=== PATIENT | male | born 1960 | race Caucasian/White ===

== ENCOUNTER 2023-08-13 15:10 | Emergency (ER) | payer OTHER, SELFPAY ==
[2023-08-13 15:17] VITALS: BP 143/91; PULSE 92; RESP 18; TEMP 36.8; O2SAT 95; BMI 33.2
--- NOTE | 2023-08-13 15:33 | ED.GENADUL1 ---
HPI - General Adult General Chief complaint: Upper Respiratory Infection Stated complaint: COUGH Time Seen by Provider: 08/13/23 15:13 Source: patient Mode of arrival: walk-in History of Present Illness HPI narrative: patient chest congestion and cough for almost two weeks. He saw his PCP last week and has been taking cefdinir, cough syrup and albuterol prescribed by his second cook and baker. He denied any fever or chills. Back on he had an episode of coughing where I couldn't stop and I cough so hard that I passed out. No syncopal events since then. No chest pain or pressure. no vomiting or diarrhea. Related Data Home Medications Medication Instructions Recorded Confirmed albuterol sulfate 2.5 mg/3 mL 2.5 mg inhalation Q4H 08/13/23 08/13/23 (0.083 %) solution for nebulization albuterol sulfate 90 mcg/actuation 1 puff inhalation Q4H PRN 08/13/23 08/13/23 aerosol inhaler shortness of breath or wheezing amlodipine 5 mg tablet 5 mg PO DAILY 08/13/23 08/13/23 cefdinir 300 mg capsule 300 mg PO BID 08/13/23 08/13/23 codeine 10 mg-guaifenesin 100 mg/5 5 ml PO Q6H PRN cough 08/13/23 08/13/23 mL oral liquid glycopyrrolate 1 mg tablet 1 mg PO BID 08/13/23 08/13/23 montelukast 10 mg tablet 10 mg PO QPM 08/13/23 08/13/23 Previous Rx's Medication Instructions Recorded prednisone 20 mg tablet 20 mg PO DAILY #9 tabs 08/13/23 Allergies Allergy/AdvReac Type Severity Reaction Status Date / Time No Known Drug Allergies Allergy Verified 08/13/23 15:19 Exam Narrative Exam Narrative: Nurses notes and vital signs reviewed and patient is not hypoxic. afebrile General: Well-appearing and in no apparent distress. Skin: Warm, dry, no pallor noted. Head: Normocephalic, atraumatic. Neck: Supple, non-tender. cervical lymphadenopathy Eye: Pupils are equal, round and EOMI. No scleral icterus. Ears, Nose, Mouth, and Throat: no nasal mucosal hypertrophy. Oral mucosa is moist Cardiovascular: Regular Rate and Rhythm without murmur, gallop or rub. Respiratory: No accessory muscle use or respiratory distress. Lungs are clear to auscultation, no wheezing, rales or rhonchi Musculoskeletal: normal ROM, no calf or popliteal tenderness, no lower extremity edema/swelling Neurological: A&O x4. No cranial nerve dysfunction observed. No truncal ataxia. Moves all extremities. Sensation intact. Psychiatric: Cooperative and interactive. Normal mood and affect. Constitutional Vital Signs, click to edit/add: Last Vital Signs Temp 98.2 F 08/13/23 15:17 Pulse 92 H 08/13/23 15:17 Resp 18 08/13/23 15:17 BP 143/91 H 08/13/23 15:17 Pulse Ox 95 08/13/23 15:17 Course Vital Signs Vital signs: Vital Signs Temperature 98.2 F 08/13/23 15:17 Pulse Rate 92 H 08/13/23 15:17 Respiratory Rate 18 08/13/23 15:17 Blood Pressure 143/91 H 08/13/23 15:17 Pulse Oximetry 95 08/13/23 15:17 Temperature 98.2 F 08/13/23 15:17 Pulse Rate 92 H 08/13/23 15:17 Respiratory Rate 18 08/13/23 15:17 Blood Pressure 143/91 H 08/13/23 15:17 Pulse Oximetry 95 08/13/23 15:17 Medical Decision Making [facility] Narrative Medical decision making narrative: patient and I talked about his vital signs, exam findings and was started the the patient will be discharged home with a prescription for steroids. He'll continue take his other medication and finished the antibiotics as prescribed. He can follow-up with his primary care provider as needed or return to emergency Department if he worsens. Discharge Plan Discharge Chief Complaint: Upper Respiratory Infection Clinical Impression: Bronchitis Patient Disposition: Home, Self-Care Time of Disposition Decision: 15:32 Prescriptions / Home Meds: New prednisone 20 mg tablet 20 mg PO DAILY Qty: 9 0RF Rx Instructions: two tabs daily for 3 days then one tab daily for 3 days No Action albuterol sulfate 90 mcg/actuation HFA aerosol inhaler 1 puff INHALATION Q4H PRN (Reason: shortness of breath or wheezing) albuterol sulfate 2.5 mg /3 mL (0.083 %) solution for nebulization 2.5 mg inhalation Q4H amlodipine 5 mg tablet 5 mg PO DAILY codeine-guaifenesin 10-100 mg/5 mL liquid 5 ml PO Q6H PRN (Reason: cough) glycopyrrolate 1 mg tablet 1 mg PO BID montelukast 10 mg tablet 10 mg PO QPM cefdinir 300 mg capsule 300 mg PO BID Instructions: Acute Bronchitis (ED) Stand Alone Forms: Portal Instructions Referrals: DEBORA HEIN [Primary Care Provider] - 1 week
== END 2023-08-13 15:40 | disposition home or self-care (01) ==
PROVIDERS: Emergency Provider Emergency Medicine; PCP Internal Medicine
DX: J40 Bronchitis, not specified as acute or chronic (principal); Z79.899 Other long term (current) drug therapy
CPT/HCPCS: 99283

== ENCOUNTER 2024-05-08 11:49 | Outpatient (OUT) | payer MEDICARE, SELFPAY ==
--- NOTE | 2024-05-08 12:06 | XR_ITS ---
The [address] [address] Patient Name: [facility] MRN: [id number] date: 1960 Sex: M Assigned Patient Location: LAB Current Patient Location: LAB Accession/Order Number: [id number] Exam Date: 05/08/2024 12:00 Report Date: 05/08/2024 12:17 At the request of: LINDA JEONG Procedure: XR chest 2V EXAM: XR chest 2V HISTORY: Chronic Cough R05.3 COMPARISON: 06/18/2019 TECHNIQUE: Upright PA and lateral chest x-ray FINDINGS: The heart is not enlarged and the vasculature is not distended. No acute infiltrate, effusion or pneumothorax is identified. The osseous structures are grossly intact. XR/XR chest 2V IMPRESSION: No acute infiltrate or evidence of cardiac decompensation. The overall appearance of the chest is essentially unchanged Electronically authenticated by: OLE WAHL Date: 05/08/2024 12:17
== END 2024-05-08 11:50 | disposition home or self-care (01) ==
LOC: LAB 11:52 → RAD 12:46
PROVIDERS: PCP Internal Medicine; Visit Provider Physician Assistant
DX: R05.3 Chronic cough (principal)
CPT/HCPCS: 71046

== ENCOUNTER 2024-08-27 20:29 | Emergency (ER) | payer MEDICARE, SELFPAY ==
--- OUTSIDE RECORDS SUMMARY | 2024-08-27 20:35 | XMS_ITS | CCD ---
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 Name Role Phone Marquise Miller Unavailable Unavail able Angela, Marquise Lincoln Unavailable Unavail able NICK BESS Unavailable Unavailable David Quintana Unavailable Unavailable Marquise Johnston Unavailable Unavailable Angela, Marquise Lincoln Unavailable Unavail able Angela, Marquise Lincoln Unavailable Unavail able NICK BESS Unavailable Unavailable NICK BESS Unavailable Unavailable PHYSICIAN, DEFAULT Unavailable Unavailable PHYSICIAN, DEFAULT Unavailable Unavailable PHYSICIAN, DEFAULT Unavailable Unavailable PHYSICIAN, DEFAULT Unavailable Unavailable PHYSICIAN, DEFAULT Unavailable Unavailable PHYSICIAN, DEFAULT Unavailable Unavailable MELVINA, DR CAZARES Attending Unavailable MELVINA, DR CAZARES Consulting Unavailable MELVINA, DR CAZARES Primary Care Unavailable MELVINA, DR CAZARES Admitting Unavailable WEST, DR MARCUS Rausch Consulting Unavailable REQUEST, DR NOEL LISTED Attending Unavaila ble REQUEST, DR NOEL LISTED Consulting Unavaila ble REQUEST, DR NOEL LISTED Admitting Unavaila ble MELVINA, DR CAZARES Primary Care Unavailable REQUEST, DR NOEL LISTED Admitting Unavaila ble REQUEST, NONE LISTED Attending Unavaila ble REQUEST, DR NOEL LISTED Consulting Unavaila ble MELVINA, DR CAZARES Primary Care Unavailable MELVINA, DR CAZARES Attending Unavailable MELVINA, DR CAZARES Consulting Unavailable MELVINA, DR CAZARES Primary Care Unavailable MELVINA, DR CAZARES Admitting Unavailable ZIEBER, DR ELIAS Flor Consulting Unavailable Nory, Gayle Unavailable Nick Bess MD Unavailable Nick Bess MD Primary Care Provider POLY ROSENBERG Attending Unavailable MARINA JEONG Attending Unavailable POLY ROSENBERG Attending Unavailable MARINA JEONG Attending Unavailable MARINA JEONG Attending Unavailable POLY ROSENBERG Attending Unavailable NICK BESS Attending Unavailable MARINA JEONG Attending Unavailable POLY ROSENBERG Attending Unavailable HEMMER, MARINA M Attending Unavailable Nick Bess MD Unavailable Allergies Allergy Classification Reported Allergen(s) Allergy Type Date of Onset Reaction(s) Facility (5 sources) COVID-19 Ad26 Vaccine(Rkylin) Drug allergy rash [employer] Other Medications Current Medications Medication Drug Class(es) Dates Sig (Normalized) Sig (Original) 30 ACTUAT fluticasone furoate 0.2 MG/ACTUAT / umeclidinium 0.0625 MG/ACTUAT / vilanterol 0.025 MG/ACTUAT Dry Powder Inhaler [Trelegy] (5 sources) Start: 06-20-2021 take 1 puff(s) by inhalation once daily Trelegy Ellipta 200-62.5-25 MCG/ACT 1 puff Inhalation Once a day Jun, Active Start: 06-20-2021 take 1 puff(s) by in halation once daily Trelegy Ellipta 200-62.5-25 MCG/ACT 1 puff Inhalation Once a day for 30 days Jun, Active Start: 06-20-2021 take 1 puff(s) by in halation once daily Trelegy Ellipta 200-62.5-25 MCG/INH 1 puff Inhalation Once a day Jun, Active Start: 06-20-2021 take 1 puff(s) by in halation once daily Trelegy Ellipta 200-62.5-25 MCG/INH 1 puff Inhalation Once a day for 30 day(s) Jun, Active albuterol 0.83 mg/ml inhalation solution (11 sources) beta2-Adrenergic Agonist Start: 04-23-2024 albut abraham (2.5 MG/3ML) 0.083% nebulizer solution Take 2.5 mg by nebulization every 6 (six) hours if needed 04/23/2024 Active Start: 08-07-2023 albuterol (2.5 MG/3ML) 0.083% nebulizer solution Take 2.5 mg by nebulization every 6 (six) hours if needed for wheezing or shortness of breath 0 08/07/2023 Active Start: 03-14-2023 take 1 puff(s) by in halation every four hours as needed Albuterol Sulfate HFA 108 (90 Base) MCG/ACT 1 puff as needed Inhalation every 4 hrs 13 Mar, 2023 Active Albuterol Sulfat e (2.5 MG/3ML) 0.083% 1 unit dose Inhalation four times a day DX J44.9 COPD for 30 days Active amLODIPine 5 mg oral tablet (10 sources) Dihydropyridine Calcium Channel Maurilio Start: 04-09-2024 take 1 tablet by mouth once daily amLODIPine (Norvasc) 5 MG tablet Indications: Benign essential hypertension (CMS/HCC) TAKE 1 TABLET BY MOUTH ONCE A DAY 90 tablet 3 04/09/2024 Active Start: 04-01-2023 take 1 tablet by loyd th once daily amLODIPine (Norvasc) 5 MG tablet Indications: Benign essential hypertension (CMS/HCC) TAKE ONE TABLET BY MOUTH ONCE DAILY 100 tablet 3 04/01/2023 Active Aspir-81 81 MG (5 sources) take 1 tablet by mouth once daily Aspir-81 81 MG 1 tablet Orally Once a day Active atorvastatin 20 mg oral tablet (5 sources) HMG-CoA Reductase Inhibitor Start: take 1 tablet by mouth in the morning atorvastatin (Lipitor) 20 MG tablet Indications: Mixed hyperlipidemia (CMS/HCC) Take 1 tablet (20 mg) by mouth in the morning. 100 tablet 3 10/01/2023 Active azelastine hydrochloride 0.206 mg/actuat metered dose nasal spray (5 sources) Histamine-1 Receptor Antagonist take 2 spray(s) nasal route once daily Azelastine HCl 0.15 % 2 sprays in each nostril Nasally Once a day Active 120 actuat budesonide 0.16 mg/actuat / formoterol fumarate 0.0048 mg/actuat / glycopyrrolate 0.009 mg/actuat metered dose inhaler (5 sources) Corticosteroid, beta2-Adrenergic Agonist Start: take 2 puff(s) by inhalation at bedtime Hfxyglp-Pnohmcljfdi-Y ormoterol (Breztri Aerosphere) 160-9-4.8 MCG/ACT aerosol Indications: Moderate persistent asthma with exacerbation (CMS/HCC) INHALE 2 PUFFS IN THE MORNING AND BEFORE BEDTIME 4.8 g 2 03/02/2024 Active Start: 09-17-2023 take 2 puff(s) by inhalation in the morning Oaitdzy-Wnhtzumqblp-Ldbivhmjtw (Breztri Aerosphere) 160-9-4.8 MCG/ACT aerosol Indications: Moderate persistent asthma with exacerbation (CMS/HCC) Inhale 2 puffs in the morning and 2 puffs before bedtime. 0 09/17/2023 Active cetirizine hydrochloride 10 mg chewable tablet (4 sources) Histamine-1 Receptor Antagonist cetirizine (ZyrTEC) 10 MG chewable tablet Chew 10 mg Daily Active Equate - (5 sources) Equate - as dire cted Orally Active Equate - as dire cted Orally Not-Taking fluorouracil 50 mg/ml topical cream (3 sources) Nucleoside Metabolic Inhibitor Start: 03-23-2024 End: 05-08-2024 fluorouracil (Efudex) 5 % cream Indications: Actinic keratosis Apply to directed areas on the scalp twice a day x 14 days. Dispense 30 day supply but only use for 14 days. 40 g 03/23/2024 05/08/2024 Discontinued (Therapy completed) fluticasone propionate 0.05 mg/actuat metered dose nasal spray (10 sources) Corticosteroid Start: 10-09-2023 take 1-2 spray(s) nasal route once daily in the morning fluticasone (Flonase) 50 MCG/ACT nasal spray Indications: Allergic rhinitis due to pollen, unspecified seasonality USE 1 - 2 SPRAYS IN EACH NOSTRIL ONCE EVERY MORNING *SHAKE GENTLY BEFORE FIRST USE PRIME PUMP AFTER USE CLEAN TIP AND REPLACE CAP* 48 mL 3 10/09/2023 Active Start: 09-17-2023 take 1-2 spray(s) na anabella route in the morning fluticasone (Flonase) 50 MCG/ACT nasal spray Indications: Allergic rhinitis due to pollen, unspecified seasonality Administer 1-2 sprays into each nostril in the morning. Shake gently. Before first use, prime pump. After use, clean tip and replace cap.. 16 g 5 09/17/2023 Active take 1 spray(s) nasa l route once daily Fluticasone Propionate 50 MCG/ACT 1 spray in each nostril Nasally Once a day Active glycopyrrolate 1 mg oral tablet (6 sources) Start: 03-25-2023 take 1 tablet by mouth twice daily glycopyrrolate (Robinul) 1 MG tablet Indications: Gastroesophageal reflux disease without esophagitis TAKE ONE TABLET BY MOUTH TWICE A DAY 60 tablet 6 03/25/2023 Active levoFLOXacin 500 mg oral tablet (2 sources) Quinolone Antimicrobial take 1 tablet by mouth every twenty-four hours levoFLOXacin 500 MG 1 tablet Orally Once a day Active loratadine 10 mg oral tablet (6 sources) take 1 tablet by mouth in the morning loratadine (Claritin) 10 MG tablet Take 10 mg by mouth in the morning. 0 Active montelukast 10 mg oral tablet (10 sources) Leukotriene Receptor Antagonist Start: 12-16-2023 take 1 tablet by mouth in the evening montelukast (Singulair) 10 MG tablet Indications: Chronic rhinitis Take 1 tablet (10 mg) by mouth in the evening 100 tablet 2 12/16/2023 Active Start: 03-07-2023 take 1 tablet by loyd th once daily in the evening montelukast (Singulair) 10 MG tablet Indications: Chronic rhinitis TAKE ONE TABLET BY MOUTH DAILY IN THE EVENING 30 tablet 11 03/07/2023 Active omeprazole 20 mg delayed release oral capsule (10 sources) Proton Pump Inhibitor Start: 09-19-2023 take 1 capsule by mouth once daily omeprazole (PriLOSEC) [address] capsule Indications: Gastroesophageal reflux disease without esophagitis Take 1 capsule (20 mg) by mouth 1 (one) time each day at the same time 100 capsule 3 09/19/2023 Active Start: 10-13-2020 take 1 capsule by mo ut once daily Omeprazole 20 MG 1 capsule 30 minutes before morning meal Orally Once a day Oct, Active predniSONE 10 mg oral tablet (2 sources) Start: 06-20-2021 predniSONE 10 MG 4 tabs x 3 days, 2 tabs x 3 days, 1 tab x 3 days, then stop. Orally Once a day for 9 days Jun, Active Completed/Discontinued Medications Medication Drug Class(es) Dates Sig (Normalized) Sig (Original) guaiFENesin / Phenylephrine / Phenylpropanolamine (2 sources) alpha-1 Adrenergic Agonist Guaifenex LA Not-Taking 1 ml triamcinolone acetonide 40 mg/ml prefilled syringe (4 sources) Corticosteroid Start: 4 End: 4 triamcinolone acetonide (Kenalog-40) injection 40 mg Start: 05-08-2024 End: 05-08-2024 triamcinolone acetonide (Kenalog-40) injection 40 mg Start: 05-08-2024 End: 05-08-2024 inject 40 mg by intramuscular injection once 40 mg, Intramuscular, Once, On Sat05/08/24 at 1145, For 1 dose Start: 05-08-2024 End: 05-08-2024 inject 40 mg by intramuscular injection once 40 mg, Intramuscular, Once, On Sat05/08/24 at 1145, For 1 dose Problems Active Problems Problem Classification Problem Date Documented Date Episodic/Chronic Asthma (20 sources) Reactive airway disease; Translations: [Unspecified asthma, uncomplicated] Onset: 06-20-2021 Resolved: 10-08-2023 Chronic Conduction disorders (5 sources) Bifascicular block; Translations: [Bifascicular block] Onset: 04-01-2023 04-01-2023 Chronic Disorders of lipid metabolism (10 sources) Raised low density lipoprotein cholesterol; Translations: [Pure hypercholesterolemia, unspecified] Onset: 04-01-2023 Resolved: 10-08-2023 04-01-2023 Chronic Esophageal disorders (19 sources) Gastroesophageal reflux disease; Translations: [Gastro-esophageal reflux disease without esophagitis] Onset: 06-20-2021 Resolved: 03-19-2022 Chronic Essential hypertension (7 sources) Benign essential hypertension; Translations: [Essential (primary) hypertension] Onset: 04-01-2023 04-01-2023 Chronic Osteoarthritis (5 sources) Osteoarthritis of right knee joint; Translations: [Unilateral primary osteoarthritis, right knee] Onset: 04-01-2023 04-01-2023 Chronic Other liver diseases (5 sources) Steatosis of liver; Translations: [Fatty (change of) liver, not elsewhere classified] Onset: 04-01-2023 04-01-2023 Chronic Other upper respiratory disease (5 sources) Allergic rhinitis; Translations: [Allergic rhinitis, unspecified] Onset: 04-01-2023 04-01-2023 Chronic Other upper respiratory disease (5 sources) Chronic laryngitis; Translations: [Chronic laryngitis] Onset: 04-01-2023 04-01-2023 Chronic Other upper respiratory disease (5 sources) Chronic rhinitis; Translations: [Chronic rhinitis] Onset: 04-01-2023 04-01-2023 Chronic Other upper respiratory infections (10 sources) Chronic bilateral maxillary sinusitis; Translations: [Chronic maxillary sinusitis] Onset: 04-01-2023 Resolved: 09-17-2023 04-01-2023 Chronic Residual codes; unclassified (5 sources) Sleep apnea; Translations: [Sleep apnea, unspecified] Chronic Residual codes; unclassified (3 sources) Sleep apnea, unspecified; Translations: [Sleep apnea G47.30] Onset: 06-20-2021 Resolved: 03-19-2022 Chronic Residual codes; unclassified (7 sources) Obstructive sleep apnea syndrome; Translations: [Obstructive sleep apnea (adult) (pediatric)] Onset: 04-01-2023 04-01-2023 Chronic Unclassified (3 sources) ELEV LVLS LIVER TRANSAMINASE LVLS; Translations: [ELEV LVLS LIVER TRANSAMINASE LVLS] Onset: 08-12-2021 Past or Other Problems Problem Classification Problem Date Documented Da te Episodic/Chronic Anxiety disorders (5 sources) Anxiety state; Translations: [Generalized anxiety disorder] Onset: 04-01-2023 Resolved: 09-17-2023 09-17-2023 Chronic Diabetes mellitus without complication (5 sources) Disorder of glucose metabolism; Translations: [Other abnormal glucose] Onset: 04-01-2023 04-01-2023 Episodic Joint disorders and dislocations; trauma-related (5 sources) Derangement of right knee; Translations: [Unspecified internal derangement of right knee] Onset: 04-01-2023 Resolved: 09-17-2023 09-17-2023 Chronic Mood disorders (4 sources) Mood disorders Onset: 10-02-2023 10-08-2023 Other liver diseases (5 sources) Enzyme level - finding; Translations: [Elevated transaminase level] Onset: 04-01-2023 04-01-2023 Episodic Other lower respiratory disease (11 sources) Chronic cough; Translations: [Chronic cough] Onset: 07-28-2021 Resolved: 10-08-2023 Episodic Other non-epithelial cancer of skin (6 sources) Basal cell carcinoma of truncal skin; Translations: [Basal cell carcinoma of skin of other part of trunk] Onset: 04-01-2023 04-01-2023 Episodic Other skin disorders (5 sources) Lump on finger; Translations: [Localized swelling, mass and lump, unspecified upper limb] Onset: 04-01-2023 Resolved: 09-17-2023 09-17-2023 Episodic Unclassified (1 source) ELEV LVLS LIVER TRANSAMINASE LVLS; Translations: [ELEV LVLS LIVER TRANSAMINASE LVLS] Onset: 08-08-2021 Results Test Name Value Interpretation Reference Range Facility Destr of lesionon 04-22-2024 Complexity: simple Destruction method: electrodesiccation and curettage Informed consent: discussed and consent obtained Informed consent comment: The risks of the procedure were discussed, including, but not limited to risks of scarring, darker or army ranger pigmentary changes, recurrence, infection, and incomplete removal Timeout: patient name, date of , surgical site, and procedure verified Timeout comment: Patient and provider identified site. Site was marked. Photo was taken and shown to patient, patient verified this is the correct site. Procedure prep: Patient was prepped and draped in usual sterile fashion Prep type: Chlorhexidine Anesthesia: the lesion was anesthetized in a standard fashion Anesthetic: 1% lidocaine w/ epinephrine 1-100,000 buffered w/ 8.4% NaHCO3 Curettage performed in three different directions: Yes Electrodesiccation performed over the curetted area: Yes Curettage cycles: 3 Lesion length (cm): 1.1 Lesion width (cm): 0.5 Margin per side (cm): 0 Final wound size (cm): 1.1 Hemostasis achieved with: electrodesiccation Outcome: patient tolerated procedure well with no complications Post-procedure details: wound care instructions given Post-procedure details comment: Post-procedure instructions were given verbally and in writing. The office will be contacted if the lesion fails to resolve despite treatment, or if a side effect develops such as abnormal crusting, scabbing, reddness, discharge, or tenderness. Additional details: Amount of lidocaine used: 3.0 cc Previous accession number: [id number] [facility] Destr of lesionOrdered By: Uzma Murray on 04-22-2024 [facility] [employer] [employer] Work Phone: US SINGLE QUAD RT UPPERon US SINGLE QUAD RT UPPER EXAMINATION: US SINGLE QUAD RT UPPER HISTORY: Elevated liver enzymes level COMPARISON: No relevant comparison available. FINDINGS: The visualized pancreas is normal in appearance The liver is normal in size and contour. Diffuse increase in hepatic echotexture with an area of hypodensity at the gallbladder fossa measuring 1.5 x 1.3 x 1.8 cm possibly an area of focal fatty sparing. Normal hepatopedal flow in the main portal vein The gallbladder is normal in size. The gallbladder wall measures 1.7 mm, normal. No cholelithiasis or gallbladder sludge or pericholecystic fluid. The common bile duct measures 5.1 mm, normal. Negative sonographic Helton sign The right kidney is normal in size, contour and echotexture measuring 10.8 x 5.6 x 6.3 cm per the cortex measures 1.7 cm. IMPRESSION: Increased hepatic echotexture suggesting hepatic steatosis Electronically authenticated by: MARCUS FERMIN Date: 2021-08-08 09:23 Normal [facility] XR CHEST 2 Von 07-28-2021 XR CHEST 2 V EXAMINATION: XR CHES T 2 V HISTORY: Chronic cough COMPARISON: XR chest 05/19/2019 FINDINGS: LUNGS: No significant pulmonary parenchymal abnormalities. Stable small dense nodule within lateral left lung base. VASCULATURE: No increased pulmonary vasculature. PLEURA: No pneumothorax, effusion, or pleural thickening. CARDIAC: No cardiomegaly or cardiac silhouette abnormality. MEDIASTINUM: No visible mass or adenopathy. BONES: No fracture or visible bone lesion. OTHER: Negative. IMPRESSION: 1. No acute cardiopulmonary process or significant chronic interstitial changes. Electronically authenticated by: ELIAS PICKARD Date: 2021-07-28 10:35 Normal [facility] History and Physicalon 02-10 History and Physical [id number]#1.00OTGTIFF [facility] Provider Orderson 02-10-2018 Provider Orders [id number]#1.00OTGTIFF [facility] Intraoperative Noteon 2017 Intraoperative Note [id number]#1.00OTGTIFF [facility] Coding Queryon 01-02-2018 Coding Query Please review the PreOperative diagnosis -- there seems to be a dragon/dictating error. Please correct it on the Operative Note.Thanks.Felice[E lectronically Signed on: 01/02/2018 18:59 EDT] Marquise Miller DO[Verified on: 01/02/2018 18:59 EDT] Marquise Miller DO[Transcribed on: 01/02/2018 11:50 EDT][facility] Coding Summaryon 01-02-2018 Coding Summary CODING DATE: 018 [facility] STATUS: Home PAYOR: Commercial Insurance APC DESCRIPTION 5113 Level 3 Musculoskeletal Procedures ADMIT DX: REASON FOR VISIT DX: M23.91 Unspecified internal derangement of right knee FINAL DX: PRINCIPAL: S83.281A Other tear of lateral meniscus, current injury, right knee, initial encounter SECONDARY: S83.241A Other tear of medial meniscus, current injury, right knee, initial encounter PYMT PROC APC STAT DESCRIPTION DOCTOR NAME DATE 24258 5113 J1 Arthroscopy, knee, Angela Marquise And 12/30/2017 surgical; with meniscectomy (medial AND lateral, including any meniscal shaving) including debridement/shaving of articular cartilage (chondroplasty), same or separate compartment(s), when performed RT Right side (used to identify procedures performed on the right side of the body) NOTE: The code number assigned matches the documented diagnosis and / or procedure in the patient's chart. However, the narrative phrase printed from the coding software may appear abbreviated, or result in slightly different terminology. Coded By: Yisel Hong Date Saved: 01/02/2018 12:00 pm [facility] Coding Summary CODING DATE: 018 [facility] STATUS: Home PAYOR: Commercial Insurance ADMIT DX: REASON FOR VISIT DX: S83.241A Other tear of medial meniscus, current injury, right knee, initial encounter FINAL DX: PRINCIPAL: S83.241A Other tear of medial meniscus, current injury, right knee, initial encounter SECONDARY: PROCEDURES DOCTOR NAME DATE NOTE: The code number assigned matches the documented diagnosis and / or procedure in the patient's chart. However, the narrative phrase printed from the coding software may appear abbreviated, or result in slightly different terminology. Coded By: Fabi Francis Date Saved: 01/02/2018 07:59 am [facility] Consent Formson 12-31-2017 Consent Forms [id number]#[address] [place] [address] Discharge Instructionson Discharge Instructions [id number]#[address] Intraoperative Noteon 2017 Intraoperative Note [id number]#[address] [place] [address] Medication Managementon Medication Management [id number]#[address] [place] [address] Outside Recordson 12-31-2017 Outside Records [id number]#[address] [place] [address] Telemetry Stripson 8 Telemetry Strips [id number]#[address] [place] [address] Anesthesia Noteon 12-30-2017 Anesthesia Note Patient: BARTOLO HEART : 57 years Sex: MALE : 56Associated Diagnoses: NoneAuthor: David Quintana MDPostoperative InformationPost Operative Note: Operative Day.Anesthetic utilized: General.Health StatusAllergies:Allergic Reactions (All)No known allergiesProblem list (past medical history):All ProblemsAsthma / SNOMED CT 090410450 / ConfirmedArrhythmia / SNOMED CT 7986783665 / ConfirmedSinus disorder / SNOMED CT 5365205336 / ConfirmedAcid reflux / SNOMED CT 173370484 / ConfirmedHypertension / SNOMED CT 8232285216 / ConfirmedPhysical ExaminationVS/MeasurementsV ital Signs (last 24 hrs) Last ChartedHeart Rate Peripheral 85 bpm (DEC 30 11:00)Resp Rate 18 br/min (DEC 30 11:00)SBP 107 mmHg (DEC 30 12:34)DBP 71 mmHg (DEC 30 12:34)SpO2 87 % (DEC 30 12:35)Review / ManagementCondition: Stable.AssessmentAnesthetic outcomeNo anesthetic complications noted.PlanTransfer/ Discharge: Patient can be discharged from PACU when criteria met.Condition good.[Electronically Signed on: 12/30/2017 12:45 EDT] David Quintana MD[Verified on: 12/30/2017 12:45 EDT] David Quintana MD [facility] Anesthesia Note Patient: BARTOLO HEART : 57 years Sex: MALE : [birth year]Associated Diagnoses: NoneAuthor: David Quintana MDPreoperative InformationAnesthesia history: Patient history: No difficult intubation, No malignant hyperthermia. Family history: No malignant hyperthermia.Review of SystemsConstitutional: Negative.Respiratory: Negative, No shortness of breath.Cardiovascular: No chest pain.Neurologic: Alert and oriented X4.Health StatusAllergies:Allergic Reactions (All)No known allergiesCurrent medications:Home Medications (7) ActiveamLODIPine 5 mg oral tablet 5 mg = 1 tab(s), PO, Dailyaspirin 81 mg oral delayed release tablet 81 mg = 1 tab(s), PO, Dailyfamotidine 20 mg oral tablet one tab(s), PO, DailyhydrOXYzine hydrochloride 25 mg oral tablet 25 mg = 1 tab(s), PO, Dailyomeprazole 40 mg oral delayed release capsule 40 mg = 1 cap(s), PO, DailySingulair 10 mg oral tablet 10 mg = 1 tab(s), PO, HSSymbicort 160 mcg-4.5 mcg/inh 2 puff(s), INH, BIDProblem list (past medical history):All ProblemsAsthma / SNOMED CT 945724457 / ConfirmedArrhythmia / SNOMED CT 1429577977 / ConfirmedSinus disorder / SNOMED CT 6936060430 / ConfirmedAcid reflux / SNOMED CT 642108793 / ConfirmedHypertension / SNOMED CT 7062430135 / ConfirmedHistoriesFamily History:No family history items have been selected or recorded.Procedure history:Pilar cyst ([id number]) in 2014 at 55 Years.Comments:12/27/2017 12:08 - Zoe Ingram LMIDDLE FINGER OF LEFT HANDFESS (functional endoscopic sinus surgery) diagnostic antroscopy via inferior meatus ([id number]) in 1996 at 37 Years.Social History Alcohol Assessment Beer, 3-5 times per week, 4 drinks/episode average. Previous treatment: None. Tobacco Assessment Never (less than 100 in lifetime) Tobacco Use:. Substance Abuse Assessment Substance use: Never..Social & Psychosocial TugpoqJfzvftx25/27/2018 Type: Beer Frequency: 3-5 times per week Average drinks per episode in last year: 4 Previous treatment: NoneSubstance Abuse12/27/2017 Substance use: TpbcbGnkxqsg17/27/2018 Smoking tobacco use: Never (less than 100 in l.Physical ExaminationVS/MeasurementsV ital Signs (last 24 hrs) Last ChartedHeart Rate Peripheral 85 bpm (DEC 30 11:00)Resp Rate 18 br/min (DEC 30 11:)SBP 137 mmHg (DEC 30 11:00)DBP 90 mmHg (DEC 30:00)SpO2 97 % (DEC 30:)Airway: Mallampati classification: II (soft palate, fauces, uvula visible). Temporomandibular joint mobility: Good. Mouth: Adequate opening. Neck: Full range of motion.Respiratory: Lungs are clear to auscultation.Cardiovascular : Regular rhythm.Neurologic: Alert, Oriented.Review / ManagementLaboratory ResultsPlanAmerican Society of Anesthesiologists#(ASA) physical status classification: Class II.Anesthetic Preoperative PlanAnesthesia: General.. Anesthetic plan, risks, benefits, and alternatives discussed with the patient and/or family. Patient verbalized understanding.[Electronical ly Signed on: 12/30/2017 11:09 EDT] David Quintana MD[Verified on: 12/30/2017 11:09 EDT] David Quintana MD Normal [facility] Inpatient Clinical Summaryon 12-30-2017 Inpatient Clinical Summary [facility] SURGERYClinical Discharge SummaryPERSON INFORMATIONName EFRAIN HEART Age 57 Years 56Sex MALE Language Niuean PCP [place] BESS Status [facility] 15[facility] Acct# Arrival 12/30/17 10:26:36Visit Reason KNEE ARTHROSCOPY Acuity LOS 004 02:46Address:[address] [facility] [id number]:PROVIDER INFORMATIONVITALS INFORMATIONVital Sign Triage LatestTemp OralTemp TemporalTemp IntravascularTemp AxillaryTemp Suhpju13 Sat 97 % 94 %Respiratory Rate 18 br/min 18 br/minPeripheral Pulse Rate 85 bpm 85 bpmApical Heart RateBlood Pressure 137 mmHg / 90 mmHg 129 mmHg / 89 mmHgComment:MEDICAL INFORMATIONAllergy Info:No known allergiesPrescriptions Given:Home Meds DisplayamLODIPine (amLODIPine 5 mg oral tablet) 1 tab(s) ( 5 mg ), PO, Daily, 0 Refill(s)aspirin (aspirin 81 mg oral delayed release tablet) 1 tab(s) ( 81 mg ), PO, Daily, 0 Refill(s)budesonide-formote rol (Symbicort 160 mcg-4.5 mcg/inh) 2 puff(s), INH, BID, # 6 gm, 0 Refill(s)famotidine (famotidine 20 mg oral tablet) one tab(s), PO, Daily, 0 Refill(s)hydrOXYzine (hydrOXYzine hydrochloride 25 mg oral tablet) 1 tab(s) ( 25 mg ), PO, Daily, # 30 tab(s), 0 Refill(s)montelukast (Singulair 10 mg oral tablet) 1 tab(s) ( 10 mg ), PO, HS, # 30 tab(s), 0 Refill(s)omeprazole (omeprazole 40 mg oral delayed release capsule) 1 cap(s) ( 40 mg ), PO, Daily, # 30 cap(s), 0 Refill(s)Medication List:Continue These Medications:amLODIPine (amLODIPine 5 mg oral tablet) 5 mg Oral every dayaspirin (aspirin 81 mg oral delayed release tablet) 81 mg Oral every daybudesonide-formoterol (Symbicort 160 mcg-4.5 mcg/inh) 2 puff(s) Inhalation 2 times a dayfamotidine (famotidine 20 mg oral tablet) one tab(s) Oral every dayhydrOXYzine (hydrOXYzine hydrochloride 25 mg oral tablet) 25 mg Oral every daymontelukast (Singulair 10 mg oral tablet) 10 mg Oral At bedtimeomeprazole (omeprazole 40 mg oral delayed release capsule) 40 mg Oral every dayComment:Lab and Radiology ResultsLaboratory or Other Results This Visit (last charted value for your 12/30/2017 visit) No Laboratory or Other Results This VisitDIET & ACTIVITYPatient Activity Level:Patient Diet:RegularPatient Activity Restrictions:DISCHARGE INFORMATIONDischarge Disposition:Discharge Location:DEPART REASON INCOMPLETE INFORMATIONPATIENT EDUCATION INFORMATIONInstructions:Evita dowling- Post Op Knee Arthroscopy [facility]Follow up:With: Address: When:Marquise Miller [address] [place] [address], [address] [place], [place] [id number] Business (2) 01/07/2018 8:30 AMWith: Address: When:NICK BESS [facility], [address] [place] [address] [address] [place], [place] [phone] Business (1)DIAGNOSISTorn meniscusComment:PHYS DOC NOTES Normal [facility] Inpatient Patient Summaryon 12-30-2017 Inpatient Patient Summary [address] [id number] patient Discharge InstructionsName: EFRAIN HEART WDOB: [birth year] Address: [address] [place] [address] Care Provider:Name: NICK BESSPhone: After you are discharged if you find you have any questions, please, call [phone] ext [phone] to speak to a nurse.Discharge Diagnosis: Torn meniscusIf you received any narcotics, sedation, or any other medication that causes drowsiness for the next 24 hours, unless otherwise directed:? Do not drive a car.? Do not operate machinery such as power tools, lawn mowers, drills, sewing machines, or stoves? Avoid alcoholic beverages and drugs for allergies, nerves, or sleep? Do not make important personal or business decisions or sign any legal documentsAdena Health System would like to thank you for allowing us to assist you with your healthcare needs. The following includes patient education materials and information regarding your injury/illness.EFRAIN HEART has been given the following list of follow-up instructions, prescriptions, and patient education materials:Follow-up InstructionsWith: Address: When:Marquise Miller [address] [place] [address], [address] [place] [address] Business (2) 01/07/2018 8:30 AMWith: Address: When:NICK BESS [facility], [address] [facility] [address] [place], [place] [id number] Business (1)MedicationsDuring the course of your visit, your medication list was updated with the most current information. The details of those changes are reflected below:Medications to Continue That Have Not ChangedOther MedicationsamLODIPine (amLODIPine 5 mg oral tablet) 1 tab(s) Oral every day.aspirin (aspirin 81 mg oral delayed release tablet) 1 tab(s) Oral every day.budesonide-formoterol (Symbicort 160 mcg-4.5 mcg/inh) 2 puff(s) Inhalation 2 times a day.famotidine (famotidine 20 mg oral tablet) one tab(s) Oral every day.hydrOXYzine (hydrOXYzine hydrochloride 25 mg oral tablet) 1 tab(s) Oral every day.montelukast (Singulair 10 mg oral tablet) 1 tab(s) Oral At bedtime.omeprazole (omeprazole 40 mg oral delayed release capsule) 1 cap Oral every day.It is important to always keep an active list of medications available so that you can share with other providers and manage your medications appropriately. As an additional courtesy, we are also providing you with your final active medications list that you can keep with you.amLODIPine (amLODIPine 5 mg oral tablet) 1 tab(s) Oral every day.aspirin (aspirin 81 mg oral delayed release tablet) 1 tab(s) Oral every day.budesonide-formoterol (Symbicort 160 mcg-4.5 mcg/inh) 2 puff(s) Inhalation 2 times a day.famotidine (famotidine 20 mg oral tablet) one tab(s) Oral every day.hydrOXYzine (hydrOXYzine hydrochloride 25 mg oral tablet) 1 tab(s) Oral every day.montelukast (Singulair 10 mg oral tablet) 1 tab(s) Oral At bedtime.omeprazole (omeprazole 40 mg oral delayed release capsule) 1 cap Oral every day.Take only the medications listed above. Contact your doctor prior to taking any medications not on this list.Diet & ActivityPatient Activity Level:Patient Diet: RegularPatient Activity Restrictions:Comment:Phil bentley education materials, if any, will display belowDR. BARRERA POST OPERATIVE KNEE ARTHROSCOPY INSTRUCTIONSSURGEONS WRITTEN INSTRUTCTIONS:-If you have been given a cryo cuff after surgery you should use it about 20 min/hour for the first 24 hours. After that it is optional. TIP: Many patients prefer to use it a little longer because it helps to reduce the pain.-You should take it easy for the first 3 days following surgery. You should be a ?couch potato? and get up to eat and go to the bathroom. After the first 3 days, you may gradually increase your activities as tolerated.-Change your dressing in 1 day. If the wounds are clean and dry you can cover them with a band-aid.-You may shower in 1 day. DO NOT submerge the wound under water as in a bathtub, swimming pool, or hot tub.-You may bear weight as tolerated. Using crutches or assisted devices are not required.-You should elevate your extremity-If you have any questions or concerns, please call the office at [phone] or BacteriaWhat?s got you sick?Antibiotics only treat bacterial infections. Viral illnesses cannot be treated with antibiotics. When an antibiotic is not prescribed, ask your healthcare professional for tips on how to relieve symptoms and feel better. Usual CauseIllness Viruses Bacteria Antibiotic NeededCold/Runny Nose NOBronchitis/Chest Cold (in otherwise healthy children and adults) NOWhooping Cough YesFlu NOStrep Throat YesSore Throat (except strep) NOFluid in the middle ear (otitis media with effusion) NOUrinary Tract Infection YesAntibiotics Aren?t Always the Answerwww.cdc.gov/getsmart GETSMARTKnow When Antibiotics Melania.[place] Department of Health and Human ServicesWright-Patterson Medical Centerers for Disease Control and Prevention May 2014 [facility] MAGR Intraoperative Recordon 12-30-2017 MAGR Intraoperative Record MAGR Intra-Op Record Summary Primary Physician: Marquise Miller DO Finalized Date/Time: 12/30/17 16:14:46 Pt. Name: EFRAIN HEART Rin Win/Sex: 1960 MALE Med Rec #: [id number] Physician: Marquise Miller DO Financial #: [id number] Pt. Type: D Room/Bed: / Admit/Disch: 12/30/17 10:26:36 - 12/30/17 14:24:00 Institution: Case Times MAGR Entry 1 Patient In Room Time 12/30/17 11:25:00 Out Room Time 12/30/17 12:42:00 Anesthesia Start Time 12/30/17 11:25:00 Stop Time 12/30/17 12:42:00 Surgery Start Time 12/30/17 11:53:00 Stop Time 12/30/17 12:34:00 Last Modified By: Anna He RN 12/30/17 14:01:22 Case Attendance MAGR Entry 1 Entry 2 Entry 3 Case Attendee Marquise Miller Robert M MD Sauer, Stephanie RN Andrew DO Role Performed Surgeon - Primary Anesthesiologist of Wing Mailer Machine Operator Record Time In 12/30/17 11:25:00 12/30/17 11:25:00 12/30/17 11:25:00 Time Out 12/30/17 12:42:00 12/30/17 12:42:00 12/30/17 12:42:00 Procedure Arthroscopy Knee(Right, Arthroscopy Knee(Right, Arthroscopy Knee(Right, Knee) Knee) Knee) Last Modified By: Anna He RN, Stephanie RN Sauer, Stephanie RN 12/30/17 14:02:51 12/30/17 14:02:51 12/30/17 14:02:51 Entry 4 Entry 5 Case Attendee Rosa Crabtree Aimee Buckner CST Role Performed Chief Compressor Station Engineer Scrub Personnel Time In 12/30/17 11:25:00 12/30/17 11:25:00 Time Out 12/30/17 12:42:00 12/30/17 12:42:00 Procedure Arthroscopy Knee(Right, Arthroscopy Knee(Right, Knee) Knee) Last Modified By: Anna He RN, Stephanie RN 12/30/17 14:02:51 12/30/17 14:02:51 Surgical Procedures MAGR Pre-Care Text: A.20 Verifies operative procedure, surgical site, and laterality Im.150 Develops individualized plan of care Entry 1 Procedure Arthroscopy Knee Primary Procedure Yes Primary Surgeon Marquise Miller Modifiers Right, Knee Salazar DO Surgeon Comment RIGHT KNEE ARTHROSCOPY Start 12/30/17 11:53:00 Stop 12/30/17 12:34:00 Anesthesia Type General Surgical Service Orthopedics Wound Class Clean Last Modified By: Anna He RN 12/30/17 14:02:58 Post-Care Text: O.730 The patient's care is consistent with the individualized perioperative plan of care General Case Data MAGR Pre-Care Text: A.350.1 Classifies surgical wound Entry 1 Case Information OR MAGR OR 02 Case Level Level 4 Wound Class Clean Specialty Orthopedics ASA Class 2 Diagnosis Preop Diagnosis INTERNAL DERANGEMENT Postop Same As Preop Yes Postop Diagnosis INTERNAL DERANGEMENT Last Modified By: Anna He RN 12/30/17 12:16:32 Post-Care Text: O.760 Patient receives consistent and comparable care regardless of the setting Time Out MAGR Entry 1 Time out date/time 12/30/17 11:52:00 All team members Yes have introduced themselves by name and role Surgeon, Yes Surgeon reviews Yes anesthesia, nurse critical or confirm patient, unexpected steps, site, procedure operative duration, anticipated blood loss Anesthesia team Yes Nursing team Yes reviews any reviews sterility patient-specific (including concerns indicator results) and equipment issues/concerns Antibiotic Antibiotic Yes Administration Time 11:30 prophylaxis given within the last 60 minutes Is essential Yes imaging displayed? Last Modified By: Anna He RN 12/30/17 12:16:58 Skin Prep MAGR Pre-Care Text: A.30 Verifies allergies Im.270 Performs skin preparation Im.270.1 Implements protective measures to prevent skin and tissue injury due to chemical sources Entry 1 Skin Prep Syntegrity Prep Agents (Im.270) Chlorhexidine Gluconate Prep By Anna He RN and Alcohol Prep Area (Im.270) Leg lower, Foot, Leg Skin Prep Agent Dry Yes upper Without Pooling Hair Removal Syntegrity Hair Removal Methods No hair removal performed Outcome Met (O.100) Yes Last Modified By: Anna He RN 12/30/17 12:17:46 Post-Care Text: E.10 Evaluates for signs and symptoms of physical injury to skin and tissue O.100 Patient is free from signs and symptoms of chemical injury Counts Verification MAGR Pre-Care Text: A.20 Verifies operative procedure, surgical site, and laterality A.20.2 Assesses the risk for unintended retained foreign body Im.20 Performs required counts Entry 1 Procedure Arthroscopy Knee(Right, Knee) Counts Verification Initial Counts Items included in Sponges, Sharps Initial Counts Manual the Initial Count Method Initial Counts Anna He RN, Initial Count Time 12/30/17 10:00:00 Performed By Aimee Calderón Counts Verification Final Counts Items Included in Sponges, Sharps Final Count Method Manual Final Count Final Count Status Correct Final Counts Anna He RN, Performed By Aimee Calderón Final Count Time 12/30/17 12:25:00 Surgeon notified of Yes final counts status Outcome Met (O.20) Yes Last Modified By: Anna He RN 12/30/17 12:18:19 Post-Care Text: E.50 Evaluates results of the surgical count O.20 Patient is free from unintended retained foreign objects Patient Care Devices MAGR Pre-Care Text: A.200 Assesses risk for normothermia regulation A.40 Verifies presence of prosthetics or corrective devices Im.280 Implements thermoregulation measures Im.60 Uses supplies and equipment within safe parameters Entry 1 Equipment Type FORCED WARM AIR Serial ?# [id number] Equipment Setting 43 DEGREES Last Modified By: Anna He RN 12/30/17 14:06:44 Post-Care Text: E.10 Evaluates signs and symptoms of physical injury to skin and tissue O.700 Patient is free from signs and symptoms of injury caused by extraneous objects Medication Administration MAGR Pre-Care Text: A.210 Identifies physiological status Im.220 Administers prescribed medications Entry 1 Time Administered 12/30/17 11:53:00 Medication EPI 1:1,000 0.3ML TO 3,000 ML 0.9% NORMAL SALINE Route of Admin IRRIG By Marquise Miller DO Outcome Met (O.130) Yes Last Modified By: Anna He RN 12/30/17 12:18:51 Post-Care Text: E.20 Evaluates response to medications O.130 Patient receives appropriately administered medication(s) General Comments: 2 bags prepared Dressing/Packing MAGR Pre-Care Text: A.350 Assesses susceptibility for infection Im.290 Administer care to wound sites Entry 1 Skin Prep Agent Yes Site Knee Removed Prior to Dressing? Site Details Right Dressing Item Details Dressing Item ABD, 4x4's (Im.290) Outcome Met Yes Last Modified By: Anna He RN 12/30/17 12:19:24 Post-Care Text: E.200 Evaluates progress of wound healing O.200 Patient's wound perfusion is consistent with or improved from baseline levels Departure from OR MAGR Entry 1 Present on Depart Oxygen Via Stretcher Post-op Destination PACU Skin DFO Condition Dry Description Condition Warm Description Report Given To Jaqueline Nguyen RN Airway Maintenance Patient Status Stable Oxygen in Use? Yes Airway Device Simple mask Flow Rate 10 Last Modified By: Anna He RN 12/30/17 12:21:22 Case Comments Finalized By: Anna He RN Document Signatures Signed By: Anna He RN 12/30/17 14:06 Anna He RN 12/30/17 16:14 Unfinalized History Date/Time Username Reason for Unfinalizing Freetext Reason for Unfinalizing 12/30/17 16:13 [facility] Joyce Documentation [facility] Primary Physician: Marquise Miller DO Finalized Date/Time: 12/30/17 13:21:10 Pt. Name: ARSENIO HEARTANALI Fernandes/Sex: 1960 MALE Med Rec #: [id number] Physician: Marquise Miller DO Financial #: [id number] Pt. Type: D Room/Bed: / Admit/Disch: 12/30/17 10:26:36 - Institution: PACU Case Times MAGR Entry 1 In PACU I 12/30/17 12:41:00 Discharge from PACU 12/30/17 13:10:00 I Last Modified By: Jaqueline Nguyen RN 12/30/17 13:08:24 Finalized By: Jaqueline Nguyen RN Document Signatures Signed By: Jaqueline Nguyen RN 12/30/17 13[facility] 12-[facility]2017 MAGR Postoperative Record MAGR Phase II Record Summary Primary Physician: Marquise Miller DO Finalized Date/Time: 12/30/17 14:25:01 Pt. Name: ARSENIO HEARTANALI Fernandes/Sex: 1960 MALE Med Rec #: [id number] Physician: Marquise Miller DO Financial #: [id number] Pt. Type: D Room/Bed: / Admit/Disch: 12/30/17 10:26:36 - Institution: Phase II Case Times MAGR Pre-Care Text: Patient is free from s/s of injury. Patient remains free from compromised physical state related to surgery or anesthesia. Patient comfort maintained. Patient/family verbalize understanding of discharge instructions. Entry 1 In PACU II 12/30/17 13:15:00 Discharge from PACU 12/30/17 14:24:00 II Last Modified By: Viry Rehman RN 12/30/17 14:24:58 Post-Care Text: The patient remains free from s/s of injury. Patient's vital signs stable, circulation maintained, return to preop mental and physical status, opsite/dressing intact, minimal or absent nausea and vomiting, tolerates po intake. Patient verbalizes adequate pain control. Patient/family express understanding of discharge instructions. Finalized By: Viry Rehman RN Document Signatures Signed By: Viry Rehman RN 12/30/17 14:25 [facility] 0 12-30-2017 MAGR Preoperative Record MAGR Pre-Op Record Summary Primary Physician: Marquise Miller DO Finalized Date/Time: 12/30/17 13:31:52 Pt. Name: EFRAIN HEART /Sex: 1960 MALE Med Rec #: [id number] Physician: Marquise Miller DO Financial #: [id number] Pt. Type: D Room/Bed: / Admit/Disch: 12/30/17 10:26:36 - Institution: Pre-Op Case Times MAGR Pre-Care Text: Patient will be optimally prepared for surgery. Patient is free from s/s of injury. Provide information to patient/family related to plan of care. Verify patient allergies. Confirm identity and verify consent before the operative or invasive procedure. Entry 1 Patient Arrival Time 12/30/17 10:58:00 Preop Departure 12/30/17 11:20:00 Last Modified By: Ramsey Saleh RN 12/30/17 13:31:50 Post-Care Text: Patient is prepared mentally and physically and is ready for surgery. The patient remains free from s/s of injury. Patient/family express understanding of plan of care and participate in decisions affecting his or her perioperrative plan of care. Allergies documented appropriately. Patient identifiers and consent correct. General Comments: pt arrives to psw ambulatory. Pt denies any pain, cp, sob, cough or flu like symptoms. Pt denies pacemaker/defibillator or sleep apnea. Finalized By: Ramsey Saleh RN Document Signatures Signed By: Ramsey Saleh RN 12/30/17 13:31 [facility] Operative Report - Surgeon/P bhanu 12-30-2017 Operative Report - Surgeon/Physician Preoperative diagnosis: Internal duration right knee was suspected incarcerated meniscusPostoperative diagnosis: Tear medial meniscus, tear lateral meniscusProcedure: Arthroscopic partial medial lateral meniscectomiesSurgeon: Blue Miller D.O.Anesthesia: Gen.Indications for surgery: The patient had intractable knee pain and the knee was locked and range of motion was prohibitive he had sharp pain in his clinical findings were those of a acute incarcerated meniscusEstimated blood loss: ScantComplications: NoneFindings: Lateral meniscus was displaced within the joint and incarcerated. The medial meniscus had a tear of the posterior hornProcedure summary: Patient was brought to the opposite suite and was positioned leg fraire the knee was noted to have restricted range of motion there is no obvious laxity. Leg was sterilely prepped and draped in usual fashion and then a timeout was taken operating roomAn inferior lateral portal was established and under direct visualization an inferior medial portal established.The patellofemoral joint articular cartilage in the femoral trochlea was worn down to the bone was approximately 3 cm area of raw bone.The medial compartment medial meniscus was torn posteriorly. Portion of this was displaced. Particular surface however was intact.Utilizing a resector partial medial meniscectomy is performed.In the notch the ACL and PCL were intactThe lateral compartment was not able to visualize into the lateral compartment because the meniscus was displaced and incarcerated. Able I freed this up and inspected for possibility repair but was simply shredded. Thus a partial meniscectomy was performed removing a large percentage of the posterior horn and lateral rim of the lateral meniscusThere were articular erosions in the lateral compartment but it was not [id number].Each compartment was revisited the joint was then irrigated and evacuated the portals were closed with nylon sutures. Sterile dressings were applied.[Electronically Signed on: 12/30/2017 12:48 EDT] Marquise Miller DO[Verified on: 12/30/2017 12:48 EDT] Marquise Miller note this correctionPreoperative diagnosis should read Internal derangement right knee with suspected incarcerated meniscus.[Electronically Signed on: 01/02/2018 18:44 EDT] Marquise Miller DO Normal [facility] Standardon 12-27-2017 eGFR (non-black) mL/min/{1.73_m2} Invalid Interpretation Code [facility] Comment on above: Performed By: #### 1 [id number] ####[facility] (DEFAULT)[address] [place] [id number] Result Comment: Ground Transportation Operator arpita Kidney disease could be indicated at eGFRs of less than 60 ml/min/1.73m2. Kidney Failure is indicated at less than 15 ml/min/1.73m2 Anion gap 12.0 mmol/L Normal 5.0-19.0 [facility] Comment on above: Performed By: #### 1 [id number] ####[facility] (DEFAULT)[address] [place] [address]165 BUN/Creatinine Ratio 14.0 mg/mg Normal 4.6-16.2 [facility] Comment on above: Performed By: #### 1 [id number] ####[facility] (DEFAULT)[address] [place] [address] 99570 Calcium 8.7 mg/dL Low 8.9-10.3 [facility] Comment on above: Performed By: #### 1 [id number] ####[facility] (DEFAULT)[address] [place] [address] 32041 Chloride 103 mmol/L Normal 101-111 [facility] Comment on above: Performed By: #### 1 [id number] ####[facility] (DEFAULT)[address] [place] [address] 30567 CO2 26 mmol/L Normal 21-32 [facility] Comment on above: Performed By: #### 1 [id number] ####[facility] (DEFAULT)[address] [place] [address] 77064 Creatinine 1.00 mg/dL Normal 0.90-1.30 [facility] Comment on above: Performed By: #### 1 [id number] ####[facility] (DEFAULT)[address] [place] [address] 11087 Glucose mass conc 92.0 mg/dL Normal 74.0-118.0 [facility] Comment on above: Performed By: #### 1 [id number] ####[facility] (DEFAULT)[address] [place] [address] 76788 Osmolality 274 mOsm/L Invalid Interpretation Code [facility] Comment on above: Performed By: #### 1 [id number] ####[facility] (DEFAULT)[address] [place] [address] 29805 Potassium molar conc 3.6 mmol/L Normal 3.6-5.1 [facility] Comment on above: Performed By: #### 1 [id number] ####[facility] (DEFAULT)[address] [place] [address] 81502 Sodium 137.0 mmol/L Normal 136.0-144.0 [facility] Comment on above: Performed By: #### 1 [id number] ####[facility] (DEFAULT)[address] [place] [address] 61303 Urea nitrogen 14 mg/dL Normal 8- [facility] Comment on above: Performed By: #### 1 [id number] ####[facility] (DEFAULT)[address] [place] [address]3524 Vital Signs Date Time Vital Sign Value Performing Clinician Facility 05-08-2024 11: Body height 177.8 cm Marina GOMEZ Work Phone: [facility] 05-08-2024 11:[id number] Body mass index (BMI) [Ratio] 36.5 kg/m2 Marina Jeong PA Work Phone: [facility] 05-08-2024 11:[id number] Body temperature 98.8 [degF] Marina Jeong PA Work Phone: [facility] 05-08-2024 11:040 Body weight 115.39 kg Marina Jeong PA Work Phone: [facility] 05-08-2024 11:[id number] Diastolic blood pressure 92 mm[Hg] Marina Jeong PA Work Phone: [facility] 05-08-2024 11:19-0400 Heart rate 84 /min Marina Greenemer PA Work Phone: [facility] 05-08-2024 11:19-0400 Respiratory rate 16 /min Marina Hemmer PA Work Phone: [facility] 05-08-2024 11:19-0400 SaO2% (BldA) [Mass fraction] 94 % Marina Greenemer PA Work Phone: [facility] 05-08-2024 11:19-0400 Systolic blood pressure 148 mm[Hg] Marina Greenemer PA Work Phone: [facility] 03-14-2023 10:30-0400 Body height 175.26 cm Gayle Nory Other [employer] Other 03-14-2023 10:30-0400 Body mass index (BMI) [Ratio] 35.88 kg/m2 Gayle Nory Other [employer] [facility] Other 03-14-2023 10:30-0400 Body temperature 98.1 [degF] Gayle Nory Other [employer] [facility] Other 03-14-2023 10:30-0400 Body weight 110.22 kg Gayle Nory Other [employer] Other 03-14-2023 10:30-0400 Diastolic blood pressure 94 mm[Hg] Gayle Nory Other [employer] [facility] Other 03-14-2023 10:30-0400 Respiratory rate 20 /min Gayle Nory Other [employer] Other 03-14-2023 10:30-0400 SaO2% (BldA) [Mass fraction] Gayle Nory Other [employer] [facility] Other 07-13-2023 10:30-0400 Systolic blood pressure 150 mm[Hg] Gayle Nory Other [employer] Other 03-19-2022 11:30-0400 Body height 175.26 cm Gayle Nory Other [employer] Other 03-19-2022 11:30-0400 Body mass index (BMI) [Ratio] 34.55 kg/m2 Gayle Nory Other [employer] [facility] Other 03-19-2022 11:30-0400 Body temperature 97 [degF] Gayle Nroy Other [employer] [facility] Other 03-19-2022 11:30-0400 Body weight 106.14 kg Gayle Nory Other [employer] Other 03-19-2022 11:30-0400 Diastolic blood pressure 100 mm[Hg] Gayle Nory Other [employer] [facility] Other 03-19-2022 11:30-0400 Respiratory rate 20 /min Gayle Nory Other [employer] Other 03-19-2022 11:30-0400 SaO2% (BldA) [Mass fraction] 95 % Gayle Nory Other [facility] Other 03-19-2022 11:30-0400 Systolic blood pressure 152 mm[Hg] Gayle Nory Other [employer] Other 06-20-2021 09:30-0400 Body height 175.26 cm Gayle Nory Other [employer] [facility] Other 06-20-2021 09:30-0400 Body mass index (BMI) [Ratio] 34.4 kg/m2 Gayle Nory Other [employer] Other 06-20-2021 09:30-0400 Body temperature 97.3 [degF] Gayle Nory Other [employer] [facility] Other 06-20-2021 09:30-0400 Body weight 105.69 kg Gayle Nory Other [employer] Other 06-20-2021 09:30-0400 Diastolic blood pressure 92 mm[Hg] Gayle Nory Other [employer] Other 06-20-2021 09:30-0400 Respiratory rate 20 /min Gayle Nory Other [employer] Other 06-20-2021 09:30-0400 SaO2% (BldA) [Mass fraction] 94 % Gayle Nory Other [employer] [facility] Other 06-20-2021 09:30-0400 Systolic blood pressure 144 mm[Hg] Gayle Nory Other [employer] Other Encounters Encounter Date Encounter Type Care Provider Facility Start: 05-08-2024 End: 05-08-2024 [employer]ine [employer] GOMEZ Work Phone: [facility] Start: 05-08-2024 End: 05-08-2024 [employer] Marina GOMEZ Work Phone: [facility] Start: 05-08-2024 End: 05-08-2024 Office outpatient visit 25 minutes Marina GOMEZ Work Phone: [facility] Comment on above: Moderate persistent asthma without complication (CMS/HCC) (Primary Dx); Chronic cough; Benign essential hypertension (CMS/HCC); Obstructive sleep apnea syndrome Start: 05-08-2024 End: 05-08-2024 ambulatory MARINA Hinton HEMMER Not Available Start: 04-22-2024 End: 04-22-2024 Patient encounter procedure Poly Rosenberg MD Work Phone: [facility] Comment on above: Basal cell carcinoma (BCC) of skin of other part of torso (Primary Dx) Start: 04-22-2024 End: 04-22-2024 ambulatory POLY Kwok PETITTI Not Available Start: 04-07-2024 End: 04-07-2024 ambulatory MARINA Hinton HEMMER Not Available Start: 03-23-2024 End: 03-23-2024 ambulatory POLY Kwok PETITTI Not Available Start: 02-12-2024 End: 02-12-2024 ambulatory MARINA Hinton HEMMER Not Available Start: 10-08-2023 Bamboo flowsheet Marina Hinton Hemme r PA Work Phone: [facility] Start: 10-08-2023 Bamboo flowsheet Marina Hinton Hemme r PA Work Phone: [facility] Start: 10-08-2023 End: 10-08-2023 ambulatory MARINA Hinton HEMMER Not Available Start: 09-23-2023 End: 09-23-2023 ambulatory POLY Kwok PETITTI Not Available Start: 09-17-2023 End: 09-17-2023 ambulatory MARINA Hinton HEMMER Not Available Start: 09-11-2023 End: 09-11-2023 ambulatory POLY Kwok PETITTI Not Available Start: 08-08-2023 End: 08-08-2023 ambulatory NICK Gabriel MELVINA Not Available Start: 08-07-2023 End: 08-07-2023 ambulatory Gayle Nory Other [employer] [facility] Other Start: 08-07-2023 Telephone encounter Gayle Nory [facility] Start: 03-14-2023 End: 03-14-2023 ambulatory Gayle Nory Other [employer] Other Start: 03-14-2023 Office outpatient vi sit 25 minutes Gayle Nory [facility] Start: 03-19-2022 End: 03-19-2022 ambulatory Gayle Nory Other [employer] [facility] Other Start: 03-19-2022 Office outpatient vi sit 25 minutes Gayle Nory [facility] Start: 10-18-2021 End: 10-18-2021 ambulatory Gayle Nory Other [facility] Other Start: 10-18-2021 Telephone encounter Gayle Nory [facility] Start: 08-08-2021 End: 08-09-[address] NICK EBSS Facility: Start: 07-28-2021 End: 07-29-[address] NICK BESS Facility: Start: 06-20-2021 Office outpatient vi sit 25 minutes Gayle Nory [facility] Start: 11-07-2020 End: 11-08-2020 ambulatory NONE LISTED REQUEST Facility: Start: 10-31-2020 End: 11-01-[address] NONE LISTED REQUEST Facility: Start: 12-30-2017 End: 12-30-2017 Ambulatory [facility] Facility:[facility] Start: 12-28-2017 End: 12-28-2017 Ambulatory [facility] Facility:[facility] Start: 11-26-2017 End: 11-27-2017 Ambulatory DEFAULT PHYSICIAN Facility:[facility] Start: 10-08-2017 End: 10-09-2017 Ambulatory DEFAULT PHYSICIAN Facility:[facility] Start: 10-07-2017 End: 10-08-2017 Ambulatory DEFAULT PHYSICIAN Facility:[facility] Procedures Date Procedure Procedure Detail Performing Clinician Start: 04-22-2024 DESTRUCTION OF LESION Adilson Rosenberg MD Work Phone: Plan of Treatment Date Care Activity Detail Author Start: 04-07-2025 Screening for malign ant neoplasm of colon Colorectal Cancer Screening [facility] Comment on above: Postponed from 06/21 (Patient Refused) Start: 03-23-2025 End: 03-23-2025 Patient encounter procedure 03/23/2025 9:00 AM EDT Office Visit [facility] [address] [place] [id number] Poly Rosenberg MD [address] [place] [address] [facility] Start: 10-08-2024 Medicare Annual Wellness (AWV) Medicare Annual Wellness (AWV) [facility] Start: 05-08-2024 End: 05-08-2025 XR Chest 2 Views XR chest 2 views Imaging Routine Chronic cough Expected: 05/08/2024, Expires: 05/08/2025 [facility] Work Phone: Comment on above: Expected: 05/08/2024 , Expires: 05/08/2025 Start: 05-08-2024 End: 05-08-2024 Patient encounter procedure 05/08/2024 11:30 AM EDT Office Visit [facility] [address] [place] [address] Marina Jeong PA [address] [place] [address] Arrived [facility] Comment on above: Arrived Start: 05-03-2024 Influenza vaccination Influenza Vacc ine (#1) [facility] Start: 03-23-2024 End: 03-23-2024 Patient encounter procedure 03/23/2024 9:20 AM EDT Office Visit [facility] [address] [place] [phone] Poly Rosenberg MD [address] [place] [address] [facility] Start: 10-08-2023 End: 10-08-2023 Patient encounter procedure 10/08/2023 8:00 AM EST Office Visit [facility] [address] [place] [address] Marina Jeong PA [address] [place] [address] Arrived [facility] Comment on above: Arrived Start: 1960 Medicare Annual Wellness (AWV) Medicare Annual Wellness (AWV) [facility] Start: 1960 Screening for malign ant neoplasm of colon [facility] Pulmonary function report Pulmonary Function Test Imaging Routine Moderate persistent asthma without complication (CMS/HCC) Chronic cough Ordered: 05/08/2024 [facility] Comment on above: Ordered: 05/08/2024 Immunizations Immunization Date Immunization Notes Care Provider Fa nadeemty 07-22-2023 Pneumococcal Conjuga te PCV 20 Marina Hemmer PA Work Phone: [facility] 07-01-2023 Influenza, Seasonal, Quadrivalent, Adjuvanted Marina Hemmer PA Work Phone: [facility] 07-01-2023 influenza virus vaccine, unspecified formulation Poly Rosenberg MD Work Phone: [facility] 2022 influenza, injectabl e, quadrivalent, preservative free Marina Hemmer PA Work Phone: [facility] 08-21-2021 COVID-19 Vaccine Moderna - Documentation Purposes Only Gayle Nory Other [employer] Other 07-12-2021 influenza, injectabl e, quadrivalent, preservative free Marina Hemmer PA Work Phone: [facility] 11-07-2020 COVID-19 Vaccine Digna - Documentation Purposes Only Gayle Nory Other [employer] Other 07-07-2020 zoster vaccine recombinant Marina Hemmer PA Work Phone: [facility] 06-13-2020 influenza, injectabl e, quadrivalent, contains preservative Marina Hemmer PA Work Phone: [facility] 04-09-2020 zoster vaccine recombinant Marina Hemmer PA Work Phone: [facility] 06-17-2019 seasonal influenza, intradermal, preservative free Marina Hemmer PA Work Phone: [facility] 06-07-2018 influenza, injectabl e, quadrivalent, contains preservative Marina GOMEZ Work Phone: [facility] 06-25-2017 zoster vaccine, live Marina GOMEZ Work Phone: [facility] 05-28-2017 seasonal influenza, intradermal, preservative free Marina GOMEZ Work Phone: [facility] 06-18-2016 influenza, injectabl e, quadrivalent, preservative free Marina GOMEZ Work Phone: [facility] Payers Date Payer Category Payer Medicare A[employer]NA MEDICARE A DVANTAGE AETNA MEDICARE REPLACEMENT [id number] 2022-Present [address] [place] [address] [id number] 2022 Medicare [id number] 1959 Self-pay 1960 Unknown [id number] 1958 Unknown [id number] [id number] 1958 Unknown [id number] [id number] 1958 Unknown [id number] [id number] 1958 Unknown [id number] [id number] 1958 Unknown [id number] [id number] 1958 Unknown [id number] [id number] 1958 Unknown [id number] [id number] 1958 Unknown [id number] [id number] 1958 Unknown [id number] [id number] 1958 Unknown [id number] [id number] 1958 Unknown [id number] [id number] Unknown [id number] Unknown Unknown [id number] Unknown [id number] Social History Date Type Detail Facility Start: 08-08-2023 End: 10-02-2023 Sex Assigned At [facility] Start: 09-16-2023 Tobacco smoking stat [facility] Never smoked tobacco [facility] History of tobacco use Passive smoker [facility] Start: 09-16-2023 Tobacco use and exposure Smoke less tobacco non-user [facility] Start: 09-23-2023 End: 05-08-2024 Alcohol intake Current drinker of alcohol (finding) [facility] Start: 08-08-2023 End: 10-02-2023 [facility] Within the last year , have you been afraid of your partner or ex-partner? No [facility] Within the last year , have you been humiliated or emotionally abused in other ways by your partner or ex-partner? Patient refused [facility] Are you now , , , , never or living with a partner? [facility] How hard is it for y ou to pay for the very basics like food, housing, medical care, and heating Not very hard [facility] Do you feel stress - tense, restless, nervous, or anxious, or unable to sleep at night because your mind is troubled all the time - these days [OSQ] Only a little [facility] (I/We) worried wheth er (my/our) food would run out before (I/we) got money to buy more. Never true [facility] Start: 09-16-2023 Alcohol Comment Caffeine intak e : 1-2 cups per day [facility] Start: 1960 Sex Assigned At Not on file [facility] Start: 11-14-2022 Gender identity Identifies as male gender (finding) [facility] Clinical Notes 06-20-2021 to 05-08-2024 PATRICIA Gibbs - 05/08/2024 11:30 AM EDTEarun Rosenberg MD - 04/22/2024 8:50 AM EDT Note Date & Type Note Facility 05-08-2024 History of Presen t illness Narrative Subjective Patient ID: Efrain Heart is a 63 y.o. male who presents for cough. Efrain is present today for follow up cough. He was seen on 04/07/24 for a cough and was prescribed Prednisone taper and was referred to ENT for his chronic cough. He had an appt scheduled with Dr. Gordon on 04/15/24 but cancelled d/t he has seen him in the past and did not feel like he helped him. He does have a piano maker and stopped seeing them too d/t he felt they did not help either. Has been using the nebulizer, did it yesterday twice and once this morning, took Benadryl last night and that helped him be able to sleep. He states the prednisone helps but then as soon as he finishes it the cough is back, dry cough, SOB, eye itchy, off/on runny, feels like he can't exhale without having to cough. Pineapple juice helps him. Symptoms are worse when he lays down. Has been using his Breztri regularly. [facility] has been riding his bike. [facility] leaving for [place] next week. Hoping to stay a month. Current Outpatient Medications on File Prior to Visit Medication Sig Dispense Refill albuterol (2.5 MG/3ML) 0.083% nebulizer solution Take 2.5 mg by nebulization every 6 (six) hours if needed amLODIPine (Norvasc) 5 MG tablet TAKE 1 TABLET BY MOUTH ONCE A DAY 90 tablet 3 atorvastatin (Lipitor) 20 MG tablet Take 1 tablet (20 mg) by mouth in the morning. 100 tablet 3 Txoincc-Tjvwgrpkokb-Gtdcuidudk (Breztri Aerosphere) 160-9-4.8 MCG/ACT aerosol INHALE 2 PUFFS IN THE MORNING AND BEFORE BEDTIME 4.8 g 2 cetirizine (ZyrTEC) 10 MG chewable tablet Chew 10 mg Daily fluticasone (Flonase) 50 MCG/ACT nasal spray USE 1 - 2 SPRAYS IN EACH NOSTRIL ONCE EVERY MORNING *SHAKE GENTLY BEFORE FIRST USE PRIME PUMP AFTER USE CLEAN TIP AND REPLACE CAP* 48 mL 3 montelukast (Singulair) 10 MG tablet Take 1 tablet (10 mg) by mouth in the evening 100 tablet 2 omeprazole (PriLOSEC) [address] capsule Take 1 capsule (20 mg) by mouth 1 (one) time each day at the same time 100 capsule 3 [DISCONTINUED] fluorouracil (Efudex) 5 % cream Apply to directed areas on the scalp twice a day x 14 days. Dispense 30 day supply but only use for 14 days. 40 g 0 No current facility-administered medications on file prior to visit. I have reviewed and reconciled the history and medication list with the patient today. No Known Allergies Social History Tobacco Use Smoking status: Never Passive exposure: Yes Smokeless tobacco: Never Vaping Use Vaping status: Never Used Substance Use Topics Alcohol use: Yes Alcohol/week: 1.0 - 2.0 standard drink of alcohol Types: 1 - 2 Standard drinks or equivalent per week Comment: Caffeine intake : 1-2 cups per day Drug use: Never Family History Problem Relation Name Age of Onset Pancreatic cancer Mother Heart disease Father Cancer Sister Cynthia heart Diabetes Maternal Grandfather Melanoma Neg Hx Past Medical History: Diagnosis Date Actinic keratosis Asthma (CMS/HCC) Basal cell carcinoma Cataract Deviated septum GERD (gastroesophageal reflux disease) History of being hospitalized 05/19/2019 Passed out asthma had chest xray and cat scan History of stress test 10/18/2017 EF 65% Hypertension (CMS/HCC) Past Surgical History: Procedure Laterality Date KNEE SURGERY Right 12/30/2017 RT knee med/lat menisectomy DR Miller OTHER SURGICAL HISTORY 10/28/2014 E/O STM LMF/ SBS SINUS SURGERY 1998 Visit Vitals BP (!) 148/92 Pulse 84 Temp 98.8 F Resp 16 Ht 5' 10 Wt 254 lb 6.4 oz SpO2 94% BMI 36.50 kg/m Smoking Status Never BSA 2.38 m Review of Systems Constitutional: Negative for chills, fatigue and fever. HENT: Positive for voice change. Eyes: Positive for itching. Respiratory: Positive for cough. Negative for shortness of breath and wheezing. Cardiovascular: Negative for chest pain, palpitations and leg swelling. Gastrointestinal: Negative for abdominal pain, constipation, diarrhea, nausea and vomiting. Skin: Negative for rash. Objective Physical Exam Constitutional: General: He is not in acute distress. Appearance: He is obese. HENT: Head: Normocephalic and atraumatic. Mouth/Throat: Comments: Voice hoarse Eyes: General: No scleral icterus. Cardiovascular: Rate and Rhythm: Normal rate and regular rhythm. Heart sounds: No murmur heard. Pulmonary: Effort: Pulmonary effort is normal. No respiratory distress. Breath sounds: Normal breath sounds. Decreased air movement (Lower) present. No wheezing, rhonchi or rales. Comments: Occasional dry cough. Able to speak in complete sentences Musculoskeletal: General: No swelling. Skin: General: Skin is warm and dry. Neurological: General: No focal deficit present. Mental Status: He is alert and oriented to person, place, and time. Psychiatric: Mood and Affect: Mood normal. Behavior: Behavior normal. Assessment/Plan Diagnoses and all orders for this visit: Moderate persistent asthma without complication (CMS/HCC) - Pulmonary Function Test - triamcinolone acetonide (Kenalog-40) injection 40 mg Continue Breztri regularly. Encouraged pt to continue to use the nebulizer prn. Will obtain PFT for further evaluation at this time. Will notify pt of the results once received. He would like to have this done at [facility]. Can try Duoneb in the future if needed. Chronic cough - XR chest 2 views; Future - Pulmonary Function Test - triamcinolone acetonide (Kenalog-40) injection 40 mg Provided pt with Kenalog 40 mg IM today. He tolerated this well. Pt cancelled appt with ENT. States has seen ENT and Pulmonology in the past without benefit. Have treated pt's allergies, reflux, and asthma. Advised pt that depending on the results of updated testing, he may have to follow up with a specialist for further care. Benign essential hypertension (CMS/HCC) BP elevated today. Likely due to recent steroid use. Will recheck at next appt. May need to adjust medication. Obstructive sleep apnea syndrome Denies CPAP use, declines referral for updated sleep study to obtain one. Follow up if symptoms worsen or fail to improve. documented in this encounter [facility] 04-22-2024 History of Presen t illness Narrative Images from the original note were not included. Subjective Efrain Heart is a 63 y.o. male who presents for the following: Follow-up. Location: right lower leg Date of biopsy: 03/23/2024 Diagnosis: Superficial basal cell carcinoma Here today for ED&C. All pertinent medical history, medications, and allergies were reviewed. General Exam: alert , oriented to person, place, and time , normal affect, well appearing Unaccompanied A focused exam completed based on patient reported problems, see below: 1. Basal cell carcinoma (BCC) of skin of other part of torso Right Lower Back Clute macule at biopsy site Destr of lesion Complexity: simple Destruction method: electrodesiccation and curettage Informed consent: discussed and consent obtained Informed consent comment: The risks of the procedure were discussed, including, but not limited to risks of scarring, darker or army ranger pigmentary changes, recurrence, infection, and incomplete removal Timeout: patient name, date of , surgical site, and procedure verified Timeout comment: Patient and provider identified site. Site was marked. Photo was taken and shown to patient, patient verified this is the correct site. Procedure prep: Patient was prepped and draped in usual sterile fashion Prep type: Chlorhexidine Anesthesia: the lesion was anesthetized in a standard fashion Anesthetic: 1% lidocaine w/ epinephrine 1-100,000 buffered w/ 8.4% NaHCO3 Curettage performed in three different directions: Yes Electrodesiccation performed over the curetted area: Yes Curettage cycles: 3 Lesion length (cm): 1.1 Lesion width (cm): 0.5 Margin per side (cm): 0 Final wound size (cm): 1.1 Hemostasis achieved with: electrodesiccation Outcome: patient tolerated procedure well with no complications Post-procedure details: wound care instructions given Post-procedure details comment: Post-procedure instructions were given verbally and in writing. The office will be contacted if the lesion fails to resolve despite treatment, or if a side effect develops such as abnormal crusting, scabbing, reddness, discharge, or tenderness. Additional details: Amount of lidocaine used: 3.0 cc Previous accession number: [id number] Emphasized to return to clinic for any signs of recurrence prior to next visit. Next Visit: as scheduled documented in this encounter [facility] 08-07-2023 Evaluation note Encounter Date Diagnosis Assessment Notes Aug, Mild intermittent asthma, uncomplicated (ICD-10 - J45.20) [facility] Other 07-13-2023 Evaluation note* Encounter Date Diagnosis Assessment Notes Treatment Notes Treatment Clinical Notes Mar, Reactive airway disease (ICD-10 - J45.909) Mar, GERD (gastroesophageal reflux disease) (ICD-10 - K21.9) Mar, Sleep apnea (ICD-10 - G47.30) Mar, Cough variant asthma (ICD-10 - J45.991) Use nasal rinse as recommended per Dr. Mustafa Mar, Mild intermittent asthma, uncomplicated (ICD-10 - J45.20) [facility] Other 07-18-2022 Evaluation note* Encounter Date Diagnosis Assessment Notes Treatment Notes Treatment Clinical Notes Mar, Reactive airway disease (ICD-10 - J45.909) Mar, GERD (gastroesophageal reflux disease) (ICD-10 - K21.9) Mar, Sleep apnea (ICD-10 - G47.30) Mar, Cough variant asthma (ICD-10 - J45.991) Mar, Mild intermittent asthma, uncomplicated (ICD-10 - J45.20) [facility] Other 02-16-2022 Evaluation note* Encounter Date Diagnosis Assessment Notes Treatment Notes Treatment Clinical Notes Oct, GERD (gastroesophageal reflux disease) (ICD-10 - K21.9) [facility] Other 10-19-2021 Evaluation note* Encounter Date Diagnosis Assessment Notes Treatment Notes Treatment Clinical Notes Jun, Reactive airway disease (ICD-10 - J45.909) Jun, GERD (gastroesophageal reflux disease) (ICD-10 - K21.9) Jun, Sleep apnea (ICD-10 - G47.30) Jun, Cough variant asthma (ICD-10 - J45.991) Rinse mouth after each use of Trelegy to help prevent thrush. Jun, Mild intermittent asthma, uncomplicated (ICD-10 - J45.20) Begin trial of Trelegy 200/62.5 [facility] Other Evaluation note* Diagnosis Basal cell carcinoma (BCC) of skin of other part of torso- Primary documented in this encounter [facility]* Diagnosis Moderate persistent asthma without complication (CMS/HCC)- Primary Chronic cough Cough Benign essential hypertension (CMS/HCC) Essential hypertension, benign Obstructive sleep apnea syndrome Obstructive sleep apnea (adult) (pediatric) [facility] Healthcare[facility] general Narrative - Reported* Type Description Date Medical History asthma Medical History Hypertension Medical History Esophageal reflux Medical History sleep apnea Medical History reactive airway disease Surgical History nasal surgery 1997 [employer] Other History general Narrative - Reported* Type Description Date Medical History asthma Medical History Hypertension Medical History Esophageal reflux Medical History sleep apnea Medical History reactive airway disease Medical History umbilical hernia Surgical History nasal surgery 1997 [employer] Other Summary Purpose Family History No Family History Records FoundNo Family History Records FoundNo Family History Records FoundNo Family History Records Found Advance Directives No Advanced Directives Records FoundNo Advanced Directives Records FoundNo Advanced Directives Records FoundNo Advanced Directives Records Found Additional Source Comments (unrecognized sect ion and content) No Status Records FoundNo Status Records FoundNo Status Records FoundNo Status Records Found INFORMATION SOURCE (unrecogn ized section and content) DATE CREATED AUTHOR 02/18/2018 [facility] DATE CREATED AUTHOR AUTHOR'S ORGANIZ ATION 02/21/2018 [facility] DATE CREATED AUTHOR AUTHOR'S ORGANIZ ATION 08/13/2021 [facility] DATE CREATED AUTHOR AUTHOR'S ORGANIZ ATION 05/10/2024 [facility] EPIC REASON FOR VISIT (unrecogniz ed section and content) Reason Comments Follow-up Care Teams (unrecognized sec tion and content) 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 Start Date End Date Nick Bess MD [address] [place] [address] PCP - Medical [place] [employer] 01/31/23 Nick Bess MD [address] [place] [address] PCP - General Internal Medicine 01/08/23 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 Start Date End Date Nick Bess MD [address] [place] [address] PCP - General Internal Medicine 01/08/23 Nick Bess MD [address] [place] [address] PCP - [employer] 10/03/23 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 - [employer] 10/03/23 FOR RECORDS PERTAINING TO PATIENTS WHO ARE OR HAVE BEEN ENROLLED IN A CHEMICAL DEPENDENCY/SUBSTANCEABUSE PROGRAM, SOME INFORMATION MAY BE OMITTED. This clinical summary was aggregated from multiple sources. Caution should be exercised in using it in the provision of clinical care. This summary normalizes information from multiple sources, and as a consequence, information in this document may materially change the coding, format and clinical context of patient data. In addition, data may be omitted in some cases. CLINICAL DECISIONS SHOULD BE BASED ON THE PRIMARY CLINICAL RECORDS. [facility] [employer] [facility]. provides no warranty or guarantee of the accuracy or completeness of information in this document.
[2024-08-27 20:39] VITALS: BP 134/82; PULSE 87; TEMP 36.7; O2SAT 93; BMI 33.2
--- NOTE | 2024-08-27 21:20 | ECG_ITS ---
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
--- NOTE | 2024-08-27 21:25 | ED_ITS ---
Documented by User: PATRICIA Ruth 08/27/24 21:51 HPI - SOB/Dyspnea General Chief Complaint: Shortness of Breath/Dyspnea Stated Complaint: shortness of breath Time Seen by Provider: 08/27/24 21:19 Source: patient Mode of arrival: walk-in Limitations: no limitations History of Present Illness HPI Narrative: Patient is a 64-year-old male who has been previously diagnosed with asthma by his PCP, never formally diagnosed with COPD who presents to the emergency department for 3-day history of exertional dyspnea and coughing with white sputum. Patient denies fevers, chest pain, hemoptysis. He states he had similar symptoms this past summer, his PCP prescribed prednisone twice and he had improvement of his symptoms. He has not had any peripheral edema. No medications taken prior to arrival. He states his daughter is a nurse who wanted him to have an EKG, he has a known right bundle branch block. He denies tobacco abuse. Related Data Home Medications ?Medication ?Instructions ?Recorded ?Confirmed albuterol sulfate 2.5 mg/3 mL 2.5 mg inhalation Q4H 08/13/23 08/13/23 (0.083 %) solution for nebulization albuterol sulfate 90 mcg/actuation 1 puff inhalation Q4H PRN 08/13/23 08/13/23 aerosol inhaler shortness of breath or wheezing amlodipine 5 mg tablet 5 mg PO DAILY 08/13/23 08/13/23 cefdinir 300 mg capsule 300 mg PO BID 08/13/23 08/13/23 codeine 10 mg-guaifenesin 100 mg/5 5 ml PO Q6H PRN cough 08/13/23 08/13/23 mL oral liquid glycopyrrolate 1 mg tablet 1 mg PO BID 08/13/23 08/13/23 montelukast 10 mg tablet 10 mg PO QPM 08/13/23 08/13/23 Previous Rx's ?Medication ?Instructions ?Recorded prednisone 20 mg tablet 20 mg PO DAILY #9 tabs 08/13/23 fcymyhyllnpvzoc-aisjhhuscmtddxb-TF 10 ml PO Q6H PRN cold symptoms 08/27/24 2 mg-30 mg-10 mg/5 mL oral syrup #200 mL (Bromfed DM) ondansetron 4 mg disintegrating 4 mg PO Q4H PRN nausea and 08/27/24 tablet vomiting 3 days #6 tabs prednisone 50 mg tablet 50 mg PO DAILY 3 days #3 tabs 08/27/24 Allergies Allergy/AdvReac Type Severity Reaction Status Date / Time No Known Drug Allergies Allergy Verified 08/27/24 20:46 Review of Systems ROS Constitutional Denies: fever or chills Ears, nose, mouth, and throat Denies: throat pain Cardiovascular Denies: chest pain Respiratory Reports: shortness of breath and cough; Denies: coughing up blood Gastrointestinal Denies: abdominal pain, nausea or vomiting Musculoskeletal Denies: back pain Integumentary/Breast Denies: rash Neurological Denies: numbness in extremities or weakness in extremities Hematologic/Lymphatic Denies: easy bruising or easy bleeding PFSH PFSH Social History Little interest or pleasure in doing things: not at all Feeling down, depressed, or hopeless: not at all Exam Narrative Exam Narrative: Gen.: Awake, alert, in no distress Head: Normocephalic, atraumatic ENT: Moist mucous membranes Respiratory: No respiratory distress, lungs clear bilaterally, speaks in full sentences, no wheezing or respiratory distress noted. Cardio: Regular rate and rhythm Extremities: Moves extremities equally, no pedal edema Psych: Normal mood and affect Neuro: No focal neuro deficit Skin: Warm, dry, intact Constitutional Vital Signs, click to edit/add: Last Vital Signs Temp 98.0 F 08/27/24 20:39 Pulse 75 08/27/24 21:55 Resp 18 08/27/24 21:55 BP 134/82 08/27/24 20:39 Pulse Ox 92 L 08/27/24 21:55 O2 Del Method Room Air 08/27/24 21:55 Course Vital Signs Vital signs: Vital Signs Temperature 98.0 F 08/27/24 20:39 Pulse Rate 87 08/27/24 20:39 Respiratory Rate 18 08/27/24 20:39 Blood Pressure 134/82 08/27/24 20:39 Pulse Oximetry 93 L 08/27/24 20:39 Oxygen Delivery Method Room Air 08/27/24 20:39 Temperature 98.0 F 08/27/24 20:39 Pulse Rate 75 08/27/24 21:55 Respiratory Rate 18 08/27/24 21:55 Blood Pressure 134/82 08/27/24 20:39 Pulse Oximetry 92 L 08/27/24 21:55 Oxygen Delivery Method Room Air 08/27/24 21:55 MDM - SOB/Dyspnea MDM Narrative Medical decision making narrative: 2149: Patient was ordered to have IV Solu-Medrol and a breathing treatment. Labs, chest x-ray are pending as well as respiratory swabs. Patient is in no distress, breathing and speaking easily at this time. Case is turned over to attending physician for disposition. SHARED APC VISIT, PHYSICIAN ATTESTATION: [id number] I performed a substantive part of the MDM during the patient?s E/M visit. I personally evaluated and examined the patient. I personally made or approved the documented management plan and acknowledge its risk of complications. Medical Records Attestation: I reviewed the patient's medical records. Lab Data Attestation: I reviewed the patient's lab results. Labs: Lab Results 08/27/24 08/27/24 Range/Units 21:32 21:45 WBC 10.2 (4.0-11.0) 10^3/uL RBC 4.31 L (4.70-6.10) 10^6/uL Hgb 15.1 (14.0-18.0) g/dL Hct 43.3 (42.0-54.0) % MCV 100.5 H (80.0-94.0) fL MCH 35.0 H (25.9-34.0) pg MCHC 34.9 (29.9-35.2) g/dL RDW 11.9 (11.0-15.0) % Plt Count 239 (150-450) 10^3/uL MPV 10.2 (9.5-13.5) fL Neut % (Auto) 69.1 (43.0-75.0) % Lymph % (Auto) 19.4 L (20.5-60.0) % [place] % (Auto) 8.6 (1.7-12.0) % Eos % (Auto) 1.7 (0.9-7.0) % Baso % (Auto) 0.7 (0.2-2.0) % Neut # (Auto) 7.1 H (1.4-6.5) 10^3/uL Lymph # (Auto) 2.0 (1.2-3.8) 10^3/uL [place] # (Auto) 0.9 H (0.3-0.8) 10^3/uL Eos # (Auto) 0.2 (0.0-0.7) 10^3/uL Baso # (Auto) 0.1 (0.0-0.1) 10^3/uL Abs Immat Gran (auto) 0.05 H (0.00-0.03) 10^3/uL Imm/Tot Granulo (auto) 0.5 (0.0-0.5) % PT 10.4 (9.0-11.6) sec INR 0.98 APTT 24.1 (22.3-36.2) sec VBG pH 7.376 (7.330-7.430) VBG pCO2 49.1 (40.0-52.0) mmHg Sodium 142 (136-145) mmol/L Potassium 4.1 (3.5-5.1) mmol/L Chloride 106 (98-107) mmol/L Carbon Dioxide 28.7 (21.0-32.0) mmol/L Anion Gap 11.4 BUN 8.0 (7.0-18.0) mg/dL Creatinine 1.15 (0.70-1.30) mg/dL Est GFR ( Amer) >60 (>=60 mL/min/1.73m^2) Est GFR (Non-Af Amer) >60 (>=60 mL/min/1.73m^2) BUN/Creatinine Ratio 7.0 Glucose 118 H (74-106) mg/dL Calcium 8.7 (8.5-10.1) mg/dL Total Bilirubin 0.7 (0.2-1.0) mg/dL AST 73 H (15-37) U/L ALT 106 H (16-63) U/L Alkaline Phosphatase 89 (46-116) U/L Troponin I High Sens 8.7 (4.0-76.1) pg/mL NT-Pro-B Natriuret Pep 44.0 (<=900.0) pg/mL Total Protein 7.3 (6.4-8.2) g/dL Albumin 3.8 (3.4-5.0) g/dL Globulin 3.5 g/dL Albumin/Globulin Ratio 1.1 Influenza Type A Ag Negative Influenza Type B Ag Negative RSV Antigen Not detected (NOT DETECTE) SARS-CoV-2 Ag (CV2AG) Negative (NEGATIVE) Discharge Plan Discharge Chief Complaint: Shortness of Breath/Dyspnea Clinical Impression: Exertional dyspnea, Asthma with acute exacerbation Patient Disposition: Home, Self-Care Time of Disposition Decision: 22:39 Condition: Fair Prescriptions / Home Meds: New wtfvggjqrvdwicr-qeoccnmco-DZ [Bromfed DM] 2-30-10 mg/5 mL syrup 10 ml PO Q6H PRN (Reason: cold symptoms) Qty: 200 0RF prednisone 50 mg tablet 50 mg PO DAILY 3 Days Qty: 3 0RF ondansetron 4 mg tablet,disintegrating 4 mg PO Q4H PRN (Reason: nausea and vomiting) 3 Days Qty: 6 0RF No Action albuterol sulfate 90 mcg/actuation HFA aerosol inhaler 1 puff INHALATION Q4H PRN (Reason: shortness of breath or wheezing) albuterol sulfate 2.5 mg /3 mL (0.083 %) solution for nebulization 2.5 mg inhalation Q4H amlodipine 5 mg tablet 5 mg PO DAILY codeine-guaifenesin 10-100 mg/5 mL liquid 5 ml PO Q6H PRN (Reason: cough) glycopyrrolate 1 mg tablet 1 mg PO BID montelukast 10 mg tablet 10 mg PO QPM cefdinir 300 mg capsule 300 mg PO BID prednisone 20 mg tablet 20 mg PO DAILY Qty: 9 0RF Rx Instructions: two tabs daily for 3 days then one tab daily for 3 days Print Language: Nauruan Instructions: Asthma (ED), How to Use a Nebulizer (ED), Dyspnea (ED), Wheezing (ED) Additional Instructions: Use your breathing treatments at home every 4 hours while you are awake. Continue Benadryl at nighttime. Continue using Mucinex. Take your next dose of prednisone tomorrow. Dr. Baker has been given to you to follow-up for pulmonology, or follow-up with the card checker she saw years ago. Return back to the ER for any other acute concerns Referrals: DEBORA HEIN [Primary Care Provider] - 1 week Documented by User: Mark Hammonds MD 08/27/24 22:45 HPI - SOB/Dyspnea General Chief Complaint: Shortness of Breath/Dyspnea Stated Complaint: shortness of breath Time Seen by Provider: 08/27/24 21:19 Related Data Home Medications ?Medication ?Instructions ?Recorded ?Confirmed albuterol sulfate 2.5 mg/3 mL 2.5 mg inhalation Q4H 08/13/23 08/13/23 (0.083 %) solution for nebulization albuterol sulfate 90 mcg/actuation 1 puff inhalation Q4H PRN 08/13/23 08/13/23 aerosol inhaler shortness of breath or wheezing amlodipine 5 mg tablet 5 mg PO DAILY 08/13/23 08/13/23 cefdinir 300 mg capsule 300 mg PO BID 08/13/23 08/13/23 codeine 10 mg-guaifenesin 100 mg/5 5 ml PO Q6H PRN cough 08/13/23 08/13/23 mL oral liquid glycopyrrolate 1 mg tablet 1 mg PO BID 08/13/23 08/13/23 montelukast 10 mg tablet 10 mg PO QPM 08/13/23 08/13/23 Previous Rx's ?Medication ?Instructions ?Recorded prednisone 20 mg tablet 20 mg PO DAILY #9 tabs 08/13/23 hjkojegkxyfvsfx-oytcdpjzpydnqyz-HU 10 ml PO Q6H PRN cold symptoms 08/27/24 2 mg-30 mg-10 mg/5 mL oral syrup #200 mL (Bromfed DM) ondansetron 4 mg disintegrating 4 mg PO Q4H PRN nausea and 08/27/24 tablet vomiting 3 days #6 tabs prednisone 50 mg tablet 50 mg PO DAILY 3 days #3 tabs 08/27/24 Allergies Allergy/AdvReac Type Severity Reaction Status Date / Time No Known Drug Allergies Allergy Verified 08/27/24 20:46 PFSH PFSH Social History Little interest or pleasure in doing things: not at all Feeling down, depressed, or hopeless: not at all Exam Constitutional Vital Signs, click to edit/add: Last Vital Signs Temp 98.0 F 08/27/24 20:39 Pulse 75 08/27/24 21:55 Resp 18 08/27/24 21:55 BP 134/82 08/27/24 20:39 Pulse Ox 92 L 08/27/24 21:55 O2 Del Method Room Air 08/27/24 21:55 Course Vital Signs Vital signs: Vital Signs Temperature 98.0 F 08/27/24 20:39 Pulse Rate 87 08/27/24 20:39 Respiratory Rate 18 08/27/24 20:39 Blood Pressure 134/82 08/27/24 20:39 Pulse Oximetry 93 L 08/27/24 20:39 Oxygen Delivery Method Room Air 08/27/24 20:39 Temperature 98.0 F 08/27/24 20:39 Pulse Rate 75 08/27/24 21:55 Respiratory Rate 18 08/27/24 21:55 Blood Pressure 134/82 08/27/24 20:39 Pulse Oximetry 92 L 08/27/24 21:55 Oxygen Delivery Method Room Air 08/27/24 21:55 MDM - SOB/Dyspnea MDM Narrative Medical decision making narrative: 2149: Patient was ordered to have IV Solu-Medrol and a breathing treatment. Labs, chest x-ray are pending as well as respiratory swabs. Patient is in no distress, breathing and speaking easily at this time. Case is turned over to attending physician for disposition. SHARED APC VISIT, PHYSICIAN ATTESTATION: [id number] I performed a substantive part of the MDM during the patient?s E/M visit. I personally evaluated and examined the patient. I personally made or approved the documented management plan and acknowledge its risk of complications. Dr Hammonds note Patient chest x-ray shows no acute cardiopulmonary disease, no infiltrate, no effusion. Patient does have a nebulizer at home. Patient will be placed on 3 days of prednisone, next dose will be tomorrow. Patient has been taking Mucinex. Patient also is using Benadryl at nighttime, which helps him sleep and helps dry him up. Patient last seen his card checker over 2 years ago, patient was referred to Dr. Baker to call locally to follow-up with card checker if needed. Patient feels that he is much better, ready to go home and sleep, very thankful for the treatments and medication there which did help improve his symptoms Lab Data Labs: Lab Results 08/27/24 08/27/24 Range/Units 21:32 21:45 WBC 10.2 (4.0-11.0) 10^3/uL RBC 4.31 L (4.70-6.10) 10^6/uL Hgb 15.1 (14.0-18.0) g/dL Hct 43.3 (42.0-54.0) % MCV 100.5 H (80.0-94.0) fL MCH 35.0 H (25.9-34.0) pg MCHC 34.9 (29.9-35.2) g/dL RDW 11.9 (11.0-15.0) % Plt Count 239 (150-450) 10^3/uL MPV 10.2 (9.5-13.5) fL Neut % (Auto) 69.1 (43.0-75.0) % Lymph % (Auto) 19.4 L (20.5-60.0) % [place] % (Auto) 8.6 (1.7-12.0) % Eos % (Auto) 1.7 (0.9-7.0) % Baso % (Auto) 0.7 (0.2-2.0) % Neut # (Auto) 7.1 H (1.4-6.5) 10^3/uL Lymph # (Auto) 2.0 (1.2-3.8) 10^3/uL [place] # (Auto) 0.9 H (0.3-0.8) 10^3/uL Eos # (Auto) 0.2 (0.0-0.7) 10^3/uL Baso # (Auto) 0.1 (0.0-0.1) 10^3/uL Abs Immat Gran (auto) 0.05 H (0.00-0.03) 10^3/uL Imm/Tot Granulo (auto) 0.5 (0.0-0.5) % PT 10.4 (9.0-11.6) sec INR 0.98 APTT 24.1 (22.3-36.2) sec VBG pH 7.376 (7.330-7.430) VBG pCO2 49.1 (40.0-52.0) mmHg Sodium 142 (136-145) mmol/L Potassium 4.1 (3.5-5.1) mmol/L Chloride 106 (98-107) mmol/L Carbon Dioxide 28.7 (21.0-32.0) mmol/L Anion Gap 11.4 BUN 8.0 (7.0-18.0) mg/dL Creatinine 1.15 (0.70-1.30) mg/dL Est GFR ( Amer) >60 (>=60 mL/min/1.73m^2) Est GFR (Non-Af Amer) >60 (>=60 mL/min/1.73m^2) BUN/Creatinine Ratio 7.0 Glucose 118 H (74-106) mg/dL Calcium 8.7 (8.5-10.1) mg/dL Total Bilirubin 0.7 (0.2-1.0) mg/dL AST 73 H (15-37) U/L ALT 106 H (16-63) U/L Alkaline Phosphatase 89 (46-116) U/L Troponin I High Sens 8.7 (4.0-76.1) pg/mL NT-Pro-B Natriuret Pep 44.0 (<=900.0) pg/mL Total Protein 7.3 (6.4-8.2) g/dL Albumin 3.8 (3.4-5.0) g/dL Globulin 3.5 g/dL Albumin/Globulin Ratio 1.1 Influenza Type A Ag Negative Influenza Type B Ag Negative RSV Antigen Not detected (NOT DETECTE) SARS-CoV-2 Ag (CV2AG) Negative (NEGATIVE) Discharge Plan Discharge Chief Complaint: Shortness of Breath/Dyspnea Clinical Impression: Exertional dyspnea, Asthma with acute exacerbation Patient Disposition: Home, Self-Care Time of Disposition Decision: 22:39 Condition: Fair Prescriptions / Home Meds: New rxdjmydodfmvuxc-praxzdyeo-PY [Bromfed DM] 2-30-10 mg/5 mL syrup 10 ml PO Q6H PRN (Reason: cold symptoms) Qty: 200 0RF prednisone 50 mg tablet 50 mg PO DAILY 3 Days Qty: 3 0RF ondansetron 4 mg tablet,disintegrating 4 mg PO Q4H PRN (Reason: nausea and vomiting) 3 Days Qty: 6 0RF No Action albuterol sulfate 90 mcg/actuation HFA aerosol inhaler 1 puff INHALATION Q4H PRN (Reason: shortness of breath or wheezing) albuterol sulfate 2.5 mg /3 mL (0.083 %) solution for nebulization 2.5 mg inhalation Q4H amlodipine 5 mg tablet 5 mg PO DAILY codeine-guaifenesin 10-100 mg/5 mL liquid 5 ml PO Q6H PRN (Reason: cough) glycopyrrolate 1 mg tablet 1 mg PO BID montelukast 10 mg tablet 10 mg PO QPM cefdinir 300 mg capsule 300 mg PO BID prednisone 20 mg tablet 20 mg PO DAILY Qty: 9 0RF Rx Instructions: two tabs daily for 3 days then one tab daily for 3 days Print Language: Nauruan Instructions: Asthma (ED), How to Use a Nebulizer (ED), Dyspnea (ED), Wheezing (ED) Additional Instructions: Use your breathing treatments at home every 4 hours while you are awake. Continue Benadryl at nighttime. Continue using Mucinex. Take your next dose of prednisone tomorrow. Dr. Baker has been given to you to follow-up for pulmonology, or follow-up with the card checker she saw years ago. Return back to the ER for any other acute concerns Referrals: DEBORA HEIN [Primary Care Provider] - 1 week
--- NOTE | 2024-08-27 21:32 | XR_ITS ---
The [address] [address] Patient Name: VIOLET HEART MRN: [id number] date: 1960 Sex: M Assigned Patient Location: ER Current Patient Location: Accession/Order Number: [id number] Exam Date: 08/27/2024 22:01 Report Date: 08/27/2024 22:56 At the request of: MING PARKS Procedure: XR chest 1V SINGLE VIEW CHEST: 08/27/2024 10:01 PM EST CLINICAL HISTORY:Shortness of breath COMPARISONS: None. TECHNIQUE: Single frontal view of the chest, utilizing portable technique. Portable radiography should be considered a technically compromised study. Strongly consider dedicated PA and lateral chest radiographs, as clinically indicated. FINDINGS: LINES AND TUBES: Cardiac monitoring leads and wires overlie the patient. CARDIAC SILHOUETTE: Within normal limits. MEDIASTINAL AND HILAR CONTOUR: Within normal limits. PULMONARY PARENCHYMA AND PLEURA: No consolidation, edema, effusion, or pneumothorax. OSSEOUS STRUCTURES:Nothing significant. OTHER COMMENTS:None. XR/XR chest 1V IMPRESSION: No acute cardiopulmonary disease. This report was generated with voice recognition software. Effort has been made to ensure accuracy of this report, however, occasional wording errors may persist. Please contact our office with any questions. Electronically authenticated by: JUAN CANDELARIA Date: 08/27/2024 22:56
--- NOTE | 2024-08-27 21:53 | PC.NURSE ---
this patient complains of increased shortness of breath with increased weight and movement onset last month, this patient can speak full sentences and shows no visible or audible signs of distress. this patient voices no other complaints
[2024-08-27] MEDS: ALBUTEROL SULFATE 2.5 MG/3 ML VIAL NEB IH (21:54)
[2024-08-27 21:55] VITALS: PULSE 75; O2SAT 92
[2024-08-27 22:03] LABS: PCO2 VBG 49.1 mmHg (40.0-52.0); pH VBG 7.376 (7.330-7.430)
[2024-08-27 22:05] LABS: Basophils Absolute Auto 0.1 10^3/uL (0.0-0.1); Basophils Percent Auto 0.7 % (0.2-2.0); Eosinophils Absolute Auto 0.2 10^3/uL (0.0-0.7); Eosinophils Percent Auto 1.7 % (0.9-7.0); Hematocrit 43.3 % (42.0-54.0); Hemoglobin 15.1 g/dL (14.0-18.0); Immature Granulocytes Abs Auto 0.05 10^3/uL (0.00-0.03); Immature Granulocytes Pct Auto 0.5 % (0.0-0.5); Lymphocytes Percent Auto 19.4 % (20.5-60.0); Mean Corpuscular HGB Conc 34.9 g/dL (29.9-35.2); Mean Corpuscular Volume 100.5 fL (80.0-94.0); Mean Platelet Volume 10.2 fL (9.5-13.5); Monocytes Absolute Auto 0.9 10^3/uL (0.3-0.8); Monocytes Percent Auto 8.6 % (1.7-12.0); Neutrophils Absolute Auto 7.1 10^3/uL (1.4-6.5); Neutrophils Percent Auto 69.1 % (43.0-75.0); Platelet Count 239 10^3/uL (150-450); Red Blood Count 4.31 10^6/uL (4.70-6.10); Red Cell Distribution Width 11.9 % (11.0-15.0); White Blood Count 10.2 10^3/uL (4.0-11.0)
[2024-08-27] MEDS: METHYLPREDNISOLONE SOD SUCC PF 125 MG/2 ML VIAL IVP (22:08)
[2024-08-27 22:13] LABS: Influenza Virus A Antigen Negative; Influenza Virus B Antigen Negative; Internal Control Within Normal Limits; Respiratory Syncytial Virus Not Detected (NOT DETECTE); SARS-CoV-2 Ag NEGATIVE (NEGATIVE)
[2024-08-27 22:14] LABS: INR 0.98; Partial Thromboplastin Time 24.1 sec (22.3-36.2); Prothrombin Time 10.4 sec (9.0-11.6)
[2024-08-27 22:28] LABS: Alanine Aminotransferase 106 U/L (16-63); Albumin Globulin Ratio 1.1; Albumin Level 3.8 g/dL (3.4-5.0); Alkaline Phosphatase 89 U/L (46-116); Anion Gap 11.4; Aspartate Amino Transferase 73 U/L (15-37); Bilirubin Total 0.7 mg/dL (0.2-1.0); Calcium 8.7 mg/dL (8.5-10.1); Carbon Dioxide 28.7 mmol/L (21.0-32.0); Chloride 106 mmol/L (98-107); Estimated GFR (African America >60 (>=60 mL/min/1.73m^2); Estimated GFR (Non-African Ame >60 (>=60 mL/min/1.73m^2); Globulin 3.5 g/dL; Glucose 118 mg/dL (74-106); Potassium 4.1 mmol/L (3.5-5.1); Sodium 142 mmol/L (136-145); Total Protein 7.3 g/dL (6.4-8.2); Troponin I High Sensitivity 8.7 pg/mL (4.0-76.1)
--- NOTE | 2024-08-27 22:54 | PC.NURSE ---
i gave this patient verbal and paper discharge orders along with 3 e-scripts, this patient voices yes to understanding these. at time of discharge this patient voices no concerns and shows no signs of distress
== END 2024-08-27 22:55 | disposition home or self-care (01) ==
PROVIDERS: Physician Assistant; Emergency Provider Emergency Medicine; PCP Internal Medicine
DX: J45.901 Unspecified asthma with (acute) exacerbation (principal); R06.09 Other forms of dyspnea
CPT/HCPCS: 36415; 71045; 80053; 82800; 83880; 84484; 85025; 85610; 85730; 87420; 87804; 87811; 93005; 94640; 96374; 99285; J2919

== ENCOUNTER 2025-03-09 12:28 | Emergency (ER) | payer MEDICARE, SELFPAY ==
--- OUTSIDE RECORDS SUMMARY | 2024-12-08 07:46 | XMS_ITS ---
Author Name Auto Generated Organization OHIP Care Team Providers Care Heat And Vent Aircraft Mechanic Name Role Phone LINDA JEONG Attending Unavailable DAMIAN DÍAZ Attending Unavailable BENY ROSENBERG Attending Unavailable LINDA JEONG Attending Unavailable LINDA JEONG Attending Unavailable LINDA JEONG Attending Unavailable BENY ROSENBERG Attending Unavailable LINDA JEONG Attending Unavailable DEBORA HEIN Attending Unavailable PROBLEMS No Problem Records Found PROCEDURES No Procedure Records Found RESULTS No Result Records Found ALLERGIES No Allergies Records Found ENCOUNTERS ADMIT/DISCHARGE ACCOUNT NUMBER ADMITTING ENCOUNTER CLASS LOCATION SOURCE 12/08/2024/ 5 [id number] Ambulatory Building:[facility] 11/24/2024/ 5 [id number] Ambulatory Building:[facility] 10/29/2024/ 5 [id number] Ambulatory Building:[facility] 09/22/2024/ 5 [id number] Ambulatory Building:[facility] 09/03/2024/ 5 [id number] Ambulatory Building:[facility] 05/08/2024/ 4 [id number] [facility] 04/22/2024/ 4 [id number] Ambulatory Building:PEGGY Serrano [facility] 04/07/2024/ 4 [id number] [facility] 03/23/2024/ 4 [id number] Ambulatory Building:PEGGY Serrano [facility] PAYERS ENCOUNTER GUARANTOR PAYER SUBSCRIBER SOURCE 12/08/2024 VIOLET Gar ALLANDOB: [place] [address]Bbx: (HP) Primary Insurance:AET MEDICARE ADVANTAGEPolicy Number: [id number] Date:2022-09-02 VIOLET Gar ALLANDOB: [id number] [place] [address] [facility] 11/24/2024 VIOLET Gar ALLANDOB: [place] [address]Fnu: (HP) Primary Insurance:AETNA MEDICARE ADVANTAGEPolicy Number: [id number] Date:2022-09-02 VIOLET Gar ALLANDOB: [id number] [place] [address] [facility] 10/29/2024 VIOLET Gar ALLANDOB: [place] [address]Nyr: (HP) Primary Insurance:AETNA MEDICARE ADVANTAGEPolicy Number: [id number] Date:2022-09-02 VIOLET PICKARDANDOB: [id number] [place] [address] [facility] 09/22/2024 VIOLET Gar ALLANDOB: [place] [address]Smz: (HP) Primary Insurance:AETNA MEDICARE ADVANTAGEPolicy Number: [id number] Date:2022-09-02 VIOLET Gar ALLANDOB: [id number] [address] [place] [address] [facility] 09/03/2024 VIOLET Gar ALLANDOB: [place] [address]Dsa: (HP) Primary Insurance:AETNA MEDICARE ADVANTAGEPolicy Number: [id number] Date:2022-09-02 VIOLET Gar ALLANDOB: [id number] [place] [address] [facility] 05/08/2024 VIOLET Gar ALLANDOB: [facility] [place] [address]Aut: (HP) Primary Insurance:AETNA MEDICARE ADVANTAGEPolicy Number: [id number] Date:2022-09-02 VIOLET Gar ALLANDOB: [id number] [place] [address] [facility] 04/22/2024 VIOLET Gar ALLANDOB: [place] [address]Ini: (HP) Primary Insurance:AETNA MEDICARE ADVANTAGEPolicy Number: [id number] Date:2022-09-02 VIOLET Gar ALLANDOB: [id number] [place] [address] [facility] 04/07/2024 VIOLET Gar ALLANDOB: [place] [address]Ewx: (HP) Primary Insurance:AETNA MEDICARE ADVANTAGEPolicy Number: [id number] Date:2022-09-02 VIOLET Gar ALLANDOB: [id number] [place] [address] [facility] PSYCHIATRIC 03/23/2024 VIOLET RAHMANOB: [place] [address]Zxs: () Primary Insurance:AETNA MEDICARE ADVANTAGEPolicy Number: [id number] Date:2022-09-02 VIOLET RAHMANOB: [id number] [place] [address] [facility] Medical [facility]
[2025-03-09] VITALS (24 sets, daily range): BP systolic 119–151; BP diastolic 74–81; PULSE 78–87; TEMP 36.9; O2SAT 89–95; BMI 34.0
--- NOTE | 2025-03-09 12:50 | ECG_ITS ---
The [facility] Test Date: 2025-03-09 Pat Name: VIOLET HEART Department: Room: - Gender: Male Vp Integrity: : 1960 Requested By: DEBORA HEIN Order Number: [id number] Reading MD: KELLY LÓPEZ Measurements Intervals [place] Rate: 81 P: 33 NH: 142 QRS: -68 QRSD: 134 T: 45 QT: 408 QTc: 446 Interpretive Statements 1100 Sinus rhythm 2450 Right bundle branch block 2630 Left anterior fascicular block Bifascicular block 9150 abnormal ECG Compared to ECG 08/27/2024 21:26:38 No significant changes Electronically Signed On 03-11-2025 9:01:24 EDT by KELLY LÓPEZ
--- NOTE | 2025-03-09 12:53 | CT_ITS ---
The [address] [address] Patient Name: VIOLET HEART MRN: [id number] date: 1960 Sex: M Assigned Patient Location: ER Current Patient Location: ER Accession/Order Number: [id number] Exam Date: 03/09/2025 14:16 Report Date: 03/09/2025 14:21 At the request of: NALDO RAMIREZ MD Procedure: CT chest wo con CT chest wo con 03/09/2025 1:51 PM SIGN AND SYMPTOMS: Fall, pain along the right upper chest wall TECHNIQUE: Multidetector CT axial slices of the chest were obtained without IV contrast. Multiplanar reformats were performed and viewed on a separate workstation and reviewed to further define anatomy and possible pathology. CT was performed with one or more of the following dose reduction techniques: Automated exposure control, adjustment of the mA and/or kV according to patient size, or use of iterative reconstruction technique. COMPARISON: None.. FINDINGS: Lower neck: Thyroid gland within normal limits, no supraclavicle adenopathy. Vessels: Atherosclerotic changes are noted in the thoracic aorta and coronary arteries. Mediastinum and Luiza: Calcified right hilar lymph nodes are present. Heart: Normal size. No pericardial effusion. Airways: Within normal limits Lungs: There is scarring in the lung bases. There is scarring or atelectasis in the right middle lobe and lingula. Pleura: Within normal limits. Chest Wall: Within normal limits. Upper Abdomen: The liver is hypoattenuating suggesting hepatic steatosis. Bones: Minimally displaced fractures are noted in the anterior right third and fourth ribs. CT/CT chest wo con IMPRESSION: Minimally displaced fractures are noted in the anterior right third and fourth ribs. No acute traumatic injury is noted otherwise. Impression dictated by: Vel Hansen M.D. 03/09/2025 2:21 PM Dictation Location: [facility]ITAL[facility] Electronically authenticated by: [id number] Y Date: 03/09/2025 14:21
--- NOTE | 2025-03-09 12:53 | CT_ITS ---
The [address] [address] Patient Name: VIOLET HEART MRN: [id number] date: 1960 Sex: M Assigned Patient Location: ER Current Patient Location: ER Accession/Order Number: [id number] Exam Date: 03/09/2025 14:12 Report Date: 03/09/2025 14:16 At the request of: NALDO RAMIREZ MD Procedure: CT head/brain wo con CT head/brain wo con 03/09/2025 1:51 PM SIGNS AND SYMPTOMS: Fall, syncope TECHNIQUE:Multi-detector CT axial slices of the brain were obtained without IV contrast. CT was performed with one or more of the following dose reduction techniques: Automated exposure control, adjustment of the mA and/or kV according to patient size, or use of iterative reconstruction technique. COMPARISON: 05/19/2019 FINDINGS: There is no shift of the midline structures, acute intracranial bleeding, mass effects, or evidence of acute ischemia. Atherosclerotic changes are noted in the V4 segment of the right vertebral artery and intracranial segments of the internal carotid arteries. There is age-related cortical atrophy. The ventricular system is normal in size. The brainstem and the cerebellum are unremarkable. The visualized intraorbital contents, the visualized paranasal sinuses, and the infratemporal soft tissues show no acute abnormality. The osseous structures in the skull base and the calvarium show no abnormality. CT/CT head/brain wo con IMPRESSION: No acute intracranial pathology. Similar mild chronic age-related neurodegenerative changes are noted as above. Impression dictated by: Vel Hansen M.D. 03/09/2025 2:16 PM Dictation Location: [facility] Electronically authenticated by: [id number] Y Date: 03/09/2025 14:16
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
[2025-03-09 13:04] LABS: Hematocrit 43.7 % (42.0-54.0); Hemoglobin 15.5 g/dL (14.0-18.0); Immature Granulocytes Abs Auto 0.06 10^3/uL (0.00-0.03); Immature Granulocytes Pct Auto 0.5 % (0.0-0.5); Lymphocytes Absolute Auto 2.5 10^3/uL (1.2-3.8); Mean Corpuscular HGB Conc 35.5 g/dL (29.9-35.2); Mean Corpuscular Hemoglobin 34.6 pg (25.9-34.0); Mean Corpuscular Volume 97.5 fL (80.0-94.0); Platelet Count 297 10^3/uL (150-450); Red Blood Count 4.48 10^6/uL (4.70-6.10); White Blood Count 12.1 10^3/uL (4.0-11.0)
[2025-03-09] MEDS: KETOROLAC TROMETHAMINE 30 MG/ML VIAL IVP (13:04)
[2025-03-09 13:17] LABS: Alanine Aminotransferase 92 U/L (16-63); Albumin Globulin Ratio 1.0; Albumin Level 3.9 g/dL (3.4-5.0); Alkaline Phosphatase 93 U/L (46-116); Anion Gap 17.6; Aspartate Amino Transferase 66 U/L (15-37); Blood Urea Nitrogen 8.0 mg/dL (7.0-18.0); Calcium 9.0 mg/dL (8.5-10.1); Carbon Dioxide 24.0 mmol/L (21.0-32.0); Chloride 100 mmol/L (98-107); Estimated GFR (African America >60 (>=60 mL/min/1.73m^2); Estimated GFR (Non-African Ame >60 (>=60 mL/min/1.73m^2); Globulin 3.8 g/dL; Glucose 97 mg/dL (74-106); Potassium 3.6 mmol/L (3.5-5.1); Sodium 138 mmol/L (136-145); Total Protein 7.7 g/dL (6.4-8.2)
[2025-03-09 13:33] LABS: NT Pro B Type Natriuretic Pept 64.0 pg/mL (<=900.0)
[2025-03-09] MEDS: MORPHINE SULFATE 4 MG/ML VIAL IV (15:12)
== END 2025-03-09 15:25 | disposition home or self-care (01) ==
PROVIDERS: Emergency Provider Emergency Medicine; PCP Internal Medicine
DX: S22.41XA Multiple fractures of ribs, right side, initial encounter for closed fracture (principal); W18.39XA Other fall on same level, initial encounter; Y93.55 Activity, bike riding; R06.02 Shortness of breath; R05.3 Chronic cough; E66.01 Morbid (severe) obesity due to excess calories; Z68.34 Body mass index [BMI] 34.0-34.9, adult
CPT/HCPCS: 36415; 70450; 71250; 80053; 83880; 84484; 85025; 93005; 94667; 96374; 96375; 99285; J1885; J2270; Q9967

== ENCOUNTER 2025-05-07 13:35 | Emergency (ER) | payer MEDICARE, SELFPAY ==
--- OUTSIDE RECORDS SUMMARY | 2025-05-07 14:04 | XMS_ITS | CCD ---
Author Organization [facility] Care Team Providers Care Needle Grinder Name Role Phone Marquise Miller Unavailable Unavail [...] DEFAULT Unavailable Unavailable PHYSICIAN, DEFAULT Unavailable Unavailable SHAHRIAR, DR CZAARES Attending Unavailable BESS, DR CAZARES Consulting Unavailable BESS, DR CAZARES Primary Care Unavailable BESS, DR CAZARES Admitting Unavailable WEST, DR MARCUS Rausch Consulting Unavailable REQUEST, DR NOEL LISTED Attending Unavaila ble REQUEST, DR NOEL LISTED Consulting Unavaila ble REQUEST, DR NOEL LISTED Admitting Unavaila ble BESS, DR CAZARES Primary Care Unavailable REQUEST, DR NOEL LISTED Admitting Unavaila ble REQUEST, DR NOEL LISTED Attending Unavaila ble REQUEST, DR NOEL LISTED Consulting Unavaila ble SHAHRIAR, DR CAZARES Primary Care Unavailable SHAHRIAR, DR CAZARES Attending Unavailable BESS, DR CAZARES Consulting Unavailable BESS, DR CAZARES Primary Care Unavailable SHAHRIAR, DR CAZARES Admitting Unavailable ZIEBER, DR ELIAS Flor Consulting Unavailable Nory, Gayle Unavailable Nick Bess MD Unavailable Nick Bess MD Primary Care Provider Nick Bess MD Unavailable Nick Bess II Primary Care Provider Trice Pruitt APRN Attending Provider Shahriar KEANE MD, Daniel B Primary Care Provider MARINA JEONG Attending Unavailable DIANA DÍAZ Attending Unavailable HEMMARINA SCOTT Attending Unavailable MARINA JEONG Attending Unavailable MARINA JEONG Attending Unavailable BENY HOLBROOK Attending Unavailable NICK BESS Attending Unavailable RUBEN TAI Attending Unavailable NICK BESS Referring Unavailable BENY HOLBROOK Attending Unavailable MARINA JEONG Attending Unavailable NICK BESS Attending Unavailable SELF Referring Unavailable SHAHRIAR II, NICK B Primary Care Unavailable SELF Referring Unavailable BESS II, NICK B Primary Care Unavailable BESS II, NICK B Primary Care Unavailable IMAN OBRIEN Attending Unavailable SELF Referring Unavailable Allergies Allergy Classification Reported Allergen(s) Allergy Type Date of Onset Reaction(s) Facility (5 sources) COVID-19 Ad26 Vaccine([employer]) Drug allergy rash [employer] Other (3 sources) Amoxicillin; Translations: [AMOXICILLIN] Drug Allergy 05-04-2025 GI Upset [facility] Medications Current Medications Medication Drug Class(es) Dates [...] a day for 30 day(s) Jun, Active AIRSUPRA 90-80 mcg/actuation inhaler (2 sources) take 2 puff(s) by mouth every four hours as needed AIRSUPRA 90-80 mcg/actuation inhaler INHALE 2 PUFFS BY MOUTH EVERY 4 HOURS NEEDED FOR SHORTNESS OF BREATH OR WHEEZE Active albuterol 0.83 mg/ml inhalation solution (20 sources) beta2-Adrenergic Agonist Start: albuterol (2.5 MG/3ML) 0.083% nebulizer solution Take 2.5 mg by nebulization every 6 (six) hours if needed 04/23/2024 Active Start: 01-09-2024 Albuterol Sulf ate 90 mcg/actuation HFA aerosol inhaler Active 2 INH INHALATION Every 4 hours as needed January 09, 2024 10:08am Complies with drug therapy Start: 01-09-2024 take 2.5 mg by inhal ation four times daily Albuterol Sulfate 2.5 mg /3 mL (0.083 %) solution for nebulization Active 2.5 MG INHALATION Four times daily January 09, 2024 12:00am Complies with drug therapy Start: 01-09-2024 End: 01-09-2024 take 1 puff(s) by inhalation every four hours as needed Albuterol Sulfate 90 mcg/actuation HFA aerosol inhaler Discontinued 1 PUFF INHALATION Every 4 hours January 09, 2024 12:00am January 09, 2024 10:09am [employer] puff as needed Inhalation every 4 hrs; Note: Source Status: Continue; Provider: Nory Hinton Start: 08-07-2023 albuterol (2.5 MG/3ML) 0.083% nebulizer solution Take 2.5 mg by nebulization every 6 (six) hours if needed for wheezing or shortness of breath 0 08/07/2023 Active Start: 03-14-2023 take 1 puff(s) by in halation every four hours as needed Albuterol Sulfate HFA 108 (90 Base) MCG/ACT 1 puff as needed Inhalation every 4 hrs Mar, Active Start: 05-25-2004 End: 05-04-2025 take 2 puff(s) by inhalation every four to six hours as needed ALBUTEROL 90MCG INHALER 2 PUFFS Q 4-6 HRS PRN 3 month supply 3 05/25/2004 05/04/2025 Discontinued (Discontinued by Patient) Albuterol Sulfat e (2.5 MG/3ML) 0.083% 1 unit dose Inhalation four times a day DX J44.9 COPD for 30 days Active albuterol 0.833 mg/ml / ipratropium bromide 0.167 mg/ml inhalation solution (16 sources) Anticholinergic, beta2-Adrenergic Agonist Start: 11-24-2024 ipratropium-albuterol (Duo-Neb) 0.5-2.5 mg/3 mL nebulizer solution Indications: Moderate persistent asthma without complication (HCC) Take 3 mL by nebulization 4 (four) times a day as needed for wheezing or shortness of breath 150 mL 5 11/24/2024 Active Albuterol-Budes onide (Airsupra) 90-80 MCG/ACT aerosol (16 sources) Start: 11-24-2024 take 2 puff(s) by inhalation every four hours Albuterol-Budesonide (Airsupra) 90-80 MCG/ACT aerosol Indications: Moderate persistent asthma without complication (HCC) Inhale 2 puffs every 4 (four) hours if needed (SOB or Wheeze) 10.7 g 5 11/24/2024 Active Start: 11-24-2024 take 2 puff(s) by in halation every four hours Albuterol-Budesonide (Airsupra) 90-80 MCG/ACT aerosol Indications: Moderate persistent asthma without complication (CMS/HCC) Inhale 2 puffs every 4 (four) hours if needed (SOB or Wheeze) 10.7 g 5 11/24/2024 Active amLODIPine 5 mg oral tablet (20 sources) Dihydropyridine Calcium Channel Maurilio Start: 04-05-2025 take 1 tablet by mouth once daily amLODIPine (Norvasc) 5 MG tablet Indications: Benign essential hypertension TAKE 1 TABLET BY MOUTH EVERY DAY 90 tablet 3 04/05/2025 Active Start: 04-01-2023 take 1 tablet by loyd th once daily amLODIPine (Norvasc) 5 MG tablet Indications: Benign essential hypertension TAKE 1 TABLET BY MOUTH ONCE A DAY 90 tablet 3 04/09/2024 Active amoxicillin 875 mg / clavulanate 125 mg oral tablet (2 sources) Penicillin-class Antibacterial Start: 09-03-2024 End: 09-13-2024 take 1 tablet by mouth in the morning amoxicillin-clavulanate (Augmentin) 875-125 MG tablet Indications: Acute non-recurrent sinusitis, unspecified location Take 1 tablet (875 mg) by mouth in the morning and 1 tablet (875 mg) before bedtime. Do all this for 10 days. 20 tablet 09/03/2024 09/13/2024 Active Aspir-81 81 MG (5 sources) take 1 tablet by mouth once daily Aspir-81 81 MG 1 tablet Orally Once a day Active aspirin 81 mg delayed release oral tablet (1 source) Platelet Aggregation Inhibitor, Nonsteroidal Anti-inflammatory Drug Start: 01-09-2024 take 1 tablet by mouth once daily Aspirin 81 mg tablet,delayed release (DR/EC) Active 1 TAB PO Daily January 09, 2024 12:00am [employer] tablet Orally Once a day; Note: Source Status: Taking; Provider: Nory Araujo ( ) Complies with drug therapy atorvastatin 20 mg oral tablet (20 sources) HMG-CoA Reductase Inhibitor Start: 10-01-2023 take 1 tablet by mouth once daily in the morning atorvastatin (LIPITOR) 20 mg tablet Take 20 mg by mouth every morning. 09/14/2024 Active azelastine hydrochloride 0.206 mg/actuat metered dose nasal spray (6 sources) Histamine-1 Receptor Antagonist Start: 01-09-2024 take 2 spray(s) nasal route once daily Azelastine 205.5 mcg (0.15 %) spray,non-aerosol Active 2 SPRAY INTRANASAL Daily January 09, 2024 12:00am [employer] sprays in each nostril Nasally Once a day; Note: Source Status: Continue; Provider: Nory Araujo Complies with drug therapy take 2 spray(s) nasal route once daily Azelastine HCl 0.15 % 2 sprays in each nostril Nasally Once a day Active benzonatate 100 mg oral capsule (6 sources) Non-narcotic Antitussive Start: 11-18-2024 End: 12-18-2024 take 1 capsule by mouth three times daily as needed for cough benzonatate (Tessalon) 100 MG capsule Indications: Acute cough Take 1 capsule (100 mg) by mouth 3 (three) times a day as needed for cough Do not crush or chew. 42 capsule 11/18/2024 12/18/2024 Active Start: 10-27-2024 End: 11-03-2024 take 1 capsule by mouth three times daily as needed for cough benzonatate (Tessalon) 200 MG capsule Indications: Subacute cough Take 1 capsule (200 mg) by mouth 3 (three) times a day as needed for cough for up to 7 days Do not crush or chew. 21 capsule 10/27/2024 11/03/2024 Active 120 actuat budesonide 0.16 mg/actuat / formoterol fumarate 0.0048 mg/actuat / glycopyrrolate 0.009 mg/actuat metered dose inhaler (20 sources) Corticosteroid, beta2-Adrenergic Agonist Start: 09-22-2024 BREZTRI AEROSPH ERE 160-9-4.8 mcg/actuation HFA aerosol inhaler Inhale 2 puffs as instructed. 09/22/2024 Active Start: 06-26-2024 End: 09-22-2024 take 2 puff(s) by inhalation in the morning Cduzcsh-Rdskigjdooy-Keynsppziq (Breztri Aerosphere) 160-9-4.8 MCG/ACT aerosol Indications: Moderate persistent asthma with exacerbation (HCC) Inhale 2 puffs in the morning and 2 puffs before bedtime. 10.7 g 5 09/22/2024 Active Start: 03-02-2024 take 2 puff(s) by inhalation at bedtime Phyzphl-Qpezsgfpmbo-Friequiaix (Breztri Aerosphere) 160-9-4.8 MCG/ACT aerosol Indications: Moderate persistent asthma with exacerbation (CMS/HCC) INHALE 2 PUFFS IN THE MORNING AND BEFORE BEDTIME 4.8 g 2 03/02/2024 Active Start: 01-09-2024 Budesonide-Gly copyr-Formoterol (Breztri Aerosphere) 160-9-4.8 mcg/actuation HFA aerosol inhaler Active INHALATION January 09, 2024 12:00am Complies with drug therapy Start: 09-17-2023 take 2 puff(s) by inhalation in the morning Ewscbml-Lhdvnbsbzma-Mtyqcifynu (Breztri Aerosphere) 160-9-4.8 MCG/ACT aerosol Indications: Moderate persistent asthma with exacerbation (CMS/HCC) Inhale 2 puffs in the morning and 2 puffs before bedtime. 0 09/17/2023 Active cefdinir 300 mg oral capsule (2 sources) Cephalosporin Antibacterial Start: 10-29-2024 End: 11-08-2024 take 1 capsule by mouth in the morning cefdinir (Omnicef) 300 MG capsule Indications: Acute non-recurrent pansinusitis Take 1 capsule (300 mg) by mouth in the morning and 1 capsule (300 mg) before bedtime. Do all this for 10 days. 20 capsule 10/29/2024 11/08/2024 Active cetirizine hydrochloride 10 mg chewable tablet (20 sources) Histamine-1 Receptor Antagonist cetirizine (ZyrTEC) 10 MG chewable tablet Chew 10 mg Daily Active codeine phosphate 2 mg/ml / guaiFENesin 20 mg/ml oral solution (5 sources) Opioid Agonist Start: 10-29-2024 End: 11-03-2024 take 5 mL by mouth four times daily as needed for cough guaiFENesin-codein e (Robitussin-AC) 100-10 MG/5ML syrup Indications: Acute cough Take 5 mL by mouth 4 (four) times a day as needed for cough for up to 5 days 240 mL 10/29/2024 11/03/2024 Active Start: 09-22-2024 End: 09-29-2024 take 10 mL by mouth every six hours for cough guaiFENesin-codeine (Robitussin-AC) 100-10 MG/5ML syrup Indications: Moderate persistent asthma with exacerbation (CMS/HCC) Take 10 mL by mouth every 6 (six) hours if needed for cough for up to 7 days 280 mL 09/22/2024 09/29/2024 Active desloratadine 5 mg oral tablet (5 sources) Histamine-1 Receptor Antagonist Start: 01-01-2005 take 1 tablet by mouth once daily as needed CLARINEX 5 MG ORAL TAB ONE PO QD prn 0 3 01/01/2005 Active Equate - (5 sources) Equate - as directed Orally Active Equate - as dire cted Orally Not-Taking famotidine 20 mg oral tablet (12 sources) Histamine-2 Receptor Antagonist Start: 03-11-2025 take 1 tablet by mouth at bedtime famotidine (Pepcid) 20 MG tablet Indications: Gastroesophageal reflux disease without esophagitis Take 1 tablet (20 mg) by mouth at bedtime 30 tablet 5 03/11/2025 Active fluorouracil 50 mg/ml topical cream (11 sources) Nucleoside Metabolic Inhibitor Start: 03-23-2025 fluorouracil (Efudex) 5 % cream Indications: Actinic keratosis Apply to directed areas on the scalp, chest twice a day x 14 days. Dispense 30 day supply but only use for 14 days. 40 g 2 03/23/2025 Active Start: 03-23-2024 End: 05-08-2024 fluorouracil (Efudex) 5 % cr eam Indications: Actinic keratosis Apply to directed areas on the scalp twice a day x 14 days. Dispense 30 day supply but only use for 14 days. 40 g 03/23/2024 05/08/2024 Discontinued (Therapy completed) fluticasone propionate 0.05 mg/actuat metered dose nasal spray (20 sources) Corticosteroid Start: 12-17-2024 take 1-2 spray(s) nasal route once daily in the morning fluticasone (Flonase) 50 MCG/ACT nasal spray Indications: Allergic rhinitis due to pollen, unspecified seasonality USE 1 - 2 SPRAYS IN EACH NOSTRIL ONCE EVERY MORNING *SHAKE GENTLY BEFORE FIRST USE PRIME PUMP AFTER USE CLEAN TIP AND REPLACE CAP* 48 mL 3 12/17/2024 Active Start: 01-09-2024 Fluticasone Pr opionate 50 mcg/actuation spray,suspension Active 2 SPRAY INTRANASAL Daily January 09, 2024 12:00am Complies with drug therapy Start: 10-09-2023 take 1-2 spray(s) na anabella route once daily in the morning fluticasone [...] day Active glycopyrrolate 1 mg oral tablet (7 sources) Start: 01-09-2024 take 1 tablet by mouth twice daily Glycopyrrolate 1 mg tablet Active 1 TAB PO Twice daily January 09, 2024 12:00am [employer]Text[employer] tablet Orally Twice a day; Note: Source Status: Taking; Provider: Nory Araujo ( ) Complies with drug therapy Start: 03-25-2023 take 1 tablet by loyd th twice daily glycopyrrolate (Robinul) 1 MG tablet Indications: Gastroesophageal reflux disease without esophagitis TAKE ONE TABLET BY MOUTH TWICE A DAY 60 tablet 6 03/25/2023 Active hydrOXYzine hydrochloride 10 mg oral tablet (1 source) Antihistamine Start: 04-27-2025 End: 05-04-2025 take 1 tablet by mouth every eight hours hydrOXYzine HCl (Atarax) 10 MG tablet Indications: Bee sting, accidental or unintentional, initial encounter Take 1 tablet (10 mg) by mouth every 8 (eight) hours if needed for itching or allergies for up to 7 days 21 tablet 04/27/2025 05/04/2025 Active levoFLOXacin 500 mg oral tablet (2 sources) Quinolone Antimicrobial take 1 tablet by mouth every twenty-four hours levoFLOXacin 500 MG 1 tablet Orally Once a day Active loratadine 10 mg oral tablet (7 sources) Start: 01-09-2024 take 1 tablet by mouth once daily Loratadine 10 mg tablet Active 1 TAB PO Daily January 09, 2024 12:00am [employer] tablet Orally Once a day; Note: Source Status: Continue; Provider: Nory Araujo ( ) Complies with drug therapy take 1 tablet by mouth in the mo rning loratadine (Claritin) 10 MG tablet Take 10 mg by mouth in the morning. 0 Active methylPREDNISolone (2 sources) Corticosteroid Start: 09-03-2024 End: 09-10-2024 methylPREDNISolone (Medrol Dospak) 4 MG tablets Indications: Moderate persistent asthma with exacerbation (CMS/[facility]) Follow schedule on package instructions 21 tablet 09/03/2024 09/10/2024 Active mometasone furoate 0.05 mg/actuat metered dose nasal spray (5 sources) Corticosteroid Start: 01-01-2005 take 2 spray(s) nasal route once daily as needed NASONEX 50 MCG/ACTUATION NASL SPRY 2 sprays each nostril qd prn 0 3 01/01/2005 Active montelukast 10 mg oral tablet (20 sources) Leukotriene Receptor Antagonist Start: 01-01-2005 take 1 tablet by mouth once daily at bedtime as needed SINGULAIR 10 MG ORAL TAB ONE PO QHS prn 0 3 01/01/2005 Active omeprazole 20 mg delayed release oral capsule (20 sources) Proton Pump Inhibitor Start: 09-19-2023 take 1 capsule by mouth once daily omeprazole (PRILOSEC) 20 mg capsule TAKE 1 CAPSULE BY MOUTH EVERYDAY AT THE SAME TIME 03/20/2025 Active Start: 10-13-2020 take 1 capsule by mo [facility] once daily Omeprazole 20 MG 1 capsule 30 minutes before morning meal Orally Once a day Oct, Active predniSONE 10 mg oral tablet (17 sources) Start: 04-27-2025 End: 05-06-2025 take 1 tablet by mouth three times daily, then take 1 tablet by mouth twice daily, then take 1 tablet by mouth once daily predniSONE (DELTASONE) 10 mg tablet TAKE 1 TABLET BY MOUTH 3 TIMES A DAY X3 DAYS, 1 TABLET TWICE A DAY X3 DAYS THEN 1 DAILY X3 DAYS 04/27/2025 Active Start: 03-11-[facility] 20 mg tablet Active 20 MG PO Twice daily 06 06March 11, 2025 12:00am Complies with drug therapy Start: 01-04-2025 End: 03-11-2025 take 4 tablets by mouth once daily, then take 3 tablets by mouth once daily, then take 2 tablets by mouth once daily, then take 1 tablet by mouth once daily predniSONE (Deltasone) 10 MG tablet Indications: Acute non-recurrent pansinusitis TAKE 4 TABLETS BY MOUTH DAILY FOR 4 DAYS, THEN 3 TABSX4 DAYS, THEN 2 TABSX4 DAYS, THEN 1 TABX4 DAYS. 40 tablet 01/04/2025 03/11/2025 Discontinued (Therapy completed) Start: 10-29-2024 End: 11-14-2024 take 4 tablets by mouth once daily, then take 3 tablets by mouth once daily, then take 2 tablets by mouth once daily, then take 1 tablet by mouth once daily predniSONE (Deltasone) 10 MG tablet Indications: Acute non-recurrent pansinusitis Take 4 tablets (40 mg) by mouth Daily for 4 days, THEN 3 tablets (30 mg) Daily for 4 days, THEN 2 tablets (20 mg) Daily for 4 days, THEN 1 tablet (10 mg) Daily for 4 days. 40 tablet 10/29/2024 11/14/2024 Active Start: 09-22-2024 End: 10-03-2024 take 4 tablets by mouth once daily, then take 3 tablets by mouth once daily, then take 2 tablets by mouth once daily, then take 1 tablet by mouth once daily predniSONE (Deltasone) 10 MG tablet Indications: Moderate persistent asthma with exacerbation (CMS/HCC) Take 4 tablets (40 mg) by mouth Daily for 3 days, THEN 3 tablets (30 mg) Daily for 3 days, THEN 2 tablets (20 mg) Daily for 3 days, THEN 1 tablet (10 mg) Daily for 3 days. 30 tablet 09/22/2024 10/03/2024 Active Start: 06-20-2021 predniSONE 10 MG 4 tabs x 3 days, 2 tabs x 3 days, 1 tab x 3 days, then stop. Orally Once a day for 9 days Jun, Active Start: 01-01-2005 End: 05-04-2025 take 3 tablets by mouth once daily as needed PREDNISONE 20 MG ORAL TAB 3 tabs a day for 5 days as needed for asthma flares 0 1 01/01/2005 05/04/2025 Discontinued (Discontinued by Patient) 1 ml triamcinolone acetonide 40 mg/ml prefilled syringe (8 sources) Corticosteroid Start: 09-03-2024 End: 09-03-2024 triamcinolone acetonide (Kenalog-40) injection 40 mg Start: 09-03-2024 End: 09-03-2024 inject 40 mg by intramuscular injection once 40 mg, Intramuscular, Once, On [place] 09/03/24 at 1100, For 1 dose Start: 09-03-2024 End: 09-03-2024 triamcinolone acetonide (Kenalog-40) injection 40 mg Start: 09-03-2024 End: 09-03-2024 inject 40 mg by intramuscular injection once 40 mg, Intramuscular, Once, On [place] 09/03/24 at 1100, For 1 dose Start: 05-08-2024 End: 05-08-2024 triamcinolone acetonide (Kenalog-40) [...] On Sat05/08/24 at 1145, For 1 dose Completed/Discontinued Medications Medication Drug Class(es) Dates Sig (Normalized) Sig (Original) acetaminophen 325 mg / oxyCODONE hydrochloride 5 mg oral tablet (8 sources) Opioid Agonist Start: 03-09-2025 End: 03-24-2025 take 1 tablet by mouth every eight hours for pain oxyCODONE-acetam inophen (Percocet) 5-325 MG tablet Indications: Closed fracture of multiple ribs of right side with routine healing, subsequent encounter Take 1 tablet by mouth every 8 (eight) hours if needed for severe pain for up to 5 days 15 tablet 03/17/2025 03/24/2025 60 actuat fluticasone propionate 0.25 mg/actuat / salmeterol 0.05 mg/actuat dry powder inhaler (4 sources) Corticosteroid, beta2-Adrenergic Agonist Start: 05-25-2004 End: 05-04-2025 ADVAIR 250/50 DISKUS ONE INHALATION TWICE DAILY 3 month supply 3 05/25/2004 05/04/2025 Discontinued (Discontinued by Patient) gatifloxacin 400 mg oral tablet (4 sources) Quinolone Antimicrobial Start: 01-01-2005 End: 05-04-2025 take 1 tablet by mouth once daily as needed for congestion TEQUIN 400 MG ORAL TAB one po qd as needed for chest congestion 0 1 01/01/2005 05/04/2025 Discontinued (Discontinued by Patient) guaiFENesin / Phenylephrine / Phenylpropanolamine (2 sources) alpha-1 Adrenergic Agonist Guaifenex LA Not-Taking 12 hr guaiFENesin 600 mg / pseudoephedrine hydrochloride 120 mg extended release oral tablet (4 sources) alpha-Adrenergic Agonist Start: 01-01-2005 End: 05-04-2025 GUAIFENEX PSE 120 120 MG-600 MG ORAL TB12 one po bid prn for sinus congestion 0 12 01/01/2005 05/04/2025 Discontinued (Discontinued by Patient) Problems Active Problems Problem Classification Problem Date Documented Date Episodic/Chronic Administrative/socia l admission (4 sources) Patient encounter status; Translations: [Other specified counseling] 12-08-2024 Episodic Asthma (20 sources) Reactive airway disease; Translations: [Unspecified asthma, uncomplicated] Onset: 06-20-2021 Resolved: 10-08-2023 Chronic Cardiac dysrhythmias (13 sources) Palpitations; Translations: [Palpitations] Onset: 01-31-2025 03-11-2025 Episodic Conduction disorders (20 sources) Bifascicular block; Translations: [Bifascicular block] Onset: 04-01-2023 04-01-2023 Chronic Disorders of lipid metabolism (20 sources) Raised low density lipoprotein cholesterol; Translations: [Pure hypercholesterolemia, unspecified] Onset: 04-01-2023 Resolved: 10-08-2023 04-01-2023 Chronic Esophageal disorders (20 sources) Gastroesophageal reflux disease; Translations: [Gastro-esophageal reflux disease without esophagitis] Onset: 06-20-2021 Resolved: 03-19-2022 Chronic Essential hypertension (20 sources) Benign essential hypertension; Translations: [Essential (primary) hypertension] Onset: 04-01-2023 04-01-2023 Chronic Osteoarthritis (20 sources) Osteoarthritis of right knee joint; Translations: [Unilateral primary osteoarthritis, right knee] Onset: 04-01-2023 04-01-2023 Chronic Other aftercare (2 sources) 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; Translations: [intermediate designer (current) use of systemic steroids] 03-26-2025 Episodic Other fractures (3 sources) Closed fracture of multiple ribs; Translations: [Multiple fractures of ribs, right side, subsequent encounter for fracture with routine healing] 03-11-2025 Episodic Other fractures (2 sources) Closed fracture of multiple right ribs; Translations: [Multiple fractures of ribs, right side, initial encounter for closed fracture] 03-26-2025 Episodic Other liver diseases (20 sources) Steatosis of liver; Translations: [Fatty (change of) liver, not elsewhere classified] Onset: 04-01-2023 04-01-2023 Chronic Other lower respiratory disease (20 sources) Chronic cough; Translations: [Chronic cough] Onset: 07-28-2021 Resolved: 10-08-2023 Episodic Other lower respiratory disease (2 sources) Cough; Translations: [Acute cough] 10-29-2024 Episodic Other lower respiratory disease (8 sources) Persistent cough; Translations: [Persistent cough for 3 weeks or longer] 03-11-2025 Episodic Other lower respiratory disease (2 sources) Cough; Translations: [Cough, unspecified type] 05-04-2025 Episodic Other nutritional; endocrine; and metabolic disorders (20 sources) Severe obesity; Translations: [Class 2 severe obesity due to excess calories with serious comorbidity and body mass index (BMI) of 37.0 to 37.9 in adult] Onset: 11-24-2024 11-24-2024 Chronic Other skin disorders (2 sources) Inflamed seborrheic keratosis; Translations: [Inflamed seborrheic keratosis] 03-23-2025 Episodic Other skin disorders (2 sources) Lentiginosis; Translations: [Other melanin hyperpigmentation] 03-23-2025 Episodic Other skin disorders (2 sources) Seborrheic keratosis; Translations: [Other seborrheic keratosis] 03-23-2025 Episodic Other skin disorders (2 sources) Actinic keratosis; Translations: [Actinic keratosis] 03-23-2025 Episodic Other upper respiratory disease (20 sources) Allergic rhinitis; Translations: [Allergic rhinitis, unspecified] Onset: 04-01-2023 04-01-2023 Chronic Other upper respiratory disease (20 sources) Chronic laryngitis; Translations: [Chronic laryngitis] Onset: 04-01-2023 04-01-2023 Chronic Other upper respiratory disease (20 sources) Chronic rhinitis; Translations: [Chronic rhinitis] Onset: 04-01-2023 04-01-2023 Chronic Other upper respiratory disease (2 sources) Allergic rhinitis due to pollen; Translations: [Allergic rhinitis due to pollen] 12-08-2024 Chronic Other upper respiratory disease (1 source) Allergic rhinitis, unspecified; Translations: [Allergic rhinitis, unspecified seasonality, unspecified trigger] Onset: 05-04-2025 Chronic Other upper respiratory infections (20 sources) Chronic bilateral maxillary sinusitis; Translations: [Chronic maxillary sinusitis] Onset: 04-01-2023 Resolved: 09-17-2023 04-01-2023 Chronic Other upper respiratory infections (4 sources) Acute sinusitis; Translations: [Acute sinusitis, unspecified] 09-03-2024 Episodic Poisoning by nonmedicinal substances (1 source) Bee sting; Translations: [Toxic effect of venom of bees, accidental (unintentional), initial encounter] 04-27-2025 Episodic Residual codes; unclassified (5 sources) Sleep apnea; Translations: [Sleep apnea, unspecified] Chronic Residual codes; unclassified (3 sources) Sleep apnea, unspecified; Translations: [Sleep apnea G47.30] Onset: 06-20-2021 Resolved: 03-19-2022 Chronic Residual codes; unclassified (20 sources) Obstructive sleep apnea syndrome; Translations: [Obstructive sleep apnea (adult) (pediatric)] Onset: 04-01-2023 04-01-2023 Chronic Unclassified (3 sources) ELEV LVLS LIVER TRANSAMINASE LVLS; Translations: [ELEV LVLS LIVER TRANSAMINASE LVLS] Onset: 08-12-2021 Unclassified (1 source) Cough, unspecified type; Translations: [Cough, unspecified type] Onset: 05-04-2025 Past or Other Problems Problem Classification Problem Date Documented Da te Episodic/Chronic Anxiety disorders (20 sources) Anxiety state; Translations: [Generalized anxiety disorder] Onset: 04-01-2023 Resolved: 09-17-2023 09-17-2023 Chronic Diabetes mellitus without complication (20 sources) Disorder of glucose metabolism; Translations: [Other abnormal glucose] Onset: 04-01-2023 04-01-2023 Episodic Joint disorders and dislocations; trauma-related (20 sources) Derangement of right knee; Translations: [Unspecified internal derangement of right knee] Onset: 04-01-2023 Resolved: 09-17-2023 09-17-2023 Chronic Mood disorders (20 sources) Mood disorders Onset: 10-02-2023 Resolved: 12-08-2024 10-08-2023 Other liver diseases (20 sources) Enzyme level - finding; Translations: [Elevated transaminase level] Onset: 04-01-2023 04-01-2023 Episodic Other non-epithelial cancer of skin (20 sources) Basal cell carcinoma of truncal skin; Translations: [Basal cell carcinoma of skin of other part of trunk] Onset: 04-01-2023 04-01-2023 Episodic Other skin disorders (20 sources) Lump on finger; Translations: [Localized swelling, mass and lump, unspecified upper limb] Onset: 04-01-2023 Resolved: 09-17-2023 09-17-2023 Episodic Unclassified (1 source) ELEV LVLS LIVER TRANSAMINASE LVLS; Translations: [ELEV LVLS LIVER TRANSAMINASE LVLS] Onset: 08-08-2021 Results Test Name Value Interpretation Reference Range Facility [facility] VIOLET FERRARA ([id number]) 1960 M Date Time Provider Department 05[facility]05[facility] During your visit today, we recorded the following information about you: Marcus Engel LPN 05/05/2025 12:[address] chest results Received: Yesterday Iman Obrien MD P Avw Pulm Nurse This patient reports having a CT just this summer in [place] or [place]. It's not being collected by Care Everywhere. Can we obtain his CT chest images on a CD please? Thank you! Faxed Auth to Disclose info to [facility] for CT Chest imaging Allergies As of Date: 05/05/2025 Noted Allergy Reaction AMOXICILLIN 05/04/2025 8 - GI Upset Date Reviewed: 05/04/2025 Reviewed by: Iman Obrien MD - Fully Assessed Prescriptions as of 05/05/2025 - AIRSUPRA 90-80 mcg/actuation inhaler INHALE 2 PUFFS BY MOUTH EVERY 4 HOURS NEEDED FOR SHORTNESS OF BREATH OR WHEEZE - BREZTRI AEROSPHERE 160-9-4.8 mcg/actuation HFA aerosol inhaler Inhale 2 puffs as instructed. - amLODIPine (NORVASC) 5 mg tablet Take 5 mg by mouth once daily. - atorvastatin (LIPITOR) 20 mg tablet Take 20 mg by mouth every morning. - omeprazole (PRILOSEC) 20 mg capsule TAKE 1 CAPSULE BY MOUTH EVERYDAY AT THE SAME TIME - predniSONE (DELTASONE) 10 mg tablet TAKE 1 TABLET BY MOUTH 3 TIMES A DAY X3 DAYS, 1 TABLET TWICE A DAY X3 DAYS THEN 1 DAILY X3 DAYS - NASONEX 50 MCG/ACTUATION NASL SPRY 2 sprays each nostril qd prn - CLARINEX 5 MG ORAL TAB ONE PO QD prn - SINGULAIR 10 MG ORAL TAB ONE PO QHS prn Problem List As Of Date 05/05/2025 Noted Resolved BCC (basal cell carcinoma), trunk [C44.519] 04/01/2023 Benign essential hypertension [I10] 04/01/2023 Chronic cough [R05.3] 01/31/2025 Mixed hyperlipidemia [E78.2] 04/01/2023 LPRD (laryngopharyngeal reflux disease) [K21.9] 04/01/2023 Encounter Status:Closed by MARCUS ENGEL on 05/05/25 [facility] CNOVon 05-04-2025 CNOV Office Visit (DANNY ) VIOLET FERRARA ([id number]) 1960 M Date Time Provider Department 05/04/25 11:00 AM IMAN OBRIEN During your visit today, we recorded the following information about you: Temperature Pulse Respiration Blood pressure 97.6 degrees 86/minute 16/minute 146/92 Weight Height 115.8 kg 1.753 m Iman Obrien MD 05/04/2025 12:18 PM Signed NEW PATIENT OFFICE VISIT Violet Ferrara is a 64 year old male who presents for evaluation of chronic cough He reports a history of chronic cough for many years; it has progressively worsened over the years, leading to multiple episodes of syncope. The cough [...] significant episode occurred 6-7 years ago after mowing his yard, resulting in a fall and a scalp laceration. He has been to the emergency room three times since last Thanks for the cough, and he has had recurrent prednisone bursts to treat the cough. He is currently on prednisone although this time for multiple recent yellow jacket stings. He does report that the prednisone will relieve his cough, but he would like to try and stay off it. Violet has a long history of inhaler use, [...] allergic to dust mites. This was several years ago. He briefly underwent allergy shots but discontinued them after six weeks due to frequency of visits required. He denies seasonal allergies. Violet has a history of sinus infections and [...] damage, hot tubs. 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 He rarely smokes a cigar, this only occasionally when on vacation in the summer. No ongoing smoke exposure. No vaping/e-cigarette use, marijuana or other drug use. He has no significant family history of lung disease. PMH, FAMH, SOCIAL History AND Allergies were verified and updated, and medications [...] 4.7 oz (115.8kg) SpO2 92% BMI 37.68 kg/(m2). General appearance: well appearing, in no acute distress, alert Skin: skin color normal, (more content not included)... Normal [facility] NITRIC OXIDE, EXHALEDon Jessika Lunsford RRT 05/04 10:20 AM ALLERGY AND IMMUNOLOGY ORAL EXHALED [...] 32.0 NAME: Jessika Lunsford RRT PATIENT NAME: Violet Ferrara DATE: May 04, 2025 TIME: 10:[address] [facility] SPIROMETRY - BASELINE AND PO ST DILATORon 05-04-2025 SPIROMETRY - BASELINE AND POST DILATOR [address] [place] [address] Test Date: 2025-05-04 Pat Name: VIOLET FERRARA Department: Room: Gender: Male [employer] D[employer] Person: : 1960 Requested By: Order Number: [id number] Reading MD: Bernardo Buck MD Interpretive Statements [...] 11:33:34 EDT by Bernardo Buck MD ID: [id number] Name: VIOLET FERRARA Race: White Ht: 68.50 in Wt: 255.30 lbs Age: 64 Gender: Male : 1960 Dx: Cough, unspecified_ Smoking Hx: Non-smoker Doctor: IMAN OBRIEN Test Date: 05/04/2025 Site: [facility] Tech: Jessika Lunsford PRE-BRONCH POST-BRONCH Richard [...] 90-100 0.68 14 FIVC 3.51 3.37 -4 QBM40-85 2.38 1.14 2.51 4.42 94 -0.13 2.71 [...] = 94/min, HR post = 88/min. ///AP FVC_PRE (L) : 3.47 L FVC_POST (L) : 3.50 L FVC_PRED (L) : 3.91 L FVC_LLN (L) : 2.92 L FVC_ULN (L) : 4.91 L FEV1_PRE (L) : 2.70 L FEV1_POST (L) : 2.77 L FEV1_PRED (L) : 3.00 L FEV1_LLN (L) : 2.20 L FEV1_ULN (L) : 3.75 L FEV1/FVC_PRE (%) : 78 % FEV1/FVC_POST (%) : 79 % FEV1/FVC_PRED (%) : 77 % FEV1/FVC_LLN (%) : 65 % XJB70_FOD (L/S) : 7.22 L/S UGU04_THFG (L/S) : 7.56 L/S ARA29_FTW (L/S) : 0.71 L/S JKX29_FGCQ (L/S) : 0.87 L/S GKE84_RIYN (L/S) : 0.70 L/S JAK51_RPR (L/S) : 0.27 L/S NPA25_LJI (L/S) : 1.75 L/S ODG03-90%_PRE (L/S) : 2.38 L/S SPW19-42%_POST (L/S) : 2.71 L/S UFZ27-89%_PRED (L/S) : 2.51 L/S VUG28-33%_LLN (L/S) : 1.14 L/S PEF_PRE (L/S) : 8.61 L/S PEF_POST (L/S) : 8.88 L/S PEFMAX_LLN (L/S) : 6.10 L/S PEFMAX_ULN (L/S) : 10.54 L/S FET_PRE (S) : 8.68 S FET_POST (S) : 6.88 S Normal [facility] Zoila 03-29-2025 EDERN Telephone (PULMMN) VIOLET FERRARA ([id number]) 1960 M Date Time Provider Department 03/29/25 ELSA SERNA During your visit today, we recorded the following information about you: Duncan Alford RN 03/29/2025 2:40 PM Signed Received chronic cough referral, Called and spoke with patient, his cough has been going on since last , the last time he saw a major account representative was about 2 years ago Patient stated he prefers to be seen by someone at [place] Will send message to scheduling Allergies As of Date: 03/29/2025 (No Known Allergies) Date Reviewed: 01/01/2005 Reviewed by: Linda Florian Rn - Reviewed Prescriptions as of 03/29/2025 - PREDNISONE 20 MG ORAL TAB 3 tabs a day for 5 days as needed for asthma flares - TEQUIN 400 MG ORAL TAB one po qd as needed for chest congestion - NASONEX 50 MCG/ACTUATION NASL SPRY 2 sprays each nostril qd prn - CLARINEX 5 MG ORAL TAB ONE PO QD prn - SINGULAIR 10 MG ORAL TAB ONE PO QHS prn - GUAIFENEX PSE 120 120 MG-600 MG ORAL TB12 one po bid prn for sinus congestion - ALBUTEROL 90MCG INHALER 2 PUFFS Q 4-6 HRS PRN - ADVAIR 250/50 DISKUS ONE INHALATION TWICE DAILY Problem List As Of Date: 03/29/2025 (None) Encounter Status:Closed by DUNCAN ALFORD on 03/29/25 [facility] Information 03-23 [facility] 04-22-2024 Complexity: simple Destruction method: electrodesiccation and curettage Informed consent: discussed and consent obtained Informed consent comment: The risks of the procedure were discussed, including, but not limited to risks of scarring, darker or line manager pigmentary changes, recurrence, infection, and incomplete removal [...] lidocaine used: 3.0 cc Previous accession number: [id number] [facility] Destr of lesionOrdered By: Uzma Murray on 04-22-2024 [facility] Work Phone: US SINGLE QUAD RT UPPERon [...] by: MARCUS FERMIN Date: 2021-08-08 09:23 Normal [facility] XR CHEST 2 Von 07-28-2021 XR [...] by: ELIAS PICKARD Date: 2021-07-28 10:35 Normal [facility] History and Physicalon 02-10 History and Physical [id number]#1.00[facility] Orderson 02-10-2018 Provider Orders [id number]#1.00[facility] Intraoperative Noteon 2017 Intraoperative Note [id number]#1.00[facility] Coding Queryon 01-02-2018 Coding Query Please review the PreOperative diagnosis -- there seems to be a dragon/dictating error. Please correct it on the Operative Note.Thanks.Felice[E lectronically Signed on: 01/02/2018 18:59 EDT] Marquise Miller DO[Verified on: 01/02/2018 18:59 EDT] Marquise Miller DO[Transcribed on: 01/02/2018 11:50 EDT][facility] Coding Summaryon 01-02-2018 Coding Summary CODING DATE: 018 [facility] STATUS: Home PAYOR: Commercial Insurance APC DESCRIPTION 5113 Level 3 Musculoskeletal Procedures ADMIT DX: REASON FOR VISIT DX: M23.91 Unspecified internal derangement of right knee FINAL DX: PRINCIPAL: S83.281A Other tear of lateral meniscus, current injury, right knee, initial encounter SECONDARY: S83.241A Other tear of medial meniscus, current injury, right knee, initial encounter PYMT PROC APC STAT DESCRIPTION DOCTOR NAME DATE 71070 5113 J1 Arthroscopy, knee, Marquise Miller And 12/30/2017 surgical; with meniscectomy (medial AND [...] Yisel Hong Date Saved: 01/02/2018 12:00 pm [facility] Coding Summary CODING DATE: 018 [facility] STATUS: Home PAYOR: Commercial Insurance ADMIT DX: [...] Fabi Francis Date Saved: 01/02/2018 07:59 am [facility] Consent Formson 12-31-2017 Consent Forms [id number]#1.00[facility] Discharge Instructionson Discharge Instructions [id number]#1.00OTGTIFF [facility] Intraoperative Noteon 2017 Intraoperative Note [id number]#1.00OT[facility] Medication Managementon Medication Management [id number]#1.00OTGTIFF [facility] Outside Recordson 12-31-2017 Outside Records [id number]#1.00[facility] Telemetry Stripson 8 Telemetry Strips [id number]#1.00OT[facility] Anesthesia Noteon 12-30-2017 Anesthesia Note Patient: BARTOLO FERRARA : 57 years Sex: MALE : 56Associated Diagnoses: NoneAuthor: David Quintana MDPostoperative InformationPost Operative Note: Operative Day.Anesthetic utilized: General.Health StatusAllergies:Allergic Reactions (All)No known allergiesProblem list (past medical history):All ProblemsAsthma / SNOMED CT 057738820 / ConfirmedArrhythmia / SNOMED CT 9572969837 / ConfirmedSinus disorder / SNOMED CT 5266593198 / ConfirmedAcid reflux / SNOMED CT 504578592 / ConfirmedHypertension / SNOMED CT 5558913242 / ConfirmedPhysical ExaminationVS/MeasurementsV ital Signs (last 24 [...] on: 12/30/2017 12:45 EDT] David Quintana MD [facility] Anesthesia Note Patient: BARTOLO FERRARA : 57 years Sex: MALE : 56Associated [...] (past medical history):All ProblemsAsthma / SNOMED CT 995637794 / ConfirmedArrhythmia / SNOMED CT 3260682976 / ConfirmedSinus disorder / SNOMED CT 6721702223 / ConfirmedAcid reflux / SNOMED CT 285606171 / ConfirmedHypertension / SNOMED CT 6611730549 / ConfirmedHistoriesFamily History:No family history items have been selected or recorded.Procedure history:Pilar cyst ([id number]) in 2014 at 55 Years.Comments:12/27/2017 12:08 - Zoe Ingram LMIDDLE FINGER OF LEFT HANDFESS (functional endoscopic sinus surgery) diagnostic antroscopy via inferior meatus (9803832810) in 1996 at 37 Years.Social History Alcohol Assessment Beer, 3-5 times per week, 4 drinks/episode average. Previous treatment: None. Tobacco Assessment Never (less than 100 in lifetime) Tobacco Use:. Substance Abuse Assessment Substance use: Never..Social & Psychosocial VvorxaMgwkfsy44/27/2018 Type: Beer Frequency: 3-5 times per week Average drinks per episode in last year: 4 Previous treatment: NoneSubstance Abuse12/27/2017 Substance use: YdbruYdwcuqz50/27/2018 Smoking tobacco use: Never (less than 100 in l.Physical ExaminationVS/MeasurementsV ital Signs (last 24 hrs) Last ChartedHeart Rate Peripheral 85 bpm (DEC 30:)Resp Rate 18 br/min (DEC 30:)SBP 137 mmHg (DEC 30:)DBP 90 mmHg (DEC 30:)SpO2 97 % (DEC 30:)Airway: Mallampati classification: II [...] on: 12/30/2017 11:09 EDT] David Quintana MD [facility] Inpatient Clinical Summaryon 12-30-2017 Inpatient Clinical Summary [facility] SURGERYClinical Discharge SummaryPERSON INFORMATIONName VIOLET FERRARA Age 57 Years 56Sex MALE Language Barbadian PCP [place] BESS Status Med Service Ambulatory SurgeryN 15-11-29 Acct# Arrival 12/30/17 10:26:36Visit Reason KNEE ARTHROSCOPY Acuity LOS 004 02:46Address:[address] [place] [address]Qusxixo:PROVIDER INFORMATIONVITALS INFORMATIONVital Sign Triage LatestTemp OralTemp TemporalTemp IntravascularTemp AxillaryTemp Jfwico02 Sat 97 % 94 %Respiratory Rate 18 [...] EDUCATION INFORMATIONInstructions:Evita dowling- Post Op Knee Arthroscopy (MHAHUDCHARLEEN)Follow up:With: Address: When:Marquise Miller [address] [place] [address], [address] [place] [address] Business (2) 01/07/2018 8:30 AMWith: Address: When:NICK BESS [facility], [facility] SUR[employer], [address] [place], [place] [address] [place], [place] [id number] Business (1)DIAGNOSISTorn meniscusComment:PHYS DOC NOTES Normal [facility] Inpatient Patient Summaryon 12-30-2017 Inpatient Patient Summary [address] [address] patient Discharge InstructionsName: VIOLET FERRARA WDOB: [birth year] Address: [address] [place], [place] [address]Primary Care Provider:Name: NICK BESSPhone: After you are discharged if you find you have any questions, please, call [phone] ext [phone] to speak to a nurse.Discharge Diagnosis: Torn [...] or business decisions or sign any legal documentsMer[facility] Health [facility] would like to thank you for allowing us to assist you with your healthcare needs. The following includes patient education materials and information regarding your injury/illness.VIOLET FERRARA has been given the following list of follow-up instructions, prescriptions, and patient education materials:Follow-up InstructionsWith: Address: When:Marquise Miller [address] [place] [address], [address] [place] [address] Business (2) 01/07/2018 8:30 AMWith: Address: When:NICK BESS [facility], [facility] [employer], [address] [facility] [address] [place], [place] [phone] Business (1)MedicationsDuring the course of your visit, [...] or concerns, please call the office at [phone] or BacteriaWhat?s got you sick?Antibiotics only treat [...] Aren?t Always the Answerwww.cdc.gov/getsmart GETSMARTKnow When Antibiotics [place]. Department of Health and Human ServicesCenters for Disease Control and Prevention May 2014 [facility]2017 [facility] Intraoperative Record MAGR Intra-Op Record Summary Primary Physician: Marquise Miller DO Finalized Date/Time: 12/30/17 16:14:46 Pt. Name: VIOLET FERRARA /Sex: 1960 MALE Med Rec #: [id number] Physician: Marquise Miller DO Financial #: [id number] Pt. Type: D Room/Bed: / Admit/Disch: 12/30/17 [...] Role Performed Surgeon - Primary Anesthesiologist of Infection Prevention Practitioner Record Time In 12/30/17 11:25:00 12/30/17 11:25:00 12/30/17 11:25:00 Time Out 12/30/17 12:42:00 12/30/17 12:42:00 12/30/17 12:42:00 Procedure Arthroscopy Knee(Right, Arthroscopy Knee(Right, Arthroscopy Knee(Right, Knee) Knee) Knee) Last Modified By: Anna He RN, Stephanie RN Sauer, Stephanie RN 12/30/17 14:02:51 12/30/17 14:02:51 12/30/17 14:02:51 Entry 4 Entry 5 Case Attendee Rosa Crabtree CST, Liberty G Role Performed Claims Service Representative Scrub Personnel Time In 12/30/17 11:25:00 12/30/17 [...] Unfinalizing Freetext Reason for Unfinalizing 12/30/17 16:13 [facility] Documentation [facility] PACU Record MAGR PACU Record [facility] Primary Physician: Marquise Miller DO Finalized Date/Time: 12/30/17 13:21:10 Pt. Name: VIOLET FERRARA/Sex: 1960 MALE Med Rec #: [id number] Physician: Marquise Miller DO Financial #: [id number] Pt. Type: D Room/Bed: / Admit/Disch: 12/30/17 10:26:36 - Institution: PACU Case Times MAGR Entry 1 In PACU I 12/30/17 12:41:00 Discharge from PACU 12/30/17 13:10:00 I Last Modified By: Jaqueline Nguyen RN 12/30/17 13:08:24 Finalized By: Jaqueline Nguyen RN Document Signatures Signed By: Jaqueline Nguyen RN 12/30/17 13:21 [facility] MAGR Postoperative Recordon 12-30-2017 MAGR Postoperative Record MAGR Phase II Record Summary Primary Physician: Marquise Miller DO Finalized Date/Time: 12/30/17 14:25:01 Pt. Name: VIOLET FERRARA/Sex: 1960 MALE Med Rec #: [id number] Physician: Marquise Miller DO Financial #: [id number] Pt. Type: D Room/Bed: / Admit/Disch: 12/30/17 [...] Signed By: Viry Rehman RN 12/30/17 14:25 [facility] MAGR Preoperative Recordon 0 12-30-2017 [facility] Preoperative Record MAGR Pre-Op Record Summary Primary Physician: Marquise Miller DO Finalized Date/Time: 12/30/17 13:31:52 Pt. Name: VIOLET FERRARA/Sex: 1960 MALE Med Rec #: [id number] Physician: Marquise Miller DO Financial #: [id number] Pt. Type: D Room/Bed: / Admit/Disch: 12/30/17 10:26:36 - Institution: Pre-Op Case Times [facility] Pre-Care Text: Patient will be optimally prepared [...] consent correct. General Comments: pt arrives to [facility] ambulatory. Pt denies any pain, cp, sob, cough or flu like symptoms. Pt denies pacemaker/defibillator or sleep apnea. Finalized By: Ramsey Saleh RN Document Signatures Signed By: Ramsey Saleh RN 12/30/17 13:31 Normal [facility] Operative Report - Surgeon/P bhanu 12-30-2017 Operative Report - Surgeon/Physician Preoperative diagnosis: Internal duration right knee was suspected incarcerated meniscusPostoperative diagnosis: Tear medial meniscus, tear lateral meniscusProcedure: Arthroscopic partial medial lateral meniscectomiesSurgeon: Blue Miller D.OFamiliaAnesthesia: Gen.Indications for surgery: The patient had intractable [...] the lateral compartment but it was not phcg-tc-qipi.Each compartment was revisited the joint was then irrigated and evacuated the portals were closed with nylon sutures. Sterile dressings were applied.[Electronically Signed on: 12/30/2017 12:48 EDT] Marquise Miller DO[Verified on: 12/30/2017 12:48 EDT] Marquise Miller note this correctionPreoperative diagnosis should read Internal derangement right knee with suspected incarcerated meniscus.[Electronically Signed on: 01/02/2018 18:44 EDT] Marquise Miller DO Normal [facility] Standardon 12-27-2017 eGFR (non-black) mL/min/{1.73_m2} Invalid Interpretation Code [facility] Comment on above: Performed By: #### 1 [id number] ####[facility] (DEFAULT)[address] [place] [address] Result Comment: Strip Cutter arpita Kidney disease could be indicated at eGFRs of less than 60 ml/min/1.73m2. Kidney Failure is indicated at less than 15 ml/min/1.73m2 Anion gap 12.0 mmol/L Normal 5.0-19.0 [facility] Comment on above: Performed By: #### 1 [id number] ####[facility] (DEFAULT)[address] [place] [address] BUN/Creatinine Ratio 14.0 mg/mg Normal 4.6-16.2 [facility] Comment on above: Performed By: #### 1 [id number] ####[facility] (DEFAULT)[address] [place] [address] Calcium 8.7 mg/dL Low 8.9-10.3 [facility] Comment on above: Performed By: #### 1 [id number] ####[facility] (DEFAULT)[address] [place] [address] Chloride 103 mmol/L Normal 101-111 [facility] Comment on above: Performed By: #### 1 [id number] ####[facility] (DEFAULT)[address] [place] [address] CO2 26 mmol/L Normal 21-32 [facility] Comment on above: Performed By: #### 1 [id number] ####[facility] (DEFAULT)[address] [place] [address] Creatinine 1.00 mg/dL Normal 0.90-1.30 [facility] Comment on above: Performed By: #### 1 [id number] ####[facility] (DEFAULT)[address] [place] [address] Glucose mass conc 92.0 mg/dL Normal 74.0-118.0 [facility] Comment on above: Performed By: #### 1 [id number] ####[facility] (DEFAULT)[address] [place] [address] Osmolality 274 mOsm/L Invalid Interpretation Code [facility] Comment on above: Performed By: #### 1 [id number] ####[facility] (DEFAULT)[address] [place] [address] Potassium molar conc 3.6 mmol/L Normal 3.6-5.1 [facility] Comment on above: Performed By: #### 1 [id number] ####[facility] (DEFAULT)[address] [place] [address] Sodium 137.0 mmol/L Normal 136.0-144.0 [facility] Comment on above: Performed By: #### 1 [id number] ####[facility] (DEFAULT)[address] [place] [address] Urea nitrogen 14 mg/dL Normal 8-26 [facility] Comment on above: Performed By: #### 1 [id number] ####[facility] (DEFAULT)[address] [place] [address] Vital Signs Date Time Vital Sign Value Performing Clinician Facility 05-04-2025 10:55-0400 Body height 175.3 cm Iman Obrien MD Work Phone: [facility] 05-04-2025 10:55-0400 Body mass index (BMI) [Ratio] 37.68 kg/m2 Iman Obrien MD Work Phone: [facility] 05-04-2025 10:55-0400 Body temperature 97.59 [degF] Iman Obrien MD Work Phone: [facility] 05-04-2025 10:55-0400 Body weight 115.8 kg Iman Obrien MD Work Phone: [facility] 05-04-2025 10:55-0400 Diastolic blood pressure 92 mm[Hg] Iman Obrien MD Work Phone: [facility] 05-04-2025 10:55-0400 Heart rate 86 /min Iman Obrien MD Work Phone: [facility] 05-04-2025 10:55-0400 Respiratory rate 16 /min Iman Obrien MD Work Phone: [facility] 05-04-2025 10:55-0400 SaO2% (BldA) [Mass fraction] 92 % Iman Obrien MD Work Phone: [facility] 05-04-2025 10:55-0400 Systolic blood pressure 146 mm[Hg] Iman Obrien MD Work Phone: [facility] 04-20-2025 08:09-0400 Body height 177.8 cm Ruben Tai DO Work Phone: [facility] 04-20-2025 08:09-0400 Body mass index (BMI) [Ratio] 35.87 kg/m2 Ruben Tai DO Work Phone: [facility] 04-20-2025 08:09-0400 Body weight 113.4 kg Ruben Tai DO Work Phone: [facility] 03-24-2025 09:07-0400 Body height 177.8 cm Nick Bess MD Work Phone: [facility] 03-24-2025 09:07-0400 Body mass index (BMI) [Ratio] 36.45 kg/m2 Nick Bess MD Work Phone: [facility] 03-24-2025 09:07-0400 Body weight 115.21 kg Nick Bess MD Work Phone: [facility] 03-24-2025 09:07-0400 Diastolic blood pressure 100 mm[Hg] Nick Bess MD Work Phone: [facility] 03-24-2025 09:07-0400 Heart rate 87 /min Nick Bess MD Work Phone: [facility] 03-24-2025 09:07-0400 SaO2% (BldA) [Mass fraction] 94 % Nick Bess MD Work Phone: [facility] 03-24-2025 09:07-0400 Systolic blood pressure 148 mm[Hg] Nick Bess MD Work Phone: [facility] 03-11-2025 14:48-0400 Body height 175.26 cm Nick Bess II Work Phone: [facility] 03-11-2025 14:48-0400 Body mass index (BMI) [Ratio] 35.1 kg/m2 Nick Bess II Work Phone: [facility] 03-11-2025 14:48-0400 Body temperature 99.5 [degF] Nick Bess II Work Phone: [facility] 03-11-2025 14:48-0400 Body weight 107.95 kg Nick Bess II Work Phone: [facility] 03-11-2025 14:48-0400 Diastolic blood pressure 74 mm[Hg] Nick Bess II Work Phone: [facility] 03-11-2025 14:48-0400 Heart rate 81 /min Nick Bess II Work Phone: [facility] 03-11-2025 14:48-0400 Respiratory rate 18 /min Nick Bess II Work Phone: [facility] 03-11-2025 14:48-0400 SaO2% (BldA) [Mass fraction] 92 % Nick Bess II Work Phone: [facility] 03-11-2025 14:48-0400 Systolic blood pressure 113 mm[Hg] Nick Bess II Work Phone: [facility] 03-11-2025 08:52-0400 Body height 177.8 cm Marina Hemmer PA Work Phone: [facility] 03-11-2025 08:52-0400 Body mass index (BMI) [Ratio] 36.65 kg/m2 Marina Hemmer PA Work Phone: [facility] 03-11-2025 08:52-0400 Body weight 115.85 kg Marina Hemmer PA Work Phone: [facility] 03-11-2025 08:52-0400 Diastolic blood pressure 86 mm[Hg] Marina Hemmer PA Work Phone: [facility] 03-11-2025 08:52-0400 Heart rate 87 /min Marina Hemmer PA Work Phone: [facility] 03-11-2025 08:52-0400 Respiratory rate 18 /min Marina Hemmer PA Work Phone: [facility] 03-11-2025 08:52-0400 SaO2% (BldA) [Mass fraction] 95 % Marina Hemmer PA Work Phone: [facility] 03-11-2025 08:52-0400 Systolic blood pressure 152 mm[Hg] Marina Hemmer PA Work Phone: [facility] 12-08-2024 08:05-0400 Body height 177.8 cm Marina Hemmer PA Work Phone: [facility] 12-08-2024 08:05-0400 Body mass index (BMI) [Ratio] 37.19 kg/m2 Marina Hemmer PA Work Phone: [facility] 12-08-2024 08:05-0400 Body weight 117.57 kg Marina Hemmer PA Work Phone: [facility] 12-08-2024 08:05-0400 Diastolic blood pressure 86 mm[Hg] Marina Hemmer PA Work Phone: [facility] 12-08-2024 08:05-0400 Heart rate 93 /min Marina Hemmer PA Work Phone: [facility] 12-08-2024 08:05-0400 Respiratory rate 18 /min Marina Hemmer PA Work Phone: [facility] 12-08-2024 08:05-0400 SaO2% (BldA) [Mass fraction] 94 % Marina Hemmer PA Work Phone: [facility] 12-08-2024 08:05-0400 Systolic blood pressure 148 mm[Hg] Marina Hemmer PA Work Phone: [facility] 10-29-2024 15:18-0500 Body height 177.8 cm Diana Díaz PROJECT DEVELOPMENT COORDINATOR Work Phone: [facility] 10-29-2024 15:18-0500 Body mass index (BMI) [Ratio] 37.91 kg/m2 Diana Díaz PROJECT DEVELOPMENT COORDINATOR Work Phone: [facility] 10-29-2024 15:18-0500 Body weight 119.84 kg Diana Díaz PROJECT DEVELOPMENT COORDINATOR Work Phone: [facility] 10-29-2024 15:18-0500 Diastolic blood pressure 82 mm[Hg] Diana Díaz PROJECT DEVELOPMENT COORDINATOR Work Phone: [facility] 10-29-2024 15:18-0500 Heart rate 101 /min Diana Díaz PROJECT DEVELOPMENT COORDINATOR Work Phone: [facility] 10-29-2024 15:18-0500 Respiratory rate 18 /min Diana Díaz PROJECT DEVELOPMENT COORDINATOR Work Phone: [facility] 10-29-2024 15:18-0500 SaO2% (BldA) [Mass fraction] 95 % Diana Díaz PROJECT DEVELOPMENT COORDINATOR Work Phone: [facility] 10-29-2024 15:18-0500 Systolic blood pressure 136 mm[Hg] Diana Díaz PROJECT DEVELOPMENT COORDINATOR Work Phone: [facility] 09-22-2024 14:24-0500 Body height 177.8 cm Marina Hemmer PA Work Phone: [facility] 09-22-2024 14:24-0500 Body mass index (BMI) [Ratio] 36.99 kg/m2 Marina Hemmer PA Work Phone: [facility] 09-22-2024 14:24-0500 Body temperature 99.19 [degF] Marina Hemmer PA Work Phone: [facility] 09-22-2024 14:24-0500 Body weight 116.94 kg Marina Hemmer PA Work Phone: [facility] 09-22-2024 14:24-0500 Diastolic blood pressure 76 mm[Hg] Marina Hemmer PA Work Phone: [facility] 09-22-2024 14:24-0500 Heart rate 96 /min Marina Hemmer PA Work Phone: [facility] 09-22-2024 14:24-0500 Respiratory rate 16 /min Marina Hemmer PA Work Phone: [facility] 09-22-2024 14:24-0500 SaO2% (BldA) [Mass fraction] 94 % Marina Hemmer PA Work Phone: [facility] 09-22-2024 14:24-0500 Systolic blood pressure 148 mm[Hg] Marina Jeong PA Work Phone: [facility] 09-03-2024 09:31-0500 Body height 177.8 cm Nick Bess MD Work Phone: [facility] 09-03-2024 09:31-0500 Body mass index (BMI) [Ratio] 36.59 kg/m2 Nick Bess MD Work Phone: [facility] 09-03-2024 09:31-0500 Body temperature 96.91 [degF] Nick Bess MD Work Phone: [facility] 09-03-2024 09:31-0500 Body weight 115.67 kg Nick Bess MD Work Phone: [facility] 09-03-2024 09:31-0500 Diastolic blood pressure 76 mm[Hg] Nick Bess MD Work Phone: [facility] 09-03-2024 09:31-0500 Heart rate 83 /min Nick Bess MD Work Phone: [facility] 09-03-2024 09:31-0500 SaO2% (BldA) [Mass fraction] 95 % Nick Bess MD Work Phone: [facility] 09-03-2024 09:31-0500 Systolic blood pressure 126 mm[Hg] Nick Bess MD Work Phone: [facility] 05-08-2024 11:19-0400 Body height 177.8 cm Marina Jeong PA Work Phone: [facility] 05-08-2024 11:19-0400 Body mass index (BMI) [Ratio] 36.5 kg/m2 Marina Greenemer PA Work Phone: [facility] 05-08-2024 11:19-0400 Body temperature 98.8 [degF] Marina Greenemer PA Work Phone: [facility] 05-08-2024 11:19-0400 Body weight 115.39 kg Marina Hemmer PA Work Phone: [facility] 05-08-2024 11:19-0400 Diastolic blood pressure 92 mm[Hg] Marina Hemmer PA Work Phone: [facility] 05-08-2024 11:19-0400 Heart rate 84 /min Marina Hemmer PA Work Phone: [facility] 05-08-2024 11:19-0400 Respiratory rate 16 /min Marina Hemmer PA Work Phone: [facility] 05-08-2024 11:19-0400 SaO2% (BldA) [Mass fraction] 94 % Marina Hemmer PA Work Phone: [facility] 05-08-2024 11:19-0400 Systolic blood pressure 148 mm[Hg] Marina Hemmer PA Work Phone: [facility] 03-14-2023 10:30-0400 Body height 175.26 cm Gayle Nory Other [employer] Other 03-14-2023 10:30-0400 Body mass index (BMI) [Ratio] 35.88 kg/m2 Gayle Nory Other [employer] Other 03-14-2023 10:30-0400 Body temperature 98.1 [degF] Gayle Nory Other [employer] Other 03-14-2023 10:30-0400 Body weight 110.22 kg Gayle Nory Other [employer] Other 03-14-2023 10:30-0400 Diastolic blood pressure 94 mm[Hg] Gayle Nory Other [employer] Other 03-14-2023 10:30-0400 Respiratory rate 20 /min Gayle Nory Other [employer] Other 03-14-2023 10:30-0400 SaO2% (BldA) [Mass fraction] Gayle Nory Other [employer] Other 03-14-2023 10:30-0400 Systolic blood pressure 150 mm[Hg] Gayle Nory Other [employer] Other 03-19-2022 11:30-0400 Body height 175.26 cm Gayle Nory Other [employer] Other 03-19-2022 11:30-0400 Body mass index (BMI) [Ratio] 34.55 kg/m2 Gayle Nory Other [employer] Other 03-19-2022 11:30-0400 Body temperature 97 [degF] Gayle Nory Other [employer] Other 03-19-2022 11:30-0400 Body weight 106.14 kg Gayle Nory Other [employer] Other 03-19-2022 11:30-0400 Diastolic blood pressure 100 mm[Hg] Gayle Nory Other [employer] Other 03-19-2022 11:30-0400 Respiratory rate 20 /min Gayle Nory Other [employer] Other 03-19-2022 11:30-0400 SaO2% (BldA) [Mass fraction] 95 % Gayle Nory Other [employer] Other 03-19-2022 11:30-0400 Systolic blood pressure 152 mm[Hg] Gayle Nory Other [employer] Other 06-20-2021 09:30-0400 Body height 175.26 cm Gayle Nory Other [employer] Other 06-20-2021 09:30-0400 Body mass index (BMI) [Ratio] 34.4 kg/m2 Gayle Nory Other [employer] Other 06-20-2021 09:30-0400 Body temperature 97.3 [degF] Gayle Nory Other [employer] Other 06-20-2021 09:30-0400 Body weight 105.69 kg Gayle Nory Other [employer] Other 06-20-2021 09:30-0400 Diastolic blood pressure 92 mm[Hg] Gayle Nory Other [employer] Other 06-20-2021 09:30-0400 Respiratory rate 20 /min Gayle Nory Other [employer] Other 06-20-2021 09:30-0400 SaO2% (BldA) [Mass fraction] 94 % Gayle Nory Other [employer] Other 06-20-2021 09:30-0400 Systolic blood pressure 144 mm[Hg] Gayle Nory Other [employer] Other Encounters Encounter Date Encounter Type Care Provider Facility Start: 05-05-2025 End: 05-05-2025 Telephone encounter Iman Obrien MD Work Phone: Pulmonary Medicine Start: 05-04-2025 End: 05-04-2025 Patient encounter procedure Pulm Fct Donta Rich Work Phone: PULMONARY Comment on above: Chronic cough (Prima ry Dx); Allergic rhinitis, unspecified seasonality, unspecified trigger; Asthma, unspecified asthma severity, unspecified whether complicated, unspecified whether persistent (HCC) Start: 05-04-2025 End: 05-04-2025 ambulatory NICK BESS II PULMONARY Comment on above: Spirometry Start: 04-27-2025 End: 04-27-2025 Telephone encounter Marina GOMEZ Work Phone: [facility] Start: 04-20-2025 End: 04-20-2025 Bamboo flowsheet Ruben Tai DO Work Phone: [facility] Start: 04-20-2025 End: 04-20-2025 Bamboo flowsheet Ruben Tai DO Work Phone: [facility] Start: 04-20-2025 End: 04-20-2025 Office outpatient new 45 minutes Ruben Tai DO Work Phone: [facility] Comment on above: Chronic cough; Gastroesophageal reflux disease, unspecified whether esophagitis present Start: 04-20-2025 End: 04-20-2025 ambulatory RUBEN TAI Not Available Start: 03-29-2025 End: 03-29-2025 Telephone encounter Elsa Serna MD Work Phone: Pulmonary Medicine Start: 03-24-2025 End: 03-24-2025 Office outpatient visit 25 minutes Nick Bess MD Work Phone: [facility] Comment on above: Persistent cough for 3 weeks or longer (Primary Dx); Obstructive sleep apnea syndrome; Moderate persistent asthma without complication (HCC); Closed fracture of multiple ribs of right side, initial encounter; Current use of steroid medication Start: 03-24-2025 End: 03-24-2025 ambulatory NICK BESS Not Available Start: 03-23-2025 End: 03-23-2025 Bamboo flowsheet Beny Holbrook MD Work Phone: [facility] Start: 03-23-2025 End: 03-23-2025 Bamboo flowsheet Beny Holbrook MD Work Phone: [facility] Start: 03-23-2025 End: 03-23-2025 Office outpatient visit 15 minutes Beny Holbrook MD Work Phone: [facility] Comment on above: Seborrheic keratosis (Primary Dx); History of basal cell carcinoma; Seborrheic keratosis, inflamed; Lentigines; Actinic keratosis Start: 03-23-2025 End: 03-23-2025 ambulatory BENY HOLBROOK Not Available Start: 03-17-2025 End: 03-17-2025 Refill Marina GOMEZ Work Phone: [facility] Comment on above: Closed fracture of m ultiple ribs of right side with routine healing, subsequent encounter (Primary Dx) Start: 03-11-2025 End: 03-11-2025 ambulatory Nick Bess II Work Phone: [facility] Work Phone: Start: 03-11-2025 End: 03-11-2025 Patient encounter procedure Trice Pruitt [employer]UT[employer] ARCHITECT CONSULTANT [facility] Work Phone: Start: 03-11-2025 End: 03-11-2025 Bamboo flowsheet Marina GOMEZ Work Phone: [facility] Start: 03-11-2025 End: 03-11-2025 Bamboo flowsheet Marina GOMEZ Work Phone: [facility] Start: 03-11-2025 End: 03-11-2025 Office outpatient visit 25 minutes Marina GOMEZ Work Phone: [facility] Comment on above: Gastroesophageal ref lux disease without esophagitis (Primary Dx); Moderate persistent asthma without complication (HCC); Class 2 severe obesity due to excess calories with serious comorbidity and body mass index (BMI) of 36.0 to 36.9 in adult (CMS-HCC); Closed fracture of multiple ribs of right side with routine healing, subsequent encounter; Persistent cough for 3 weeks or longer Start: 03-11-2025 End: 03-11-2025 ambulatory MARINA M ADENIKE Not Available Start: 12-08-2024 End: 12-08-2024 Bamboo flowsheet Marina Jeong PA Work Phone: [facility] Start: 12-08-2024 End: 12-08-2024 Bamboo flowsheet Marina Jamaal Adenike PA Work Phone: [facility] Start: 12-08-2024 End: 12-08-2024 Patient encounter procedure Marina Jamaal Adenike GOMEZ Work Phone: [facility] Comment on above: Medicare annual well ness visit, subsequent (Primary Dx); ACP (advance care planning); Obstructive sleep apnea syndrome; Moderate persistent asthma without complication (CMS/HCC); Benign essential hypertension (CMS/HCC); Bifascicular block; Fatty liver; Gastroesophageal reflux disease without esophagitis; Primary osteoarthritis of right knee; Class 2 severe obesity due to excess calories with serious comorbidity and body mass index (BMI) of 37.0 to 37.9 in adult (CMS/HCC); Chronic laryngitis; Chronic rhinitis; Chronic sinusitis of both maxillary sinuses; Seasonal allergic rhinitis due to pollen; BCC (basal cell carcinoma), trunk; Elevated transaminase level; Impaired glucose metabolism; LPRD (laryngopharyngeal reflux disease); Mixed hyperlipidemia (CMS/HCC); Screening for malignant neoplasm of prostate Start: 12-08-2024 End: 12-08-2024 ambulatory MARINA Jamaal ADENIKE Not Available Start: 11-24-2024 End: 11-24-2024 ambulatory MARINA Jamaal ADENIKE Not Available Start: 10-29-2024 End: 10-29-2024 Office outpatient visit 25 minutes Diana Díaz PROJECT DEVELOPMENT COORDINATOR Work Phone: [facility] Comment on above: Acute non-recurrent pansinusitis (Primary Dx); Acute cough Start: 10-29-2024 End: 10-29-2024 ambulatory DIANA DÍAZ Not Available Start: 10-29-2024 End: 10-29-2024 Bamboo flowsheet Diana Díaz PROJECT DEVELOPMENT COORDINATOR Work Phone: [facility] Start: 10-29-2024 End: 10-29-2024 Bamboo flowsheet Diana Díaz PROJECT DEVELOPMENT COORDINATOR Work Phone: [facility] Start: 10-27-2024 End: 10-29-2024 Telephone encounter Rachel Kerns MD Work Phone: [facility] Start: 09-22-2024 End: 09-22-2024 Office outpatient visit 15 minutes Marina Jeong PA Work Phone: [facility] Comment on above: Moderate persistent asthma with exacerbation (CMS/HCC) Start: 09-22-2024 End: 09-22-2024 ambulatory MARINA JEONG Not Available Start: 09-22-2024 End: 09-22-2024 Bamboo flowsheet Marina Jeong PA Work Phone: [facility] Start: 09-22-2024 End: 09-22-2024 Bamboo flowsheet Marina Jeong PA Work Phone: [facility] Start: 09-22-2024 End: 09-22-2024 Telephone encounter Nick Bess MD Work Phone: [facility] Start: 09-03-2024 End: 09-03-2024 Bamboo flowsheet Nick Bess MD Work Phone: [facility] Start: 09-03-2024 End: 09-03-2024 Bamboo flowsheet Nick Bess MD Work Phone: [facility] Start: 09-03-2024 End: 09-03-2024 Office outpatient visit 25 minutes Nick Bess MD Work Phone: [facility] Comment on above: Moderate persistent asthma with exacerbation (CMS/HCC) (Primary Dx); Acute non-recurrent sinusitis, unspecified location Start: 09-03-2024 End: 09-03-2024 ambulatory NICK BESS Not Available Start: 05-08-2024 End: 05-08-2024 Bamboo flowsheet Marina Jeong PA Work Phone: [facility] Start: 05-08-2024 End: 05-08-2024 Bamboo flowsheet Marina Jeong PA Work Phone: [facility] Start: 05-08-2024 End: 05-08-2024 Office outpatient visit 25 minutes Marina Jeong PA Work Phone: [facility] Comment on above: Moderate persistent asthma without complication (CMS/HCC) (Primary Dx); Chronic cough; Benign essential hypertension (CMS/HCC); Obstructive sleep apnea syndrome Start: 05-08-2024 End: 05-08-2024 ambulatory MARINA JEONG Not Available Start: 04-22-2024 End: 04-22-2024 Patient encounter procedure Beny Holbrook MD Work Phone: [facility] Comment on above: Basal cell carcinoma (BCC) of skin of other part of torso (Primary Dx) Start: 04-22-2024 End: 04-22-2024 ambulatory BENY HOLBROOK Not Available Start: 10-08-2023 Bamboo flowsheet Marina Magaña r PA Work Phone: [facility] Start: 10-08-2023 Bamboo flowsheet Marina Magaña r PA Work Phone: [facility] Start: 08-07-2023 End: 08-07-2023 ambulatory Gayle Nory Other [employer] Other Start: 08-07-2023 Telephone encounter Gayle Nory [facility] Start: 03-14-2023 End: 03-14-2023 ambulatory Gayle Nory Other [employer] Other Start: 03-14-2023 Office outpatient vi sit 25 minutes Gayle Nory [facility] Start: 03-19-2022 End: 03-19-2022 ambulatory Gayle Nory Other [employer] Other Start: 03-19-2022 Office outpatient vi sit 25 minutes Gayle Nory [facility] Start: 10-18-2021 End: 10-18-2021 ambulatory Gayle Nory Other [employer] Other Start: 10-18-2021 Telephone encounter Gayle Cueto [facility] Start: 08-08-2021 End: 08-09-[address] NICK BESS Facility: Start: 07-28-2021 End: 07-29-[address] NICK BESS Facility: Start: 06-20-2021 Office outpatient vi sit 25 minutes Gayle Nory [facility] Start: 11-07-2020 End: 11-08-2020 ambulatory NONE LISTED REQUEST Facility:[facility] Start: 10-31-2020 End: 11-01-2020 ambulatory NONE LISTED REQUEST Facility: Start: 12-30-2017 End: 12-30-2017 Ambulatory [facility] Facility:[facility] Start: 12-28-2017 End: 12-28-2017 Ambulatory [facility] Facility:[facility] Start: 11-26-2017 End: 11-27-2017 Ambulatory DEFAULT PHYSICIAN Facility:[facility] Start: 10-08-2017 End: 10-09-2017 Ambulatory DEFAULT PHYSICIAN Facility:[facility] Start: 10-07-2017 End: 10-08-2017 Ambulatory DEFAULT PHYSICIAN Facility:[facility] Procedures Date Procedure Procedure Detail Performing Clinician Start: 05-04-2025 Nitric oxide gas determination Iman Obrien MD Work Phone: Start: 05-04-2025 Brncdilat rspse spmt ry pre&post-brncdilat admn Iman Obrien MD Work Phone: Start: 03-23-2025 CRYOTHERAPY SKIN LESION Beny Holbrook MD Work Phone: Start: 04-22-2024 DESTRUCTION OF LESION Adilson Holbrook MD Work Phone: Plan of Treatment Date Care Activity Detail Author Start: 2033 RSV Vaccine (1 - 1-dose 75+ series) RSV Vaccine (1 - 1-dose 75+ series) [facility] Start: 02-01-2028 Diabetes Screening Diabetes Screening [facility] Start: 12-08-2025 Medicare Annual Wellness (AWV) Medicare Annual Wellness (AWV) [facility] Start: 07-21-2025 End: 07-21-2025 [facility] Start: 06-22-2025 End: 06-22-2025 Patient encounter procedure 06/22/2025 10:00 AM EDT Office Visit PULMONARY [address] [place] [id number] [place] [id number] [place] [address] 7 week follow up PULMONARY Comment on above: 7 week follow up Start: 05-05-2025 End: 05-05-2025 Patient encounter procedure 05/05/2025 2:00 PM EDT Office Visit [facility] [address] [place] [id number] Ruben Tai, [address] [place] [address] [facility] Start: 05-04-2025 End: 08-03-2025 ALGN RESP DISEASE PROF REG 5 ALGN RESP DISEASE PROF REG 5 Lab Routine Allergic rhinitis, unspecified seasonality, unspecified trigger Chronic cough Asthma, unspecified asthma severity, unspecified whether complicated, unspecified whether persistent (HCC) Expected: 05/04/2025, Expires: 08/03/2025 [facility] Comment on above: Expected: 05/04/2025, Expires: Start: 05-04-2025 End: 08-03-2025 CBC W Auto Differential panel - Blood COMPLETE BLOOD COUNT AND DIFFERENTIAL Lab Routine Chronic cough Asthma, unspecified asthma severity, unspecified whether complicated, unspecified whether persistent (HCC) Expected: 05/04/2025, Expires: 08/03/2025 [facility] Comment on above: Expected: 05/04/2025, Expires: Start: 05-04-2025 End: 08-03-2025 IgE [Units/volume] in Serum or Plasma IMMUNOGLOBULIN E Lab Routine Allergic rhinitis, unspecified seasonality, unspecified trigger Chronic cough Asthma, unspecified asthma severity, unspecified whether complicated, unspecified whether persistent (HCC) Expected: 05/04/2025, Expires: 08/03/2025 [facility] Work Phone: Comment on above: Expected: 05/04/2025, Expires: Start: 05-04-2025 End: 05-04-2025 Patient encounter procedure 05/04/2025 8:45 AM EDT [facility] [address] [place] [id number] Ruben Tai, [address] [place] [address] [facility] Start: 05-03-2025 Influenza vaccination Influenza Vaccine (#1) [facility] Start: 04-20-2025 End: 04-20-2026 RF Pharynx and Cervical esophagus Views W barium contrast PO FL esophagus pharynx Imaging Routine Chronic cough Gastroesophageal reflux disease, unspecified whether esophagitis present Expected: 04/20/2025 (Approximate), Expires: 04/20/2026 [facility] Work Phone: Comment on above: Expected: 04/20/2025 (Approximate), Expi res: 04/20/2026 Start: 04-20-2025 End: 04-20-2025 Patient encounter procedure 04/20/2025 8:30 AM EDT [facility] [address] [place] [id number] Ruben Tai, [address] [place] [address] Arrived [facility] Comment on above: Arrived Start: 04-07-2025 Screening for malignant neoplasm of colon Colorectal Cancer Screening [facility] Comment on above: Postponed from 1960 (Patient Refus ed) Start: 03-26-2025 End: 03-26-2026 DXA Skeletal system Views for bone density DEXA bone density Imaging Routine Moderate persistent asthma without complication (HCC) Closed fracture of multiple ribs of right side, initial encounter Current use of steroid medication Expected: 03/26/2025, Expires: 03/26/2026 [facility] Work Phone: Comment on above: Expected: 03/26/2025, Expires: Start: 03-26-2025 End: 03-26-2026 Home sleep test Home sleep test Sleep Center Routine Obstructive sleep apnea syndrome Expected: 03/26/2025 (Approximate), Expires: 03/26/2026 [facility] Comment on above: Expected: 03/26/2025 (Approximate), Expi res: 03/26/2026 Start: 03-24-2025 End: 03-24-2025 Patient encounter procedure 03/24/2025 9:15 AM EDT Office Visit [facility] [address] [address] [place] [address] Nick Bess MD [address] [place] [address] [facility] Start: 03-23-2025 End: 03-23-2025 Patient encounter procedure [facility] Comment on above: Arrived Start: 03-11-2025 End: 03-11-2025 Patient encounter procedure 03/11/2025 9:00 AM EDT Office Visit [facility] [address] [place] [address] Marina Jeong PA [address] [place] [address] Arrived [facility] Comment on above: Arrived Start: 12-08-2024 End: 12-08-2024 Patient encounter procedure 12/08/2024 8:00 AM EDT Office Visit [facility] [address] [place] [address] Marina Jeong PA [address] [place] [address] Arrived [facility] Comment on above: Arrived Start: 10-29-2024 End: 10-29-2024 Patient encounter procedure [facility] Comment on above: Arrived Start: 10-08-2024 Medicare Annual Wellness (AWV) Medicare Annual Wellness (AWV) [facility] Start: 09-22-2024 End: 09-22-2024 Patient encounter procedure 09/22/2024 2:30 PM EST Office Visit [facility] [address] [place] [address] Marina Jeong PA [address] [place] [address] Arrived [facility] Comment on above: Arrived Start: 09-03-2024 End: 09-03-2024 Patient encounter procedure 09/03/2024 9:30 AM EST Office Visit [facility] [address] [place] [address] Nick Bess MD [address] [place] [address] Arrived [facility] Comment on above: Arrived Start: 09-02-2024 Advance Directive Discussion Advance Directive Discussion [facility] Start: 09-02-2024 Medicare Advantage Annual Wellness Visit Medicare Advantage Annual Wellness Visit [facility] Start: 05-08-2024 End: 05-08-2025 XR Chest 2 Views XR chest 2 views Imaging Routine Chronic cough Expected: 05/08/2024, Expires: 05/08/2025 [facility] Work Phone: Comment on above: Expected: 05/08/2024, Expires: Start: 05-08-2024 End: 05-08-2024 Patient encounter procedure 05/08/2024 11:30 AM EDT Office Visit [facility] [address] [place] [address] Marina Jeong PA [address] [place] [address] Arrived [facility] Comment on above: Arrived Start: 05-03-2024 Influenza vaccination Influenza Vaccine (#1) [facility] Start: 03-23-2024 End: 03-23-2024 Patient encounter procedure 03/23/2024 9:20 AM EDT Office Visit [facility] [address] [place] [address] Beny Holbrook MD [address] [place] [address] [facility] Start: 10-08-2023 End: 10-08-2023 Patient encounter procedure 10/08/2023 8:00 AM EST Office Visit [facility] [address] [place] [id number] Marina Jeong PA [address] [place] [address] Arrived [facility] Comment on above: Arrived Start: 2003 Diabetes Screening Diabetes Screening [facility] Start: 2003 Prostate specific antigen measurement Prostate Cancer Screening Discussion [facility] Start: 2003 Screening for malignant neoplasm of colon [facility] Start: 1993 Lipid panel Lipid Screening [facility] Start: 1977 Urine microalbumin profile DTaP,Tdap,Td Vaccine (1 - Tdap) [facility] Start: 1976 Annual PCP Team Chronic Disease Visit Annual PCP Team Chronic Disease Visit [facility] Start: 1976 Anxiety Screening Anxiety Screening [facility] Start: 1976 Depression Screening Depression Screening [facility] Start: 1976 Hepatitis C screening Hepatitis C Screening [facility] Start: 1958 Medicare Annual Wellness (AWV) Medicare Annual Wellness (AWV) [facility] Start: 1958 Screening for malignant neoplasm of colon [facility] CBC W Auto Differential panel - Blood CBC and differential Lab Routine Medicare annual wellness visit, subsequent Moderate persistent asthma without complication (CMS/HCC) Benign essential hypertension (CMS/HCC) Seasonal allergic rhinitis due to pollen Mixed hyperlipidemia (CMS/HCC) Ordered: 12/08/2024 [facility] Comment on above: Ordered: 12/08/2024 Comprehensive metabolic 2000 panel - Serum or Plasma Comprehensive metabolic panel Lab Routine Medicare annual wellness visit, subsequent Benign essential hypertension (CMS/HCC) Fatty liver Elevated transaminase level Impaired glucose metabolism Mixed hyperlipidemia (CMS/HCC) Ordered: 12/08/2024 [facility] Comment on above: Ordered: 12/08/2024 Hemoglobin A1c/Hemoglobin.total in Blood Hemoglobin A1c Lab Routine Medicare annual wellness visit, subsequent Impaired glucose metabolism Ordered: 12/08/2024 [facility] Comment on above: Ordered: 12/08/2024 Lipid 1996 panel - Serum or Plasma Lipid panel Lab Routine Medicare annual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 Neurological: General: No focal deficit present. Mental Status: He is alert and oriented to person, place, and time. Psychiatric: Mood and Affect: Mood normal. Behavior: Behavior normal. Thought Content: Thought content normal. Assessment/Plan Diagnoses and all orders for this visit: Acute non-recurrent pansinusitis - cefdinir (Omnicef) 300 MG capsule; Take 1 capsule (300 mg) by mouth in the morning and 1 capsule (300 mg) before bedtime. Do all this for 10 days. - predniSONE (Deltasone) 10 MG tablet; Take 4 tablets (40 mg) by mouth Daily for 4 days, THEN 3 tablets (30 mg) Daily for 4 days, THEN 2 tablets (20 mg) Daily for 4 days, THEN 1 tablet (10 mg) Daily for 4 days. Start the above as directed. Reviewed potential s/e with patient. Encouraged probiotic while on antibiotic. Increase water intake, get plenty of rest. Can take OTC allergy medication for symptomatic relief. Tylenol/Motrin prn. Follow up if no improvement in one week. Acute cough - guaiFENesin-codeine (Robitussin-AC) 100-10 MG/5ML syrup; Take 5 mL by mouth 4 (four) times a day as needed for cough for up to [address] when taking cough syrup. Drink plenty of fluids. You can also drink warm tea with honey. You also can use cough drops and lozenges. No follow-ups on file. documented in this encounter [facility] 10-29-2024 Telephone encounter Note Scheduled [facility] 10-29-2024 Miscellaneous Notes Scheduled Pt needs to make an appt for his coughing Pt states the cough meds prescribed aren't working and he'd like something else [facility], [facility] [address] . My coughing spasms are bad again. I need something called in or an appointment the last cough medicine that Marina got me. They do not have an in stock, so I do not know what to do by. Pt states last time the cough med had to be ordered so he was wanting to find out if anything else could be called in , he has tried otc meds Robitussin dm and this is not helping him documented in this encounter [facility] 10-29-2024 Telephone encounter Note Pt needs to make an appt for his coughing [facility] 10-29-2024 Telephone encounter Note Pt states the cough meds prescribed aren't working and he'd like something else [facility] 10-27-2024 Telephone encounter Note Violet Little, [address] . My coughing spasms are bad again. I need something called in or an appointment the last cough medicine that Marina got me. They do not have an in stock, so I do not know what to do by. Pt states last time the cough med had to be ordered so he was wanting to find out if anything else could be called in , he has tried otc meds Robitussin dm and this is not helping him [facility] 09-22-2024 Telephone encounter Note Patient was seen in the office today for an appt. [facility] 09-22-2024 Miscellaneous Notes Patient was seen in the office today for an appt. Patient called asking if he could have something for a cough that he has had for over a week, He has tried OTC Robitussin but that isn't helping. He is also cough up yellow phlegm. documented in this encounter [facility] 09-22-2024 Telephone encounter Note Patient called asking if he could have something for a cough that he has had for over a week, He has tried OTC Robitussin but that isn't helping. He is also cough up yellow phlegm. [facility] 09-22-2024 History of Present illness Narrative Images from the original note were not included. [facility] Med Refill Additional comments: Meron Last edited by Lamar Jimenez LPN on 09/22/2024 2:24 PM. Subjective Patient ID: Violet Ferrara is a 64 y.o. male who presents for cough. Violet is present today for evaluation of cough. Admits cough with white phlegm, SOB, wheezing, nose bleed, runny nose. This all started 08/27/24, went to [facility] ER and they rx'd prednisone for 3 days and he follow up with Dr. Bess and he rx'd Prednisone for a longer period of time, Augmentin, and given a Kenalog shot, and as soon as he was finished with Prednisone the cough came back again. Current Outpatient Medications on File Prior to Visit Medication Sig Dispense Refill albuterol (2.5 MG/3ML) 0.083% nebulizer solution Take 2.5 mg by nebulization every 6 (six) hours if needed amLODIPine (Norvasc) 5 MG tablet TAKE 1 TABLET BY MOUTH ONCE A DAY 90 tablet 3 atorvastatin (Lipitor) 20 MG tablet TAKE 1 TABLET BY MOUTH EVERY DAY IN THE MORNING 90 tablet 4 cetirizine (ZyrTEC) 10 MG chewable tablet Chew [...] 2 omeprazole (PriLOSEC) [address] capsule TAKE 1 CAPSULE BY MOUTH EVERYDAY AT THE SAME TIME 100 capsule 3 [DISCONTINUED] Mccmjow-Uepecctqbch-Lyqkhxozqp (Breztri Aerosphere) 160-9-4.8 MCG/ACT aerosol INHALE 2 PUFFS IN THE MORNING AND BEFORE BEDTIME 10.7 g 3 No current facility-administered medications on file prior [...] Mother Heart disease Father Cancer Sister Cynthia ferrara Diabetes Maternal Grandfather Melanoma Neg Hx Past [...] 10/28/2014 E/O STM LMF/ SBS SINUS SURGERY 1997 Visit Vitals BP 148/76 Pulse 96 Temp 99.2 F Resp 16 Ht 5' 10 Wt 257 lb 12.8 oz SpO2 94% BMI 36.99 kg/m Smoking Status Never BSA 2.4 m Review of Systems Constitutional: Negative for chills, fatigue and fever. HENT: Positive for nosebleeds and rhinorrhea. Respiratory: Positive for cough, shortness of breath and wheezing. Cardiovascular: Negative for chest pain, palpitations and leg swelling. Gastrointestinal: Negative for abdominal pain, constipation, diarrhea, nausea and vomiting. Skin: Negative for rash. Objective Physical Exam Constitutional: General: He is not in acute distress. Appearance: He is obese. HENT: Head: Normocephalic and atraumatic. Right Ear: Ear canal normal. Tympanic membrane is injected. Left Ear: Tympanic membrane and ear canal normal. Nose: Right Turbinates: Swollen. Left Turbinates: Swollen. Mouth/Throat: Mouth: Mucous membranes are dry. Pharynx: Posterior oropharyngeal erythema present. Eyes: General: No scleral icterus. Cardiovascular: Rate and Rhythm: Normal rate and regular rhythm. Heart sounds: No murmur heard. Pulmonary: Effort: Pulmonary effort is normal. No respiratory distress. Breath sounds: Decreased air movement present. No wheezing, rhonchi or rales. Comments: Tight sounding, dry cough intermittent. Patient is able to speak in complete sentences. Musculoskeletal: General: No swelling. Lymphadenopathy: Cervical: No cervical adenopathy. Skin: General: Skin is warm and dry. Neurological: General: No focal deficit present. Mental Status: He is alert and oriented to person, place, and time. Psychiatric: Mood and Affect: Mood normal. Behavior: Behavior normal. Assessment/Plan Diagnoses and all orders for this visit: Moderate persistent asthma with exacerbation ([facility]) - Jfgngax-Vbxckpnssvv-Hlbwomhwhi (Breztri Aerosphere) 160-9-4.8 MCG/ACT aerosol; Inhale 2 puffs in the morning and 2 puffs before bedtime. - predniSONE (Deltasone) 10 MG tablet; Take 4 tablets (40 mg) by mouth Daily for 3 days, THEN 3 tablets (30 mg) Daily for 3 days, THEN 2 tablets (20 mg) Daily for 3 days, THEN 1 tablet (10 mg) Daily for 3 days. - guaiFENesin-codeine (Robitussin-AC) 100-10 MG/5ML syrup; Take 10 mL by mouth every 6 (six) hours if needed for cough for up to 7 days Start the above medications as directed. Reminded pt of potential side effects of the steroid. Patient is to take the steroid with food. Can take Robitussin-AC prn for cough, cautioned may cause drowsiness. Increase water intake, get plenty of rest. Can take Tylenol prn for any discomfort or fever. No other anti-inflammatories while on steroid. Cough into elbow. Wash hands often. Advised patient that cough can linger. Contact office if no improvement over next few days with the above and an antibiotic can be added. Will hold off on another antibiotic at this time to decrease risk of adverse effects. Pt is in agreement. Follow up if symptoms worsen or fail to improve. documented in this encounter [facility] 09-03-2024 History of Present illness Narrative Images from the original note were not included. HPI Follow-up Additional comments: [facility] ER 08/27/24 dx: asthma with exacerbation,VYAS discharged home with rx for prednisone,bromfed DM and zofran Last edited by Patti Aguiar LPN on 09/03/2024 9:31 AM. Subjective Patient ID: Violet Ferrara is a 64 y.o. male who presents for Follow-up ([facility] ER 08/27/24 dx: asthma with exacerbation,VYAS discharged home with rx for prednisone,bromfed DM and zofran). Flowsheet Row Documentation from 08/28/2024 in [facility] with [place], [place] Hospital Information ED, Hospital or Residential Facility Discharge? ED Patient has been contacted within 1 week of being seen in the ED Yes Diagnosis shortness of breath Discharge Date 08/27/24 Discharged To: Home Setting Discharge Hospital [facility] Engagement Call Start Time 911 Admission Date 08/27/24 Medications Discharge medications reviewed and reconciled from hospital? Yes Is the patient having any side effects they believe may be caused by any medication additions or changes? No Does the patient have all medications ordered at discharge? Yes Appointments Does the patient have a primary care provider? Yes Self Management Patient Teaching Does the patient have access to their discharge instructions? Yes Wrap Up Wrap Up Additional Comments appt sched Call End Time 915 Pt finished prednisone Pt states he has congestion,fatigue,VYAS Pt states he was not using breztri for about 6 weeks prior to this exacerbation Current Outpatient Medications on File Prior to Visit Medication Sig Dispense Refill albuterol (2.5 MG/3ML) 0.083% nebulizer solution Take 2.5 mg by nebulization every 6 (six) hours if needed amLODIPine (Norvasc) 5 MG tablet TAKE 1 TABLET BY MOUTH ONCE A DAY 90 tablet 3 atorvastatin (Lipitor) 20 MG tablet Take 1 tablet (20 mg) by mouth in the morning. 100 tablet 3 Hxuwtsj-Fvsgkwaqhlp-Bdikmsoojc (Breztri Aerosphere) 160-9-4.8 MCG/ACT aerosol INHALE 2 PUFFS IN THE MORNING AND BEFORE BEDTIME 10.7 g 3 cetirizine (ZyrTEC) 10 MG chewable tablet Chew [...] at the same time 100 capsule 3 No current facility-administered medications on file prior [...] Mother Heart disease Father Cancer Sister Cynthia ferrara Diabetes Maternal Grandfather Melanoma Neg Hx Past Medical History: Diagnosis Date Actinic keratosis Asthma (CMS/HCC) Basal cell carcinoma Cataract Deviated septum GERD (gastroesophageal reflux disease) History of being hospitalized 05/19/2019 Passed out asthma had chest xray and cat scan History of stress test 10/18/2017 EF 65% Hypertension (CMS/HCC) Past Surgical History: Procedure Laterality Date KNEE SURGERY Right 12/30/2017 RT knee med/lat menisectomy DR Mliler OTHER SURGICAL HISTORY 10/28/2014 E/O STM LMF/ SBS SINUS SURGERY 1998 Visit Vitals BP 126/76 Pulse 83 Temp 96.9 F Ht 5' 10 Wt 255 lb SpO2 95% BMI 36.59 kg/m Smoking Status Never BSA 2.39 m Review of Systems Objective Physical Exam Constitutional: General: He is not in acute distress. Appearance: He is normal weight. He is not ill-appearing. HENT: Head: Normocephalic. Nose: Congestion present. Mouth/Throat: Pharynx: Oropharyngeal exudate and posterior oropharyngeal erythema present. Cardiovascular: Rate and Rhythm: Normal rate and regular rhythm. Heart sounds: Normal heart sounds. No murmur heard. Pulmonary: Effort: Pulmonary effort is normal. Breath sounds: Wheezing present. No rhonchi. Musculoskeletal: General: No swelling. Right lower leg: No edema. Left lower leg: No edema. Neurological: Mental Status: He is alert. Psychiatric: Mood and Affect: Mood normal. Thought Content: Thought content normal. Judgment: Judgment normal. Assessment/Plan Diagnoses and all orders for this visit: Moderate persistent asthma with exacerbation ([facility]) - methylPREDNISolone (Medrol Dospak) 4 MG tablets; Follow schedule on package instructions - Kenalog 40mg IM X 1 given Acute non-recurrent sinusitis, unspecified location - amoxicillin-clavulanate (Augmentin) 875-125 MG tablet; Take 1 tablet (875 mg) by mouth in the morning and 1 tablet (875 mg) before bedtime. Do all this for 10 days. Follow up in about 1 week (around 09/10/2024), or if symptoms worsen or fail to improve. documented in this encounter [facility] 05-08-2024 History of Present illness Narrative Subjective Patient ID: Violet Ferrara is a 63 y.o. male who presents for cough. Violet is present today for follow up cough. He was seen on 04/07/24 for a cough and was prescribed Prednisone taper and was referred to ENT for his chronic cough. He had an appt scheduled with Dr. Gordon on 04/15/24 but cancelled d/t he has seen him in the past and did not feel like he helped him. 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 Has been using his Breztri regularly. has been riding his bike. [facility] leaving for [place] next week. Hoping to stay a month. [...] mouth in the morning. 100 tablet 3 Zmgrtsr-Mcqjjgrwbuc-Mnjyfqurff (Breztri Aerosphere) 160-9-4.8 MCG/ACT aerosol INHALE 2 [...] Mother Heart disease Father Cancer Sister Cynthia ferrara Diabetes Maternal Grandfather Melanoma Neg Hx Past [...] would like to have this done at [facility]. Can try Duoneb in the future [...] fail to improve. documented in this encounter [facility] 04-22-2024 History of Present illness Narrative Images from the original note were not included. Subjective Violet Ferrara is a 63 y.o. male who presents [...] other part of torso Right Lower Back Espy macule at biopsy site Destr of lesion Complexity: simple Destruction method: electrodesiccation and curettage Informed consent: discussed and consent obtained Informed consent comment: The risks of the procedure were discussed, including, but not limited to risks of scarring, darker or line manager pigmentary changes, recurrence, infection, and incomplete removal [...] lidocaine used: 3.0 cc Previous accession number: [id number] Emphasized to return to clinic for any signs of recurrence prior to next visit. Next Visit: as scheduled documented in this encounter [facility] 08-07-2023 Evaluation note Encounter Date Diagnosis Assessment Notes Aug, Mild intermittent asthma, uncomplicated (ICD-10 - J45.20) [employer] Other 07-13-2023 Evaluation note* Encounter Date Diagnosis Assessment Notes Treatment Notes Treatment Clinical Notes Mar, Reactive airway disease (ICD-10 - J45.909) Mar, GERD (gastroesophageal reflux disease) (ICD-10 - K21.9) Mar, Sleep apnea (ICD-10 - G47.30) Mar, Cough variant asthma (ICD-10 - J45.991) Use nasal rinse as recommended per Dr. Mustafa Mar, Mild intermittent asthma, uncomplicated (ICD-10 - J45.20) [employer] Other 07-18-2022 Evaluation note* Encounter Date Diagnosis Assessment Notes Treatment Notes Treatment Clinical Notes Mar, Reactive airway disease (ICD-10 - J45.909) Mar, GERD (gastroesophageal reflux disease) (ICD-10 - K21.9) Mar, Sleep apnea (ICD-10 - G47.30) Mar, Cough variant asthma (ICD-10 - J45.991) Mar, Mild intermittent asthma, uncomplicated (ICD-10 - J45.20) [employer] Other 02-16-2022 Evaluation note* Encounter Date Diagnosis Assessment Notes Treatment Notes Treatment Clinical Notes Oct, GERD (gastroesophageal reflux disease) (ICD-10 - K21.9) [employer] Other 10-19-2021 Evaluation note* Encounter Date Diagnosis [...] (ICD-10 - J45.20) Begin trial of Trelegy 200/62.5/25 [employer] Other Evaluation note* Diagnosis Basal cell carcinoma (BCC) of skin of other part of torso- Primary [facility] Diagnosis Moderate persistent asthma without complication (CMS/HCC)- Primary Chronic cough Cough Benign essential hypertension (CMS/HCC) Essential hypertension, benign Obstructive sleep apnea syndrome Obstructive sleep apnea (adult) (pediatric) [facility] Diagnosis Moderate persistent asthma with exacerbation (CMS/[facility])- Primary Unspecified asthma, with exacerbation Acute non-recurrent sinusitis, unspecified location [facility] Diagnosis Moderate persistent asthma with exacerbation (CMS/HCC) Unspecified asthma, with exacerbation [facility] Diagnosis Acute non-recurrent pansinusitis- Primary Acute cough [facility] Diagnosis Medicare annual wellness visit, subsequent- Primary ACP (advance care planning) Other specified counseling Obstructive sleep apnea syndrome Obstructive sleep apnea (adult) (pediatric) Moderate persistent asthma without complication ([facility]/HCC) Benign essential hypertension ([facility]) Essential hypertension, benign Bifascicular block Other bilateral bundle branch block Fatty liver Other chronic nonalcoholic liver disease Gastroesophageal reflux disease without esophagitis Esophageal reflux Primary osteoarthritis of right knee Class 2 severe obesity due to excess calories with serious comorbidity and body mass index (BMI) of 37.0 to 37.9 in adult ([facility]) Chronic laryngitis Chronic rhinitis Chronic sinusitis of both maxillary sinuses Seasonal allergic rhinitis due to pollen BCC (basal cell carcinoma), trunk Other malignant neoplasm of skin of trunk, except scrotum Elevated transaminase level Impaired glucose metabolism LPRD (laryngopharyngeal reflux disease) Acute laryngitis, without mention of obstruction Mixed hyperlipidemia ([facility] [facility] Mixed hyperlipidemia Screening for malignant neoplasm of prostate [facility] Diagnosis Gastroesophageal reflux disease without esophagitis- Primary Esophageal reflux Moderate persistent asthma without complication (HCC) Class 2 severe obesity due to excess calories with serious comorbidity and body mass index (BMI) of 36.0 to 36.9 in adult ([facility]) Closed fracture of multiple ribs of right side with routine healing, subsequent encounter Persistent cough for 3 weeks or longer documented [facility] this encounter [facility] noteNo assessment information [facility]Tr[facility] Work Phone: Evaluation note* Diagnosis Closed fracture of multiple ribs of right side with routine healing, subsequent encounter- Primary documented [facility] encounter [facility]* Diagnosis Seborrheic keratosis- Primary History of basal cell carcinoma Personal history of other malignant neoplasm of skin Seborrheic keratosis, inflamed Lentigines Actinic keratosis documented [facility]* Diagnosis Persistent cough for 3 weeks or longer- Primary Obstructive sleep apnea syndrome Obstructive sleep apnea (adult) (pediatric) Moderate persistent asthma without complication (HCC) Closed fracture of multiple ribs of right side, initial encounter Current use of steroid medication documented [facility]* Diagnosis Chronic cough Cough Gastroesophageal reflux disease, unspecified whether esophagitis present documented [facility] encounter [facility]* Diagnosis Bee sting, accidental or unintentional, initial encounter- Primary documented [facility]* Diagnosis Cough, unspecified type [facility] Diagnosis Cough, unspecified type- Primary documented in this encounter [facility] note* Diagnosis Chronic cough- Primary Cough Allergic rhinitis, unspecified seasonality, unspecified trigger Asthma, unspecified asthma severity, unspecified whether complicated, unspecified whether persistent (HCC) documented in this encounter [facility] general Narrative - Reported* Type Description Date Medical History asthma Medical History Hypertension Medical History Esophageal reflux Medical History sleep apnea Medical History reactive airway disease Surgical History nasal surgery 1997 [employer] Other History general Narrative - Reported* Type Description Date Medical History asthma Medical History Hypertension Medical History Esophageal reflux Medical History sleep apnea Medical History reactive airway disease Medical History umbilical hernia Surgical History nasal surgery 1997 [employer] Other Reason for referral (narrative)No reason for referral information availableTrumbull [facility] Hospital Work Phone: Summary Purpose Family History No Family History Records Found Relationship Condition Age at Onset Recorded Date/T summer father Hypertension Unknown Heart disease Unknown mother Malignant neoplasm Unknown Advance Directives No Advanced Directives Records Found Advance Directive Response Recorded Date/ Time Advance Directives No March 11 2:39pm Chief Complaint and Reason for Visit Chief Complaint Admit Date Cough, broken ribs March 11, 2025 2:42 pm Additional Source Comments (unrecognized sect ion and content) No Status Records FoundNo Status Records FoundNo Status Records FoundNo Status Records FoundNo Status Records Found INFORMATION SOURCE (unrecogn ized section and content) DATE CREATED AUTHOR 02/18/2018 [facility] DATE CREATED AUTHOR AUTHOR'S ORGANIZ ATION 02/21/2018 [facility] DATE CREATED AUTHOR AUTHOR'S ORGANIZ ATION 08/13/[address] [facility] DATE CREATED AUTHOR AUTHOR'S ORGANIZ ATION 04/21/2025 [facility] DATE CREATED AUTHOR AUTHOR'S ORGANIZ ATION 05/07/2025 [facility] REASON FOR VISIT (unrecogniz ed section and content) Reason Comments Follow-up Reason Comments Follow-up [facility] ER 08/27/24 dx: asthma with exacerbation,VYAS discharged home with rx for prednisone,bromfed DM and zofran Reason Comments Med Refill Breztri Reason Comments Medicare Annual Wellness Visit Joaquin t Reason Onset Date Comments Med Refill 03/17/2025 Reason Comments Skin Check Reason Comments discuss referral Reason Comments Cough New Patient : cough Reason Comments Spirometry Specialty Diagnoses / Procedures Referred By Contac t Referred To Contact [facility] Diagnoses Cough, unspecified type Procedures NITRIC OXIDE, EXHALED NITRIC OXIDE [place] [address] [place] [address] Phone: tel: fax: Respiratory [address] [address] Referral ID Status Reason Start Date Expiration Date V isits Requested Visits Authorized [id number] Closed Auto-Generate d Referral 04/09/2025 05/09/2026 1 1 Specialty Diagnoses / Procedures Referred By Contac t Referred To Contact [facility] Diagnoses Cough, unspecified type Procedures SPIROMETRY - BASELINE AND POST DILATOR BRNCDILAT RSPSE SPMTRY PRE&[place] [address] [place] [address] Phone: tel: fax: [address] [address] Referral ID Status Reason Start Date Expiration Date V isits Requested Visits Authorized [id number] Closed Auto-Generate d Referral 04/09/2025 05/09/2026 1 1 Reason Comments Cough Specialty Diagnoses / Procedures Referred By Contac t Referred To Contact Pulmonary Disease / [facility] Diagnoses Persistent cough for 3 weeks or longer Moderate persistent asthma without complication (HCC) Procedures OFFICE/OUTPATIENT [facility] 60 MINUTES [id number] (SNOMED CT) - AMB REFERRAL TO PULMONOLOGY Nick Bess II, MD [address] [place] [address] Phone: tel: fax: Nick Zepeda DO [address] [place] [address] Phone: tel:[phone] fax:[phone] Referral ID Status Reason Start Date Expiration Date V isits Requested Visits Authorized [id number] Pending Review 03/26/2025 09/22/2025 1 1 Care Teams (unrecognized sec tion and content) Needle Grinder Relationship Specialty Start Date End Date Nick Bess MD [address] [place] [address] PCP - Medical [place] [employer] 01/31/23 Nick Bess MD [address] [place] [address] PCP - General Internal Medicine 01/08/23 Needle Grinder Relationship Specialty Start Date End Date Nick Bess MD [address] [place] [address] PCP - General Internal Medicine 01/08/23 Nick Bess MD [address] [place] [address] PCP - [employer] 10/03/23 Needle Grinder Relationship Specialty Start Date End Date Nick Bess MD [address] [place] [address] PCP - General Internal Medicine 01/08/23 Nick Bess MD [address] [place] [address] PCP - [employer] 10/03/23 Needle Grinder Relationship Specialty Start Date End Date Nick Bess MD [address] [place] [address] PCP - General Internal Medicine 01/08/23 Nick Bess MD [address] [place] [address] PCP - [employer] 10/03/23 Needle Grinder Relationship Specialty Start Date End Date Nick Bess MD [address] [place] [address] PCP - General Internal Medicine 01/08/23 Nick Bess MD [address] [place] [address] PCP - [employer] 10/03/23 Needle Grinder Relationship Specialty Start Date End Date Nick Bess MD [address] [place] [address] PCP - General Internal Medicine 01/08/23 Nick Bess MD [address] [place] [address] PCP - [employer] 10/03/23 Needle Grinder Relationship Specialty Start Date End Date Nick Bess MD [address] [place] [address] PCP - General Internal Medicine 01/08/23 Nick Bess MD [address] [place] [address] PCP - [employer] 10/03/23 Needle Grinder Relationship Specialty Start Date End Date Nick Bess MD [address] [place] [address] PCP - General Internal Medicine 01/08/23 Nick Bess MD [address] [place] [address] PCP - [employer] 10/03/23 Needle Grinder Relationship Specialty Start Date End Date Nick Bess MD [address] [place] [address] PCP - General Internal Medicine 01/08/23 Nick Bess MD [address] [place] [address] PCP - [employer] 10/03/23 Needle Grinder Relationship Specialty Start Date End Date Nick Bess MD [address] [place] [address] PCP - General Internal Medicine 01/08/23 Nick Bess MD [address] [place] [address] PCP - [employer] 10/03/23 Needle Grinder Relationship Specialty Start Date End Date Nick Bess MD [address] [place] [address] PCP - General Internal Medicine 01/08/23 Nick Bess MD [address] [place] [address] PCP - [employer] 10/03/23 Needle Grinder Relationship Specialty Start Date End Date Nick eBss MD [address] [place] [address] PCP - General Internal Medicine 01/08/23 Nick Bess MD [address] [place] [address] PCP - [employer] 10/03/23 Team Status: Active Member Role Status Dates Nick Bess II MD Primary Care Provider Active Team Status: Inactive Member Role Status Dates Nick Bess II MD Primary Care Provider Active Start: March 11, 2025 End: March 11, 2025 Trice Pruitt APRN Attending Provider Active Start: March 11, 2025 End: March 11, 2025 Needle Grinder Relationship Specialty Start Date End Date Nick Bess MD [address] [place] [address] PCP - General Internal Medicine 01/08/23 Nick Bess MD [address] [place] [address] PCP - [employer] 10/03/23 Needle Grinder Relationship Specialty Start Date End Date Nick Bess MD [address] [place] [address] PCP - General Internal Medicine 01/08/23 Nick Bess MD [address] [place] [address] PCP - [employer] 10/03/23 Needle Grinder Relationship Specialty Start Date End Date Nick Bess MD [address] [place] [address] PCP - General Internal Medicine 01/08/23 Nick Bess MD [address] [place] [address] PCP - [employer] 10/03/23 Needle Grinder Relationship Specialty Start Date End Date Nick Bess MD [address] [place] [address] PCP - General Internal Medicine 01/08/23 Nick Bess MD [address] [place] [address] PCP - [employer] 10/03/23 Needle Grinder Relationship Specialty Start Date End Date Nick Bess II, MD PCP - General Internal Medicine 11/22/14 Needle Grinder Relationship Specialty Start Date End Date Nick Bess MD [address] [place] [address] PCP - General Internal Medicine 01/08/23 Nick Bess MD [address] [place] [address] PCP - [employer] 10/03/23 Needle Grinder Relationship Specialty Start Date End Date Nick Bess II, MD PCP - General Internal Medicine 11/22/14 Needle Grinder Relationship Specialty Start Date End Date Nick Bess II, MD PCP - General Internal Medicine 11/22/14 Needle Grinder Relationship Specialty Start Date End Date Nick Bess II, MD PCP - General Internal Medicine 11/22/14 Needle Grinder Relationship Specialty Start Date End Date Nick Bess II, MD PCP - General Internal Medicine 11/22/14 Goals (unrecognized section and content) Goals may be documented in a n alternate section Source Comments (unrecognize d section and content) In the event this informatio n is protected by the Federal Confidentiality of Alcohol and Drug Abuse Patient Records regulations: The Federal rules restrict any use of the information to criminally investigate or prosecute any alcohol or drug abuse patient.[facility] the event this information is protected by the Federal Confidentiality of Alcohol and Drug Abuse Patient Records regulations: The Federal rules restrict any use of the information to criminally investigate or prosecute any alcohol or drug abuse patient.[facility] the event this information is protected by the Federal Confidentiality of Alcohol and Drug Abuse Patient Records regulations: The Federal rules restrict any use of the information to criminally investigate or prosecute any alcohol or drug abuse patient.[facility] Hospital[facility] the event this information is protected by the Federal Confidentiality of Alcohol and Drug Abuse Patient Records regulations: The Federal rules restrict any use of the information to criminally investigate or prosecute any alcohol or drug abuse patient.[facility] Hospital[facility] the event this information is protected by the Federal Confidentiality of Alcohol and Drug Abuse Patient Records regulations: The Federal rules restrict any use of the information to criminally investigate or prosecute any alcohol or drug abuse patient.[facility] FOR RECORDS PERTAINING TO PATIENTS WHO ARE [...] BE BASED ON THE PRIMARY CLINICAL RECORDS. [employer] [facility]. provides no warranty or guarantee of the accuracy or completeness of information in this document.
--- NOTE | 2025-05-07 14:11 | PC.NURSE ---
This nurse was called to ANALI treviño for a question. Clerk Cashier meets with this patient who is asking if he will be charged for an ER visit if he leaves. I asked if he had been seen by a nurse or doctor, he said no. I told him that there would be no charge then. Pt reports he had mowed the lawn and had a coughing fit. It had scared him and feels better now and is under the care of a pulmonolgist. He called his daughter who is a nurse and she said there would be not much they do for him here than what he's doing at home. I told him we would be happy to check him out and make sure there was nothing serious going on. Pt reports he was just going to leave. I assured the patient he could return at any time if he feels he needs to.
== END 2025-05-07 14:05 | disposition left against medical advice (07) ==
LOC: ER 13:46
PROVIDERS: Emergency Provider Student in an Organized Health Care Education/Training Program; PCP Internal Medicine
DX: Z53.21 Procedure and treatment not carried out due to patient leaving prior to being seen by health care provider (principal)

== ENCOUNTER 2025-05-11 07:54 | Outpatient (OUT) | payer MEDICARE, SELFPAY ==
--- OUTSIDE RECORDS SUMMARY | 2025-05-04 10:15 | XMS_ITS | Encounter Summary ---
Author Organization [facility] Address [address] [place] [address] Care Team Providers Care Supervisor Toy Assembly Name Role Phone Shahriar KEANE MD, Nick Gabriel Primary Care Provider [phone]- [phone] Source Comments In the event this information is protected by the Federal Confidentiality of Alcohol and Drug AbusePatient Records regulations: The Federal rules restrict any use of the information to criminally investigate or prosecute any alcohol or drug abuse patient.[facility] Reason for Visit * Reason Comments Spirometry * Outpatient Procedure (Routine) - Closed Specialty Diagnoses / Procedures Referred By Contac t Referred To Contact [facility] Diagnoses Cough, unspecified type Procedures SPIROMETRY - BASELINE AND POST DILATOR BRNCDILAT RSPSE SPMTRY PRE&[place] [address] [place] [address] Phone: tel: fax: [facility] [place] [address] [place] [address] Referral ID Status Reason Start Date Expiration Date V isits Requested Visits Authorized [id number] Closed Auto-Generate d Referral 04/09/2025 05/09/2026 1 1 Encounter Details Date Type Department Care Team (Late st Contact Info) Description 05/04/2025 10:15 AM EDT Procedure PULMONARY [address] [place] [address] Spirometry Social History Tobacco Use Types Packs/Day Years Used Date Smoking Tobacco: Never Smokeless Tobacco: Never Alcohol Use Standard Drinks/Week Comments Yes 5 (1 standard drink = 0.6 oz pur e alcohol) Area Deprivation Index Answer Date Dung rded National Score (1-100), lower number is lower ri sk 61 05/04/2025 State Score (1-10), lower number is lower risk 4 05/04/2025 Data from: https://www.neighborhoodatlas.medicine.[facility].edu/. Last address used for calculation [address] [facility] 05/04/2025 Sex and Gender Information Value Date Recorded Sex Assigned at Not on file Legal Sex Male 9:35 AM EST Gender Identity Not on file Sexual Orientation Not on file documented as of this encounter Plan of Treatment Upcoming Encounters Date Type Department Care Team (Late st Contact Info) Description 06/22/2025 10:00 AM EDT Office Visit PULMONARY [address] [place] [address] [place] [address] [place] [address] 7 week follow up documented [...] ULN (L/S) 1.75 L/S PULMONARY FUNCTION LAB TDQ32-93% PRE (L/S) 2.38 L/S PULMONARY FUNCTION LAB OOL01-75% POST (L/S) 2.71 L/S PULMONARY FUNCTION LAB QED43-37% PREDICTED (L/S) 2.51 L/S PULMONARY FUNCTION LAB GDC02-84% LLN (L/S) 1.14 L/S PULMONARY FUNCTION LAB [...] FUNCTION LAB - 05/06/2025 11:33 AM EDT [facility] [address] [place] [address] [place] [address] Test Date: 2025-05-04 Pat Name: [facility] Department: Room: Gender: Male Beam Builder: : 1960 Requested By: Order Number: [id number] Reading MD: Bernardo Buck MD Interpretive Statements [...] 11:33:34 EDT by Bernardo Buck MD ID: [id number] Name: [facility] Race: White Ht: 68.50 in Wt: 255.30 lbs Age: 64 Gender: Male : 1960 Dx: Cough, unspecified_ Smoking Hx: Non-smoker Doctor: HALLE OBRIEN Test Date: 05/04/2025 Site: [facility] Tech: Jessika Lunsford PRE-BRONCH POST-BRONCH Richard LLN [...] 90-100 0.68 14 FIVC 3.51 3.37 -4 PGR52-29 2.38 1.14 2.51 4.42 94 -0.13 2.71 [...] Final Resul t PULMONARY FUNCTION LAB [address] [facility] [place] [address] documented in this encounter Visit Diagnoses Diagnosis Cough, unspecified type- Primary documented in this encounter Care Teams Supervisor Toy Assembly Relationship Specialty Start Date End Date Nick Bess II, MD PCP - General Internal Medicine 11/22/14 documented as of this encounter
--- OUTSIDE RECORDS SUMMARY | 2025-05-04 10:45 | XMS_ITS | Encounter Summary ---
Author Organization [facility] Address [address] [place] [address] Care Team Providers Care Dermatology Sales Representative Name Role Phone Shahriar KEANE MD, Nick Gabriel Primary Care Provider [phone]- [phone] Source Comments In the event this information is protected by the Federal Confidentiality of Alcohol and Drug AbusePatient Records regulations: The Federal rules restrict any use of the information to criminally investigate or prosecute any alcohol or drug abuse patient.[facility] Reason for Visit * Reason Comments Spirometry * Outpatient Procedure (Routine) - Closed Specialty Diagnoses / Procedures Referred By Contac t Referred To Contact [facility] Diagnoses Cough, unspecified type Procedures NITRIC OXIDE, EXHALED NITRIC OXIDE [place] [address] [place] [address] Phone: tel: fax: [facility] [address] [place] [address] Referral ID Status Reason Start Date Expiration Date V isits Requested Visits Authorized [id number] Closed Auto-Generate d Referral 04/09/2025 05/09/2026 1 1 Encounter Details Date Type Department Care Team (Late st Contact Info) Description 05/04/2025 10:45 AM EDT Procedure PULMONARY [address] [place] [address] Spirometry Social History Tobacco Use Types Packs/Day Years Used Date Smoking Tobacco: Never Smokeless Tobacco: Never Alcohol Use Standard Drinks/Week Comments Yes 5 (1 standard drink = 0.6 oz pur e alcohol) Area Deprivation Index Answer Date Dung rded National Score (1-100), lower number is lower ri sk 61 05/04/2025 State Score (1-10), lower number is lower risk 4 05/04/2025 Data from: https://www.neighborhoodatlas.[facility]/. Last address used for calculation [address] [facility] 05/04/2025 Sex and Gender Information Value Date Recorded Sex Assigned at Not on file Legal Sex Male 9:35 AM EST Gender Identity Not on file Sexual Orientation Not on file documented as of this encounter Procedure Notes * Jessika Lunsford RRT - 05/04/2025 10:20 AM EDTAssociated Order(s): NITRIC OXIDE, EXHALED ALLERGY AND IMMUNOLOGY ORAL EXHALED NITRIC OXIDE SERVICE DATE: 05/04/2025 SERVICE TIME: 10:20 AM Oral Exhaled Nitric Oxide measurement: 32.0 (ppb) Normal: Adult <25 ppb, pediatric (<12 years) <20 ppb High Normal / Increased: Adult 25-50 ppb, pediatric (<12 years) 20-35 ppb Moderately raised exhaled Nitric Oxide may indicate underlying inflammation, but note that: Cold and influenza can raise exhaled Nitric Oxide and some patients have higher baseline exhaled Nitric Oxide levels than others. High: Adult >50 ppb, pediatric (<12 years) >35 ppb Indicative of ongoing eosinophilic inflammation. Symptomatic patient likely to respond to steroids. Possible causes (if already on steroids): Poor compliance, recent allergen exposure, steroid dose inadequate, and steroid resistance. Note that not all patients with high exhaled nitric oxide levels display symptoms. Oral Exhaled Nitric Oxide measurement (Previous Encounters) Test Date Oral Exhaled Nitric Oxide (ppb) 05/04/2025 32.0 NAME: Jessika Lunsford RRT PATIENT NAME: Efrain Ferrara DATE: May 04, 2025 TIME: 10:20 AM documented in this encounter Plan of Treatment Upcoming Encounters Date Type Department Care Team (Late st Contact Info) Description 06/22/2025 10:00 AM EDT Office Visit PULMONARY [address] [place] [address] [place] [address] [place] [address] 7 week follow up documented as of this encounter Procedures Procedure Name Priority Date/Time Associated Diagnosis Comments NITRIC OXIDE, EXHALED Routine 05/04/2025 10:20 AM EDT Cough, unspecified type documented in this encounter Results * NITRIC OXIDE, EXHALED (05/04/2025 10:20 AM EDT) 05/04/2025 10:2 0 AM EDT Narrative Jessika Lunsford RRT - 05/04/2025 10:20 AM EDT Jessika Lunsford RRT 05/04/2025 10:20 AM ALLERGY AND IMMUNOLOGY ORAL EXHALED NITRIC OXIDE SERVICE DATE: 05/04/2025 SERVICE TIME: 10:20 AM Oral Exhaled Nitric Oxide measurement: 32.0 (ppb) Normal: Adult <25 ppb, pediatric (<12 years) <20 ppb High Normal / Increased: Adult 25-50 ppb, pediatric (<12 years) 20-35 ppb Moderately raised exhaled Nitric Oxide may indicate underlying inflammation, but note that: Cold and influenza can raise exhaled Nitric Oxide and some patients have higher baseline exhaled Nitric Oxide levels than others. High: Adult >50 ppb, pediatric (<12 years) >35 ppb Indicative of ongoing eosinophilic inflammation. Symptomatic patient likely to respond to steroids. Possible causes (if already on steroids): Poor compliance, recent allergen exposure, steroid dose inadequate, and steroid resistance. Note that not all patients with high exhaled nitric oxide levels display symptoms. Oral Exhaled Nitric Oxide measurement (Previous Encounters) Test Date Oral Exhaled Nitric Oxide (ppb) 05/04/2025 32.0 NAME: Jessika Lunsford RRT PATIENT NAME: Efrain Ferrara DATE: May 04, 2025 TIME: 10:20 AM us Iman Franklin MD SCHEDULED PROCEDURES Final Resul t documented in this encounter Visit Diagnoses Diagnosis Cough, unspecified type documented in this encounter Care Teams Dermatology Sales Representative Relationship Specialty Start Date End Date Nick Bess II, MD PCP - General Internal Medicine 11/22/14 documented as of this encounter
--- OUTSIDE RECORDS SUMMARY | 2025-05-04 11:00 | XMS_ITS | Encounter Summary ---
Author Organization [facility] Address [address] [place] [address] Care Team Providers Care Parking Lot Attendant Name Role Phone Shahriar KEANE MD, Nick Gabriel Primary Care Provider [phone] Source Comments In the event this information is protected by the Federal Confidentiality of Alcohol and Drug AbusePatient Records regulations: The Federal rules restrict any use of the information to criminally investigate or prosecute any alcohol or drug abuse patient.[facility] Reason for Visit * Reason Comments Cough * (Routine) - Pending Review Specialty Diagnoses / Procedures Referred By Contac t Referred To Contact [facility] Diagnoses Persistent cough for 3 weeks or longer Moderate persistent asthma without complication (HCC) Procedures OFFICE/OUTPATIENT [facility] 60 MINUTES [id number] (SNOMED CT) - AMB REFERRAL TO PULMONOLOGY Nick Bess II, MD [address] [place] [address] [address] [place] [address] Phone: tel: fax: Nick Zepeda DO [address] [place] [address] Phone: tel:[phone] fax:[phone] Referral ID Status Reason Start Date Expiration Date V isits Requested Visits Authorized [id number] Pending Review 03/26/2025 09/22/2025 1 1 Encounter Details Date Type Department Care Team (Late st Contact Info) Description 05/04/2025 11:00 AM EDT Office Visit PULMONARY [address] [place] [address] [place] [address] [place] [address] Chronic cough (Primary Dx); Allergic [...] is lower risk 4 05/04/2025 Data from: https://www.neighborhoodatlas.medicine.[facility].edu/. Last address used for calculation [address] [facility] 05/04/2025 Sex and Gender Information Value [...] travels on your upcoming trip to the [facility]! documented in this encounter Progress Notes * [...] damage, hot tubs. 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 He rarely smokes [...] Franklin MD Pulmonary and Critical Care Medicine [facility] Respiratory [place] Recording using [employer] software for draft documentation of the visit was discussed with the patient/authorized patient financial representative; all questions welcomed and answered. Patient/authorized patient financial representative agreed to proceed documented in this encounter Plan of Treatment Upcoming Encounters Date Type Department Care Team (Late st Contact Info) Description 06/22/2025 10:00 AM EDT Office Visit PULMONARY [address] [place] [address] [place] [address] [place] [address] 7 week follow up Scheduled [...] (HCC) documented in this encounter Care Teams Parking Lot Attendant Relationship Specialty Start Date End Date Nick Bess II, MD PCP - General Internal Medicine 11/22/14 documented as of this encounter
--- OUTSIDE RECORDS SUMMARY | 2025-05-11 07:58 | XMS_ITS | Encounter Summary ---
Author Organization [facility] Address [address] [place] [address] Care Team Providers Care Batch Blender Name Role Phone Nick Bess MD Primary Care Provider [phone] Nick Bess MD Unavailable [phone] Encounter Details Date Type Department Care Team (Late st Contact Info) Description 03/10/2025 Abstract [facility] [place] [facility] [address] [facility] [address] [place] [id number] Nick Bess MD 112 [facility] [address] [place] [address] Social History Tobacco Use Types Packs/Day Years Used Date Smoking Tobacco: Never Passive Smoke Exposure: Yes Smokeless Tobacco: Never Alcohol Use Standard Drinks/Week Comments Yes 1 (1 standard drink = 0.6 oz pure alcohol) Caffeine intake : 1-2 cups per day B1300 Health Literacy Answer Date Recor ded How often do you need to hav e someone help you when you read instructions, pamphlets, or other written material from your doctor or pharmacy? Never 12/01/2024 Humiliation, Afraid, Rape, and Kick questionnair e Answer Date Recorded Within the last year, have y ou been afraid of your partner or ex-partner? No 08/08/2023 Within the last year, have y ou been humiliated or emotionally abused in other ways by your partner or ex-partner? Patient declined 08/08/2023 Within the last year, have y ou been kicked, hit, slapped, or otherwise physically hurt by your partner or ex-partner? Patient declined 08/08/2023 Within the last year, have y ou been raped or forced to have any kind of sexual activity by your partner or ex-partner? Patient declined 08/08/2023 Social Connection and Isolation Panel [NHANES] A nswer Date Recorded In a typical week, how many times do you talk on the phone with family, friends, or neighbors? Once a week 12/01/2024 How often do you get together with friends or re latives? Once a week 12/01/2024 How often do you attend anabaptism or mormonism serv ices? Never 12/01/2024 Do you belong to any clubs o r organizations such as anabaptism groups, unions, fraternal or athletic groups, or school groups? No 12/01/2024 How often do you attend meet ings of the clubs or organizations you belong to? Never 12/01/2024 Are you , , di vorced, , never , or living with a partner? 12/01/2024 AUDIT-C Answer Date Recorded Q1: How often do you have a drink containing alc ohol? Patient declined 12/01/2024 Q2: How many drinks containi ng alcohol do you have on a typical day when you are drinking? Patient declined 12/01/2024 Q3: How often do you have si x or more drinks on one occasion? Patient declined 12/01/2024 Overall Financial Resource Strain (CARDIA) Answe r Date Recorded How hard is it for you to pa y for the very basics like food, housing, medical care, and heating? Not very hard 12/01/2024 PHQ-2 Answer Date Recorded Patient Health Questionnaire-2 Score 0 03/11/2025 [facility] - Occupational Stress Questionnaire Answer Date Recorded Do you feel stress - tense, restless, nervous, or anxious, or unable to sleep at night because your mind is troubled all the time - these days? To some extent 12/01/2024 Exercise Vital Sign Answer Date Recorde d On average, how many days pe r week do you engage in moderate to strenuous exercise (like a brisk walk)? 2 days 12/01/2024 On average, how many minutes do you engage in exercise at this level? 10 min 12/01/2024 Hunger Vital Sign Answer Date Recorded Within the past 12 months, y ou worried that your food would run out before you got the money to buy more. Never true 12/02/19 25 Within the past 12 months, t he food you bought just didn't last and you didn't have money to get more. Never true 12/01/2024 PRAPARE - Transportation Answer Date Re corded In the past 12 months, has l ack of transportation kept you from medical appointments or from getting medications? No 09/2024 In the past 12 months, has l ack of transportation kept you from meetings, work, or from getting things needed for daily living? No 12/01/2024 Housing Stability Vital Sign Answer Dom e Recorded In the last 12 months, was t here a time when you were not able to pay the mortgage or rent on time? No 08/08/2023 In the last 12 months, how many places have you lived? 1 08/08/2023 In the last 12 months, was t here a time when you did not have a steady place to sleep or slept in a custodial (including now)? No 08/08/2023 Housing Stability Vital Sign Answer Dom e Recorded In the last 12 months, was t here a time when you were not able to pay the mortgage or rent on time? No 12/01/2024 Number of Times Moved in the Last Year Not on fi le 12/01/2024 At any time in the past 12 m [facility], were you homeless or living in a custodial (including now)? No 12/01/2024 Sex and Gender Information Value Date Recorded Sex Assigned at Not on file Legal Sex Male 7:21 PM EDT Gender Identity Male 11/14/2022 7:21 PM EDT Sexual Orientation Not on file documented as of this encounter Functional Status * Over the past 2 weeks, how often have you been bothered by any of the following problems? Question Answer Date of Assessment Author Little interest or pleasure in doing things Not at all 03/11/2025 8:46 AM EDT Lamar Jimenez LP N Feeling down, depressed, or hopeless Not at all 03/11/2025 8:46 AM EDT Lamar Jimenez LP N Patient Health Questionnaire -2 Score 0 03/11/2025 8:46 AM EDT Tony, Lamar, LP N documented as of this encounter Plan of Treatment Upcoming Encounters Date Type Department Care Team (Late st Contact Info) Description 07/07/2025 9:15 AM EST Office Visit [facility] [address] [place] [phone] Jose Juan Nunes DO [address] [place] [address] 07/21/2025 9:05 AM EST Office Visit [facility] [address] [place] [phone] Poly Holbrook MD [address] [place] [address] documented as of this encounter Visit Diagnoses Not on filedocumented in this encounter Additional Health Concerns Assessment Noted Time PHQ-9 Depression Total Score: 0 12/09/19 25 7:00 AM EDT documented as of this encounter Care Teams Batch Blender Relationship Specialty Start Date End Date Nick Bess MD [address] [facility] [address] [place] [address] PCP - General Internal Medicine 01/08/23 Ncik Bess MD [address] [facility] [address] [place] [address] PCP - [employer] 10/03/23 documented as of this encounter
--- OUTSIDE RECORDS SUMMARY | 2025-05-11 07:58 | XMS_ITS | Encounter Summary ---
Author Organization [facility] Address [address] [place] [address] Care Team Providers Care Sand Mixer Operator Name Role Phone Nick Bess MD Primary Care Provider [phone] Nick Bess MD Unavailable [phone] Encounter Details Date Type Department Care Team (Late st Contact Info) Description 03/12/2025 Abstract [facility] [place] [facility] [address] [facility] [address] [place] [phone] Nick Bess MD [address] [facility] [address] [place] [address] Social History Tobacco Use Types Packs/Day Years [...] week 12/01/2024 How often do you attend gnosticist or sikhism serv ices? Never 12/01/2024 Do you belong to any clubs o r organizations such as gnosticist groups, unions, fraternal or athletic groups, or [...] Recorded Patient Health Questionnaire-2 Score 0 03/11/2025 [facility] - Occupational Stress [...] place to sleep or slept in a senior living (including now)? No 08/08/2023 Housing Stability Vital Sign Answer Dom e Recorded In the last 12 months, was t here a time when you were not able to pay the mortgage or rent on time? No 12/01/2024 Number of Times Moved in the Last Year Not on fi le 12/01/2024 At any time in the past 12 m [facility], were you homeless or living in a senior living (including now)? No 12/01/2024 Sex and Gender Information Value Date Recorded Sex Assigned at Not on file Legal Sex Male 7:21 PM EDT Gender Identity Male 11/14/2022 7:21 PM EDT Sexual Orientation Not on file documented as of this encounter Plan of Treatment Upcoming Encounters Date Type Department Care Team (Late st Contact Info) Description 07/07/2025 9:15 AM EST Office Visit [facility] [address] [place] [address] Jose Juan Nunes DO [address] [place] [address] 07/21/2025 9:05 AM EST Office Visit [facility] [address] [place] [phone] Poly Holbrook MD [address] [place], [place] [id number] documented as of this encounter Visit Diagnoses Not on filedocumented in this encounter Additional Health Concerns Assessment Noted Time PHQ-9 Depression Total Score: 0 12/09/19 25 7:00 AM EDT documented as of this encounter Care Teams Sand Mixer Operator Relationship Specialty Start Date End Date Nick Bess MD [address] [facility] [address] [place] [address] PCP - General Internal Medicine 01/08/23 Nick Bess MD [address] [facility] [address] [place] [address] PCP - [employer] 10/03/23 documented as of this encounter
--- OUTSIDE RECORDS SUMMARY | 2025-05-11 07:58 | XMS_ITS | Encounter Summary ---
Author Organization [facility] Address [address] [place] [address] Care Team Providers Care Tester Rocket Engine Name Role Phone Rachel Kerns MD Primary Care Provider [phone] Pcp, No Primary Care Provider Marta Bess II, MD, Nick Gabriel Primary Care Provider [phone] Source Comments In the event this information is protected by the Federal Confidentiality of Alcohol and Drug AbusePatient Records regulations: The Federal rules restrict any use of the information to criminally investigate or prosecute any alcohol or drug abuse patient.[facility] Encounter Details Date Type Department Care Team (Latest Contact Info) Description 12/28/2004 Prob Sum Review Provider, [facility] Social History Tobacco Use Types Packs/Day Years Used Date Smoking Tobacco: Never Assessed Sex and Gender Information Value Date Recorded Sex Assigned at Not on file Legal Sex Male 9:35 AM EST Gender Identity Not on file Sexual Orientation Not on file documented as of this encounter Plan of Treatment Upcoming Encounters Date Type Department Care Team (Late st Contact Info) Description 06/22/2025 10:00 AM EDT Office Visit PULMONARY [address] [place] [address] [place] [address] [place] [address] 7 week follow up documented as of this encounter Visit Diagnoses Not on filedocumented in this encounter Care Teams Tester Rocket Engine Relationship Specialty Start Date End Date Rachel Kerns MD 112 [facility] 110 [place] [address] PCP - General 01/01/05 07/02/05 Pcp, No PCP - General 10/26/04 12/31/04 Nick Bess II, MD PCP - General Internal Medicine 11/22/14 documented as of this encounter
--- OUTSIDE RECORDS SUMMARY | 2025-05-11 07:58 | XMS_ITS | Encounter Summary ---
Author Organization [facility] Address [address] [place] [address] Care Team Providers Care Manufacturing Maintenance Technician Name Role Phone Nick Bess MD Primary Care Provider [phone] Nick Bess MD Unavailable [phone] Encounter Details Date Type Department Care Team (Late st Contact Info) Description 04/27/2025 Telephone [facility] [place] [facility] [address] [facility] 110 [place] [address] Marina Thompson PA [address] [facility] 110 [place] [address] Social History Tobacco Use Types Packs/Day Years [...] week 12/01/2024 How often do you attend buddhism or jainism serv ices? Never 12/01/2024 Do you belong to any clubs o r organizations such as buddhism groups, unions, fraternal or athletic groups, or [...] Recorded Patient Health Questionnaire-2 Score 0 03/11/2025 [facility] of Occupat ional Health - Occupational Stress [...] place to sleep or slept in a fdc (including now)? No 08/08/2023 Housing Stability Vital Sign Answer Dom e Recorded In the last 12 months, was t here a time when you were not able to pay the mortgage or rent on time? No 12/01/2024 Number of Times Moved in the Last Year Not on fi le 12/01/2024 At any time in the past 12 m [facility], were you homeless or living in a fdc (including now)? No 12/01/2024 Sex and Gender Information Value Date Recorded Sex Assigned at Not on file Legal Sex Male 7:21 PM EDT Gender Identity Male 11/14/2022 7:21 PM EDT Sexual Orientation Not on file documented as of this encounter Miscellaneous Notes * Telephone Encounter - PATRICIA Gibbs - 04/27/2025 5:08 PM EDT Called and informed pt that Prednisone and Hydroxyzine were sent in for him. He is to take the Prednisone with food. Pt voiced understanding. * Telephone Encounter - ANNE MARIE LABOY - 04/27/2025 4:37 PM EDT Patient called Asking for something for itching due to being stung several times yesterday on his legs. He has tried Benadryl cream and pills and they are not helping. Please Advise. documented in this encounter Plan of Treatment Upcoming Encounters Date Type Department Care Team (Late st Contact Info) Description 07/07/2025 9:15 AM EST Office Visit [facility] [address] [place] [address] Jose Juan Nunes DO [address] [place] [address] 07/21/2025 9:05 AM EST Office Visit [facility] [place] [facility] [address] [place] [phone] Poly Holbrook MD [address] [place] [address] documented as of this encounter Visit Diagnoses Diagnosis Bee sting, accidental or unintentional, initial encounter- Primary documented in this encounter Additional Health Concerns Assessment Noted Time PHQ-9 Depression Total Score: 0 12/09/19 25 7:00 AM EDT documented as of this encounter Care Teams Manufacturing Maintenance Technician Relationship Specialty Start Date End Date Nick Bess MD [address] [facility] 110 [place] [address] PCP - General Internal Medicine 01/08/23 Nick Bess MD [address] [facility] 110 [place] [address] PCP - [employer] 10/03/23 documented as of this encounter
--- OUTSIDE RECORDS SUMMARY | 2025-05-11 07:58 | XMS_ITS | Encounter Summary ---
Author Organization [facility] Address [address] [place] [address] Care Team Providers Care Customer Relations Consultant Name Role Phone Shahrira KEANE MD, Nick Gabriel Primary Care Provider [phone] Source Comments In the event this information is protected by the Federal Confidentiality of Alcohol and Drug AbusePatient Records regulations: The Federal rules restrict any use of the information to criminally investigate or prosecute any alcohol or drug abuse patient.[facility] Encounter Details Date Type Department Care Team (Latest Contact Info) Description 05/02/2025 Travel Social History Tobacco Use Types Packs/Day Years [...] AM EDT Office Visit PULMONARY [address] [place] [address] [place] [address] [place] [address] 7 week follow up documented as of this encounter Visit Diagnoses Not on filedocumented in this encounter Care Teams Customer Relations Consultant Relationship Specialty Start Date End Date Nick Bess II, MD PCP - General Internal Medicine 11/22/14 documented as of this encounter
--- OUTSIDE RECORDS SUMMARY | 2025-05-11 07:58 | XMS_ITS | Encounter Summary ---
Author Organization [facility] Address [address] [place] [address] Care Team Providers Care Machine Lead Burner Name Role Phone Nick Bess MD Primary Care Provider [phone] Nick Bess MD Unavailable [phone] Encounter Details Date Type Department Care Team (Late st Contact Info) Description 12/08/2024 Abstract [facility] [place] [facility] [address] [facility] 110 [place] [phone] Nick Bess MD 112 [facility] 110 [place] [address] Social History Tobacco Use Types Packs/Day Years [...] week 12/01/2024 How often do you attend catholic or sikh serv ices? Never 12/01/2024 Do you belong to any clubs o r organizations such as catholic groups, unions, fraternal or athletic groups, or [...] Date Recorded Patient Health Questionnaire-2 Score 0 12/08/2024 [facility] of Occupat ional Health - Occupational Stress [...] place to sleep or slept in a mcc (including now)? No 08/08/2023 Housing Stability Vital Sign Answer Dom e Recorded In the last 12 months, was t here a time when you were not able to pay the mortgage or rent on time? No 12/01/2024 Number of Times Moved in the Last Year Not on fi le 12/01/2024 At any time in the past 12 m [facility], were you homeless or living in a mcc (including now)? No 12/01/2024 Sex and Gender [...] pleasure in doing things Not at all 12/08/2024 7:00 AM WILLIAMST Lamar Jimenez LP N Feeling down, depressed, or hopeless Not at all 12/08/2024 7:00 AM EDT aLmar Jimenez LP N Patient Health Questionnaire -2 Score 0 12/08/2024 7:00 AM EDT Lamar Jimenez LP N * Question Answer Date of Assessment Author Trouble falling or staying asleep, or sleeping too much Not at all 12/08/2024 7:00 AM EDT Kavitha Jimenez LPN Feeling tired or having flaquita le energy Not at all 12/08/2024 7:00 AM EDT Lamar Jimenez LP N Poor appetite or overeating Not at all 12/08/2024 7: 00 AM EDT Lamar Jimenez LPN Feeling bad about yourself - or that you are a failure or have let yourself or your family down Not at all 12/08/2024 7:00 AM EDT Lamar Jimenez LPN Trouble concentrating on thi ngs, such as reading the newspaper or watching television Not at all 12/08/2024 7:00 AM EDT Lamar Jimenez LP N Moving or speaking so slowly that other people could have noticed? Or the opposite - being so fidgety or restless that you have been moving around a lot more than usual. Not at all 12/08/2024 7:00 AM EDT Lamar Jimenez LP N Thoughts that you would be better off or hurting yourself in some way Not at all 12/08/2024 7:00 AM Lamar Copeland L PN Patient Health Questionnaire -9 Score 0 12/08/2024 7:00 AM Lamar Copeland LP N documented as of this encounter Plan of Treatment Upcoming Encounters Date Type Department Care Team (Late st Contact Info) Description 07/07/2025 9:15 AM EST Office Visit [facility] [address] [place] [phone] Jose Juan Nunes, [address] [place] [address] 07/21/2025 9:05 AM EST Office Visit [facility] [address] [place] [address] Poly Holbrook MD [address] [place] [address] documented as of this encounter Visit Diagnoses Not on filedocumented in this encounter Additional Health Concerns Assessment Noted Time PHQ-9 Depression Total Score: 0 12/09/19 25 7:00 AM EDT documented as of this encounter Care Teams Machine Lead Burner Relationship Specialty Start Date End Date Nick Bess MD [address] [place] [address] PCP - General Internal Medicine 01/08/23 Nick Bess MD [address] [place] [address] PCP - [employer] 10/03/23 documented as of this encounter
--- OUTSIDE RECORDS SUMMARY | 2025-05-11 07:58 | XMS_ITS | Encounter Summary ---
Author Organization [facility] Address [address] [place] [address] Care Team Providers Care Senior Systems Programmer Name Role Phone Nick Bess MD Unavailable [phone] Nick Bess MD Primary Care Provider [phone] Nick Bess MD Unavailable [phone] Encounter Details Date Type Department Care Team (Late st Contact Info) Description 09/17/2023 [facility] [place] [facility] [address] [facility] [address] [place] [address] Poly Holbrook MD [address] [facility] [address] [place] [address] Social History Tobacco Use Types Packs/Day Years Used Date Smoking Tobacco: Never Passive Smoke Exposure: Yes Smokeless Tobacco: Never Alcohol Use Standard Drinks/Week Comments Yes 1 (1 standard drink = 0.6 oz pure alcohol) Caffeine intake : 1-2 cups per day Humiliation, Afraid, Rape, and Kick questionnair e [...] the phone with family, friends, or neighbors? Twice a week 08/08/2023 How often do you get togethe r with friends or relatives? Patient declined 08/08/2023 How often do you attend adventist or uatsdin serv ices? Never 08/08/2023 Do you belong to any clubs o r organizations such as adventist groups, unions, fraternal or athletic groups, or school groups? No 08/08/2023 How often do you attend meet ings of the clubs or organizations you belong to? Never 08/08/2023 Are you , , di vorced, , never , or living with a partner? 08/08/2023 AUDIT-C Answer Date Recorded Q1: How often do you have a drink containing alc ohol? Patient declined 08/08/2023 Q2: How many drinks containi ng alcohol do you have on a typical day when you are drinking? Patient declined 08/08/2023 Q3: How often do you have si x or more drinks on one occasion? Patient declined 08/08/2023 Overall Financial Resource Strain (CARDIA) Answe r Date Recorded How hard is it for you to pa y for the very basics like food, housing, medical care, and heating? Not very hard 08/08/2023 [facility] of Occupat ional Health - Occupational Stress Questionnaire Answer Date Recorded Do you feel stress - tense, restless, nervous, or anxious, or unable to sleep at night because your mind is troubled all the time - these days? Only a little 08/08/2023 Exercise Vital Sign Answer Date Recorde d On average, how many days pe r week do you engage in moderate to strenuous exercise (like a brisk walk)? 2 days 08/08/2023 On average, how many minutes do you engage in exercise at this level? 10 min 08/08/2023 Hunger Vital Sign Answer Date Recorded Within the past 12 months, y ou worried that your food would run out before you got the money to buy more. Never true 08/08/20 23 Within the past 12 months, t he food you bought just didn't last and you didn't have money to get more. Never true 08/08/2023 PRAPARE - Transportation Answer Date Re corded In the past 12 months, has l ack of transportation kept you from medical appointments or from getting medications? No 03/2023 In the past 12 months, has l ack of transportation kept you from meetings, work, or from getting things needed for daily living? No 08/08/2023 Housing Stability Vital Sign Answer [...] place to sleep or slept in a snf (including now)? No 08/08/2023 Sex and Gender Information Value Date Recorded Sex Assigned at Not on file Legal Sex Male 7:21 PM EDT Gender Identity Male 11/14/2022 7:21 PM EDT Sexual Orientation Not on file documented as of this encounter Plan of Treatment Upcoming Encounters Date Type Department Care Team (Late st Contact Info) Description 07/07/2025 9:15 AM EST Office Visit [facility] [address] [place] [phone] Jose Juan Nunes DO [address] [place] [address] 07/21/2025 9:05 AM EST Office Visit [facility] [address] [place] [address] Poly Holbrook MD [address] [place] [address] documented as of this encounter Visit Diagnoses Not on filedocumented in this encounter Care Teams Senior Systems Programmer Relationship Specialty Start Date End Date Nick Bess MD [address] [facility] 110 [place] [address] PCP - Medical [employer] [employer] 01/31/23 11/09/23 Nick Bess MD [address] [place] [address] [place] [address] PCP - General Internal Medicine 01/08/23 Nick Bess MD [address] [place] [address] PCP - [employer] 10/03/23 documented as of this encounter
--- OUTSIDE RECORDS SUMMARY | 2025-05-11 07:58 | XMS_ITS | Encounter Summary ---
Author Organization [facility] Address [address] [place] [address] Care Team Providers Care Crm System Administrator Name Role Phone Shahriar KEANE MD, Nick Gabriel Primary Care Provider [phone] Source Comments In the event this information is protected by the Federal Confidentiality of Alcohol and Drug AbusePatient Records regulations: The Federal rules restrict any use of the information to criminally investigate or prosecute any alcohol or drug abuse patient.[facility] Encounter Details Date Type Department Care Team (Late st Contact Info) Description 05/05/2025 Telephone Pulmonary Medicine [address] [place], [place] [id number] [place] [address] [place] [address] Social History Tobacco Use Types Packs/Day Years Used Date Smoking Tobacco: Never Smokeless Tobacco: Never Alcohol Use Standard Drinks/Week Comments Yes 5 (1 standard drink = 0.6 oz pur e alcohol) Area Deprivation Index Answer Date Dung rded National Score (1-100), lower number is lower ri sk 61 05/04/2025 State Score (1-10), lower number is lower risk 4 05/04/2025 Data from: https://www.neighborhoodatlas.medicine.[facility].edu/. Last address used for calculation Sharita Beckford 05/04/2025 Sex and Gender Information Value Date Recorded Sex Assigned at Not on file Legal Sex Male 9:35 AM EST Gender Identity Not on file Sexual Orientation Not on file documented as of this encounter Miscellaneous Notes * Telephone Encounter - Dany Aden LPN - 05/05/2025 12:27 PM EDT Images from the original note were not included. CT chest results Received: Yesterday Iman Franklin MD P Av[facility] Pulm Nurse This patient reports having a CT just this summer in [facility]. It's not being collectedby Care Everywhere. Can we obtain his CT chest images on a CD please? Thank you! Faxed Auth to Disclose info to [facility] for CT Chest imaging documented in this encounter Plan of Treatment Upcoming Encounters Date Type Department Care Team (Late st Contact Info) Description 06/22/2025 10:00 AM EDT Office Visit PULMONARY [address] [facility] [place] [address] [place] [address] [place], [place] [phone] 7 week follow up documented as of this encounter Visit Diagnoses Not on filedocumented in this encounter Care Teams Crm System Administrator Relationship Specialty Start Date End Date Nick Bess II, MD PCP - General Internal Medicine 11/22/14 documented as of this encounter
--- OUTSIDE RECORDS SUMMARY | 2025-05-11 07:58 | XMS_ITS | Clinical Summary ---
Author Organization [facility] Address [address] [place] [address] Care Team Providers Care Other Sports Official Name Role Phone Shahriar KEANE MD, Nick Gabriel Primary Care Provider [phone] Allergies Active Allergy Reactions Criticality Noted Date Comments Amoxicillin GI Upset 05/04/2025 Medications NASONEX 50 MCG/ACTUATION NASL SPRY 2 sprays each nostril qd prn 0 3 5 Active CLARINEX 5 MG ORAL TAB ONE PO QD prn 0 3 5 Active SINGULAIR 10 MG ORAL TAB ONE PO QHS prn 0 3 5 Active AIRSUPRA 90-80 mcg/actuation inhaler INHALE 2 PUFFS BY MOUTH EVERY 4 HOURS NEEDED FOR SHORTNESS OF BREATH OR WHEEZE Active BREZTRI AEROSPHERE 160-9-4.8 mcg/actuation HFA aerosol inhaler Inhale 2 puffs as instructed. 5 Active amLODIPine (NORVASC) 5 mg tablet Take 5 mg by mouth once daily. Active atorvastatin (LIPITOR) 20 mg tablet Take 20 mg by mouth every morning. 5 Active omeprazole (PRILOSEC) 20 mg capsule TAKE 1 CAPSULE BY MOUTH EVERYDAY AT THE SAME TIME 5 Active predniSONE (DELTASONE) 10 mg tablet TAKE 1 TABLET BY MOUTH 3 TIMES A DAY X3 DAYS, 1 TABLET TWICE A DAY X3 DAYS THEN 1 DAILY X3 DAYS 5 Active ALBUTEROL 90MCG INHALER 2 PUFFS Q 4-6 HRS PRN 3 month supply 3 4 05/04/20 25 Discontinu ed(Discont inued by Patient) ADVAIR 250/50 DISKUS ONE INHALATION TWICE DAILY 3 month supply 3 4 05/04/20 25 Discontinu ed(Discont inued by Patient) PREDNISONE 20 MG ORAL TAB 3 tabs a day for 5 days as needed for asthma flares 0 1 5 05/04/20 25 Discontinu ed(Discont inued by Patient) TEQUIN 400 MG ORAL TAB one po qd as needed for chest congestion 0 1 5 05/04/20 25 Discontinu ed(Discont inued by Patient) GUAIFENEX PSE 120 120 MG-600 MG ORAL TB12 one po bid prn for sinus congestion 0 12 5 05/04/20 25 Discontinu ed(Discont inued by Patient) Active Problems Problem Noted Date Diagnosed Date Chronic cough 01/31/2025 BCC (basal cell carcinoma), trunk 04/01/2023 Benign essential hypertension 04/01/2023 Mixed hyperlipidemia 04/01/2023 LPRD (laryngopharyngeal reflux disease) 04/01/20 Encounters Date Type Department Care Team Description 05/05/2025 Telephone Pulmonary Medicine [address] [facility] [place] [address] Iman Obrien MD 05/04/2025 11:00 AM EDT Office Visit PULMONARY [address] [place] [address] Iman Obrien MD Chronic cough (Primary Dx); Allergic rhinitis, unspecified seasonality, unspecified trigger; Asthma, unspecified asthma severity, unspecified whether complicated, unspecified whether persistent (HCC) 05/04/2025 10:45 AM EDT Procedure [facility]ULMONARY [address] [address] [place] [address] Spirometry 05/04/2025 10:15 AM EDT Procedure PULMONARY [address] [facility] [place] [address] Spirometry 05/04/2025 Travel 05/02/2025 Travel 04/09/2025 Orders Only Respiratory [place] [address] [place] [address] Iman Obrien MD Cough, unspecified type (Primary Dx) 03/29/2025 Telephone Pulmonary Medicine [address] [id number] Russell Serna MD from Last 3 Months Immunizations Immunization Administration Dates Next Due influenza (HD-IIV3) vaccine, age 65+ yr, high dose, trivalent, PF (FLUZONE HIGH-DOSE) 06/15/2024 influenza (IIV3) vaccine, tr ivalent, PF, intradermal (FLUZONE INTRADERMAL) 06/17/2019,05/28/2017 influenza (IIV4) vaccine, ag e 6 mo - 64 yr, quadrivalent, PF (AFLURIA, FLUARIX, FLULAVAL, FLUZONE) 2022,07/12/2021,06/18/2016 influenza (IIV4) vaccine, qu adrivalent (AFLURIA, FLULAVAL, FLUZONE) 06/13/2020,06/07/2018 influenza (aIIV4) vaccine, a ge 65+ yr, quadrivalent, PF (FLUAD QUAD) 07/01/2023 pneumococcal conjugate (PCV2 0) vaccine, 20 valent (PREVNAR 20) 07/22/2023 zoster (RZV) vaccine, recomb inant (SHINGRIX) 07/07/2020,04/09/2020 zoster (ZVL) vaccine, live (ZOSTAVAX) 06/25/2017 Family History Medical History Relation Comments Breast Cancer Sister Relation Status Comments Sister Social History Tobacco Use Types Packs/Day Years [...] is lower risk 4 05/04/2025 Data from: https://www.neighborhoodatlas.medicine.[facility].edu/. Last address used for calculation [address] [facility] 05/04/2025 Sex and Gender Information Value Date Recorded Sex Assigned at Not on file Legal Sex Male 9:35 AM EST Gender Identity Not on file Sexual Orientation Not on file Last Filed Vital Signs Vital Sign Reading [...] Mass Index 37.68 05/04/2025 10:55 AM EDT Plan of Treatment Upcoming Encounters Date Type Department Care Team (Late st Contact Info) Description 06/22/2025 10:00 AM EDT Office Visit PULMONARY [address] [facility] [place] [address] [place] [address] [place] [address] 7 week follow up Health Maintenance Due Date Last Done Comments Annual PCP Team Chronic Dise ase Visit 1976 Anxiety Screening 1976 Depression Screening 1976 Hepatitis C Screening 1976 DTaP,Tdap,Td Vaccine (1 - Tdap) [address] Colonography 2003 Cologuard (FIT-DNA) 2003 Colonoscopy 2003 Colorectal Cancer Screening 2003 Fecal Occult Blood 2003 Prostate Cancer Screening Discussion 2003 Sigmoidoscopy 2003 Advance Directive Discussion 09/02/2024 Medicare Advantage Annual Dangelo fregoso Visit 09/02/2024 Influenza Vaccine (#1) 2025 , 07/01/2023, 2022, Additional history exists Diabetes Screening 02/01/2028 01/31/2025 RSV Vaccine (1 - 1-dose 75+ series) 2033 Shingrix Vaccine Completed 07/07/2020, 04/2020, 06/25/2017 Pneumococcal Vaccine: 50+ Completed 07/22/2023 Procedures Procedure Name Priority Date/Time Associated Diagnosis Comments NITRIC OXIDE, EXHALED Routine 05/04/2025 10:20 AM EDT Cough, unspecified type SPIROMETRY - BASELINE AND POST DILATOR Routine 05/04/2025 10:14 AM EDT Cough, unspecified type from Last 3 Months Results * NITRIC OXIDE, EXHALED (05/04/2025 10:20 [...] NAME: Jessika Lunsford RRT PATIENT NAME: [facility] DATE: May 04, 2025 TIME: 10:20 AM Iman Obrien MD SCHEDULED PROCEDURES Final Resul t * SPIROMETRY - BASELINE AND POST DILATOR [...] ULN (L/S) 1.75 L/S PULMONARY FUNCTION LAB SFV23-13% PRE (L/S) 2.38 L/S PULMONARY FUNCTION LAB NUF99-53% POST (L/S) 2.71 L/S PULMONARY FUNCTION LAB FFQ77-89% PREDICTED (L/S) 2.51 L/S PULMONARY FUNCTION LAB WKY88-75% LLN (L/S) 1.14 L/S PULMONARY FUNCTION LAB [...] FUNCTION LAB - 05/06/2025 11:33 AM EDT [address] [place] [address] Test Date: 2025-05-04 Pat Name: [facility] Department: Room: Gender: Male Division Toll Wire Chief: : 1960 Requested By: Order Number: [id number] Reading MD: Bernardo Buck MD Interpretive Statements [...] 11:33:34 EDT by Bernardo Buck MD ID: [id number] Name: [facility] Race: White Ht: 68.50 in Wt: 255.30 lbs Age: 64 Gender: Male : 1960 Dx: Cough, unspecified_ Smoking Hx: Non-smoker Doctor: IMAN OBRIEN Test Date: 05/04/2025 Site: [facility] Tech: Jessika Lunsford PRE-BRONCH POST-BRONCH [...] 90-100 0.68 14 FIVC 3.51 3.37 -4 MVU47-99 2.38 1.14 2.51 4.42 94 -0.13 2.71 [...] 94/min, HR post = 88/min. ///AP us Iman Obrien MD SCHEDULED PROCEDURES Final Resul t PULMONARY FUNCTION LAB [address] [place] [address] from Last 3 Months Insurance [employer] MEDICARE Care Teams Other Sports Official Relationship Specialty Start Date End Date Nick Bess II, MD PCP - General Internal Medicine 11/22/14
--- OUTSIDE RECORDS SUMMARY | 2025-05-11 07:58 | XMS_ITS | Encounter Summary ---
Author Organization [facility] Address [address] [place] [address] Care Team Providers Care Solderer Assembler Name Role Phone Nick Bess MD Primary Care Provider [phone] Nick Bess MD Unavailable [phone] Encounter Details Date Type Department Care Team (Late st Contact Info) Description 03/10/2025 Abstract [facility] [address] [facility] 110 [place] [phone] Nick Bess MD 112 [facility] 110 [place] [address] Social History Tobacco Use Types Packs/Day Years [...] week 12/01/2024 How often do you attend buddhist or muslim serv ices? Never 12/01/2024 Do you belong to any clubs o r organizations such as buddhist groups, unions, fraternal or athletic groups, or [...] Recorded Patient Health Questionnaire-2 Score 0 03/11/2025 [facility] - Occupational [...] place to sleep or slept in a prison (including now)? No 08/08/2023 Housing Stability Vital Sign Answer Dom e Recorded In the last 12 months, was t here a time when you were not able to pay the mortgage or rent on time? No 12/01/2024 Number of Times Moved in the Last Year Not on fi le 12/01/2024 At any time in the past 12 m [facility], were you homeless or living in a prison (including now)? No 12/01/2024 Sex and Gender [...] [facility] [address] [place] [phone] Jose Juan Nunes DO [address] [place] [address] 07/21/2025 9:05 AM EST Office Visit [facility] [address] [place] [address] Poly Holbrook MD [address] [place] [address] documented as of this encounter Visit Diagnoses Not on filedocumented in this encounter Additional Health Concerns Assessment Noted Time PHQ-9 Depression Total Score: 0 12/09/19 25 7:00 AM EDT documented as of this encounter Care Teams Solderer Assembler Relationship Specialty Start Date End Date Nick Bess MD [address] [facility] 110 [place] [address] PCP - General Internal Medicine 01/08/23 Nick Bess MD [address] [facility] 110 [place] [address] PCP - [employer] 10/03/23 documented as of this encounter
--- OUTSIDE RECORDS SUMMARY | 2025-05-11 07:58 | XMS_ITS | Encounter Summary ---
Author Organization [facility] Address [address] [place] [address] Care Team Providers Care Rod Tape Operator Name Role Phone Nick Bess MD Unavailable [phone] Nick Bess MD Primary Care Provider [phone] Nick Bess MD Unavailable [phone] Encounter Details Date Type Department Care Team (Late st Contact Info) Description 03/18/2023 Abstract [facility] [address] [place] [address] Nick Bess MD [address] [place], [place] [phone] Social History Tobacco Use Types Packs/Day Years [...] 9:15 AM EST Office Visit [facility] [address] [place] [phone] Jose Juan Nunes DO [address] [place] [address] 07/21/2025 9:05 AM EST Office Visit [facility] [place] [facility] [address] [facility] [address] [place] [address] Poly Holbrook MD [address] [place] [address] documented as of this encounter Visit Diagnoses Not on filedocumented in this encounter Care Teams Rod Tape Operator Relationship Specialty Start Date End Date Nick Bess MD [address] [facility] 110 [place] [address] PCP - Medical [place] [employer] 01/31/23 11/09/23 Nick Bess MD [address] [facility] 110 [place] [address] PCP - General Internal Medicine 01/08/23 Nick Bess MD [address] [facility] 110 [place] [address] PCP - [employer] 10/03/23 documented as of this encounter
--- OUTSIDE RECORDS SUMMARY | 2025-05-11 07:58 | XMS_ITS | Encounter Summary ---
Author Organization [facility] Address [address] [place] [address] Care Team Providers Care Transmitter Chief Name Role Phone Nick Bess MD Primary Care Provider [phone] Nick Bess MD Unavailable [phone] Encounter Details Date Type Department Care Team (Late st Contact Info) Description 03/10/2025 Abstract [facility] [address] [facility] 110 [place] [address] Nick Bess MD [address] [facility] 110 [place] [address] Social History Tobacco Use Types Packs/Day Years [...] week 12/01/2024 How often do you attend adventist or anglican serv ices? Never 12/01/2024 Do you belong [...] Recorded Patient Health Questionnaire-2 Score 0 03/11/2025 [facility] - Occupational [...] place to sleep or slept in a care home (including now)? No 08/08/2023 Housing Stability Vital Sign Answer Dom e Recorded In the last 12 months, was t here a time when you were not able to pay the mortgage or rent on time? No 12/01/2024 Number of Times Moved in the Last Year Not on fi le 12/01/2024 At any time in the past 12 m [facility], were you homeless or living in a care home (including now)? No 12/01/2024 Sex and Gender [...] [facility] [address] [place] [address] Jose Juan Nunes DO [address] [place] [address] 07/21/2025 9:05 AM EST Office Visit [facility] [address] [place] [address] Poly Holbrook MD [address] [place] [address] documented as of this encounter Visit Diagnoses Not on filedocumented in this encounter Additional Health Concerns Assessment Noted Time PHQ-9 Depression Total Score: 0 12/09/19 25 7:00 AM EDT documented as of this encounter Care Teams Transmitter Chief Relationship Specialty Start Date End Date Nick Bess MD [address] [facility] 110 [place] [address] PCP - General Internal Medicine 01/08/23 Nick Bess MD [address] [facility] 110 [place] [address] PCP - [employer] 10/03/23 documented as of this encounter
--- OUTSIDE RECORDS SUMMARY | 2025-05-11 07:58 | XMS_ITS | Encounter Summary ---
Author Organization [facility] Address [address] [place] [address] Care Team Providers Care Gaming Investigator Name Role Phone Nick Bess MD Primary Care Provider [phone] Nick Bess MD Unavailable [phone] Encounter Details Date Type Department Care Team (Late st Contact Info) Description 03/10/2025 Abstract [facility] [address] [facility] 110 [place] [address] Nick Bess MD 112 [facility] 110 [place] [address] Social History Tobacco Use Types Packs/Day Years [...] week 12/01/2024 How often do you attend pentecostal or orthodox serv ices? Never 12/01/2024 Do you belong to any clubs o r organizations such as pentecostal groups, unions, fraternal or athletic groups, or [...] Recorded Patient Health Questionnaire-2 Score 0 03/11/2025 [facility] - Occupational [...] place to sleep or slept in a skilled nursing (including now)? No 08/08/2023 Housing Stability Vital Sign Answer Dom e Recorded In the last 12 months, was t here a time when you were not able to pay the mortgage or rent on time? No 12/01/2024 Number of Times Moved in the Last Year Not on fi le 12/01/2024 At any time in the past 12 m [facility], were you homeless or living in a skilled nursing (including now)? No 12/01/2024 Sex and Gender [...] [facility] [address] [place] [address] Jose Juan Nunes DO [address] [place] [address] 07/21/2025 9:05 AM EST Office Visit [facility] [address] [place] [address] Poly Holbrook MD [address] [place] [address] documented as of this encounter Visit Diagnoses Not on filedocumented in this encounter Additional Health Concerns Assessment Noted Time PHQ-9 Depression Total Score: 0 12/09/19 25 7:00 AM EDT documented as of this encounter Care Teams Gaming Investigator Relationship Specialty Start Date End Date Nick Bess MD [address] [facility] 110 [place] [address] PCP - General Internal Medicine 01/08/23 Nick Bess MD [address] [facility] 110 [place] [address] PCP - [employer] 10/03/23 documented as of this encounter
--- OUTSIDE RECORDS SUMMARY | 2025-05-11 07:58 | XMS_ITS | Encounter Summary ---
Author Organization [facility] Address [address] [place] [address] Care Team Providers Care Fermenter Name Role Phone Nick eBss MD Primary Care Provider [phone] Nick Bess MD Unavailable [phone] Encounter Details Date Type Department Care Team (Late st Contact Info) Description 03/11/2025 Abstract [facility] [address] [facility] 110 [place] [address] Nick Bess MD 112 [facility] 110 [place] [address] Social History Tobacco Use Types Packs/Day Years [...] week 12/01/2024 How often do you attend religious or catholic serv ices? Never 12/01/2024 Do you belong to any clubs o r organizations such as religious groups, unions, fraternal or athletic groups, or [...] Recorded Patient Health Questionnaire-2 Score 0 03/11/2025 [facility] - Occupational Stress [...] time in the past 12 m [facility], were you homeless or living in a [...] [facility] [address] [place] [address] Jose Juan Nunes DO [address] [place] [address] 07/21/2025 9:05 AM EST Office Visit [facility] [address] [place] [address] Poly Holbrook MD [address] [place] [address] documented as of this encounter Visit Diagnoses Not on filedocumented in this encounter Additional Health Concerns Assessment Noted Time PHQ-9 Depression Total Score: 0 12/09/19 25 7:00 AM EDT documented as of this encounter Care Teams Fermenter Relationship Specialty Start Date End Date Nick Bess MD [address] [facility] 110 [place] [address] PCP - General Internal Medicine 01/08/23 Nick Bess MD [address] [facility] 110 [place] [address] PCP - [employer] 10/03/23 documented as of this encounter
--- OUTSIDE RECORDS SUMMARY | 2025-05-11 07:58 | XMS_ITS | Encounter Summary ---
Author Organization [facility] Address [address] [place] [address] Care Team Providers Care Care Worker Name Role Phone Nick Bess MD Primary Care Provider [phone] Nick Bess MD Unavailable [phone] Encounter Details Date Type Department Care Team (Late st Contact Info) Description 05/10/[address] [facility] [address] [facility] 110 [place] [address] Marina Thompson PA [address] [facility] 110 [place] [address] Social History Tobacco Use Types Packs/Day Years [...] week 12/01/2024 How often do you attend yazidism or cheondoism serv ices? Never 12/01/2024 Do you belong to any clubs o r organizations such as yazidism groups, unions, fraternal or athletic groups, or [...] Recorded Patient Health Questionnaire-2 Score 0 03/11/2025 [facility] ional Health - Occupational [...] place to sleep or slept in a longterm (including now)? No 08/08/2023 Housing Stability Vital Sign Answer Dom e Recorded In the last 12 months, was t here a time when you were not able to pay the mortgage or rent on time? No 12/01/2024 Number of Times Moved in the Last Year Not on fi le 12/01/2024 At any time in the past 12 m [facility], were you homeless or living in a longterm (including now)? No 12/01/2024 Sex and Gender Information Value Date Recorded Sex Assigned at Not on file Legal Sex Male 7:21 PM EDT Gender Identity Male 11/14/2022 7:21 PM EDT Sexual Orientation Not on file documented as of this encounter Miscellaneous Notes * Telephone Encounter - Melly Brooks MA - 05/10/2025 4:34 PM EDT Pt notified * Telephone Encounter - PATRICIA Gibbs - 05/10/2025 4:29 PM EDT As he is seeing a Director [employer] now, Dr. Bess and I are deferring care for his cough to the Director [employer]. He needs to reach out to their office to get recommendations for treatment. * Telephone Encounter - NARDA ANNE MARIE - 05/10/2025 2:47 PM EDT Spoke with patient for a BISHNU from an ER visit on 05/07/25. He went to the ER, but was not seen. He left before being seen He is still having major issues with his cough, he even stated that he passed out at the table for a few minutes from coughing. He did have a pulmonary study done and it came back fine. He has an inhaler and breathing treatments plus has been on a steroid. He would like to try an antibiotic to see if that will help the cough,or some type of cough medication. documented in this encounter Plan of Treatment Upcoming Encounters Date Type Department Care Team (Late st Contact Info) Description 07/07/2025 9:15 AM EST Office Visit [facility] [address] [place] [phone] Jose Juan Nunes DO [address] [place] [address] 07/21/2025 9:05 AM EST Office Visit [facility] [address] [place] [address] Poly Holbrook MD [address] [place] [address] documented as of this encounter Visit Diagnoses Not on filedocumented in this encounter Additional Health Concerns Assessment Noted Time PHQ-9 Depression Total Score: 0 12/09/19 25 7:00 AM EDT documented as of this encounter Care Teams Care Worker Relationship Specialty Start Date End Date Nick Bess MD 112 [facility] 110 [place] [address] PCP - General Internal Medicine 01/08/23 Nick Bess MD [address] [address] PCP - [employer] 10/03/23 documented as of this encounter
--- OUTSIDE RECORDS SUMMARY | 2025-05-11 07:58 | XMS_ITS | Encounter Summary ---
Author Organization [facility] Address [address] [place] [address] Care Team Providers Care Rug Setter [place] Name Role Phone Shahriar KEANE MD, Nick Gabriel Primary Care Provider [phone] Source Comments In the event this information is protected by the Federal Confidentiality of Alcohol and Drug AbusePatient Records regulations: The Federal rules restrict any use of the information to criminally investigate or prosecute any alcohol or drug abuse patient.[facility] Encounter Details Date Type Department Care Team (Latest Contact Info) Description 05/04/2025 Travel Social History Tobacco Use Types Packs/Day Years Used Date Smoking Tobacco: Never Smokeless Tobacco: Never Alcohol Use Standard Drinks/Week Comments Yes 5 (1 standard drink = 0.6 oz pur e alcohol) Area Deprivation Index Answer Date Dung rded National Score (1-100), lower number is lower ri sk 61 05/04/2025 State Score (1-10), lower number is lower risk 4 05/04/2025 Data from: https://www.neighborhoodatlas.medicine.[facility].edu/. Last address used for calculation [address] [place] [address] 05/04/2025 Sex and Gender Information Value Date Recorded Sex Assigned at Not on file Legal Sex Male 9:35 AM EST Gender Identity Not on file Sexual Orientation Not on file documented as of this encounter Plan of Treatment Upcoming Encounters Date Type Department Care Team (Late st Contact Info) Description 06/22/2025 10:00 AM EDT Office Visit PULMONARY [address] [place] [address] [place] [address] [place] [address] 7 week follow up documented as of this encounter Visit Diagnoses Not on filedocumented in this encounter Care Teams Rug Setter [place]minster Relationship Specialty Start Date End Date Nick Bess II, MD PCP - General Internal Medicine 11/22/14 documented as of this encounter
--- OUTSIDE RECORDS SUMMARY | 2025-05-11 07:59 | XMS_ITS | Encounter Summary ---
Author Organization [facility] Address [address] [place] [address] Care Team Providers Care Director Multimedia Name Role Phone Nick Bess MD Primary Care Provider Nick Bess MD Unavailable [phone] Reason for Visit * Reason Comments Med Refill Encounter Details Date Type Department Care Team (Late st Contact Info) Description 05/03/2025 Refill [facility] [place] [facility] 112 [facility] 110 [place] [address] Marina Thompson PA 112 [facility] 110 [place] [address] Gastroesophageal reflux disease without esophagitis Social History Tobacco Use Types Packs/Day Years [...] week 12/01/2024 How often do you attend sikhism or episcopalian serv ices? Never 12/01/2024 Do you belong to any clubs o r organizations such as sikhism groups, unions, fraternal or athletic groups, or [...] Recorded Patient Health Questionnaire-2 Score 0 03/11/2025 [facility] of Occupat ional Health - Occupational [...] place to sleep or slept in a mcfp (including now)? No 08/08/2023 Housing Stability Vital Sign Answer Dom e Recorded In the last 12 months, was t here a time when you were not able to pay the mortgage or rent on time? No 12/01/2024 Number of Times Moved in the Last Year Not on fi le 12/01/2024 At any time in the past 12 m [facility], were you homeless or living in a mcfp (including now)? No 12/01/2024 Sex and Gender Information Value Date Recorded Sex Assigned at Not on file Legal Sex Male 7:21 PM EDT Gender Identity Male 11/14/2022 7:21 PM EDT Sexual Orientation Not on file documented as of this encounter Plan of Treatment Upcoming Encounters Date Type Department Care Team (Late st Contact Info) Description 07/07/2025 9:15 AM EST Office Visit [facility] [address] [place] [address] Jose Juan Nunes, DO [address] [place] [address] 07/21/2025 9:05 AM EST Office Visit [facility] [address] [place] [address] Poly Holbrook MD [address] [place] [address] documented as of this encounter Visit Diagnoses Diagnosis Gastroesophageal reflux disease without esophagitis Esophageal reflux documented in this encounter Additional Health Concerns Assessment Noted Time PHQ-9 Depression Total Score: 0 12/09/19 25 7:00 AM EDT documented as of this encounter Care Teams Director Multimedia Relationship Specialty Start Date End Date Nick Bess MD 112 [facility] 110 [place] [address] PCP - General Internal Medicine 01/08/23 Nick Bess MD 112 [facility] 110 [place] [address] PCP - [employer]et[employer] 10/03/23 documented as of this encounter
--- OUTSIDE RECORDS SUMMARY | 2025-05-11 07:59 | XMS_ITS | Encounter Summary ---
Author Organization [facility] Address [address] [place] [address] Care Team Providers Care Cemetery Warden Name Role Phone Nick Bess MD Primary Care Provider [phone] Nick Bess MD Unavailable [phone] Encounter Details Date Type Department Care Team (Late st Contact Info) Description 11/24/2024 Abstract [facility] [place] [facility] 112 [address] [facility] 110 [place] [address] Nick Bess MD 112 [facility] 110 [place] [address] Social History Tobacco Use Types Packs/Day Years [...] declined 08/08/2023 How often do you attend mandaen or congregation serv ices? Never 08/08/2023 Do you belong to any clubs o r organizations such as mandaen groups, unions, fraternal or athletic groups, or [...] care, and heating? Not very hard 08/08/2023 PHQ-2 Answer Date Recorded Patient Health Questionnaire-2 Score 0 11/24/2024 [facility] - Occupational Stress Questionnaire Answer Date Recorded [...] place to sleep or slept in a chcf (including now)? No 08/08/2023 Sex and Gender [...] pleasure in doing things Not at all 11/24/2024 8:58 AM EDT Lamar Jimenez LP N Feeling down, depressed, or hopeless Not at all 11/24/2024 8:58 AM EDT Lamar Jimenez LP N Patient Health Questionnaire -2 Score 0 11/24/2024 8:58 AM EDT Lamar Jimenez LP N documented as of this encounter Plan of Treatment Upcoming Encounters Date Type Department Care Team (Late st Contact Info) Description 07/07/2025 9:15 AM EST Office Visit [facility] [address] [place] [address] Jose Juan Nunes, DO [address] [place] [address] 07/21/2025 9:05 AM EST Office Visit [facility] [address] [place] [address] Poly Holbrook MD [address] [facility] 350 [place] [address] documented as of this encounter Visit Diagnoses Not on filedocumented in this encounter Additional Health Concerns Assessment Noted Time PHQ-9 Depression Total Score: 0 10/02/19 24 6:43 AM EST documented as of this encounter Care Teams Cemetery Warden Relationship Specialty Start Date End Date Nick Bess MD 112 [facility] 110 [place] [address] PCP - General Internal Medicine 01/08/23 Nick Bess MD 112 [facility] 110 [place] [address] PCP - [employer] 10/03/23 documented as of this encounter
--- OUTSIDE RECORDS SUMMARY | 2025-05-11 07:59 | XMS_ITS | Encounter Summary ---
Author Organization [facility] Address [address] [place] [address] Care Team Providers Care Chief Design Engineer Name Role Phone Debora Bess MD Primary Care Provider [phone] Debora Bess MD Unavailable [phone] Encounter Details Date Type Department Care Team (Late st Contact Info) Description 05/08/2024 Clinisync Result Encounter [facility] External Department Unsolicited Linda Thompson, PA 112 [facility] 110 [place] [address] Social History Tobacco Use Types Packs/Day Years [...] declined 08/08/2023 How often do you attend jew or shinto serv ices? Never 08/08/2023 Do you belong to any clubs o r organizations such as jew groups, unions, fraternal or athletic groups, or [...] care, and heating? Not very hard 08/08/2023 [facility] of Occupat ional Health - Occupational Stress [...] place to sleep or slept in a usp (including now)? No 08/08/2023 Sex and Gender Information Value Date Recorded Sex Assigned at Not on file Legal Sex Male 7:21 PM EDT Gender Identity Male 11/14/2022 7:21 PM EDT Sexual Orientation Not on file documented as of this encounter Plan of Treatment Upcoming Encounters Date Type Department Care Team (Late st Contact Info) Description 07/07/2025 9:15 AM EST Office Visit [facility] [address] [place] [address] Jose Juan Nunes DO [address] [place] [address] 07/21/2025 9:05 AM EST Office [facility] [address] [place] [address] Poly Holbrook MD [address] [place] [address] documented as of this encounter Procedures Procedure Name Priority Date/Time Associated Diagnosis Comments XR CHEST 2V 05/08/2024 12:17 PM EDT documented in this encounter Results * XR CHEST 2V (05/08/2024 12:17 PM EDT) Anatomical Region Laterality Modality Other 05/08/2024 12:1 7 PM EDT Narrative 05/08/2024 12:19 PM EDT The [place] [id number] XRay Report Signed Patient: VIOLET FERRARA MR#: [id number] : 1960 Acct:[id number] Age/Sex: 63 / M ADM Date: 05/08/24 Loc: LAB Attending Dr: LINDA THOMPSON Ordering Physician: LINDA THOMPSON Date of Service: 05/08/24 Procedure(s): XR chest 2V Accession Number(s): [id number] cc: DEBORA BESS ; LINDA THOMPSON [place] [id number] Patient Name: VIOLET FERRARA MRN: [id number] date: 1960 Sex: M Assigned Patient Location: LAB Current Patient Location: LAB Accession/Order Number: [id number] Exam Date: 05/08/2024 12:00 Report Date: 05/08/2024 12:17 At the request of: LINDA THOMPSON Procedure: XR chest 2V EXAM: XR chest 2V HISTORY: Chronic Cough R05.3 COMPARISON: 06/18/2019 TECHNIQUE: Upright PA and lateral chest x-ray FINDINGS: The heart is not enlarged and the vasculature is not distended. No acute infiltrate, effusion or pneumothorax is identified. The osseous structures are grossly intact. XR/XR chest 2V IMPRESSION: No acute infiltrate or evidence of cardiac decompensation. The overall appearance of the chest is essentially unchanged Electronically authenticated by: ANTONIO RENE Date: 05/08/2024 12:17 Dictated By: Antonio Rene M.D. Signed By: 05/08/24 1219 DD/ 1217 TD/TT: Bread Jockey: Procedure Note Radiology, Radiologist, - 05/08/[address] [address] XRay Report Signed Patient: VIOLET FERRARA WMR#: [id number] : 1960cct:[id number] Age/Sex: 63 / MADM Date: 05/08/24 Loc: LAB Attending Dr: LINDA THOMPSON Ordering Physician: LINDA THOMPSON Date of Service: 05/08/24 Procedure(s): XR chest 2V Accession Number(s): [id number] cc: DEBORA BESS ; LINDA THOMPSON [place] [id number] Patient Name: VIOLET FERRARA MRN: [facility]:[id number] date: 1960 Sex: M Assigned Patient Location: LAB Current Patient Location: LAB Accession/Order Number: [id number] Exam Date: 05/08/2024 12:00 Report Date: 05/08/2024 12:17 At the request of: LINDA THOMPSON Procedure: XR chest 2V EXAM: XR chest 2V HISTORY: Chronic Cough R05.3 COMPARISON: 06/18/2019 TECHNIQUE: Upright PA and lateral chest x-ray FINDINGS: The heart is not enlarged and the vasculature is not distended.No acute infiltrate, effusion or pneumothorax is identified. The osseous structures are grossly intact. XR/XR chest 2V IMPRESSION: No acute infiltrate or evidence of cardiac decompensation. The overall appearance of the chest is essentially unchanged Electronically authenticated by: ANTONIO RENE Date: 05/08/2024 12:17 Dictated By: Antonio Rene M.D. Signed By:05/08/24 1219 DD/ 1217 TD/TT: Bread Jockey: Linda Thompson PA [facility] Final Result documented in this encounter Visit Diagnoses Not on filedocumented in this encounter Additional Health Concerns Assessment Noted Time PHQ-9 Depression Total Score: 0 10/02/19 24 6:43 AM EST documented as of this encounter Care Teams Chief Design Engineer Relationship Specialty Start Date End Date Debora Bess MD 112 [facility] 110 [place] [address] PCP - General Internal Medicine 01/08/23 Debora Bess MD [address] [facility] 110 [place] [address] PCP - [employer] 10/03/23 documented as of this encounter
--- OUTSIDE RECORDS SUMMARY | 2025-05-11 07:59 | XMS_ITS | Encounter Summary ---
Author Organization [facility] Address [address] [place] [address] Care Team Providers Care Design Assistant Name Role Phone Nick Bess MD Unavailable [phone] Nick Bess MD Primary Care Provider [phone] Nick Bess MD Unavailable [phone] Encounter Details Date Type Department Care Team (Late st Contact Info) Description 08/14/2023 Abstract [facility] [place] [facility] 112 [facility] 110 [place] [address] Nick Bess MD 112 [facility] 110 [place] [address] Social History Tobacco Use Types Packs/Day Years Used Date Smoking Tobacco: Passive Smo ke Exposure - Never Smoker Smokeless Tobacco: Never Alcohol Use Standard Drinks/Week Comments Yes 0 (1 standard drink = 0.6 oz pur e alcohol) Humiliation, Afraid, Rape, and Kick questionnair e [...] declined 08/08/2023 How often do you attend hinduism or latter-day serv ices? Never 08/08/2023 Do you belong to any clubs o r organizations such as hinduism groups, unions, fraternal or athletic groups, or [...] care, and heating? Not very hard 08/08/2023 [facility] of Occupat ional Health - Occupational [...] place to sleep or slept in a jail (including now)? No 08/08/2023 Sex and Gender Information Value Date Recorded Sex Assigned at Not on file Legal Sex Male 7:21 PM EDT Gender Identity Male 11/14/2022 7:21 PM EDT Sexual Orientation Not on file COVID-19 Exposure Response Date Recorded In the last 10 days, have yo u been in contact with someone who was confirmed or suspected to have Coronavirus/COVID-19? No / Unsure 08/08/2023 8:48 AM EST documented as of this encounter Plan of Treatment Upcoming Encounters Date Type Department Care Team (Late st Contact Info) Description 07/07/2025 9:15 AM EST Office Visit [facility] [address] [place] [address] Jose Juan Nunes DO [address] [place] [address] 07/21/2025 9:05 AM EST Office Visit [facility] [address] [place] [address] Poly Holbrook MD [address] [place] [address] documented as of this encounter Visit Diagnoses Not on filedocumented in this encounter Care Teams Design Assistant Relationship Specialty Start Date End Date Nick Bess MD [address] [facility] 110 [place] [address] PCP - Medical [employer] 01/31/23 11/09/23 Nick Bess MD [address] [facility] 110 [place] [address] PCP - General Internal Medicine 01/08/23 Nick Bess MD [address] [facility] 110 [place] [address] PCP - [employer] 10/03/23 documented as of this encounter
--- OUTSIDE RECORDS SUMMARY | 2025-05-11 07:59 | XMS_ITS | Encounter Summary ---
Author Organization [facility] Address [address] [place] [address] Care Team Providers Care Electric Sign Assembler Name Role Phone Nick Bess MD Primary Care Provider [phone] Nick Bess MD Unavailable [phone] Reason for Visit * Reason Comments Med Refill Encounter Details Date Type Department Care Team (Late st Contact Info) Description 12/09/2023 Refill [facility] [address] [place] [address] Mayur Mustafa MD [address] [facility] [address] [place] [address] Gastroesophageal reflux disease without esophagitis Social History [...] declined 08/08/2023 How often do you attend cheondoism or christian serv ices? Never 08/08/2023 Do you belong to any clubs o r organizations such as cheondoism groups, unions, fraternal or athletic groups, or [...] care, and heating? Not very hard 08/08/2023 [facility] - Occupational Stress Questionnaire Answer [...] a skilled nursing (including now)? No 08/08/2023 Sex and Gender Information Value Date Recorded Sex Assigned at Not on file Legal Sex Male 7:21 PM EDT Gender Identity Male 11/14/2022 7:21 PM EDT Sexual Orientation Not on file documented as of this encounter Plan of Treatment Upcoming Encounters Date Type Department Care Team (Late st Contact Info) Description 07/07/2025 9:15 AM EST Office Visit [facility] [address] [place] [address] Jose Juan Nunes DO [address] [place] [address] [place] [address] 07/21/2025 9:05 AM EST Office Visit [facility] [address] [place] [address] Poly Holbrook MD [address] [place] [address] documented as of this encounter Visit Diagnoses Diagnosis Gastroesophageal reflux disease without esophagitis Esophageal reflux documented in this encounter Additional Health Concerns Assessment Noted Time PHQ-9 Depression Total Score: 0 10/02/19 24 6:43 AM EST documented as of this encounter Care Teams Electric Sign Assembler Relationship Specialty Start Date End Date Nick Bess MD [address] [facility] 110 [place] [address] PCP - General Internal Medicine 01/08/23 Nick Bess MD [address] [facility] 110 [place] [address] PCP - [employer] 10/03/23 documented as of this encounter
--- OUTSIDE RECORDS SUMMARY | 2025-05-11 07:59 | XMS_ITS | Encounter Summary ---
Author Organization [facility] Address [address] [place] [address] Care Team Providers Care Ferry Pilot Name Role Phone Nick Bess MD Primary Care Provider [phone] Nick Bess MD Unavailable [phone] Encounter Details Date Type Department Care Team (Late st Contact Info) Description 09/03/2024 Abstract [facility] [place] [facility] 112 [facility] 110 [place] [address] Nick Bess MD 112 [facility] 110 [place] [address] Social History Tobacco Use Types Packs/Day Years [...] declined 08/08/2023 How often do you attend hindu or lutheran serv ices? Never 08/08/2023 Do you belong to any clubs o r organizations such as hindu groups, unions, fraternal or athletic groups, or [...] care, and heating? Not very hard 08/08/2023 [facility] of Occupat ional Health - [...] place to sleep or slept in a fci (including now)? No 08/08/2023 Sex and Gender Information Value Date Recorded Sex Assigned at Not on file Legal Sex Male 7:21 PM EDT Gender Identity Male 11/14/2022 7:21 PM EDT Sexual Orientation Not on file documented as of this encounter Plan of Treatment Upcoming Encounters Date Type Department Care Team (Late st Contact Info) Description 07/07/2025 9:15 AM EST Office Visit [facility] [address] [place] [address] Jose Juan Nunes DO [address] [place] [address] 07/21/2025 9:05 AM EST Office Visit [facility] [address] [place] [address] Poly Holbrook MD [address] [place] [address] documented as of this encounter Visit Diagnoses Not on filedocumented in this encounter Additional Health Concerns Assessment Noted Time PHQ-9 Depression Total Score: 0 10/02/19 24 6:43 AM EST documented as of this encounter Care Teams Ferry Pilot Relationship Specialty Start Date End Date Nick Bess MD 112 [facility] 110 [place] [address] PCP - General Internal Medicine 01/08/23 Nick Bess MD [address] [address] PCP - [employer] 10/03/23 documented as of this encounter
--- OUTSIDE RECORDS SUMMARY | 2025-05-11 07:59 | XMS_ITS | Encounter Summary ---
Author Organization [facility] Address [address] [place] [address] Care Team Providers Care Route Rider Name Role Phone Nick Bess MD Primary Care Provider [phone] Nick Bess MD Unavailable [phone] Encounter Details Date Type Department Care Team (Late st Contact Info) Description 09/03/2024 Abstract [facility] [place] [facility] 112 [address] [facility] 110 [place] [address] Nick Bess MD 112 [facility] 110 [place] [address] Social History Tobacco Use Types Packs/Day Years [...] declined 08/08/2023 How often do you attend uatsdin or sikh serv ices? Never 08/08/2023 Do you belong to any clubs o r organizations such as uatsdin groups, unions, fraternal or athletic groups, or [...] care, and heating? Not very hard 08/08/2023 [facility] of Occupat ional Health - Occupational [...] a care home (including now)? No 08/08/2023 Sex and Gender Information Value Date Recorded Sex Assigned at Not on file Legal Sex Male 7:21 PM EDT Gender Identity Male 11/14/2022 7:21 PM EDT Sexual Orientation Not on file documented as of this encounter Plan of Treatment Upcoming Encounters Date Type Department Care Team (Late st Contact Info) Description 07/07/2025 9:15 AM EST Office Visit [facility] [address] [place] [phone] Jose Juan Nunes DO [address] [place] [address] 07/21/2025 9:05 AM EST Office Visit [facility] [address] [place] [address] Poly Holbrook MD [address] [place] [address] documented as of this encounter Visit Diagnoses Not on filedocumented in this encounter Additional Health Concerns Assessment Noted Time PHQ-9 Depression Total Score: 0 10/02/19 24 6:43 AM EST documented as of this encounter Care Teams Route Rider Relationship Specialty Start Date End Date Nick Bess MD 112 [facility] 110 [place] [address] PCP - General Internal Medicine 01/08/23 Nick Bess MD [address] [address] PCP - [employer] 10/03/23 documented as of this encounter
--- OUTSIDE RECORDS SUMMARY | 2025-05-11 07:59 | XMS_ITS | Encounter Summary ---
Author Organization [facility] Address [address] [place] [address] Care Team Providers Care Commercial Agent Name Role Phone Nick Bess MD Primary Care Provider [phone] Nick Bess MD Unavailable [phone] Encounter Details Date Type Department Care Team (Late st Contact Info) Description 08/28/2024 Orders Only [facility] [place] [facility] [address] [place] [address] Unallocated, Noms Provider, [address] [place] [address] Social History Tobacco Use Types Packs/Day Years [...] declined 08/08/2023 How often do you attend moravian or buddhist serv ices? Never 08/08/2023 Do you belong to any clubs o r organizations such as moravian groups, unions, fraternal or athletic groups, or [...] and heating? Not very hard 08/08/2023 [facility] of Occupat ional Health - Occupational [...] in a fdc (including now)? No 08/08/2023 Sex and Gender Information Value Date Recorded Sex Assigned at Not on file Legal Sex Male 7:21 PM EDT Gender Identity Male 11/14/2022 7:21 PM EDT Sexual Orientation Not on file documented as of this encounter Plan of Treatment Upcoming Encounters Date Type Department Care Team (Late st Contact Info) Description 07/07/2025 9:15 AM EST Office Visit [facility] [address] [place] [address] Jose Juan Nuens DO [address] [place] [address] 07/21/2025 9:05 AM EST Office Visit [facility] [address] [place] [address] Poly Holbrook MD [address] [place] [address] documented as of this encounter Procedures Procedure Name Priority Date/Time Associated Diagnosis Comments ELECTROCARDIOGRAM REPORT Routine 7:54 AM EST documented in this encounter Results * Electrocardiogram Report (08/28/2024 7:54 AM EST) us [facility] Provider Unallocated MD IN CLINIC/BEDSIDE O RDERABLES Final Result documented in this encounter Visit Diagnoses Not on filedocumented in this encounter Additional Health Concerns Assessment Noted Time PHQ-9 Depression Total Score: 0 10/02/19 24 6:43 AM EST documented as of this encounter Care Teams Commercial Agent Relationship Specialty Start Date End Date Nick Bess MD [address] [facility] 110 [place] [address] PCP - General Internal Medicine 01/08/23 Nick Bess MD [address] [facility] 110 [place] [address] PCP - Aetdaryl 10/03/23 documented as of this encounter
--- OUTSIDE RECORDS SUMMARY | 2025-05-11 07:59 | XMS_ITS | Encounter Summary ---
Author Organization [facility] Address [address] [place] [address] Care Team Providers Care Safety Companion Name Role Phone Nick Bess MD Primary Care Provider Nick Bess MD Unavailable Encounter Details Date Type Department Care Team (Late st Contact Info) Description 09/03/2024 Abstract [facility] [place] [facility] [address] [facility] 110 [place] [address] Nick Bess MD 112 [facility] 110 [place] [address] Social History Tobacco Use Types Packs/Day Years [...] declined 08/08/2023 How often do you attend faith or hindu serv ices? Never 08/08/2023 Do you belong to any clubs o r organizations such as faith groups, unions, fraternal or athletic groups, or [...] care, and heating? Not very hard 08/08/2023 [facility] of Occupat ional Health - Occupational Stress [...] place to sleep or slept in a retirement (including now)? No 08/08/2023 Sex and Gender Information Value Date Recorded Sex Assigned at Not on file Legal Sex Male 7:21 PM EDT Gender Identity Male 11/14/2022 7:21 PM EDT Sexual Orientation Not on file documented as of this encounter Plan of Treatment Upcoming Encounters Date Type Department Care Team (Late st Contact Info) Description 07/07/2025 9:15 AM EST Office Visit [facility] Eye [address] [place] [phone] Jose Juan Nunes DO [address] [place] [address] 07/21/2025 9:05 AM EST Office Visit [facility] [address] [place] [address] Poly Holbrook MD [address] [place] [address] documented as of this encounter Visit Diagnoses Not on filedocumented in this encounter Additional Health Concerns Assessment Noted Time PHQ-9 Depression Total Score: 0 10/02/19 24 6:43 AM EST documented as of this encounter Care Teams Safety Companion Relationship Specialty Start Date End Date Nick Bess MD 112 [facility] 110 [place] [address] PCP - General Internal Medicine 01/08/23 Nick Bess MD [address] [address] PCP - [employer] 10/03/23 documented as of this encounter
--- OUTSIDE RECORDS SUMMARY | 2025-05-11 07:59 | XMS_ITS | Encounter Summary ---
Author Organization [facility] Address [address] [place] [address] Care Team Providers Care Clinical Research Manager Name Role Phone Nick Bess MD Unavailable [phone] Nick Bess MD Primary Care Provider [phone] Nick Bess MD Unavailable [phone] Encounter Details Date Type Department Care Team (Late st Contact Info) Description 10/09/2023 [facility] [address] [place] [address] A, Unknown Practice [address] [phone] Social History Tobacco Use Types Packs/Day Years [...] declined 08/08/2023 How often do you attend muslim or mu-ism serv ices? Never 08/08/2023 Do you belong to any clubs o r organizations such as muslim groups, unions, fraternal or athletic groups, or [...] place to sleep or slept in a penitentiary (including now)? No 08/08/2023 Sex and Gender [...] Health Eye [address] [place] [phone] Jose Juan Nunes DO [address] [place] [address] 07/21/2025 9:05 AM EST Office Visit [facility] [address] [place] [address] Poly Holbrook MD [address] [place] [address] documented as of this encounter Procedures Procedure Name Priority Date/Time Associated Diagnosis Comments ELECTROCARDIOGRAM REPORT Routine 024 12:58 PM EST documented in this encounter Results * Electrocardiogram Report (10/08/2023 12:58 PM EST) us Unknown Practice A IN CLINIC/BEDSIDE ORDERABLES Final Result documented in this encounter Visit Diagnoses Not on filedocumented in this encounter Additional Health Concerns Assessment Noted Time PHQ-9 Depression Total Score: 0 10/02/19 6:43 AM EST documented as of this encounter Care Teams Clinical Research Manager Relationship Specialty Start Date End Date Nick Bess MD [address] [facility] 110 [place] [address] PCP - Medical [place] [employer] 01/31/23 11/09/23 Nick Bess MD [address] [facility] 110 [place] [address] PCP - General Internal Medicine 01/08/23 Nick Bess MD [address] [facility] 110 [place] [address] PCP - Aetdaryl 10/03/23 documented as of this encounter
--- OUTSIDE RECORDS SUMMARY | 2025-05-11 07:59 | XMS_ITS | Encounter Summary ---
Author Organization [facility] Address [address] [place] [address] Care Team Providers Care Computer Systems Security Analyst Name Role Phone Nick Bess MD Primary Care Provider [phone] Nick Bess MD Unavailable [phone] Encounter Details Date Type Department Care Team (Late st Contact Info) Description 09/03/2024 Abstract [facility] [place] [facility] [address] [facility] 110 [place] [phone] Nick Bess MD 112 [facility] 110 [place] [address] Social History Tobacco Use Types Packs/Day Years [...] declined 08/08/2023 How often do you attend spiritism or taoism serv ices? Never 08/08/2023 Do you belong to any clubs o r organizations such as spiritism groups, unions, fraternal or athletic groups, or [...] and heating? Not very hard 08/08/2023 [facility] of Occupat ional Health [...] 07/07/2025 9:15 AM EST Office Visit [facility] Eye [address] [place] [address] Jose Juan Nunes DO [address] [place] [address] 07/21/2025 9:05 AM EST Office Visit [facility] [address] [place] [address] Poly Holbrook MD [address] [place] [address] documented as of this encounter Visit Diagnoses Not on filedocumented in this encounter Additional Health Concerns Assessment Noted Time PHQ-9 Depression Total Score: 0 10/02/19 24 6:43 AM EST documented as of this encounter Care Teams Computer Systems Security Analyst Relationship Specialty Start Date End Date Nick Bess MD 112 [facility] 110 [place] [address] PCP - General Internal Medicine 01/08/23 Nick Bess MD [address] [address] PCP - [employer] 10/03/23 documented as of this encounter
--- OUTSIDE RECORDS SUMMARY | 2025-05-11 07:59 | XMS_ITS | Clinical Summary ---
Author Organization [facility] Address [address] [place] [address] Care Team Providers Care Insulation Manager Name Role Phone Nick Bess MD Primary Care Provider Nick Bess MD Unavailable [phone] Allergies No known active allergies Medications cetirizine (ZyrTEC) 10 MG chewable tablet Chew 10 mg Daily Active omeprazole (PriLOSEC) [address] capsuleIndication s:Gastroesophagea l reflux disease without esophagitis TAKE 1 CAPSULE BY MOUTH EVERYDAY AT THE SAME TIME 100 capsule 3 025 Active atorvastatin (Lipitor) 20 MG tabletIndications :Mixed hyperlipidemia TAKE 1 TABLET BY MOUTH EVERY DAY IN THE MORNING 90 tablet 4 025 Active Budeson-Glycopyrr ol-Formoterol (Breztri Aerosphere) 160-9-4.8 MCG/ACT aerosolIndication s:Moderate persistent asthma with exacerbation (HCC) Inhale 2 puffs in the morning and 2 puffs before bedtime. 10.7 g 5 025 Active montelukast (Singulair) 10 MG tabletIndications :Chronic rhinitis TAKE 1 TABLET (10 MG) BY MOUTH IN THE EVENING 100 tablet 3 025 Active Albuterol-Budeson benedicto (Airsupra) 90-80 MCG/ACT aerosolIndication s:Moderate persistent asthma without complication (HCC) Inhale 2 puffs every 4 (four) hours if needed (SOB or Wheeze) 10.7 g 5 025 Active ipratropium-albut abraham (Duo-Neb) 0.5-2.5 mg/3 mL nebulizer solutionIndicatio ns:Moderate persistent asthma without complication (HCC) Take 3 mL by nebulization 4 (four) times a day as needed for wheezing or shortness of breath 150 mL 5 025 Active fluticasone (Flonase) 50 MCG/ACT nasal sprayIndications: Allergic rhinitis due to pollen, unspecified seasonality USE 1 - 2 SPRAYS IN EACH NOSTRIL ONCE EVERY MORNING *SHAKE GENTLY BEFORE FIRST USE PRIME PUMP AFTER USE CLEAN TIP AND REPLACE CAP* 48 mL 3 025 Active fluorouracil (Efudex) 5 % creamIndications: Actinic keratosis Apply to directed areas on the scalp, chest twice a day x 14 days. Dispense 30 day supply but only use for 14 days. 40 g 2 025 Active amLODIPine (Norvasc) 5 MG tabletIndications :Benign essential hypertension TAKE 1 TABLET BY MOUTH EVERY DAY 90 tablet 3 025 Active hydrOXYzine HCl (Atarax) 10 MG tabletIndications :Bee sting, accidental or unintentional, initial encounter Take 1 tablet (10 mg) by mouth every 8 (eight) hours if needed for itching or allergies for up to 7 days 21 tablet 025 Active famotidine (Pepcid) 20 MG tabletIndications :Gastroesophageal reflux disease without esophagitis TAKE 1 TABLET BY MOUTH AT BEDTIME 90 tablet 1 025 Active famotidine (Pepcid) 20 MG tabletIndications :Gastroesophageal reflux disease without esophagitis Take 1 tablet (20 mg) by mouth at bedtime 30 tablet 5 025 2024 Discontinued predniSONE (Deltasone) 10 MG tabletIndications :Bee sting, accidental or unintentional, initial encounter Take 1 tablet (10 mg) by mouth 3 (three) times a day for 3 days, THEN 1 tablet (10 mg) 2 (two) times a day for 3 days, THEN 1 tablet (10 mg) Daily for 3 days. 18 tablet 025 2024 Active Problems Problem Noted Date Diagnosed Date Palpitations 01/31/2025 Class 2 severe obesity due t o excess calories with serious comorbidity and body mass index (BMI) of 36.0 to 36.9 in adult 11/24/2024 Moderate persistent asthma without complication 10/08/2023 BCC (basal cell carcinoma), trunk 04/01/2023 Benign essential hypertension 04/01/2023 Bifascicular block 04/01/2023 Allergic rhinitis 04/01/2023 Chronic laryngitis 04/01/2023 Chronic rhinitis 04/01/2023 Chronic sinusitis of both maxillary sinuses 03/04 Elevated transaminase level 04/01/2023 Fatty liver 04/01/2023 Gastroesophageal reflux disease without esophagi tis 04/01/2023 Impaired glucose metabolism 04/01/2023 LPRD (laryngopharyngeal reflux disease) 04/01/20 Mixed hyperlipidemia 04/01/2023 Obstructive sleep apnea syndrome 04/01/2023 Primary osteoarthritis of right knee 04/01/2023 Resolved Problems Problem Noted Date Diagnosed Date Resolved Date Anxiety state 04/01/2023 09/17/2023 Asthma 04/01/2023 10/08/2023 Chronic cough 04/01/2023 10/08/2023 Chronic sinusitis 04/01/2023 09/17/2023 Elevated LDL cholesterol level 04/01/2023 10/08/2023 Mass of finger 04/01/2023 09/17/2023 Moderate persistent asthma with exacerbation 10/08/2023 Internal derangement of right knee 04/01/2023 09/17/2023 Encounters Date Type Department Care Team Description 05/10/2025 Telephone [facility] [place] [facility] [address] [facility] 110 [place] [address] Marina Thompson PA 05/03/2025 Refill [facility] [place] [facility] [address] [facility] 110 [place] [phone] Marina Thompson PA Gastroesophageal reflux disease without esophagitis 04/27/2025 Telephone [facility] [place] [facility] [address] [facility] 110 [place] [address] Marina Thompson PA 04/20/2025 8:30 AM EDT Office Visit [facility] [address] [place] [address] Ruben Tai, DO Chronic cough; Gastroesophageal reflux disease, unspecified whether esophagitis present 04/20/2025 Bamboo flowsheet [facility] [address] [place] [address] Ruben Tai DO 04/20/2025 Travel 04/03/2025 [facility] [place] [facility] [address] [place] [address] Nick Bess MD Benign essential hypertension 03/24/2025 9:15 AM EDT Office Visit [facility] [place] [facility] [address] [place] [address] Nick Bess MD Persistent cough for 3 weeks or longer (Primary Dx); Obstructive sleep apnea syndrome; Moderate persistent asthma without complication (HCC); Closed fracture of multiple ribs of right side, initial encounter; Current use of steroid medication 03/24/2025 Travel 03/23/2025 9:00 AM EDT [facility] [address] [place] [address] Poly Holbrook MD Seborrheic keratosis (Primary Dx); History of basal cell carcinoma; Seborrheic keratosis, inflamed; Lentigines; Actinic keratosis 03/23/2025 Bamboo flowsheet [facility] [address] [place] [address] Poly Holbrook MD 03/23/2025 Travel 03/18/2025 Travel 03/17/2025 Refill [facility] [place] [facility] [address] [place] [address] Marina Thompson PA Closed fracture of multiple ribs of right side with routine healing, subsequent encounter (Primary Dx) 03/15/2025 Orders Only [facility] [place] [facility] [address] [place] [address] Marina Thompson PA Chronic sinusitis of both maxillary sinuses; Chronic rhinitis 03/12/2025 Abstract [facility] [place] [facility] 112 [facility] 110 [place] [address] Nick Bess MD 03/11/2025 9:00 AM EDT Office Visit [facility] [place] [facility] 112 [facility] 110 [place] [address] Marina Thompson, PA Gastroesophageal reflux disease without esophagitis (Primary Dx); Moderate persistent asthma without complication (HCC); Class 2 severe obesity due to excess calories with serious comorbidity and body mass index (BMI) of 36.0 to 36.9 in adult ([facility]); Closed fracture of multiple ribs of right side with routine healing, subsequent encounter; Persistent cough for 3 weeks or longer 03/11/2025 Abstract [facility] [place] [facility] 112 [facility] 110 [place] [address] Nick Bess MD 03/11/2025 Bamboo flowsheet [facility] [place] [facility] [address] [facility] 110 [place] [address] Marina Thompson PA 03/11/2025 Travel 03/10/2025 Abstract [facility] [place] [facility] 112 [facility] 110 [place] [address] Nick Bess MD 03/10/2025 Abstract [facility] [place] [facility] 110 [place] [address] Nick Bess MD 03/10/2025 Abstract [facility] [place] [facility] 112 [facility] 110 [place] [address] Nick Bess MD 03/10/2025 Abstract [facility] [place] [facility] 112 [facility] 110 [place] [address] Nick Bess MD 03/10/2025 Travel 02/24/2025 Refill [facility] [place] [facility] [address] [facility] 110 [place] [address] Diana Hess, GLOBAL PROCESS OWNER Acute non-recurrent pansinusitis from Last 3 Months Immunizations Immunization Administration Dates Next Due Influenza, High Dose Seasona l, Preservative Free 06/15/2024 Influenza, Seasonal, Quadriv alent, Adjuvanted 07/01/2023 Influenza, injectable, quadrivalent 06/13/2020,1 Influenza, injectable, quadr ivalent, preservative free 2022,07/12/2021,06/18/2016 Influenza, seasonal, intrade rmal, preservative free 06/17/2019,05/28/2017 Pneumococcal Conjugate PCV 20 07/22/2023 Zoster, Recombinant 07/07/2020,04/09/2020 Zoster, live 06/25/2017 Family History Medical History Relation Name Comments Heart disease Father Neto Ceballos Diabetes Maternal Grandfather Remy Ceballos Pancreatic cancer Mother Cancer Sister Cynthia ceballos Melanoma Neg Hx Relation Name Status Comments Father Neto Ceballos Maternal Grandfather Remy Ceballos Mother Sister Cynthia ceballos Social History Tobacco Use Types Packs/Day Years Used Date Smoking Tobacco: Never Passive Smoke Exposure: Yes Smokeless Tobacco: Never Tobacco Cessation:Counseling Given: Not Answered Alcohol Use Standard Drinks/Week Comments Yes 1 [...] week 12/01/2024 How often do you attend gnosticism or bahai serv ices? Never 12/01/2024 Do you belong to any clubs o r organizations such as gnosticism groups, unions, fraternal or athletic groups, or [...] Recorded Patient Health Questionnaire-2 Score 0 03/11/2025 [facility] of Occupat ional Health - [...] any time in the past 12 [address] [facility], were you homeless or living in a custodial (including now)? No 12/01/2024 Sex and Gender Information Value Date Recorded Sex Assigned at Not on file Legal Sex Male 7:21 PM EDT Gender Identity Male 11/14/2022 7:21 PM EDT Sexual Orientation Not on file Last Filed Vital Signs Vital Sign Reading Time Taken Comments Blood Pressure 148/100 03/24/2025 9:07 AM EDT Pulse 87 03/24/2025 9:07 AM EDT Temperature 37.1 C (98.8 F) 11/24/2024 9:06 AM EDT Respiratory Rate 18 03/11/2025 8:52 AM EDT Oxygen Saturation 94% 03/24/2025 9:07 AM EDT Inhaled Oxygen Concentration - - Weight 113 kg (250 lb) 04/20/2025 8:09 AM EDT Height 177.8 cm (5' 10 ) 04/20/2025 8:09 AM EDT Body Mass Index 35.87 04/20/2025 8:09 AM EDT Plan of Treatment Upcoming Encounters Date Type Department Care Team (Late st Contact Info) Description 07/07/2025 9:15 AM EST Office Visit [facility] Eye [address] [place] [address] Jose Juan Nunes DO [address] [place] [address] 07/21/2025 9:05 AM EST Office Visit [facility] [address] [place] [address] Poly Holbrook MD [address] [place] [address] Health Maintenance Due Date Last Done Comments CT Colonography 1958 Colonoscopy 1958 Colorectal Cancer Screening 1958 FIT-DNA 1958 FIT 1958 FOBT 1958 Sigmoidoscopy 1958 Influenza Vaccine (#1) 2025 , 07/01/2023, 2022, Additional history exists Medicare Annual Wellness (AWV) 12/08/2025 0 12/08/2024, 12/08/2024, 10/08/2023 Pneumococcal Vaccine: 65+ Years Completed 3 Procedures Procedure Name Priority Date/Time Associated Diagnosis Comments CRYOTHERAPY SKIN LESION Routine 03/23/20 8:57 AM EDT Seborrheic keratosis, inflamed from Last 3 Months Results * Cryotherapy, skin lesion (03/23/2025 8:57 AM EDT) us Poly Holbrook MD DERM PROCEDURE ORDERABLES Fin al Result from Last 3 Months Insurance [employer] MEDICARE ADVANTAGE Care Teams Insulation Manager Relationship Specialty Start Date End Date Nick Bess MD [address] [place] [address] PCP - General Internal Medicine 01/08/23 Nick Bess MD [address] [place], [place] [id number] PCP - [employer] 10/03/23
--- OUTSIDE RECORDS SUMMARY | 2025-05-11 07:59 | XMS_ITS | Encounter Summary ---
Author Organization [facility] Address [address] [place] [address] Care Team Providers Care Evaporator Repairer Name Role Phone Nick Bess MD Unavailable [phone] Nick Bess MD Primary Care Provider [phone] Nick Bess MD Unavailable [phone] Encounter Details Date Type Department Care Team (Late st Contact Info) Description 10/09/2023 Abstract [facility] [place] [facility] 112 [facility] 110 [place] [address] Nick Bess MD 112 [facility] 110 [place] [address] Social History Tobacco Use Types [...] declined 08/08/2023 How often do you attend synagogue or judaism serv ices? Never 08/08/2023 Do you belong to any clubs o r organizations such as synagogue groups, unions, fraternal or athletic groups, or [...] care, and heating? Not very hard 08/08/2023 [facility] of Occupat ional Health - Occupational [...] place to sleep or slept in a group home (including now)? No 08/08/2023 Sex and Gender Information Value Date Recorded Sex Assigned at Not on file Legal Sex Male 7:21 PM EDT Gender Identity Male 11/14/2022 7:21 PM EDT Sexual Orientation Not on file documented as of this encounter Plan of Treatment Upcoming Encounters Date Type Department Care Team (Late st Contact Info) Description 07/07/2025 9:15 AM EST Office Visit [facility] Eye [address] [place] [phone] Jose Juan Nunes DO [address] [place] [address] 07/21/2025 9:05 AM EST Office Visit [facility] [address] [place] [address] Poly Holbrook MD [address] [place] [address] documented as of this encounter Visit Diagnoses Not on filedocumented in this encounter Additional Health Concerns Assessment Noted Time PHQ-9 Depression Total Score: 0 10/02/19 24 6:43 AM EST documented as of this encounter Care Teams Evaporator Repairer Relationship Specialty Start Date End Date Nick Bess MD [address] [place] [address] PCP - Medical [place] [employer] 01/31/23 11/09/23 Nick Bess MD [address] [address] [place] [address] PCP - General Internal Medicine 01/08/23 Nick Bess MD [address] [place] [address] PCP - [employer] 10/03/23 documented as of this encounter
--- OUTSIDE RECORDS SUMMARY | 2025-05-11 07:59 | XMS_ITS | Encounter Summary ---
Author Organization [facility] Address [address] [place] [address] Care Team Providers Care Wireless Sales Manager Name Role Phone Nick Bess MD Primary Care Provider [phone] Nick Bess MD Unavailable [phone] Encounter Details Date Type Department Care Team (Late st Contact Info) Description 09/03/2024 Abstract [facility] [place] [facility] [address] [facility] 110 [place] [address] Nick Bess MD 112 [facility] 110 [place] [address] Social History Tobacco Use Types Packs/Day Years [...] declined 08/08/2023 How often do you attend caodaism or temple serv ices? Never 08/08/2023 Do you belong to any clubs o r organizations such as caodaism groups, unions, fraternal or athletic groups, or [...] care, and heating? Not very hard 08/08/2023 [facility] of Occupat ional Health - Occupational [...] place to sleep or slept in a alf (including now)? No 08/08/2023 Sex and Gender Information Value Date Recorded Sex Assigned at Not on file Legal Sex Male 7:21 PM EDT Gender Identity Male 11/14/2022 7:21 PM EDT Sexual Orientation Not on file documented as of this encounter Plan of Treatment Upcoming Encounters Date Type Department Care Team (Late st Contact Info) Description 07/07/2025 9:15 AM EST Office Visit [facility] [address] [place] [address] Jose Juan Nunes DO [address] [place] [address] 07/21/2025 9:05 AM EST Office Visit [facility] [address] [place] [address] Poly Holbrook MD [address] [place] [address] documented as of this encounter Visit Diagnoses Not on filedocumented in this encounter Additional Health Concerns Assessment Noted Time PHQ-9 Depression Total Score: 0 10/02/19 24 6:43 AM EST documented as of this encounter Care Teams Wireless Sales Manager Relationship Specialty Start Date End Date Nick Bess MD 112 [facility] 110 [place] [address] PCP - General Internal Medicine 01/08/23 Nick Bess MD [address] [address] PCP - [employer] 10/03/23 documented as of this encounter
--- OUTSIDE RECORDS SUMMARY | 2025-05-11 07:59 | XMS_ITS | Encounter Summary ---
Author Organization [facility] Address [address] [place] [address] Care Team Providers Care [employer] Professor Name Role Phone Nick Bess MD Unavailable [phone] Nick Bess MD Primary Care Provider [phone] Nick Bess MD Unavailable [phone] Encounter Details Date Type Department Care Team (Late Contact Info) Description 07/18/2023 Abstract [facility] [address] [facility] [address] [place] [id number] Nick Bess MD [address] [facility] [address] [place], [place] [id number] Social History Tobacco Use Types Packs/Day Years Used Date Smoking Tobacco: Never Smokeless Tobacco: Never Sex and Gender Information Value Date Recorded Sex Assigned at Not on file Legal Sex Male 7:21 PM EDT Gender Identity Male 11/14/2022 7:21 PM EDT Sexual Orientation Not on file COVID-19 Exposure Response Date Recorded In the last 10 days, have yo u been in contact with someone who was confirmed or suspected to have Coronavirus/COVID-19? No / Unsure 06/25/2023 8:57 AM EDT documented as of this encounter Plan of Treatment Upcoming Encounters Date Type Department Care Team (Late Contact Info) Description 07/07/2025 9:15 AM EST Office Visit [facility] [address] [place] [id number] Jose Juan Nunes, DO [address] [place] [address] 07/21/2025 9:05 AM EST Office Visit [facility] [address] [place] [phone] Poly Holbrook MD [address] [place] [address] documented as of this encounter Visit Diagnoses Not on filedocumented in this encounter Care Teams [employer] Professor Relationship Specialty Start Date End Date Nick Bess MD [address] [place], [place] [id number] PCP - Medical [employer] 01/31/23 11/09/23 Nick Bess MD [address] [place], [place] [id number] PCP - General Internal Medicine 01/08/23 Nick Bess MD [address] [place] [address] PCP - [employer] 10/03/23 documented as of this encounter
--- OUTSIDE RECORDS SUMMARY | 2025-05-11 08:00 | XMS_ITS | CCD ---
Author Organization [facility] Care Team Providers Care Rn Mobile Name Role Phone Marquise Miller Unavailable Unavail [...] Unavailable PHYSICIAN, DEFAULT Unavailable Unavailable SHAHRIAR, DR CAZARES Attending Unavailable BESS, [...] Nory, Gayle Unavailable Nick Bess MD Unavailable [phone] Nick Bess MD Primary Care Provider [phone] Nick Bess MD Unavailable Nick Bess II Primary Care Provider Trice Pruitt APRN Attending Provider Shahriar KEANE MD, Daniel B Primary Care Provider [phone] MARINA JEONG Attending Unavailable DIANA DÍAZ Attending [...] Onset Reaction(s) Facility (5 sources) COVID-19 Ad26 Vaccine([employer]) Drug allergy rash NUMBER26 Other (3 sources) Amoxicillin; Translations: [AMOXICILLIN] Drug Allergy 05-04-2025 GI Upset [facility] Medications Current Medications Medication Drug Class(es) [...] 2 puff(s) by inhalation in the morning Hlcjmxg-Jjotmlseyyc-Zempzhlyaf ([employer]) 160-9-4.8 MCG/ACT aerosol Indications: Moderate persistent asthma with exacerbation (HCC) Inhale 2 puffs in the morning and 2 puffs before bedtime. 10.7 g 5 09/22/2024 Active Start: 03-02-2024 take 2 puff(s) by inhalation at bedtime Hjadyjj-Fxbghgmpugl-Pnlmlfshyz (Breztri Aerosphere) 160-9-4.8 MCG/ACT aerosol Indications: Moderate persistent asthma with exacerbation (CMS/HCC) INHALE 2 PUFFS IN THE MORNING AND BEFORE BEDTIME 4.8 g 2 03/02/2024 Active Start: 01-09-2024 Budesonide-Gly copyr-Formoterol (Breztri [employer]) 160-9-4.8 mcg/actuation HFA aerosol inhaler Active INHALATION January 09, 2024 12:00am Complies with drug therapy Start: 09-17-2023 take 2 puff(s) by inhalation in the morning Wfdnoob-Wsyipzhamfs-Wbfdtlqqjw (Breztri Aerosphere) 160-9-4.8 MCG/ACT aerosol Indications: Moderate [...] Start: 10-13-2020 take 1 capsule by mo [facility] once daily Omeprazole 20 MG 1 capsule [...] Active Start: 03-11-2025 [facility] Prednisone 20 mg tablet Active [...] aftercare (2 sources) 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; Translations: [bed bug exterminator (current) use of systemic steroids] 03-26-2025 Episodic [...] Test Name Value Interpretation Reference Range [facility] VIOLET [facility] ([id number]) 1960 M Date Time Provider Department [facility] your visit today, we recorded the following information about you: Marcus Engel LPN 05/05/2025 12:[address] chest results Received: Yesterday Iman Obrien MD P Avw Pulm Nurse This patient reports having a CT just this summer in [place] or [place]. It's not being collected by Care Everywhere. Can we obtain his CT chest images on a CD please? Thank you! Faxed Auth to Disclose info to [facility] for CT Chest imaging Allergies As of [...] Encounter Status:Closed by MARCUS ENGEL on 05/05/25 [facility] CNOVon 05-04-2025 CNOV Office Visit (DANNY ) VIOLET FERRARA ([id number]) 1960 M Date Time Provider Department 05/04/25 [...] damage, hot tubs. 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 He rarely smokes [...] color normal, (more content not included)... Normal [facility] NITRIC OXIDE, EXHALEDon Jessika Lunsford RRT [...] DATE: May 04, 2025 TIME: 10:20 AM [facility] SPIROMETRY - BASELINE AND PO ST DILATORon 05-04-2025 SPIROMETRY - BASELINE AND POST DILATOR [address] [place] [address] Test Date: 2025-05-04 Pat Name: VIOLET FERRARA Department: Room: Gender: Male Developmental Specialist: : 1960 Requested By: Order Number: [id number] Reading MD: Bernardo Buck MD Interpretive Statements [...] 11:33:34 EDT by Bernardo Buck MD ID: [id number] Name: VIOLET FERRARA Race: White Ht: 68.50 in Wt: 255.30 lbs Age: 64 Gender: Male : 1960 Dx: Cough, unspecified_ Smoking Hx: Non-smoker Doctor: IMAN OBRIEN Test Date: 05/04/2025 Site: [facility] Tech: Jessika Lunsford PRE-BRONCH POST-BRONCH Richard LLN [...] 90-100 0.68 14 FIVC 3.51 3.37 -4 CYG14-83 2.38 1.14 2.51 4.42 94 -0.13 2.71 [...] 77 % FEV1/FVC_LLN (%) : 65 % URU71_ITD (L/S) : 7.22 L/S PUH63_UWQK (L/S) : 7.56 L/S ZGO53_BTY (L/S) : 0.71 L/S QTS21_FLVW (L/S) : 0.87 L/S JAA71_XRJE (L/S) : 0.70 L/S HUS69_VZV (L/S) : 0.27 L/S PDG69_FMR (L/S) : 1.75 L/S CMC81-13%_PRE (L/S) : 2.38 L/S BGO69-66%_POST (L/S) : 2.71 L/S BUX64-39%_PRED (L/S) : 2.51 L/S AMG06-78%_LLN (L/S) : 1.14 L/S PEF_PRE (L/S) : 8.61 L/S PEF_POST (L/S) : 8.88 L/S PEFMAX_LLN (L/S) : 6.10 L/S PEFMAX_ULN (L/S) : 10.54 L/S FET_PRE (S) : 8.68 S FET_POST (S) : 6.88 S Normal [facility] Zoila 03-29-2025 EDERN Telephone (PULMMN) VIOLET FERRARA ([id number]) 1960 M Date Time Provider Department 03/29/25 ELSA SERNA During your visit today, we recorded the following information about you: Duncan Alford RN 03/29/2025 2:40 PM Signed Received chronic cough referral, Called and spoke with patient, his cough has been going on since last , the last time he saw a studio grip was about 2 years ago Patient stated he prefers to be seen by someone at [place] Will send message to scheduling Allergies As [...] Encounter Status:Closed by DUNCAN ALFORD on 03/29/25 [facility] Information 03-23 [facility] 04-22-2024 Complexity: simple Destruction method: electrodesiccation and curettage Informed consent: discussed and consent obtained Informed consent comment: The risks of the procedure were discussed, including, but not limited to risks of scarring, darker or compliance auditor pigmentary changes, recurrence, infection, and incomplete removal [...] lidocaine used: 3.0 cc Previous accession number: [id number] [facility] [employer] Destr of lesionOrdered By: Uzma Murray on 04-22-2024 [facility] [employer] Work Phone: US SINGLE QUAD RT UPPERon [...] by: MARCUS FERMIN Date: 2021-08-08 09:23 Normal [facility] XR CHEST 2 Von 07-28-2021 XR [...] by: ELIAS PICKARD Date: 2021-07-28 10:35 Normal [facility] History and Physicalon 02-10 History and Physical [id number]#[facility] Orderson 02-10-2018 Provider Orders [id number]#1.00[facility] Intraoperative Noteon 2017 Intraoperative Note [id number]#1.00[facility] Coding Queryon 01-02-2018 Coding Query Please review the PreOperative diagnosis -- there seems to be a dragon/dictating error. Please correct it on the Operative Note.Thanks.Felice[E lectronically Signed on: 01/02/2018 18:59 EDT] Marquise Miller DO[Verified on: 01/02/2018 18:59 EDT] Marquise Miller DO[Transcribed on: 01/02/2018 11:50 EDT][facility] Coding Summaryon 01-02-2018 Coding Summary CODING DATE: 018 [facility] STATUS: Home PAYOR: Commercial Insurance APC DESCRIPTION 5113 Level 3 Musculoskeletal Procedures ADMIT DX: REASON FOR VISIT DX: M23.91 Unspecified internal derangement of right knee FINAL DX: PRINCIPAL: S83.281A Other tear of lateral meniscus, current injury, right knee, initial encounter SECONDARY: S83.241A Other tear of medial meniscus, current injury, right knee, initial encounter PYMT PROC APC STAT DESCRIPTION DOCTOR NAME DATE 75077 5113 J1 Arthroscopy, knee, Marquise Miller And [...] Yisel Hong Date Saved: 01/02/2018 12:00 pm [facility] Coding Summary CODING DATE: 018 [facility] STATUS: Home PAYOR: Commercial Insurance ADMIT [...] Fabi Francis Date Saved: 01/02/2018 07:59 am [facility] Consent Formson 12-31-2017 Consent Forms [id number]#1.00[facility] Discharge Instructionson Discharge Instructions [id number]#1.00OTGTIFF [facility] Intraoperative Noteon 2017 Intraoperative Note [id number]#1.[facility] Medication Managementon Medication Management [id number]#1.00OTGTIFF [facility] Outside Recordson 12-31-2017 Outside Records [id number]#1.00[facility] Telemetry Stripson 8 Telemetry Strips [id number]#1.00[facility] Anesthesia Noteon 12-30-2017 Anesthesia Note Patient: BARTOLO FERRARA : 57 years Sex: MALE : 56Associated Diagnoses: NoneAuthor: David Quintana MDPostoperative InformationPost Operative Note: Operative Day.Anesthetic utilized: General.Health StatusAllergies:Allergic Reactions (All)No known allergiesProblem list (past medical history):All ProblemsAsthma / SNOMED CT 799977560 / ConfirmedArrhythmia / SNOMED CT 8099374636 / ConfirmedSinus disorder / SNOMED CT 1249035053 / ConfirmedAcid reflux / SNOMED CT 577842045 / ConfirmedHypertension / SNOMED CT 0920425695 / ConfirmedPhysical ExaminationVS/MeasurementsV ital Signs (last 24 [...] on: 12/30/2017 12:45 EDT] David Quintana MD [facility] Anesthesia Note Patient: BARTOLO FERRARA : 57 [...] (past medical history):All ProblemsAsthma / SNOMED CT 264454392 / ConfirmedArrhythmia / SNOMED CT 1722347946 / ConfirmedSinus disorder / SNOMED CT 2372158040 / ConfirmedAcid reflux / SNOMED CT 241398555 / ConfirmedHypertension / SNOMED CT 1701416752 / ConfirmedHistoriesFamily History:No family history items have been selected or recorded.Procedure history:Pilar cyst ([id number]) in 2014 at 55 Years.Comments:12/27/2017 12:08 - Zoe Ingram LMIDDLE FINGER OF LEFT HANDFESS (functional endoscopic sinus surgery) diagnostic antroscopy via inferior meatus (2471785337) in 1996 at 37 Years.Social History Alcohol Assessment Beer, 3-5 times per week, 4 drinks/episode average. Previous treatment: None. Tobacco Assessment Never (less than 100 in lifetime) Tobacco Use:. Substance Abuse Assessment Substance use: Never..Social & Psychosocial WnlutiNrlmyur54/27/2018 Type: Beer Frequency: 3-5 times per week Average drinks per episode in last year: 4 Previous treatment: NoneSubstance Abuse12/27/2017 Substance use: DvadaToxykyf74/27/2018 Smoking tobacco use: Never (less than 100 [...] on: 12/30/2017 11:09 EDT] David Quintana MD [facility] Inpatient Clinical Summaryon 12-30-2017 Inpatient Clinical Summary [facility] SURGERYClinical Discharge SummaryPERSON INFORMATIONName VIOLET FERRARA Age 57 Years 56Sex MALE Language Kuwaiti PCP [place] BESS Status Med Service Ambulatory SurgeryN 15-11-29 Acct# Arrival 12/30/17 10:26:36Visit Reason KNEE ARTHROSCOPY Acuity LOS 004 02:46Address:[address] [place] [address]Isokhcw:PROVIDER INFORMATIONVITALS INFORMATIONVital Sign Triage LatestTemp OralTemp TemporalTemp IntravascularTemp AxillaryTemp Zrluhx17 Sat 97 % 94 %Respiratory Rate 18 [...] Knee Arthroscopy (MHAHUDCHARLEEN)Follow up:With: Address: When:Marquise Miller [address] [place] [address], [address] [place] [address] Business (2) 01/07/2018 8:30 AMWith: Address: When:NICK BESS [facility], [address] [place], [place] [address] [place], [place] [phone] Business (1)DIAGNOSISTorn meniscusComment:PHYS DOC NOTES Normal [facility] Inpatient Patient Summaryon 12-30-2017 Inpatient Patient Summary [address] [address] patient Discharge InstructionsName: VIOLET FERRARA WDOB: [birth year] Address: [address] [place], [place] [id number] Care Provider:Name: NICK BESSPhone: After you are discharged if you find you have any questions, please, call [phone] ext [phone] to speak to a nurse.Discharge Diagnosis: Torn [...] or business decisions or sign any legal documentsUc Medical Center would like to thank you for allowing us to assist you with your healthcare needs. The following includes patient education materials and information regarding your injury/illness.VIOLET FERRARA has been given the following list of follow-up instructions, prescriptions, and patient education materials:Follow-up InstructionsWith: Address: When:Marquise Miller [address] [place] [address], [address] [place] [address] Business (2) 01/07/2018 8:30 AMWith: Address: When:NICK BESS [facility], [address] [facility] [address] [place], [place] [id number] Business (1)MedicationsDuring the course of your visit, [...] or concerns, please call the office at [phone] or BacteriaWhat?s got you sick?Antibiotics only treat [...] for Disease Control and Prevention [facility]2017 [facility] Intraoperative Record MAGR Intra-Op Record Summary Primary Physician: Marquise Miller DO Finalized Date/Time: 12/30/17 16:14:46 Pt. Name: VIOLET FERRARA /Sex: 1960 MALE Med Rec #: [id number] Physician: Marquise Miller DO Financial #: [id number] Pt. Type: D Room/Bed: / Admit/Disch: 12/30/17 [...] Role Performed Surgeon - Primary Anesthesiologist of Occ Therapy Asst Record Time In 12/30/17 11:25:00 12/30/17 11:25:00 12/30/17 11:25:00 Time Out 12/30/17 12:42:00 12/30/17 12:42:00 12/30/17 12:42:00 Procedure Arthroscopy Knee(Right, Arthroscopy Knee(Right, Arthroscopy Knee(Right, Knee) Knee) Knee) Last Modified By: Anna He RN, Stephanie RN Sauer, Stephanie RN 12/30/17 14:02:51 12/30/17 14:02:51 12/30/17 14:02:51 Entry 4 Entry 5 Case Attendee Rosa Crabtree CST, Liberty G Role Performed Street [employer] Personnel Time In 12/30/17 11:25:00 12/30/17 [...] Unfinalizing Freetext Reason for Unfinalizing 12/30/17 16:13 [facility] PACU Record MAGR PACU Record [facility] Primary Physician: Marquise Miller DO Finalized Date/Time: 12/30/17 13:21:10 Pt. Name: VIOLET FERRARA/Sex: 1960 MALE Med Rec #: [id number] Physician: Marquise Miller DO Financial #: [id number] Pt. Type: D Room/Bed: / Admit/Disch: 12/30/17 10:26:36 - Institution: PACU Case Times MAGR Entry 1 In PACU I 12/30/17 12:41:00 Discharge from PACU 12/30/17 13:10:00 I Last Modified By: Jaqueline Nguyen RN 12/30/17 13:08:24 Finalized By: Jaqueline Nguyen RN Document Signatures Signed By: Jaqueline Nguyen RN 12/30/17 13:21 [facility] MAGR Postoperative Recordon 12-30-2017 [facility] Postoperative Record MAGR Phase II Record Summary Primary Physician: Marquise Miller DO Finalized Date/Time: 12/30/17 14:25:01 Pt. Name: VIOLET FERRARA/Sex: 1960 MALE Med Rec #: [id number] Physician: Marquise Miller DO Financial #: [id number] Pt. Type: D Room/Bed: / Admit/Disch: 12/30/17 [...] Signed By: Viry Rehman RN 12/30/17 14:25 [facility] MAGR Preoperative Recordon 0 12-30-2017 [facility] Preoperative Record [facility] Pre-Op Record Summary Primary Physician: Marquise Miller DO Finalized Date/Time: 12/30/17 13:31:52 Pt. Name: VIOLET FERRARA/Sex: 1960 MALE Med Rec #: [id number] Physician: Marquise Miller DO Financial #: [id number] Pt. Type: D Room/Bed: / Admit/Disch: 12/30/17 10:26:36 - Institution: Pre-Op [facility] Text: Patient will be optimally prepared [...] consent correct. General Comments: pt arrives to [facility] ambulatory. Pt denies any pain, cp, sob, cough or flu like symptoms. Pt denies pacemaker/defibillator or sleep apnea. Finalized By: Ramsey Saleh RN Document Signatures Signed By: Ramsey Saleh RN 12/30/17 13:31 Normal [facility] Operative Report - Surgeon/P bhanu 12-30-2017 Operative [...] the lateral compartment but it was not dxne-sk-lxui.Each compartment was revisited the joint was then irrigated and evacuated the portals were closed with nylon sutures. Sterile dressings were applied.[Electronically Signed on: 12/30/2017 12:48 EDT] Marquise Miller DO[Verified on: 12/30/2017 12:48 EDT] Marquise Miller note this correctionPreoperative diagnosis should read Internal derangement right knee with suspected incarcerated meniscus.[Electronically Signed on: 01/02/2018 18:44 EDT] Marquise Miller DO Normal [facility] Standardon 12-27-2017 eGFR (non-black) mL/min/{1.73_m2} Invalid Interpretation Code [facility] Comment on above: Performed By: #### 1 [id number] ####[facility] (DEFAULT)[address] [place] [address] Result Comment: Web Offset Press Feeder arpita Kidney disease could be indicated at eGFRs of less than 60 ml/min/1.73m2. Kidney Failure is indicated at less than 15 ml/min/1.73m2 Anion gap 12.0 mmol/L Normal 5.0-19.0 [facility] Comment on above: Performed By: #### 1 [id number] ####[facility] (DEFAULT)[address] [place] [address] BUN/Creatinine Ratio 14.0 mg/mg Normal 4.6-16.2 [facility] Comment on above: Performed By: #### 1 [id number] ####[facility] (DEFAULT)[address] [place] [address] Calcium 8.7 mg/dL Low 8.9-10.3 [facility] Comment on above: Performed By: #### 1 [id number] ####[facility] (DEFAULT)[address] [place] [address] 25850 Chloride 103 mmol/L Normal 101-111 [facility] Comment on above: Performed By: #### 1 [id number] ####[facility] (DEFAULT)[address] [place] [address] 87288 CO2 26 mmol/L Normal 21-32 [facility] Comment on above: Performed By: #### 1 [id number] ####[facility] (DEFAULT)[address] [place] [address] 46608 Creatinine 1.00 mg/dL Normal 0.90-1.30 [facility] Comment on above: Performed By: #### 1 [id number] ####[facility] (DEFAULT)[address] [place] [address] 11168 Glucose mass conc 92.0 mg/dL Normal 74.0-118.0 [facility] Comment on above: Performed By: #### 1 [id number] ####[facility] (DEFAULT)[address] [place] [address]253 Osmolality 274 mOsm/L Invalid Interpretation Code [facility] Comment on above: Performed By: #### 1 [id number] ####[facility] (DEFAULT)[address] [place] [address] 06268 Potassium molar conc 3.6 mmol/L Normal 3.6-5.1 [facility] Comment on above: Performed By: #### 1 [id number] ####[facility] (DEFAULT)[address] [place] [address] Sodium 137.0 mmol/L Normal 136.0-144.0 [facility] Comment on above: Performed By: #### 1 [id number] ####[facility] (DEFAULT)[address] [place] [address] Urea nitrogen 14 mg/dL Normal 8-26 [facility] Comment on above: Performed By: #### 1 [id number] ####[facility] (DEFAULT)[address] [place] [address] Vital Signs Date Time Vital Sign Value Performing Clinician Facility 05-04-2025 10:55-0400 Body height 175.3 cm Iman Obrien MD Work Phone: [facility] 05-04-2025 10:55-0400 Body mass index (BMI) [Ratio] 37.68 kg/m2 Iman Obrien MD Work Phone: [facility] 05-04-2025 10:55-0400 Body temperature 97.59 [degF] Iman Obrien MD Work Phone: [facility] 05-04-2025 10:55-0400 Body weight 115.8 kg Iman Obrien MD Work Phone: [facility] 05-04-2025 10:55-0400 Diastolic blood pressure 92 mm[Hg] Iman Obrien MD Work Phone: [facility] 05-04-2025 10:55-0400 Heart rate 86 /min Iman Obrien MD Work Phone: [facility] 05-04-2025 10:55-0400 Respiratory rate 16 /min Iman Obrien MD Work Phone: [facility] 05-04-2025 10:55-0400 SaO2% (BldA) [Mass fraction] 92 % Iman Obrien MD Work Phone: [facility] 05-04-2025 10:55-0400 Systolic blood pressure 146 mm[Hg] Iman Obrien MD Work Phone: [facility] 04-20-2025 08:09-0400 Body height 177.8 cm Ruben Tai DO Work Phone: [facility] 04-20-2025 08:09-0400 Body mass index (BMI) [Ratio] 35.87 kg/m2 Ruben Tai DO Work Phone: [facility] 04-20-2025 08:09-0400 Body weight 113.4 kg Ruben Tai DO Work Phone: [facility] 03-24-2025 09:07-0400 Body height 177.8 cm Nick Bess MD Work Phone: [facility] 03-24-2025 09:07-0400 Body mass index (BMI) [Ratio] 36.45 kg/m2 Nick Bess MD Work Phone: [facility] 03-24-2025 09:07-0400 Body weight 115.21 kg Nick Bess MD Work Phone: [facility] 03-24-2025 09:07-0400 Diastolic blood pressure 100 mm[Hg] Nick Bess MD Work Phone: [facility] 03-24-2025 09:07-0400 Heart rate 87 /min Nick Bess MD Work Phone: [facility] 03-24-2025 09:07-0400 SaO2% (BldA) [Mass fraction] 94 % Nick Bess MD Work Phone: [facility] 03-24-2025 09:07-0400 Systolic blood pressure 148 mm[Hg] Nick Bess MD Work Phone: [facility] 03-11-2025 14:48-0400 Body height 175.26 cm Nick Bess II Work Phone: [facility] 03-11-2025 14:48-0400 Body mass index (BMI) [Ratio] 35.1 kg/m2 Nick Bess II Work Phone: [facility] 03-11-2025 14:48-0400 Body temperature 99.5 [degF] Nick Bess II Work Phone: [facility] 03-11-2025 14:48-0400 Body weight 107.95 kg Nick Bess II Work Phone: [facility] 03-11-2025 14:48-0400 Diastolic blood pressure 74 mm[Hg] Nick Bess II Work Phone: [facility] 03-11-2025 14:48-0400 Heart rate 81 /min Nick Bess II Work Phone: [facility] 03-11-2025 14:48-0400 Respiratory rate 18 /min Nick Bess II Work Phone: [facility] 03-11-2025 14:48-0400 SaO2% (BldA) [Mass fraction] 92 % Nick Bess II Work Phone: [facility] 03-11-2025 14:48-0400 Systolic blood pressure 113 mm[Hg] Nick Bess II Work Phone: [facility] 03-11-2025 08:52-0400 Body height 177.8 cm Marina Hemmer PA Work Phone: [facility] 03-11-2025 08:52-0400 Body mass index (BMI) [Ratio] 36.65 kg/m2 Marina Hemmer PA Work Phone: [facility] 03-11-2025 08:52-0400 Body weight 115.85 kg Marina Hemmer PA Work Phone: [facility] 03-11-2025 08:52-0400 Diastolic blood pressure 86 mm[Hg] Marina Hemmer PA Work Phone: [facility] 03-11-2025 08:52-0400 Heart rate 87 /min Marina Hemmer PA Work Phone: [facility] 03-11-2025 08:52-0400 Respiratory rate 18 /min Marina Hemmer PA Work Phone: [facility] 03-11-2025 08:52-0400 SaO2% (BldA) [Mass fraction] 95 % Marina Hemmer PA Work Phone: [facility] 03-11-2025 08:52-0400 Systolic blood pressure 152 mm[Hg] Marina Hemmer PA Work Phone: [facility] 12-08-2024 08:05-0400 Body height 177.8 cm Marina Hemmer PA Work Phone: [facility] 12-08-2024 08:05-0400 Body mass index (BMI) [Ratio] 37.19 kg/m2 Marina Hemmer PA Work Phone: [facility] 12-08-2024 08:05-0400 Body weight 117.57 kg Marina Hemmer PA Work Phone: [facility] 12-08-2024 08:05-0400 Diastolic blood pressure 86 mm[Hg] Marina Hemmer PA Work Phone: [facility] 12-08-2024 08:05-0400 Heart rate 93 /min Marina Hemmer PA Work Phone: [facility] 12-08-2024 08:05-0400 Respiratory rate 18 /min Marina Hemmer PA Work Phone: [facility] 12-08-2024 08:05-0400 SaO2% (BldA) [Mass fraction] 94 % Marina Hemmer PA Work Phone: [facility] 12-08-2024 08:05-0400 Systolic blood pressure 148 mm[Hg] Marina Hemmer PA Work Phone: [facility] 10-29-2024 15:18-0500 Body height 177.8 cm Diana Díaz SENIOR ANALYTICAL CHEMIST Work Phone: [facility] 10-29-2024 15:18-0500 Body mass index (BMI) [Ratio] 37.91 kg/m2 Diana Díaz SENIOR ANALYTICAL CHEMIST Work Phone: [facility] 10-29-2024 15:18-0500 Body weight 119.84 kg Diana Díaz SENIOR ANALYTICAL CHEMIST Work Phone: [facility] 10-29-2024 15:18-0500 Diastolic blood pressure 82 mm[Hg] Diana Díaz SENIOR ANALYTICAL CHEMIST Work Phone: [facility] 10-29-2024 15:18-0500 Heart rate 101 /min Diana Díaz SENIOR ANALYTICAL CHEMIST Work Phone: [facility] 10-29-2024 15:18-0500 Respiratory rate 18 /min Diana Díaz SENIOR ANALYTICAL CHEMIST Work Phone: [facility] 10-29-2024 15:18-0500 SaO2% (BldA) [Mass fraction] 95 % Diana Díaz SENIOR ANALYTICAL CHEMIST Work Phone: [facility] 10-29-2024 15:18-0500 Systolic blood pressure 136 mm[Hg] Diana Díaz SENIOR ANALYTICAL CHEMIST Work Phone: [facility] 09-22-2024 14:24-0500 Body height 177.8 cm Marina Hemmer PA Work Phone: [facility] 09-22-2024 14:24-0500 Body mass index (BMI) [Ratio] 36.99 kg/m2 Marina Hemmer PA Work Phone: [facility] 09-22-2024 14:24-0500 Body temperature 99.19 [degF] Marina Hemmer PA Work Phone: [facility] 09-22-2024 14:24-0500 Body weight 116.94 kg Marina Hemmer PA Work Phone: [facility] 09-22-2024 14:24-0500 Diastolic blood pressure 76 mm[Hg] Marina Hemmer PA Work Phone: [facility] 09-22-2024 14:24-0500 Heart rate 96 /min Marina Hemmer PA Work Phone: [facility] 09-22-2024 14:24-0500 Respiratory rate 16 /min Marina Hemmer PA Work Phone: [facility] 09-22-2024 14:24-0500 SaO2% (BldA) [Mass fraction] 94 % Marina Hemmer PA Work Phone: [facility] 09-22-2024 14:24-0500 Systolic blood pressure 148 mm[Hg] Marina Jeong PA Work Phone: [facility] 09-03-2024 09:31-0500 Body height 177.8 cm Nick Bess MD Work Phone: [facility] 09-03-2024 09:31-0500 Body mass index (BMI) [Ratio] 36.59 kg/m2 Nick Bess MD Work Phone: [facility] 09-03-2024 09:31-0500 Body temperature 96.91 [degF] Nick Bess MD Work Phone: [facility] 09-03-2024 09:31-0500 Body weight 115.67 kg Nick Bess MD Work Phone: [facility] 09-03-2024 09:31-0500 Diastolic blood pressure 76 mm[Hg] Nick Bess MD Work Phone: [facility] 09-03-2024 09:31-0500 Heart rate 83 /min Nick Bess MD Work Phone: [facility] 09-03-2024 09:31-0500 SaO2% (BldA) [Mass fraction] 95 % Nick Bess MD Work Phone: [facility] 09-03-2024 09:31-0500 Systolic blood pressure 126 mm[Hg] Nick Bess MD Work Phone: [facility] 05-08-2024 11:19-0400 Body height 177.8 cm Marina Jeong PA Work Phone: [facility] 05-08-2024 11:19-0400 Body mass index (BMI) [Ratio] 36.5 kg/m2 Marina Greenemer PA Work Phone: [facility] 05-08-2024 11:19-0400 Body temperature 98.8 [degF] Marina Greenemer PA Work Phone: [facility] 05-08-2024 11:19-0400 Body weight 115.39 kg Marina Hemmer PA Work Phone: [facility] [employer] 05-08-2024 11:19-0400 Diastolic blood pressure 92 mm[Hg] Marina Hemmer PA Work Phone: [facility] [employer] 05-08-2024 11:19-0400 Heart rate 84 /min Marina Hemmer PA Work Phone: [facility] [employer] 05-08-2024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 encounter [facility] 10-29-2024 Telephone encounter Note Pt needs to make an appt for his coughing [facility] 10-29-2024 Telephone encounter Note Pt states the cough meds prescribed aren't working and he'd like something else [facility] 10-27-2024 Telephone encounter Note Violet Little, 1020 [...] dm and this is not helping him [facility] 09-22-2024 Telephone encounter Note Patient was seen in the office today for an appt. [facility] 09-22-2024 Miscellaneous Notes Patient was seen in the office today for an appt. Patient called asking if he could have something for a cough that he has had for over a week, He has tried OTC Robitussin but that isn't helping. He is also cough up yellow phlegm. documented in this encounter [facility] 09-22-2024 Telephone encounter Note Patient called asking if he could have something for a cough that he has had for over a week, He has tried OTC Robitussin but that isn't helping. He is also cough up yellow phlegm. [facility] 09-22-2024 History of Present illness Narrative Images from the original note were not included. [facility] Med Refill Additional comments: Meron Last edited by Lamar Jimenez LPN on 09/22/2024 2:24 PM. Subjective Patient ID: Violet Ferrara is a 64 y.o. male who presents for cough. Violet is present today for evaluation of cough. Admits cough with white phlegm, SOB, wheezing, nose bleed, runny nose. This all started 08/27/24, went to [facility] ER and they rx'd prednisone for 3 [...] THE SAME TIME 100 capsule 3 [DISCONTINUED] Adsduyf-Ycapzvbutpt-Ryrzrdnzsj (Breztri Aerosphere) 160-9-4.8 MCG/ACT aerosol INHALE 2 [...] this visit: Moderate persistent asthma with exacerbation ([facility]) - Pwnhsqh-Laerzoctajt-Goslxgvozk (Breztri Aerosphere) 160-9-4.8 MCG/ACT aerosol; Inhale 2 [...] fail to improve. documented in this encounter [facility] 09-03-2024 History of Present illness Narrative Images from the original note were not included. HPI Follow-up Additional comments: [facility] ER 08/27/24 dx: asthma with exacerbation,VYAS discharged home with rx for prednisone,bromfed DM and zofran Last edited by Patti Aguiar LPN on 09/03/2024 9:31 AM. Subjective Patient ID: Violet Ferrara is a 64 y.o. male who presents for Follow-up ([facility] ER 08/27/24 dx: asthma with exacerbation,VYAS discharged home with rx for prednisone,bromfed DM and zofran). Flowsheet Row Documentation from 08/28/[address] [facility] with [place], [place] Hospital Information ED, Hospital or Longterm Facility Discharge? ED Patient has been contacted within 1 week of being seen in the ED Yes Diagnosis shortness of breath Discharge Date 08/27/24 Discharged To: Home Setting Discharge Hospital [facility] Engagement Call Start Time 911 Admission [...] mouth in the morning. 100 tablet 3 Xrknuky-Wobaljicmuc-Mjsfhdazob (Breztri Aerosphere) 160-9-4.8 MCG/ACT aerosol INHALE 2 [...] this visit: Moderate persistent asthma with exacerbation ([facility]) - methylPREDNISolone (Medrol [...] fail to improve. documented in this encounter [facility] 05-08-2024 History of Present illness Narrative Subjective [...] he helped him. He does have a studio grip and stopped seeing them too d/t he [...] Breztri regularly. has been riding his bike. [facility] leaving for [place] next week. Hoping to stay a month. [...] mouth in the morning. 100 tablet 3 Nkrcmwm-Eyjmpnvmeqd-Mphrvixwtz (Breztri Aerosphere) 160-9-4.8 MCG/ACT aerosol INHALE 2 [...] would like to have this done at [facility]. Can try Duoneb in the future if [...] fail to improve. documented in this encounter [facility] 04-22-2024 History of Present illness Narrative Images [...] other part of torso Right Lower Back Parkman macule at biopsy site Destr of lesion Complexity: simple Destruction method: electrodesiccation and curettage Informed consent: discussed and consent obtained Informed consent comment: The risks of the procedure were discussed, including, but not limited to risks of scarring, darker or compliance auditor pigmentary changes, recurrence, infection, and incomplete removal [...] lidocaine used: 3.0 cc Previous accession number: [id number] Emphasized to return to clinic for any signs of recurrence prior to next visit. Next Visit: as scheduled documented in this encounter [facility] 08-07-2023 Evaluation note Encounter Date Diagnosis Assessment Notes Aug, Mild intermittent asthma, uncomplicated (ICD-10 - J45.20) [id number] Other 07-13-2023 Evaluation note* Encounter Date Diagnosis Assessment Notes Treatment Notes Treatment Clinical Notes Mar, Reactive airway disease (ICD-10 - J45.909) Mar, GERD (gastroesophageal reflux disease) (ICD-10 - K21.9) Mar, Sleep apnea (ICD-10 - G47.30) Mar, Cough variant asthma (ICD-10 - J45.991) Use nasal rinse as recommended per Dr. Mustafa Mar, Mild intermittent asthma, uncomplicated (ICD-10 - J45.20) [id number] Other 07-18-2022 Evaluation note* Encounter Date Diagnosis Assessment Notes Treatment Notes Treatment Clinical Notes Mar, Reactive airway disease (ICD-10 - J45.909) Mar, GERD (gastroesophageal reflux disease) (ICD-10 - K21.9) Mar, Sleep apnea (ICD-10 - G47.30) Mar, Cough variant asthma (ICD-10 - J45.991) Mar, Mild intermittent asthma, uncomplicated (ICD-10 - J45.20) [id number] Other 02-16-2022 Evaluation note* Encounter Date Diagnosis Assessment Notes Treatment Notes Treatment Clinical Notes Oct, GERD (gastroesophageal reflux disease) (ICD-10 - K21.9) [id number] Other 10-19-2021 Evaluation note* Encounter Date Diagnosis [...] - J45.20) Begin trial of Trelegy 200/62.5/25 [id number] Other Evaluation note* Diagnosis Basal cell carcinoma [...] (adult) (pediatric) Moderate persistent asthma without complication ([facility]) Benign essential hypertension ([facility]) Essential hypertension, benign Bifascicular block Other bilateral bundle branch block Fatty liver Other chronic nonalcoholic liver disease Gastroesophageal reflux disease without esophagitis Esophageal reflux Primary osteoarthritis of right knee Class 2 severe obesity due to excess calories with serious comorbidity and body mass index (BMI) of 37.0 to 37.9 in adult ([facility]) Chronic laryngitis Chronic rhinitis Chronic sinusitis of both maxillary sinuses Seasonal allergic rhinitis due to pollen BCC (basal cell carcinoma), trunk Other malignant neoplasm of skin of trunk, except scrotum Elevated transaminase level Impaired glucose metabolism LPRD (laryngopharyngeal reflux disease) Acute laryngitis, without mention of obstruction Mixed hyperlipidemia ([facility]) Mixed hyperlipidemia Screening for malignant neoplasm of prostate documented in this encounter [facility] HealthcareEvaluation note* Diagnosis Gastroesophageal reflux disease without esophagitis- Primary Esophageal reflux Moderate persistent asthma without complication (HCC) Class 2 severe obesity due to excess calories with serious comorbidity and body mass index (BMI) of 36.0 to 36.9 in adult ([facility]) Closed fracture of multiple ribs of right side with routine healing, subsequent encounter Persistent cough for 3 weeks or longer documented in this encounter [facility] HealthcareEvaluation noteNo assessment information availableSub[facility] Work Phone: Evaluation note* Diagnosis Closed fracture of multiple ribs of right side with routine healing, subsequent encounter- Primary documented in this encounter [facility] HealthcareEvaluation note* Diagnosis Seborrheic keratosis- Primary History of basal cell carcinoma Personal history of other malignant neoplasm of skin Seborrheic keratosis, inflamed Lentigines Actinic keratosis documented in this encounter [facility] HealthcareEvaluation note* Diagnosis Persistent cough for 3 weeks or longer- Primary Obstructive sleep apnea syndrome Obstructive sleep apnea (adult) (pediatric) Moderate persistent asthma without complication (HCC) Closed fracture of multiple ribs of right side, initial encounter Current use of steroid medication documented in this encounter [facility] HealthcareEvaluation note* Diagnosis Chronic cough Cough Gastroesophageal reflux disease, unspecified whether esophagitis present documented in this encounter [facility] HealthcareEvaluation note* Diagnosis Bee sting, accidental or unintentional, initial encounter- Primary documented in this encounter [facility] HealthcareEvaluation note* Diagnosis Cough, unspecified type [facility] Diagnosis Cough, unspecified type- Primary documented in this encounter [facility] note* Diagnosis Chronic cough- Primary Cough Allergic rhinitis, unspecified seasonality, unspecified trigger Asthma, unspecified asthma severity, unspecified whether complicated, unspecified whether persistent (HCC) documented in this encounter [facility] general Narrative - Reported* Type Description Date Medical History asthma Medical History Hypertension Medical History Esophageal reflux Medical History sleep apnea Medical History reactive airway disease Surgical History nasal surgery 1997 [id number] Other History general Narrative - Reported* Type Description Date Medical History asthma Medical History Hypertension Medical History Esophageal reflux Medical History sleep apnea Medical History reactive airway disease Medical History umbilical hernia Surgical History nasal surgery 1997 [id number] Other Reason for referral (narrative)No reason for referral information availableSub[facility] Work Phone: Summary Purpose Family History [...] section and content) DATE CREATED AUTHOR 02/18/2018 [facility] DATE CREATED AUTHOR AUTHOR'S ORGANIZ ATION 02/21/2018 [facility] DATE CREATED AUTHOR AUTHOR'S ORGANIZ ATION 08/13/2021 [facility] DATE CREATED AUTHOR AUTHOR'S ORGANIZ ATION 04/21/2025 [facility] DATE CREATED AUTHOR AUTHOR'S ORGANIZ ATION 05/07/2025 [facility] REASON FOR VISIT (unrecogniz ed section [...] NITRIC O[place]IDE [place] [address] [place] [address] Phone: tel: fax: Respiratory [address] [address] Referral ID Status Reason Start Date Expiration Date V isits Requested Visits Authorized [id number] Closed Auto-Generate d Referral 04/09/2025 05/09/2026 1 1 Specialty Diagnoses / Procedures Referred By Contac t Referred To Contact [facility] Diagnoses Cough, unspecified type Procedures SPIROMETRY - BASELINE AND POST DILATOR BRNCDILAT RSPSE SPMTRY PRE&[place] [address] [place] [address] Phone: tel: fax: [address] [address] Referral ID Status Reason Start Date Expiration Date V isits Requested Visits Authorized [id number] Closed Auto-Generate d Referral 04/09/2025 05/09/2026 1 1 Reason Comments Cough Specialty Diagnoses / Procedures Referred By Contac t Referred To Contact [facility]monary Disease / [facility] Diagnoses Persistent cough for 3 weeks or longer Moderate persistent asthma without complication (HCC) Procedures OFFICE/OUTPATIENT [facility] HIGH [facility] 60 MINUTES [id number] (SNOMED CT) - AMB REFERRAL TO PULMONOLOGY Nick Bess II, MD [address] [facility] [address] [place] [address] Phone: tel: fax: Nick Zepeda DO [address] [place] [address] Phone: tel:[phone] fax:[phone] Referral ID Status Reason Start Date Expiration Date V isits Requested Visits Authorized [id number] Pending Review 03/26/2025 09/22/2025 1 1 Care Teams (unrecognized sec tion and content) Rn Mobile Relationship Specialty Start Date End Date Nick Bess MD [address] [place] [address] [place] [address] PCP - Medical [place] [employer] 01/31/23 Nick Bess MD [address] [place] [address] [place] [address] PCP - General Internal Medicine 01/08/23 Rn Mobile Relationship Specialty Start Date End Date Nick Bess MD [address] [place] [address] [place] [address] PCP - General Internal Medicine 01/08/23 Nick Bess MD [address] [place] [address] [place] [address] PCP - [employer] 10/03/23 Rn Mobile Relationship Specialty Start Date End Date Nick Bess MD [address] [place] [address] [place] [address] PCP - General Internal Medicine 01/08/23 Nick Bess MD [address] [place] [address] [place] [address] PCP - [employer] 10/03/23 Rn Mobile Relationship Specialty Start Date End Date Nick Bess MD [address] [place] [address] [place] [address] PCP - General Internal Medicine 01/08/23 Nick Bess MD [address] [place] [address] [place] [address] PCP - [employer] 10/03/23 Rn Mobile Relationship Specialty Start Date End Date Nick Bess MD [address] [place] [address] [place] [address] PCP - General Internal Medicine 01/08/23 Nick Bess MD [address] [place] [address] [place] [address] PCP - [employer] 10/03/23 Rn Mobile Relationship Specialty Start Date End Date Nick Bess MD [address] [place] [address] [place] [address] PCP - General Internal Medicine 01/08/23 Nick Bess MD [address] [place] [address] [place] [address] PCP - [employer] 10/03/23 Rn Mobile Relationship Specialty Start Date End Date Nick Bess MD [address] [place] [address] [place] [address] PCP - General Internal Medicine 01/08/23 Nick Bess MD [address] [place] [address] [place] [address] PCP - [employer] 10/03/23 Rn Mobile Relationship Specialty Start Date End Date Nick Bess MD [address] [place] [address] [place] [address] PCP - General Internal Medicine 01/08/23 Nick Bess MD [address] [place] [address] [place] [address] PCP - [employer] 10/03/23 Rn Mobile Relationship Specialty Start Date End Date Nick Bess MD [address] [place] [address] [place] [address] PCP - General Internal Medicine 01/08/23 Nick Bess MD [address] [place] [address] [place] [address] PCP - [employer] 10/03/23 Rn Mobile Relationship Specialty Start Date End Date Nick Bess MD [address] [place] [address] [place] [address] PCP - General Internal Medicine 01/08/23 Nick Bess MD [address] [place] [address] [place] [address] PCP - [employer] 10/03/23 Rn Mobile Relationship Specialty Start Date End Date Nick Bess MD [address] [place] [address] [place] [address] PCP - General Internal Medicine 01/08/23 Nick Bess MD [address] [place] [address] [place] [address] PCP - [employer] 10/03/23 Rn Mobile Relationship Specialty Start Date End Date Nick Bess MD [address] [place] [address] [place] [address] PCP - General Internal Medicine 01/08/23 Nick Bess MD [address] [place] [address] [place] [address] PCP - [employer] 10/03/23 Team Status: Active Member Role Status Dates Nick Bess II MD Primary Care Provider Active Team Status: Inactive Member Role Status Dates Nick Bess II MD Primary Care Provider Active Start: March 11, 2025 End: March 11, 2025 Trice Pruitt APRN Attending Provider Active Start: March 11, 2025 End: March 11, 2025 Rn Mobile Relationship Specialty Start Date End Date Nick Bess MD [address] [place] [address] [place] [address] PCP - General Internal Medicine 01/08/23 Nick Bess MD [address] [place] [address] [place] [address] PCP - [employer] 10/03/23 Rn Mobile Relationship Specialty Start Date End Date Nick Bess MD [address] [place] [address] [place] [address] PCP - General Internal Medicine 01/08/23 Nick Bess MD [address] [place] [address] [place] [address] PCP - [employer] 10/03/23 Rn Mobile Relationship Specialty Start Date End Date Nick Bess MD [address] [place] [address] [place] [address] PCP - General Internal Medicine 01/08/23 Nick Bess MD [address] [place] [address] [place] [address] PCP - [employer] 10/03/23 Rn Mobile Relationship Specialty Start Date End Date Nick Bess MD [address] [place] [address] [place] [address] PCP - General Internal Medicine 01/08/23 Nick Bess MD [address] [place] [address] [place] [address] PCP - [employer] 10/03/23 Rn Mobile Relationship Specialty Start Date End Date Nick Bess II, MD PCP - General Internal Medicine 11/22/14 Rn Mobile Relationship Specialty Start Date End Date Nick Bess MD [address] [place] [address] [place] [address] PCP - General Internal Medicine 01/08/23 Nick Bess MD [address] [place] [address] [place] [address] PCP - [employer] 10/03/23 Rn Mobile Relationship Specialty Start Date End Date Nick Bess II, MD PCP - General Internal Medicine 11/22/14 Rn Mobile Relationship Specialty Start Date End Date Nick Bess II, MD PCP - General Internal Medicine 11/22/14 Rn Mobile Relationship Specialty Start Date End Date Nick Bess II, MD PCP - General Internal Medicine 11/22/14 Rn Mobile Relationship Specialty Start Date End Date Nick [...] or prosecute any alcohol or drug abuse patient.[facility] the event this information is protected by the Federal Confidentiality of Alcohol and Drug Abuse Patient Records regulations: The Federal rules restrict any use of the information to criminally investigate or prosecute any alcohol or drug abuse patient.[facility] HospitalIn the event this information is protected by the Federal Confidentiality of Alcohol and Drug Abuse Patient Records regulations: The Federal rules restrict any use of the information to criminally investigate or prosecute any alcohol or drug abuse patient.[facility]In the event this information is protected by the Federal Confidentiality of Alcohol and Drug Abuse Patient Records regulations: The Federal rules restrict any use of the information to criminally investigate or prosecute any alcohol or drug abuse patient.[facility] HospitalIn the event this information is protected by the Federal Confidentiality of Alcohol and Drug Abuse Patient Records regulations: The Federal rules restrict any use of the information to criminally investigate or prosecute any alcohol or drug abuse patient.[facility] FOR RECORDS PERTAINING TO PATIENTS WHO [...] BE BASED ON THE PRIMARY CLINICAL RECORDS. [facility] [employer] [facility]. provides no warranty or guarantee of the accuracy or completeness of information in this document.
[2025-05-11 08:24] LABS: Hematocrit 42.8 % (42.0-54.0); Hemoglobin 14.6 g/dL (14.0-18.0); Immature Granulocytes Abs Auto 0.06 10^3/uL (0.00-0.03); Immature Granulocytes Pct Auto 0.5 % (0.0-0.5); Lymphocytes Absolute Auto 2.0 10^3/uL (1.2-3.8); Mean Corpuscular HGB Conc 34.1 g/dL (29.9-35.2); Mean Corpuscular Hemoglobin 34.0 pg (25.9-34.0); Mean Corpuscular Volume 99.8 fL (80.0-94.0); Platelet Count 286 10^3/uL (150-450); Red Blood Count 4.29 10^6/uL (4.70-6.10); White Blood Count 11.1 10^3/uL (4.0-11.0)
== END 2025-05-11 07:55 | disposition home or self-care (01) ==
PROVIDERS: PCP Internal Medicine
DX: R05.3 Chronic cough (principal); J45.909 Unspecified asthma, uncomplicated
CPT/HCPCS: 36415; 82785; 85025; 86003

== ENCOUNTER 2025-05-11 14:04 | Emergency (ER) | payer MEDICARE, SELFPAY ==
--- OUTSIDE RECORDS SUMMARY | 2025-05-04 10:15 | XMS_ITS | Encounter Summary ---
Author Organization [facility] Address [address] [place] [address] Care Team Providers Care Manager Express Name Role Phone Shahriar KEANE MD, Nick Gabriel Primary Care Provider [phone] Source Comments In the event this information is protected by the Federal Confidentiality of Alcohol and Drug AbusePatient Records regulations: The Federal rules restrict any use of the information to criminally investigate or prosecute any alcohol or drug abuse patient.[facility] Reason for Visit * Reason Comments Spirometry * Outpatient Procedure (Routine) - Closed Specialty Diagnoses / Procedures Referred By Contac t Referred To Contact [facility] Diagnoses Cough, unspecified type Procedures SPIROMETRY - BASELINE AND POST DILATOR BRNCDILAT RSPSE SPMTRY PRE&[place] [address] [place] [address] Phone: tel: fax: [facility] [address] [place] [address] Referral ID Status Reason Start Date Expiration Date V isits Requested Visits Authorized [id number] Closed Auto-Generate d Referral 04/09/2025 05/09/2026 1 1 Encounter Details Date Type Department Care Team (Late st Contact Info) Description 05/04/2025 10:15 AM EDT Procedure PULMONARY [address] [place] [address] Spirometry Social History Tobacco Use Types Packs/Day Years Used Date Smoking Tobacco: Never Smokeless Tobacco: Never Alcohol Use Standard Drinks/Week Comments Yes 5 (1 standard drink = 0.6 oz pur e alcohol) Area Deprivation Index Answer Date Dung rded National Score (1-100), lower number is lower ri sk 61 05/04/2025 State Score (1-10), lower number is lower risk 4 05/04/2025 Data from: https://www.neighborhoodatlas.medicine.[facility].edu/. Last address used for calculation [address] 05/04/2025 Sex and Gender Information Value Date Recorded Sex Assigned at Not on file Legal Sex Male 9:35 AM EST Gender Identity Not on file Sexual Orientation Not on file documented as of this encounter Plan of Treatment Upcoming Encounters Date Type Department Care Team (Late st Contact Info) Description 06/22/2025 10:00 AM EDT Office Visit PULMONARY [address] [place] [address] [place] [address] [place] [address] 7 week follow up documented as of this encounter Procedures Procedure Name Priority Date/Time Associated Diagnosis Comments SPIROMETRY - BASELINE AND POST DILATOR Routine 05/04/2025 10:14 AM EDT Cough, unspecified type documented in this encounter Results * SPIROMETRY - BASELINE AND POST DILATOR (05/04/2025 10:14 AM EDT) FVC PRE (L) 3.47 L PULMONAR Y FUNCTION LAB FVC POST (L) 3.50 L PULMONA RY FUNCTION LAB FVC PREDICTED (L) 3.91 L PULMONARY FUNCTION LAB FVC LLN (L) 2.92 L PULMONAR Y FUNCTION LAB FVC ULN (L) 4.91 L PULMONAR Y FUNCTION LAB FEV1 PRE (L) 2.70 L PULMONA RY FUNCTION LAB FEV1_POST (L) 2.77 L PULMON CASSANDRA FUNCTION LAB FEV1 PREDICTED (L) 3.00 L PULMONARY FUNCTION LAB FEV1 LLN (L) 2.20 L PULMONA RY FUNCTION LAB FEV1 ULN (L) 3.75 L PULMONA RY FUNCTION LAB FEV1/FVC PRE (%) 78 % PULMONARY FUNCTION LAB FEV1/FVC POST (%) 79 % PULMONARY FUNCTION LAB FEV1/FVC PREDICTED (%) 77 % PULMONARY FUNCTION LAB FEV1/FVC LLN (%) 65 % PULMONARY FUNCTION LAB FEF25% PRE (L/S) 7.22 L/S PULMONARY FUNCTION LAB FEF25% POST (L/S) 7.56 L/S PULMONARY FUNCTION LAB FEF75% PRE (L/S0 0.71 L/S PULMONARY FUNCTION LAB FEF75% POST (L/S) 0.87 L/S PULMONARY FUNCTION LAB FEF75% PREDICTED (L/S) 0.70 L/S PULMONARY FUNCTION LAB FEF75% LLN (L/S) 0.27 L/S PULMONARY FUNCTION LAB FEF75% ULN (L/S) 1.75 L/S PULMONARY FUNCTION LAB ZYW64-66% PRE (L/S) 2.38 L/S PULMONARY FUNCTION LAB MFC57-63% POST (L/S) 2.71 L/S PULMONARY FUNCTION LAB YAH56-67% PREDICTED (L/S) 2.51 L/S PULMONARY FUNCTION LAB BAJ89-20% LLN (L/S) 1.14 L/S PULMONARY FUNCTION LAB PEF PRE (L/S) 8.61 L/S PULMON CASSANDRA FUNCTION LAB PEF POST (L/S) 8.88 L/S PULMO NARY FUNCTION LAB PEF LLN (L/S) 6.10 L/S PULMON CASSANDRA FUNCTION LAB PEF ULN (L/S) 10.54 L/S PULMON CASSANDRA FUNCTION LAB FET PRE (S) 8.68 S PULMONAR Y FUNCTION LAB FET POST (S) 6.88 S PULMONA RY FUNCTION LAB 05/04/2025 10:1 4 AM EDT Narrative PULMONARY FUNCTION LAB - 05/06/2025 11:33 AM EDT [facility] [address] [place] [address] [place] [address] Test Date: 2025-05-04 Pat Name: VIOLET HEART Department: Room: Gender: Male [place] Re[place]: : 1960 Requested By: Order Number: [id number] Reading MD: Bernardo Buck MD Interpretive Statements Pre and post BD: Current ATS/ERS acceptability and repeatability standards for spirometry met. Start of test and EOFE criteria met. Medications and Allergies were reviewed for possible drug interactions per policy. No contraindications or sensitivities were noted. Meds taken: Airsupra and Breztri/4 hours before testing. 2 puffs Albuterol (180 mcg) delivered by MDI via holding chamber. HR pre = 94/min, HR post = 88/min. ///AP IMPRESSION: Spirometry is normal. Negative bronchodilator response. Electronically Signed On 05-06-2025 11:33:34 EDT by Bernardo Buck MD ID: [id number] Name: VIOLET HEART Race: White Ht: 68.50 in Wt: 255.30 lbs Age: 64 Gender: Male : 1960 Dx: Cough, unspecified_ Smoking Hx: Non-smoker Doctor: HALLE OBRIEN Test Date: 05/04/2025 Site: [facility] Tech: Jessika Lunsford PRE-BRONCH POST-BRONCH Richard LLN Pred ULN %Pred ZScore Richard %Pred %Chg ZScore SPIROMETRY FVC 3.47 2.92 3.91 4.91 88 -0.73 3.50 89 0 -0.68 FEV1 2.70 2.20 3.00 3.75 90 -0.63 2.77 92 2 -0.48 FEV1/FVC 0.78 0.65 0.77 0.88 100 0.07 0.79 102 1 0.27 FEFMax 8.61 6.10 8.32 10.54 103 0.21 8.88 106 3 0.42 FEF50 2.99 1.79 3.91 6.04 76 -0.71 3.52 89 17 -0.31 FIF50 5.03 5.17 2 FEF50/FIF50 0.60 90-100 0.68 14 FIVC 3.51 3.37 -4 FRB86-18 2.38 1.14 2.51 4.42 94 -0.13 2.71 108 14 0.20 ExpiredTime 8.68 6.88 -20 TimeToFEFMax 0.07 0.08 19 HENRY 0.12 0.19 59 VolExtrap% 3 5 58 Comments: Pre and post BD: Current ATS/ERS acceptability and repeatability standards for spirometry met. Start of test and EOFE criteria met. Medications and Allergies were reviewed for possible drug interactions per policy. No contraindications or sensitivities were noted. Meds taken: Airsupra and Breztri/4 hours before testing. 2 puffs Albuterol (180 mcg) delivered by MDI via holding chamber. HR pre = 94/min, HR post = 88/min. ///AP us Halle Obrien MD SCHEDULED PROCEDURES Final Resul t PULMONARY FUNCTION LAB [address] [place] [address] documented in this encounter Visit Diagnoses Diagnosis Cough, unspecified type- Primary documented in this encounter Care Teams Manager Express Relationship Specialty Start Date End Date Nick Bess II, MD PCP - General Internal Medicine 11/22/14 documented as of this encounter
--- OUTSIDE RECORDS SUMMARY | 2025-05-04 10:45 | XMS_ITS | Encounter Summary ---
Author Organization [facility] Address [address] [place] [address] Care Team Providers Care Top Cutter Name Role Phone Shahriar KEANE MD, Nick Gabriel Primary Care Provider [phone]- [phone] Source Comments In the event this information is protected by the Federal Confidentiality of Alcohol and Drug AbusePatient Records regulations: The Federal rules restrict any use of the information to criminally investigate or prosecute any alcohol or drug abuse patient.[facility] Reason for Visit * Reason Comments Spirometry * Outpatient Procedure (Routine) - Closed Specialty Diagnoses / Procedures Referred By Contac t Referred To Contact [facility] Diagnoses Cough, unspecified type Procedures NITRIC OXIDE, EXHALED NITRIC OXIDE [place] [address] [place] [address] Phone: tel: fax: [facility] [place] [address] [place] [phone] Referral ID Status Reason Start Date Expiration Date V isits Requested Visits Authorized [id number] Closed Auto-Generate d Referral 04/09/2025 05/09/2026 1 1 Encounter Details Date Type Department Care Team (Late st Contact Info) Description 05/04/2025 10:45 AM EDT Procedure PULMONARY [address] [facility] [place] [address] Spirometry Social History Tobacco Use Types Packs/Day Years Used Date Smoking Tobacco: Never Smokeless Tobacco: Never Alcohol Use Standard Drinks/Week Comments Yes 5 (1 standard drink = 0.6 oz pur e alcohol) Area Deprivation Index Answer Date Dung rded National Score (1-100), lower number is lower ri sk 61 05/04/2025 State Score (1-10), lower number is lower risk 4 05/04/2025 Data from: https://www.neighborhoodatlas.[facility]/. Last address used for calculation [address] [facility] 05/04/2025 Sex and Gender Information Value [...] Visit PULMONARY [address] [place] [address] [place] [address] [place] [address] 7 week follow up documented [...] type documented in this encounter Care Teams Top Cutter Relationship Specialty Start Date End Date Nick Bess II, MD PCP - General Internal Medicine 11/22/14 documented as of this encounter
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
[2025-05-11] VITALS (10 sets, daily range): BP systolic 122; BP diastolic 84; PULSE 81–93; TEMP 36.4; O2SAT 91–96; BMI 34.0
--- OUTSIDE RECORDS SUMMARY | 2025-05-11 14:10 | XMS_ITS | Encounter Summary ---
Author Organization [facility] Address [address] [place] [address] Care Team Providers Care Slide Maker Name Role Phone Shahriar KEANE MD, Nick Gabriel Primary Care Provider [phone] Source Comments In the event this information is protected by the Federal Confidentiality of Alcohol and Drug AbusePatient Records regulations: The Federal rules restrict any use of the information to criminally investigate or prosecute any alcohol or drug abuse patient.[facility] Encounter Details Date Type Department Care Team [...] AM EDT Office Visit PULMONARY [address] [place] [address] [place] [address] [place] [address] 7 week follow up documented as of this encounter Visit Diagnoses Not on filedocumented in this encounter Care Teams Slide Maker Relationship Specialty Start Date End Date Nick Bess II, MD PCP - General Internal Medicine 11/22/14 documented as of this encounter
--- OUTSIDE RECORDS SUMMARY | 2025-05-11 14:10 | XMS_ITS | Encounter Summary ---
Author Organization [facility] Address [address] [place] [address] Care Team Providers Care Laundry Or Dry Cleaners Counter Clerk Name Role Phone Nick Bess MD Primary Care Provider [phone] Nick Bess MD Unavailable [phone] Encounter Details Date Type Department Care Team (Late st Contact Info) Description 03/10/2025 Abstract [facility] [address] [facility] 110 [place] [phone] Nick Bess MD 112 [facility] 110 [place] [address] Social History Tobacco Use Types Packs/Day Years [...] week 12/01/2024 How often do you attend taoism or zoroastrian serv ices? Never 12/01/2024 Do you belong to any clubs o r organizations such as taoism groups, unions, fraternal or athletic groups, or [...] Recorded Patient Health Questionnaire-2 Score 0 03/11/2025 [facility] - Occupational [...] place to sleep or slept in a assisted (including now)? No 08/08/2023 Housing Stability Vital Sign Answer Dom e Recorded In the last 12 months, was t here a time when you were not able to pay the mortgage or rent on time? No 12/01/2024 Number of Times Moved in the Last Year Not on fi le 12/01/2024 At any time in the past 12 m [facility], were you homeless or living in a assisted (including now)? No 12/01/2024 Sex and Gender [...] [facility] [address] [place] [address] Jose Juan Nunes DO [address] [place] [address] 07/21/2025 9:05 AM EST Office Visit [facility] [address] [place] [address] Poly Holbrook MD [address] [place] [address] documented as of this encounter Visit Diagnoses Not on filedocumented in this encounter Additional Health Concerns Assessment Noted Time PHQ-9 Depression Total Score: 0 12/09/19 25 7:00 AM EDT documented as of this encounter Care Teams Laundry Or Dry Cleaners Counter Clerk Relationship Specialty Start Date End Date Nick Bess MD [address] [facility] 110 [place] [address] PCP - General Internal Medicine 01/08/23 Nick Bess MD [address] [facility] 110 [place] [address] PCP - [employer] 10/03/23 documented as of this encounter
--- OUTSIDE RECORDS SUMMARY | 2025-05-11 14:10 | XMS_ITS | Encounter Summary ---
Author Organization [facility] Address [address] [place] [address] [place] [address] Care Team Providers Care Warehouse Worker 2Nd Shift Name Role Phone Nick Bess MD Unavailable [phone] Nick Bess MD Primary Care Provider [phone] Nick Bess MD Unavailable [phone] Encounter Details Date Type Department Care Team (Late st Contact Info) Description 09/17/2023 [facility] [address] [place] [address] Poly Holbrook MD [address] [place] [address] Social History Tobacco Use Types Packs/Day Years [...] How often do you attend faith or sabianist serv ices? Never 08/08/2023 Do you belong [...] care, and heating? Not very hard 08/08/2023 [facility] - [...] place to sleep or slept in a fpc (including now)? No 08/08/2023 Sex and Gender Information Value Date Recorded Sex Assigned at Not on file Legal Sex Male 7:21 PM EDT Gender Identity Male 11/14/2022 7:21 PM EDT Sexual Orientation Not on file documented as of this encounter Plan of Treatment Upcoming Encounters Date Type Department Care Team (Late st Contact Info) Description 07/07/2025 9:15 AM EST Office Visit [facility] [address] [place] [address] Jose Juan Nunes DO [address] [place] [address] 07/21/2025 9:05 AM EST Office Visit [facility] [address] [place] [address] Poly Holbrook MD [address] [place] [address] documented as of this encounter Visit Diagnoses Not on filedocumented in this encounter Care Teams Warehouse Worker 2Nd Shift Relationship Specialty Start Date End Date Nick Bess MD [address] [facility] 110 [place] [address] PCP - Medical [place] [employer] 01/31/23 11/09/23 Nick Bess MD [address] [place] [address] [place] [address] PCP - General Internal Medicine 01/08/23 Nick Bess MD [address] [place] [address] [place] [address] PCP - [employer] 10/03/23 documented as of this encounter
--- OUTSIDE RECORDS SUMMARY | 2025-05-11 14:10 | XMS_ITS | Encounter Summary ---
Author Organization [facility] Address [address] [place] [address] Care Team Providers Care Clinical Systems Analyst Name Role Phone Rachel Kerns MD Primary Care Provider [phone] Pcp, No Primary Care Provider Marta Bess II, MD, Nick Gabriel Primary Care Provider [phone] Source Comments In the event this information is protected by the Federal Confidentiality of Alcohol and Drug AbusePatient Records regulations: The Federal rules restrict any use of the information to criminally investigate or prosecute any alcohol or drug abuse patient.[facility] Encounter Details Date Type Department Care Team [...] Visit PULMONARY [address] [place] [address] [place] [address] [place] [address] 7 week follow up documented as of this encounter Visit Diagnoses Not on filedocumented in this encounter Care Teams Clinical Systems Analyst Relationship Specialty Start Date End Date Rachel Kerns MD 112 [facility] 110 [place] [address] PCP - General 01/01/05 07/02/05 Pcp, No PCP - General 10/26/04 12/31/04 Nick Bess II, MD PCP - General Internal Medicine 11/22/14 documented as of this encounter
--- OUTSIDE RECORDS SUMMARY | 2025-05-11 14:10 | XMS_ITS | Encounter Summary ---
Author Organization [facility] Address [address] [place] [address] Care Team Providers Care Assistant Education Director Name Role Phone Shahriar KEANE MD, Nick Gabriel Primary Care Provider [phone] Source Comments In the event this information is protected by the Federal Confidentiality of Alcohol and Drug AbusePatient Records regulations: The Federal rules restrict any use of the information to criminally investigate or prosecute any alcohol or drug abuse patient.[facility] Encounter Details Date Type Department Care Team (Late st Contact Info) Description 05/05/2025 Telephone Pulmonary Medicine [address] [place], [place] [phone] [place] [address] [place] [address] Social History Tobacco Use Types Packs/Day Years Used Date Smoking Tobacco: Never Smokeless Tobacco: Never Alcohol Use Standard Drinks/Week Comments Yes 5 (1 standard drink = 0.6 oz pur e alcohol) Area Deprivation Index Answer Date Dung rded National Score (1-100), lower number is lower ri sk 61 05/04/2025 State Score (1-10), lower number is lower risk 4 05/04/2025 Data from: https://www.neighborhoodatlas.medicine.[facility].edu/. Last address used for calculation [address] [...] having a CT just this summer in [facility]. It's not being collectedby Care Everywhere. Can we obtain his CT chest images on a CD please? Thank you! Faxed Auth to Disclose info to [facility] for CT Chest imaging documented in this encounter Plan of Treatment Upcoming Encounters Date Type Department Care Team (Late st Contact Info) Description 06/22/2025 10:00 AM EDT Office Visit PULMONARY [address] [facility] [place] [address] [place] [address] [place], [place] [phone] 7 week follow up documented as of this encounter Visit Diagnoses Not on filedocumented in this encounter Care Teams Assistant Education Director Relationship Specialty Start Date End Date Nick Bess II, MD PCP - General Internal Medicine 11/22/14 documented as of this encounter
--- OUTSIDE RECORDS SUMMARY | 2025-05-11 14:10 | XMS_ITS | Encounter Summary ---
Author Organization [facility] Address [address] [place] [address] Care Team Providers Care Chrome Tanning Drum Operator Name Role Phone Shahriar KEANE MD, Nick Gabriel Primary Care Provider [phone] Source Comments In the event this information is protected by the Federal Confidentiality of Alcohol and Drug AbusePatient Records regulations: The Federal rules restrict any use of the information to criminally investigate or prosecute any alcohol or drug abuse patient.[facility] Encounter Details Date Type Department Care [...] [email or web address] Last address used for calculation [address] [place] [address] 05/04/2025 Sex and Gender Information Value Date [...] [place] [address] [place] [address] [place] [address] 7 week follow up documented as of this encounter Visit Diagnoses Not on filedocumented in this encounter Care Teams Chrome Tanning Drum Operator Relationship Specialty Start Date End Date Nick Bess II, MD PCP - General Internal Medicine 11/22/14 documented as of this encounter
--- OUTSIDE RECORDS SUMMARY | 2025-05-11 14:11 | XMS_ITS | Encounter Summary ---
Author Organization [facility] Address [address] [place] [address] Care Team Providers Care Gas Turbine Powerplant Mechanic Name Role Phone Nick Bess MD Primary Care Provider [phone] Nick Bess MD Unavailable [phone] Encounter Details Date Type Department Care Team (Late st Contact Info) Description 09/03/2024 Abstract [facility] [address] [facility] 110 [place] [address] Nick Bess MD 112 [facility] 110 [place] [address] Social History Tobacco Use Types Packs/Day Years [...] declined 08/08/2023 How often do you attend christian or taoist serv ices? Never 08/08/2023 Do you belong to any clubs o r organizations such as christian groups, unions, fraternal or athletic groups, or [...] care, and heating? Not very hard 08/08/2023 [facility] Occupat ional Health - [...] 07/07/2025 9:15 AM EST Office Visit [facility] [address] [place] [address] Jose Juan Nunes DO [address] [place] [address] 07/21/2025 9:05 AM EST Office Visit [facility] [address] [place] [address] Poly Holbrook MD [address] [place] [address] documented as of this encounter Visit Diagnoses Not on filedocumented in this encounter Additional Health Concerns Assessment Noted Time PHQ-9 Depression Total Score: 0 10/02/19 24 6:43 AM EST documented as of this encounter Care Teams Gas Turbine Powerplant Mechanic Relationship Specialty Start Date End Date Nick Bess MD 112 [facility] 110 [place] [address] PCP - General Internal Medicine 01/08/23 Nick Bess MD [address] [address] PCP - [employer] 10/03/23 documented as of this encounter
--- OUTSIDE RECORDS SUMMARY | 2025-05-11 14:11 | XMS_ITS | Encounter Summary ---
Author Organization [facility] Address [address] [place] [address] Care Team Providers Care Hotel Service Supervisor Name Role Phone Nick Bess MD Primary Care Provider [phone] Nick Bess MD Unavailable [phone] Encounter Details Date Type Department Care Team (Late st Contact Info) Description 05/10/2025 [facility] 112 [facility] 110 [place] [address] Marina Thompson PA [address] [facility] 110 [place] [address] Social History Tobacco Use Types Packs/Day Years [...] week 12/01/2024 How often do you attend mu-ism or advent serv ices? Never 12/01/2024 Do you belong to any clubs o r organizations such as mu-ism groups, unions, fraternal or athletic groups, or [...] Recorded Patient Health Questionnaire-2 Score 0 03/11/2025 [facility] of Occupat ional Health - Occupational Stress [...] place to sleep or slept in a detention (including now)? No 08/08/2023 Housing Stability Vital Sign Answer Dom e Recorded In the last 12 months, was t here a time when you were not able to pay the mortgage or rent on time? No 12/01/2024 Number of Times Moved in the Last Year Not on fi le 12/01/2024 At any time in the past 12 m [facility], were you homeless or living in a detention (including now)? No 12/01/2024 Sex and Gender [...] PM EDT As he is seeing a [facility] now, Dr. Bess and I are deferring care for his cough to the [facility]. He needs to reach out to their [...] 07/07/2025 9:15 AM EST Office Visit [facility] [address] [place] [address] Jose Juan Nunes DO [address] [place] [address] 07/21/2025 9:05 AM EST Office Visit [facility] [address] [place] [address] Poly Holbrook MD [address] [place] [address] documented as of this encounter Visit Diagnoses Not on filedocumented in this encounter Additional Health Concerns Assessment Noted Time PHQ-9 Depression Total Score: 0 12/09/19 25 7:00 AM EDT documented as of this encounter Care Teams Hotel Service Supervisor Relationship Specialty Start Date End Date Nick Bess MD 112 [facility] 110 [place] [address] PCP - General Internal Medicine 01/08/23 Nick Bess MD [address] [address] PCP - [employer]et[employer] 10/03/23 documented as of this encounter
--- OUTSIDE RECORDS SUMMARY | 2025-05-11 14:11 | XMS_ITS | Encounter Summary ---
Author Organization [facility] Address [address] [place] [address] Care Team Providers Care Motor Home Electrical Foreman Name Role Phone Nick Bess MD Primary Care Provider [phone] Nick Bess MD Unavailable [phone] Encounter Details Date Type Department Care Team (Late st Contact Info) Description 09/03/2024 Abstract [facility] [address] [facility] 110 [place] [address] Nick Bess MD 112 [facility] 110 [place] [address] Social History Tobacco Use Types Packs/Day Years [...] declined 08/08/2023 How often do you attend nondenominational or restorationism serv ices? Never 08/08/2023 Do you belong to any clubs o r organizations such as nondenominational groups, unions, fraternal or athletic groups, or [...] care, and heating? Not very hard 08/08/2023 [facility] Occupat ional Health - [...] place to sleep or slept in a [place] health care facility (including now)? No 08/08/2023 Sex and Gender Information Value Date Recorded Sex Assigned at Not on file Legal Sex Male 7:21 PM EDT Gender Identity Male 11/14/2022 7:21 PM EDT Sexual Orientation Not on file documented as of this encounter Plan of Treatment Upcoming Encounters Date Type Department Care Team (Late st Contact Info) Description 07/07/2025 9:15 AM EST Office Visit [facility] [address] [place] [address] Jose Juan Nunes DO [address] [place] [address] 07/21/2025 9:05 AM EST Office Visit [facility] [address] [place] [address] Poly Holbrook MD [address] [place] [address] documented as of this encounter Visit Diagnoses Not on filedocumented in this encounter Additional Health Concerns Assessment Noted Time PHQ-9 Depression Total Score: 0 10/02/19 24 6:43 AM EST documented as of this encounter Care Teams Motor Home Electrical Foreman Relationship Specialty Start Date End Date Nick Bess MD 112 [facility] 110 [place] [address] PCP - General Internal Medicine 01/08/23 Nick Bess MD [address] [address] PCP - [employer]et[employer] 10/03/23 documented as of this encounter
--- OUTSIDE RECORDS SUMMARY | 2025-05-11 14:11 | XMS_ITS | Encounter Summary ---
Author Organization [facility] Address [address] [place] [address] Care Team Providers Care Shaft Mechanic Name Role Phone Nick Bess MD Unavailable [phone] Nick Bess MD Primary Care Provider [phone] Nick Bess MD Unavailable [phone] Encounter Details Date Type Department Care Team (Late Contact Info) Description 07/18/2023 Abstract [facility] [address] [facility] 110 [place] [address] Nick Bess MD 112 [facility] 110 [place], [place] [address] Social History Tobacco Use Types Packs/Day Years [...] 07/07/2025 9:15 AM EST Office Visit [facility] [address] [place] [address] Jose Juan Nunes, DO [address] [place] [address] 07/21/2025 9:05 AM EST Office Visit [facility] [place] [facility] [address] [place] [address] Poly Holbrook MD [address] [place] [address] documented as of this encounter Visit Diagnoses Not on filedocumented in this encounter Care Teams Shaft Mechanic Relationship Specialty Start Date End Date Nick Bess MD [address] [place], [place] [address] PCP - Medical [place] [employer] 01/31/23 11/09/23 Nick Bess MD [address] [place], [place] [address] PCP - General Internal Medicine 01/08/23 Nick Bess MD [address] [place] [address] PCP - [employer] 10/03/23 documented as of this encounter"
--- OUTSIDE RECORDS SUMMARY | 2025-05-11 14:11 | XMS_ITS | Encounter Summary ---
Author Organization [facility] Address [address] [place] [address] Care Team Providers Care Supervising Architect Name Role Phone Nick Bess MD Unavailable [phone] Nick Bess MD Primary Care Provider [phone] Nick Bess MD Unavailable [phone] Encounter Details Date Type Department Care Team (Late st Contact Info) Description 03/18/2023 Abstract [facility] [address] [place] [address] Nick Bess MD [address] [place], [place] [address] Social History Tobacco Use Types Packs/Day Years [...] 9:15 AM EST Office Visit [facility] [address] [place] [address] Jose Juan Nunes DO [address] [place] [address] 07/21/2025 9:05 AM EST Office Visit [facility] [place] [facility] [address] [address] [place] [address] Poly Holbrook MD [address] [place] [address] documented as of this encounter Visit Diagnoses Not on filedocumented in this encounter Care Teams Supervising Architect Relationship Specialty Start Date End Date Nick Bess MD [address] [facility] 110 [place] [address] PCP - Medical [place] [employer] 01/31/23 11/09/23 Nick Bess MD [address] [facility] 110 [place] [address] PCP - General Internal Medicine 01/08/23 Nick Bess MD [address] [facility] 110 [place] [address] PCP - [employer] 10/03/23 documented as of this encounter
--- OUTSIDE RECORDS SUMMARY | 2025-05-11 14:11 | XMS_ITS | Clinical Summary ---
Author Organization [facility] Address [address] [place] [address] Care Team Providers Care Military Equipment Specialist Name Role Phone Shahriar KEANE MD, Nick Gabriel Primary Care Provider [phone] Allergies Active Allergy Reactions Criticality Noted Date [...] Care Team Description 05/05/2025 Telephone Pulmonary Medicine [address] [facility] [place] [address] Iman Obrien MD 05/04/2025 11:00 AM EDT Office Visit PULMONARY [address] [place] [address] mIan Obrien MD Chronic cough (Primary Dx); Allergic rhinitis, unspecified seasonality, unspecified trigger; Asthma, unspecified asthma severity, unspecified whether complicated, unspecified whether persistent (HCC) 05/04/2025 10:45 AM EDT Procedure [facility]ULMON[facility] [address] [facility] [place] [address] Spirometry 05/04/2025 10:15 AM EDT Procedure PULMONARY [address] [facility] [place] [address] Spirometry 05/04/2025 Travel 05/02/2025 Travel 04/09/2025 Orders Only Respiratory [place] [address] [facility] [address] Iman Obrien MD Cough, unspecified type (Primary Dx) 03/29/2025 Telephone Pulmonary Medicine [address] [id number] Russell Serna MD from Last 3 Months [...] is lower risk 4 05/04/2025 Data from: https://www.neighborhoodatlas.medicine.[facility].edu/. Last address used for calculation [address] [facility] 05/04/2025 Sex and Gender Information Value Date [...] 10:00 AM EDT Office Visit [facility]ULMONARY [address] [facility] [place] [address] [place] [address] [place] [address] 7 week follow up Health [...] Procedure Name Priority Date/Time Associated Diagnosis Comments EXTERNAL LAB 05/11/2025 12:37 PM EDT NITRIC OXIDE, EXHALED Routine 05/04/2025 10:20 AM EDT Cough, unspecified type SPIROMETRY - BASELINE AND POST DILATOR Routine 05/04/2025 10:14 AM EDT Cough, unspecified type from Last 3 Months Results * EXTERNAL LAB (05/11/2025 12:37 PM EDT) External Provider [facility] Final Res ult * NITRIC OXIDE, EXHALED (05/04/2025 10:20 AM [...] 04, 2025 TIME: 10:20 AM us Iman Obrien MD SCHEDULED PROCEDURES Final [...] ULN (L/S) 1.75 L/S PULMONARY FUNCTION LAB VWW29-92% PRE (L/S) 2.38 L/S PULMONARY FUNCTION LAB IFX42-92% POST (L/S) 2.71 L/S PULMONARY FUNCTION LAB HUJ08-34% PREDICTED (L/S) 2.51 L/S PULMONARY FUNCTION LAB PWW57-71% LLN (L/S) 1.14 L/S PULMONARY FUNCTION LAB [...] FUNCTION LAB - 05/06/2025 11:33 AM EDT [address] [place] [address] Test Date: 2025-05-04 Pat Name: EFRA[facility] HEART Department: Room: Gender: Male Bookkeeper Receptionist: : 1960 Requested By: Order Number: [id number] Reading MD: Bernardo Buck MD Interpretive Statements [...] 11:33:34 EDT by Bernardo Buck MD ID: [id number] Name: EFRAIN HEART Race: White Ht: 68.50 in Wt: 255.30 lbs Age: 64 Gender: Male : 1960 Dx: Cough, unspecified_ Smoking Hx: Non-smoker Doctor: IMAN OBRIEN Test Date: 05/04/2025 Site: [place] Tech: Jessika Lunsford PRE-BRONCH POST-BRONCH Richard LLN [...] 90-100 0.68 14 FIVC 3.51 3.37 -4 YKJ00-94 2.38 1.14 2.51 4.42 94 -0.13 2.71 [...] = 94/min, HR post = 88/min. ///AP Iman Obrien MD SCHEDULED PROCEDURES Final Resul t PULMONARY FUNCTION LAB [address] [place] [address] from Last 3 Months Insurance [employer] MEDICARE Care Teams Military Equipment Specialist Relationship Specialty Start Date End Date Nick Bess II, MD PCP - General Internal Medicine 11/22/14
--- OUTSIDE RECORDS SUMMARY | 2025-05-11 14:11 | XMS_ITS | Encounter Summary ---
Author Organization [facility] Address [address] [place] [address] Care Team Providers Care Automatic Shirring Machine Operator Name Role Phone Nick Bess MD Primary Care Provider [phone] Nick Bess MD Unavailable [phone] Reason for Visit * Reason Comments Med Refill Encounter Details Date Type Department Care Team (Late st Contact Info) Description 05/03/2025 Refill [facility] 112 [facility] 110 [place] [address] Marina Thompson PA 112 [facility] 110 [place] [address] Gastroesophageal reflux disease without esophagitis Social History [...] How often do you attend yazidism or yarsanism serv ices? Never 12/01/2024 Do you belong [...] Recorded Patient Health Questionnaire-2 Score 0 03/11/2025 [facility] of Occupat ional Health - [...] place to sleep or slept in a residential (including now)? No 08/08/2023 Housing Stability Vital [...] were you homeless or living in a residential (including now)? No 12/01/2024 Sex and Gender Information Value Date Recorded Sex Assigned at Not on file Legal Sex Male 7:21 PM EDT Gender Identity Male 11/14/2022 7:21 PM EDT Sexual Orientation Not on file documented as of this encounter Plan of Treatment Upcoming Encounters Date Type Department Care Team (Late st Contact Info) Description 07/07/2025 9:15 AM EST Office Visit [facility] [address] [place] [address] Jose Juan Nunes, DO [address] [place] [address] 07/21/2025 9:05 AM EST Office Visit [facility] [address] [place] [address] Poly Holbrook MD [address] [place] [address] documented as of this encounter Visit Diagnoses Diagnosis Gastroesophageal reflux disease without esophagitis Esophageal reflux documented in this encounter Additional Health Concerns Assessment Noted Time PHQ-9 Depression Total Score: 0 12/09/19 25 7:00 AM EDT documented as of this encounter Care Teams Automatic Shirring Machine Operator Relationship Specialty Start Date End Date Nick Bess MD 112 [facility] 110 [place] [address] PCP - General Internal Medicine 01/08/23 Nick Bess MD 112 [facility] 110 [place] [address] PCP - [employer] 10/03/23 documented as of this encounter
--- OUTSIDE RECORDS SUMMARY | 2025-05-11 14:11 | XMS_ITS | Encounter Summary ---
Author Organization [facility] Address [address] [place] [address] Care Team Providers Care Digital Marketing Intern Name Role Phone Nick Bess MD Unavailable [phone] Nick Bess MD Primary Care Provider [phone] Nick Bess MD Unavailable [phone] Encounter Details Date Type Department Care Team (Late st Contact Info) Description 10/09/2023 Abstract [facility] [address] [facility] 110 [place] [address] Nick Bess MD 112 [facility] 110 [place] [address] Social History Tobacco Use Types [...] declined 08/08/2023 How often do you attend confucianism or synagogue serv ices? Never 08/08/2023 Do you belong to any clubs o r organizations such as confucianism groups, unions, fraternal or athletic groups, or [...] care, and heating? Not very hard 08/08/2023 [facility] of Occupat ional Health - Occupational [...] place to sleep or slept in a halfway (including now)? No 08/08/2023 Sex and Gender Information Value Date Recorded Sex Assigned at Not on file Legal Sex Male 7:21 PM EDT Gender Identity Male 11/14/2022 7:21 PM EDT Sexual Orientation Not on file documented as of this encounter Plan of Treatment Upcoming Encounters Date Type Department Care Team (Late st Contact Info) Description 07/07/2025 9:15 AM EST Office Visit [facility] [address] [place] [address] Jose Juan Nunes DO [address] [place] [address] 07/21/2025 9:05 AM EST Office Visit [facility] [address] [place] [address] Poly Holbrook MD [address] [place] [address] documented as of this encounter Visit Diagnoses Not on filedocumented in this encounter Additional Health Concerns Assessment Noted Time PHQ-9 Depression Total Score: 0 10/02/19 24 6:43 AM EST documented as of this encounter Care Teams Digital Marketing Intern Relationship Specialty Start Date End Date Nick Bess MD [address] [place] [address] PCP - Medical [employer] 01/31/23 11/09/23 Nick Bess MD [address] [place] [address] [place] [address] PCP - General Internal Medicine 01/08/23 Nick Bess MD [address] [place] [address] PCP - [employer] 10/03/23 documented as of this encounter
--- OUTSIDE RECORDS SUMMARY | 2025-05-11 14:11 | XMS_ITS | Encounter Summary ---
Author Organization [facility] Address [address] [place] [address] Care Team Providers Care Financial Compliance Manager Name Role Phone Nick Bess MD Primary Care Provider [phone] Nick Bess MD Unavailable [phone] Encounter Details Date Type Department Care Team (Late st Contact Info) Description 11/24/2024 Abstract [facility] [address] [facility] [facility] 110 [place] [address] Nick Bess MD 112 [facility] 110 [place] [address] Social History Tobacco Use Types Packs/Day Years [...] declined 08/08/2023 How often do you attend hoahaoism or catholic serv ices? Never 08/08/2023 Do you belong to any clubs o r organizations such as hoahaoism groups, unions, fraternal or athletic groups, or [...] Recorded Patient Health Questionnaire-2 Score 0 11/24/2024 [facility] - Occupational Stress Questionnaire Answer Date Recorded [...] to sleep or slept in a senior care (including now)? No 08/08/2023 Sex and Gender [...] 07/07/2025 9:15 AM EST Office Visit [facility] [address] [place] [address] Jose Juan Nunes, DO [address] [place] [address] 07/21/2025 9:05 AM EST Office Visit [facility] [address] [place] [address] Poly Holbrook MD [address] [facility] 350 [place] [address] documented as of this encounter Visit Diagnoses Not on filedocumented in this encounter Additional Health Concerns Assessment Noted Time PHQ-9 Depression Total Score: 0 10/02/19 24 6:43 AM EST documented as of this encounter Care Teams Financial Compliance Manager Relationship Specialty Start Date End Date Nick Bess MD [address] [facility] 110 [place] [address] PCP - General Internal Medicine 01/08/23 Nick Bess MD [address] [facility] 110 [place] [address] PCP - [employer] 10/03/23 documented as of this encounter
--- OUTSIDE RECORDS SUMMARY | 2025-05-11 14:11 | XMS_ITS | Encounter Summary ---
Author Organization [facility] Address [address] [place] [address] Care Team Providers Care Monkey Breeder Name Role Phone Nick Bess MD Primary Care Provider [phone] Nick Bess MD Unavailable [phone] Encounter Details Date Type Department Care Team (Late st Contact Info) Description 03/11/2025 Abstract [facility] [address] [facility] [facility] 110 [place] [address] Nick Bess MD 112 [facility] 110 [place] [address] Social History Tobacco Use Types Packs/Day Years [...] week 12/01/2024 How often do you attend pentecostalism or christian serv ices? Never 12/01/2024 Do you belong to any clubs o r organizations such as pentecostalism groups, unions, fraternal or athletic groups, or [...] Health Questionnaire-2 Score 0 03/11/2025 [facility] of Occupat ional Health [...] time in the past 12 m [facility], were you homeless or living in a [...] [facility] [address] [place] [address] Jose Juan Nunes DO [address] [place] [address] 07/21/2025 9:05 AM EST Office Visit [facility] [place] [facility] [address] [place] [address] Poly Holbrook MD [address] [place] [address] documented as of this encounter Visit Diagnoses Not on filedocumented in this encounter Additional Health Concerns Assessment Noted Time PHQ-9 Depression Total Score: 0 12/09/19 25 7:00 AM EDT documented as of this encounter Care Teams Monkey Breeder Relationship Specialty Start Date End Date Nick Bess MD [address] [facility] 110 [place] [address] PCP - General Internal Medicine 01/08/23 Nick Bess MD [address] [facility] 110 [place] [address] PCP - [employer] 10/03/23 documented as of this encounter
--- OUTSIDE RECORDS SUMMARY | 2025-05-11 14:11 | XMS_ITS | Clinical Summary ---
Author Organization [facility] Address [address] [place] [address] Care Team Providers Care Vegetable Farmer Name Role Phone Nick Bess MD Primary Care Provider [phone] Nick Bess MD Unavailable [phone] Allergies No known active allergies Medications [...] Encounters Date Type Department Care Team Description 05/11/2025 Clinisync Result Encounter NOMS External Department Unsolicited Provider, Generic External Data 05/10/2025 Telephone [facility] [place] [facility] 112 [facility] 110 [place] [address] Marina Thompson PA 05/03/2025 Refill [facility] [place] [facility] 112 [facility] 110 [place] [address] Marina Thompson PA Gastroesophageal reflux disease without esophagitis 04/27/2025 Telephone [facility] [place] [facility] 112 [facility] 110 [place] [address] Marina Thompson PA 04/20/2025 8:30 AM EDT Office Visit [facility] [address] [place] [address] Ruben Tai, DO Chronic cough; Gastroesophageal reflux disease, unspecified whether esophagitis present 04/20/2025 Bamboo flowsheet [facility] [address] [place] [address] Ruben Tai, 04/20/2025 Travel 04/03/2025 Refill [facility] [place] [facility] [address] [facility] 110 [place] [address] Nick Bess MD Benign essential hypertension 03/24/2025 9:15 AM EDT Office Visit [facility] [address] [facility] 110 [place] [address] Nick Bess MD Persistent cough for 3 weeks or longer (Primary Dx); Obstructive sleep apnea syndrome; Moderate persistent asthma without complication (HCC); Closed fracture of multiple ribs of right side, initial encounter; Current use of steroid medication 03/24/2025 Travel 03/23/2025 9:00 AM EDT Office Visit [facility] [address] [facility] 350 [place] [address] Poly Holbrook MD Seborrheic keratosis (Primary Dx); History of basal cell carcinoma; Seborrheic keratosis, inflamed; Lentigines; Actinic keratosis 03/23/2025 Bamboo flowsheet [facility] [address] [facility] [address] [place] [address] Poly Holbrook MD 03/23/2025 Travel 03/18/2025 Travel 03/17/2025 Refill [facility] [place] [facility] [address] [facility] 110 [place] [address] Marina Thompson PA Closed fracture of multiple ribs of right side with routine healing, subsequent encounter (Primary Dx) 03/15/2025 Orders Only [facility] [place] [facility] [address] [facility] 110 [place] [address] Hemmer, Marina M, PA Chronic sinusitis of both maxillary sinuses; Chronic rhinitis 03/12/2025 Abstract [facility] [address] [facility] 110 [place] [address] Nick Bess MD 03/11/2025 9:00 AM EDT Office [facility] [address] [facility] 110 [place] [address] Marina Thompson PA Gastroesophageal reflux disease without esophagitis (Primary Dx); Moderate persistent asthma without complication (HCC); Class 2 severe obesity due to excess calories with serious comorbidity and body mass index (BMI) of 36.0 to 36.9 in adult ([facility]-H[facility]); Closed fracture of multiple ribs of right side with routine healing, subsequent encounter; Persistent cough for 3 weeks or longer 03/11/2025 Abstract [facility] [address] [facility] 110 [place] [address] Nick Bess MD 03/11/2025 Bamboo flowsheet [facility] [place] [facility] [address] [facility] 110 [place] [address] Marina Thompson PA 03/11/2025 Travel 03/10/2025 Abstract [facility] [place] [facility] [address] [facility] 110 [place] [address] Nick Bess MD 03/10/2025 Abstract [facility] [place] [facility] [address] [facility] 110 [place] [address] Nick Bess MD 03/10/2025 Abstract [facility] [place] [facility] [address] [facility] 110 [place] [address] Nick Bess MD 03/10/2025 Abstract [facility] [place] [facility] [address] [facility] 110 [place] [address] Nick Bess MD 03/10/2025 Travel 02/24/2025 Refill [facility] [place] [facility] [address] [facility] 110 [place] [address] Diana Hess, ENGINEER ASSISTANT Acute non-recurrent pansinusitis from Last 3 Months [...] Ceballos Pancreatic cancer Mother Cancer Sister Cynthia cebalols Melanoma Neg Hx Relation Name Status Comments [...] week 12/01/2024 How often do you attend cheondoism or advent serv ices? Never 12/01/2024 Do [...] Health Questionnaire-2 Score 0 03/11/2025 [facility] of Occupat ional Health - [...] place to sleep or slept in a nursing home (including now)? No 08/08/2023 Housing Stability Vital Sign Answer Dom e Recorded In the last 12 months, was t here a time when you were not able to pay the mortgage or rent on time? No 12/01/2024 Number of Times Moved in the Last Year Not on fi le 12/01/2024 At any time in the past 12 m [facility], were you homeless or living in a nursing home (including now)? No 12/01/2024 Sex and [...] [facility] [address] [place] [address] Jose Juan Nunes DO [address] [place] [address] 07/21/2025 9:05 AM EST Office Visit [facility] [address] [place] [address] Poly Holbrook MD [address] [place] [address] Health Maintenance Due Date Last Done Comments CT Colonography 1960 Colonoscopy 1960 Colorectal Cancer Screening 1960 FIT-DNA 1960 FIT 1960 FOBT 1960 Sigmoidoscopy 1960 Influenza Vaccine (#1) 2025 , 07/01/2023, 2022, Additional history exists Medicare Annual Wellness (AWV) 12/08/2025 0 12/08/2024, 12/08/2024, 10/08/2023 Pneumococcal Vaccine: 65+ Years Completed 3 Procedures Procedure Name Priority Date/Time Associated Diagnosis Comments ALL CBC WITH AUTO DIFF Routine 05/11/2025 8:08 AM EDT CRYOTHERAPY SKIN LESION Routine 03/23/2025 8:57 AM EDT Seborrheic keratosis, inflamed from Last 3 Months Results * (ABNORMAL) ALL CBC WITH AUTO DIFF (05/11/2025 8:08 AM EDT) TBH WBC 11.1(H) 4.0 - 11.0 10 3/uL TBH TBH RBC 4.29(L) 4.70 - 6.10 10 6/uL TBH TBH HGB 14.6 14.0 - 18.0 g/dL TBH TBH HCT 42.8 42.0 - 54.0 % TBH TBH MCV 99.8(H) 80.0 - 94.0 fL TBH TBH MCH 34.0 25.9 - 34.0 pg TBH TBH MCHC 34.1 29.9 - 35.2 g/dL TBH TBH RDW 12.2 11.0 - 15.0 % TBH TBH PLT 286 150 - 450 10 3/uL TBH TBH MPV 9.3(L) 9.5 - 13.5 fL TBH NEUTROPHILS PERCENT AUTO 72.6 43.0 - 75.0 % TBH LYMPHOCYTES PERCENT AUTO 18.0(L) 20.5 - 60.0 % TBH MONOCYTES PERCENT AUTO 8.0 1.7 - 12.0 % TBH TBH EO % 0.5(L) 0.9 - 7.0 % TBH BASOPHILS PERCENT AUTO 0.4 0.2 - 2.0 % TBH IMMATURE GRANULOCYTES PCT AUTO 0.5 0.0 - 0.5 % TBH NEUTROPHILS ABSOLUTE AUTO 8.1(H) 1.4 - 6.5 10 3/uL TBH LYMPHOCYTES ABSOLUTE AUTO 2.0 1.2 - 3.8 10 3/uL TBH MONOCYTES ABSOLUTE AUTO 0.9(H) 0.3 - 0.8 10 3/uL TBH TBH EO # 0.1 0.0 - 0.7 10 3/uL TBH BASOPHILS ABSOLUTE AUTO 0.0 0.0 - 0.1 10 3/uL TBH IMMATURE GRANULOCYTES ABS AUTO 0.06(H) 0.00 - 0.03 10 3/uL TBH 05/11/2025 8:08 AM EDT 05/11/2025 8:09 AM EDT Narrative CLINISY[facility] - 05/11/2025 8:24 AM EDT us Generic External Data Provider DEVEN mirza Result [facility] * Cryotherapy, skin lesion (03/23/2025 8:57 AM EDT) us Poly Holbrook MD DERM PROCEDURE ORDERABLES Fin al Result from Last 3 Months Insurance [employer] MEDICARE ADVANTAGE Care Teams Vegetable Farmer Relationship Specialty Start Date End Date Nick Bess MD 112 [facility] 110 [place] [address] PCP - General Internal Medicine 01/08/23 Nick Bess MD [address] [facility] 110 [place] [address] PCP - [employer] 10/03/23
--- OUTSIDE RECORDS SUMMARY | 2025-05-11 14:11 | XMS_ITS | Encounter Summary ---
Author Organization [facility] Address [address] [place] [address] Care Team Providers Care Incinerator Plant Laborer Name Role Phone Nick Bess MD Primary Care Provider [phone] Nick Bess MD Unavailable [phone] Encounter Details Date Type Department Care Team (Late st Contact Info) Description 09/03/2024 Abstract [facility] [address] [facility] 110 [place] [address] Nick Bess MD 112 [facility] 110 [place] [address] Social History Tobacco Use Types Packs/Day Years [...] declined 08/08/2023 How often do you attend religion or adventist serv ices? Never 08/08/2023 Do you belong to any clubs o r organizations such as religion groups, unions, fraternal or athletic groups, or [...] care, and heating? Not very hard 08/08/2023 [facility] of Occupat ional Health - Occupational Stress [...] in a custodial (including now)? No 08/08/2023 Sex and Gender [...] [address] [place] [address] Jose Juan Nunes DO [address] [place] [address] 07/21/2025 9:05 AM EST Office Visit [facility] [address] [place] [address] Poly Holbrook MD [address] [place] [address] documented as of this encounter Visit Diagnoses Not on filedocumented in this encounter Additional Health Concerns Assessment Noted Time PHQ-9 Depression Total Score: 0 10/02/19 24 6:43 AM EST documented as of this encounter Care Teams Incinerator Plant Laborer Relationship Specialty Start Date End Date Nick Bess MD 112 [facility] 110 [place] [address] PCP - General Internal Medicine 01/08/23 Nick Bess MD [address] [address] PCP - [employer] 10/03/23 documented as of this encounter
--- OUTSIDE RECORDS SUMMARY | 2025-05-11 14:11 | XMS_ITS | Encounter Summary ---
Author Organization [facility] Address [address] [place] [address] Care Team Providers Care Gas Generator Operator Name Role Phone Nick Bess MD Primary Care Provider [phone] Nick Bess MD Unavailable [phone] Encounter Details Date Type Department Care Team (Late st Contact Info) Description 09/03/2024 Abstract [facility] 112 [facility] 110 [place] [address] Nick Bess MD 112 [facility] 110 [place] [address] Social History Tobacco Use Types Packs/Day Years [...] declined 08/08/2023 How often do you attend mu-ism or shinto serv ices? Never 08/08/2023 Do [...] care, and heating? Not very hard 08/08/2023 [facility]at ional [...] in a residential (including now)? No 08/08/2023 Sex and Gender Information Value Date Recorded Sex Assigned at Not on file Legal Sex Male 7:21 PM EDT Gender Identity Male 11/14/2022 7:21 PM EDT Sexual Orientation Not on file documented as of this encounter Plan of Treatment Upcoming Encounters Date Type Department Care Team (Late st Contact Info) Description 07/07/2025 9:15 AM EST Office Visit [facility] [address] [place] [address] Jose Juan Nunes DO [address] [place] [address] 07/21/2025 9:05 AM EST Office Visit [facility] [address] [place] [address] Poly Holbrook MD [address] [place] [address] documented as of this encounter Visit Diagnoses Not on filedocumented in this encounter Additional Health Concerns Assessment Noted Time PHQ-9 Depression Total Score: 0 10/02/19 24 6:43 AM EST documented as of this encounter Care Teams Gas Generator Operator Relationship Specialty Start Date End Date Nick Bess MD 112 [facility] 110 [place] [address] PCP - General Internal Medicine 01/08/23 Nick Bess MD [address] [address] PCP - [employer]et[employer] 10/03/23 documented as of this encounter
--- OUTSIDE RECORDS SUMMARY | 2025-05-11 14:11 | XMS_ITS | Encounter Summary ---
Author Organization [facility] Address [address] [place] [address] Care Team Providers Care Hair And Makeup Designer Name Role Phone Nick Bess MD Primary Care Provider [phone] Nick Bess MD Unavailable Encounter Details Date Type Department Care Team (Late st Contact Info) Description 03/10/2025 Abstract [facility] [place] [facility] 112 [facility] 110 [place] [address] Nick Bess MD 112 [facility] 110 [place] [address] Social History Tobacco Use Types Packs/Day Years [...] week 12/01/2024 How often do you attend voodoo or sikh serv ices? Never 12/01/2024 Do you belong to any clubs o r organizations such as voodoo groups, unions, fraternal or athletic groups, or [...] Recorded Patient Health Questionnaire-2 Score 0 03/11/2025 [facility] Occupat ional [facility] - Occupational [...] place to sleep or slept in a intermediate (including now)? No 08/08/2023 Housing Stability Vital Sign Answer Dom e Recorded In the last 12 months, was t here a time when you were not able to pay the mortgage or rent on time? No 12/01/2024 Number of Times Moved in the Last Year Not on fi le 12/01/2024 At any time in the past 12 m [facility], were you homeless or living in a intermediate (including now)? No 12/01/2024 Sex and Gender [...] [facility] [address] [place] [address] Jose Juan Nunes DO [address] [place] [address] 07/21/2025 9:05 AM EST Office Visit [facility] [address] [place] [address] Poly Holbrook MD [address] [place] [address] documented as of this encounter Visit Diagnoses Not on filedocumented in this encounter Additional Health Concerns Assessment Noted Time PHQ-9 Depression Total Score: 0 12/09/19 25 7:00 AM EDT documented as of this encounter Care Teams Hair And Makeup Designer Relationship Specialty Start Date End Date Nick Bess MD [address] [facility] 110 [place] [address] PCP - General Internal Medicine 01/08/23 Nick Bess MD [address] [facility] 110 [place] [address] PCP - [employer] 10/03/23 documented as of this encounter
--- OUTSIDE RECORDS SUMMARY | 2025-05-11 14:11 | XMS_ITS | Encounter Summary ---
Author Organization [facility] Address [address] [place] [address] Care Team Providers Care Life Management Teacher Name Role Phone Nick Bess MD Primary Care Provider [phone] Nick Bess MD Unavailable [phone] Encounter Details Date Type Department Care Team (Late st Contact Info) Description 03/12/2025 Abstract [facility] [place] [facility] 112 [facility] 110 [place] [address] Nick Bess MD 112 [facility] 110 [place] [address] Social History Tobacco Use Types Packs/Day Years [...] week 12/01/2024 How often do you attend lutheran or buddhist serv ices? Never 12/01/2024 Do you belong to any clubs o r organizations such as lutheran groups, unions, fraternal or athletic groups, or [...] Patient Health Questionnaire-2 Score 0 03/11/2025 [facility] Occupat ional Health - Occupational [...] in a snf (including now)? No 08/08/2023 Housing Stability Vital Sign Answer Dom e Recorded In the last 12 months, was t here a time when you were not able to pay the mortgage or rent on time? No 12/01/2024 Number of Times Moved in the Last Year Not on fi le 12/01/2024 At any time in the [facility] m [facility], were you homeless or living in a snf (including now)? No 12/01/2024 Sex and Gender Information Value Date Recorded Sex Assigned at Not on file Legal Sex Male 7:21 PM EDT Gender Identity Male 11/14/2022 7:21 PM EDT Sexual Orientation Not on file documented as of this encounter Plan of Treatment Upcoming Encounters Date Type Department Care Team (Late st Contact Info) Description 07/07/2025 9:15 AM EST Office Visit [facility] [address] [place] [address] Jose Juan Nunes DO [address] [place] [address] 07/21/2025 9:05 AM EST Office Visit [facility] [address] [place] [address] Poly Holbrook MD [address] [place], [place] [address] documented as of this encounter Visit Diagnoses Not on filedocumented in this encounter Additional Health Concerns Assessment Noted Time PHQ-9 Depression Total Score: 0 12/09/19 25 7:00 AM EDT documented as of this encounter Care Teams Life Management Teacher Relationship Specialty Start Date End Date Nick Bess MD [address] [facility] 110 [place] [address] PCP - General Internal Medicine 01/08/23 Nick Bess MD [address] [facility] 110 [place] [address] PCP - [employer] 10/03/23 documented as of this encounter
--- OUTSIDE RECORDS SUMMARY | 2025-05-11 14:11 | XMS_ITS | Encounter Summary ---
Author Organization [facility] Address [address] [place] [address] Care Team Providers Care Support Technician Name Role Phone Nick Bess MD Primary Care Provider [phone] Nick Bess MD Unavailable [phone] Encounter Details Date Type Department Care Team (Late st Contact Info) Description 04/27/2025 Telephone [facility] [place] [facility] [address] [facility] 110 [place] [address] Marina Thompson PA 112 [facility] 110 [place] [address] Social History Tobacco Use Types Packs/Day Years [...] How often do you attend anabaptism or restorationism serv ices? Never 12/01/2024 Do you belong [...] Recorded Patient Health Questionnaire-2 Score 0 03/11/2025 [facility] Occupat ional Health - Occupational Stress [...] any time in the past 12 m [facility], were you homeless or living in [...] 07/07/2025 9:15 AM EST Office Visit [facility] [address] [place] [address] Jose Juan Nunes DO [address] [place] [address] 07/21/2025 9:05 AM EST Office Visit [facility] [address] [place] [address] Poly Holbrook MD [address] [place] [address] documented as of this encounter Visit Diagnoses Diagnosis Bee sting, accidental or unintentional, initial encounter- Primary documented in this encounter Additional Health Concerns Assessment Noted Time PHQ-9 Depression Total Score: 0 12/09/19 25 7:00 AM EDT documented as of this encounter Care Teams Support Technician Relationship Specialty Start Date End Date Nick Bess MD [address] [facility] 110 [place] [address] PCP - General Internal Medicine 01/08/23 Nick Bess MD [address] [facility] 110 [place] [address] PCP - [employer] 10/03/23 documented as of this encounter
--- OUTSIDE RECORDS SUMMARY | 2025-05-11 14:11 | XMS_ITS | Encounter Summary ---
Author Organization [facility] Address [address] [place] [address] Care Team Providers Care Acute Care Assistant Name Role Phone Nick Bess MD Primary Care Provider [phone] Nick Bess MD Unavailable [phone] Encounter Details Date Type Department Care Team (Late st Contact Info) Description 09/03/2024 Abstract [facility] [place] [facility] 112 [facility] 110 [place] [address] Nick Bess MD 112 [facility] 110 [place] [address] Social History Tobacco Use Types Packs/Day Years [...] declined 08/08/2023 How often do you attend jain or gnosticist serv ices? Never 08/08/2023 Do you belong to any clubs o r organizations such as jain groups, unions, fraternal or athletic groups, or [...] care, and heating? Not very hard 08/08/2023 [facility] of Occupat ional Health [...] 07/07/2025 9:15 AM EST Office Visit [facility] [address] [place] [address] Jose Juan Nunes DO [address] [place] [address] 07/21/2025 9:05 AM EST Office Visit [facility] [address] [place] [address] Poly Holbrook MD [address] [place] [address] documented as of this encounter Visit Diagnoses Not on filedocumented in this encounter Additional Health Concerns Assessment Noted Time PHQ-9 Depression Total Score: 0 10/02/19 24 6:43 AM EST documented as of this encounter Care Teams Acute Care Assistant Relationship Specialty Start Date End Date Nick Bess MD 112 [facility] 110 [place] [address] PCP - General Internal Medicine 01/08/23 Nick Bess MD [address] [address] PCP - [employer] 10/03/23 documented as of this encounter
--- OUTSIDE RECORDS SUMMARY | 2025-05-11 14:11 | XMS_ITS | Encounter Summary ---
Author Organization [facility] Address [address] [place] [address] Care Team Providers Care Waiter/Waitress Club Name Role Phone Nick Bess MD Unavailable [phone] Nick Bess MD Primary Care Provider [phone] Nick Bess MD Unavailable [phone] Encounter Details Date Type Department Care Team (Late st Contact Info) Description 10/09/2023 [facility] [address] [place] [address] A, Unknown Practice [address] [phone] Social History Tobacco Use Types Packs/Day Years [...] declined 08/08/2023 How often do you attend baptist or alevism serv ices? Never 08/08/2023 Do you belong to any clubs o r organizations such as baptist groups, unions, fraternal or athletic groups, or [...] 07/07/2025 9:15 AM EST Office Visit [facility] [address] [place] [address] Jose Juan Nunes DO [address] [place] [address] 07/21/2025 9:05 AM EST Office [facility] [address] [place] [address] Poly Holbrook MD [address] [place] [address] documented as of this encounter [...] documented as of this encounter Care Teams Waiter/Waitress Club Relationship Specialty Start Date End Date Nick Bess MD [address] [facility] 110 [place] [address] PCP - Medical [place] [employer] 01/31/23 11/09/23 Nick Bess MD [address] [facility] 110 [place] [address] PCP - General Internal Medicine 01/08/23 Nick Bess MD [address] [facility] 110 [place] [address] PCP - Aetdaryl 10/03/23 documented as of this encounter
--- OUTSIDE RECORDS SUMMARY | 2025-05-11 14:11 | XMS_ITS | Encounter Summary ---
Author Organization [facility] Address [address] [place] [address] Care Team Providers Care Continuous Miner Name Role Phone Nick Bess MD Unavailable [phone] Nick Bess MD Primary Care Provider [phone] Nick Bess MD Unavailable [phone] Encounter Details Date Type Department Care Team (Late st Contact Info) Description 08/14/2023 Abstract [facility] [place] [facility] [place] 112 [facility] 110 [place] [address] Nick Bess MD 112 [facility] 110 [place] [address] Social History Tobacco Use Types [...] declined 08/08/2023 How often do you attend confucianist or gnosticist serv ices? Never 08/08/2023 Do you belong to any clubs o r organizations such as confucianist groups, unions, fraternal or athletic groups, or [...] and heating? Not very hard 08/08/2023 [facility] Occupat ional Health - Occupational [...] in a prison (including now)? No 08/08/2023 Sex and Gender [...] 07/07/2025 9:15 AM EST Office Visit [facility] [address] [place] [address] Jose Juan Nunes DO [address] [place] [address] 07/21/2025 9:05 AM EST Office Visit [facility] [address] [place] [address] Poly Holbrook MD [address] [place] [address] documented as of this encounter Visit Diagnoses Not on filedocumented in this encounter Care Teams Continuous Miner Relationship Specialty Start Date End Date Nick Bess MD [address] [facility] 110 [place] [address] PCP - Medical [place] [employer] 01/31/23 11/09/23 Nick Bess MD [address] [facility] 110 [place] [address] PCP - General Internal Medicine 01/08/23 Nick Bess MD [address] [facility] 110 [place] [address] PCP - [employer]et[employer] 10/03/23 documented as of this encounter
--- OUTSIDE RECORDS SUMMARY | 2025-05-11 14:11 | XMS_ITS | Encounter Summary ---
Author Organization [facility] Address [address] [place] [address] Care Team Providers Care Ironer Machine Name Role Phone Nick Bess MD Primary Care Provider [phone] Nick Bess MD Unavailable [phone] Encounter Details Date Type Department Care Team (Late st Contact Info) Description 05/11/2025 Clinisync Result Encounter [facility] External Department Unsolicited Provider, Generic External Data Social History Tobacco Use Types Packs/Day Years [...] week 12/01/2024 How often do you attend presybeterian or episcopalian serv ices? Never 12/01/2024 Do you belong to any clubs o r organizations such as presybeterian groups, unions, fraternal or athletic groups, or [...] Score 0 03/11/2025 [facility] - Occupational Stress Questionnaire Answer Date [...] time in the past 12 m [facility], were you homeless or living in a [...] [facility] [address] [place] [address] Jose Juan Nunes, [address] [place] [address] 07/21/2025 9:05 AM EST Office Visit [facility] [address] [place] [address] Poly Holbrook MD [address] [place] [address] documented as of this encounter Procedures Procedure Name Priority Date/Time Associated Diagnosis Comments ALL CBC WITH AUTO DIFF Routine 05/11/2025 8:08 AM EDT documented in this encounter Results * (ABNORMAL) ALL CBC WITH AUTO [...] AM EDT us Generic External Data Provider [facility] documented in this encounter Visit Diagnoses Not on filedocumented in this encounter Additional Health Concerns Assessment Noted Time PHQ-9 Depression Total Score: 0 12/09/19 25 7:00 AM EDT documented as of this encounter Care Teams Ironer Machine Relationship Specialty Start Date End Date Nick Bess MD 112 [facility] 110 [place] [address] PCP - General Internal Medicine 01/08/23 Nick Bess MD [address] [place] [facility] 110 [place] [address] PCP - Aet[employer] 10/03/23 documented as of this encounter
--- OUTSIDE RECORDS SUMMARY | 2025-05-11 14:11 | XMS_ITS | Encounter Summary ---
Author Organization [facility] Address [address] [place] [address] Care Team Providers Care Tooling Engineer Name Role Phone Nick Bess MD Primary Care Provider [phone] Nick Bess MD Unavailable [phone] Reason for Visit * Reason Comments Med Refill Encounter Details Date Type Department Care Team (Late st Contact Info) Description 12/09/2023 Refill [facility] [address] [place] [address] Mayur Mustafa MD [address] [facility] [address] [place] [address] Gastroesophageal reflux disease without esophagitis Social History [...] How often do you attend confucianist or pentecostalism serv ices? Never 08/08/2023 Do you belong [...] care, and heating? Not very hard 08/08/2023 [facility] - Occupational Stress Questionnaire Answer [...] 07/07/2025 9:15 AM EST Office Visit [facility] [address] [place] [address] Jose Juan Nunes DO [address] [place] [address] 07/21/2025 9:05 AM EST Office Visit [facility] [address] [place] [address] Poly Holbrook MD [address] [place] [address] documented as of this encounter Visit Diagnoses Diagnosis Gastroesophageal reflux disease without esophagitis Esophageal reflux documented in this encounter Additional Health Concerns Assessment Noted Time PHQ-9 Depression Total Score: 0 10/02/19 24 6:43 AM EST documented as of this encounter Care Teams Tooling Engineer Relationship Specialty Start Date End Date Nick Bess MD [address] [facility] 110 [place] [address] PCP - General Internal Medicine 01/08/23 Nick Bess MD [address] [facility] 110 [place] [address] PCP - Aet[employer] 10/03/23 documented as of this encounter
--- OUTSIDE RECORDS SUMMARY | 2025-05-11 14:11 | XMS_ITS | Encounter Summary ---
Author Organization [facility] Address [address] [place] [address] Care Team Providers Care Sanitor Name Role Phone Nick Bess MD Primary Care Provider [phone] Nick Bess MD Unavailable Encounter Details Date Type Department Care Team (Late st Contact Info) Description 03/10/2025 Abstract [facility] [place] [facility] [address] [facility] 110 [place] [address] Nick Bess MD 112 [facility] 110 [place] [address] Social History Tobacco Use Types Packs/Day Years [...] week 12/01/2024 How often do you attend yazidi or gnosticist serv ices? Never 12/01/2024 Do you belong to any clubs o r organizations such as yazidi groups, unions, fraternal or athletic groups, or [...] Recorded Patient Health Questionnaire-2 Score 0 03/11/2025 [facility] of Occupat ional Health - Occupational Stress [...] in the past 12 m [facility], were you homeless or living [...] [facility] [address] [place] [address] Jose Juan Nunes DO [address] [place] [address] 07/21/2025 9:05 AM EST Office Visit [facility] [address] [place] [address] Poly Holbrook MD [address] [place] [address] documented as of this encounter Visit Diagnoses Not on filedocumented in this encounter Additional Health Concerns Assessment Noted Time PHQ-9 Depression Total Score: 0 12/09/19 25 7:00 AM EDT documented as of this encounter Care Teams Sanitor Relationship Specialty Start Date End Date Nick Bess MD [address] [facility] 110 [place] [address] PCP - General Internal Medicine 01/08/23 Nick Bess MD [address] [facility] 110 [place] [address] PCP - Aet[employer] 10/03/23 documented as of this encounter
--- OUTSIDE RECORDS SUMMARY | 2025-05-11 14:11 | XMS_ITS | Encounter Summary ---
Author Organization [facility] Address [address] [place] [address] Care Team Providers Care Eye Surgeon Name Role Phone Nick Bess MD Primary Care Provider [phone] Nick Bess MD Unavailable [phone] Encounter Details Date Type Department Care Team (Late st Contact Info) Description 03/10/2025 Abstract [facility] [place] [facility] [address] [facility] 110 [place] [address] Nick Bess MD 112 [facility] 110 [place] [address] Social History Tobacco Use Types Packs/Day Years [...] week 12/01/2024 How often do you attend caodaism or episcopalian serv ices? Never 12/01/2024 Do [...] any time in the past 12 m [facility], were you homeless or [...] [facility] [address] [place] [address] Jose Juan Nunes DO [address] [place] [address] 07/21/2025 9:05 AM EST Office Visit [facility] [address] [place] [address] Poly Holbrook MD [address] [place] [address] documented as of this encounter Visit Diagnoses Not on filedocumented in this encounter Additional Health Concerns Assessment Noted Time PHQ-9 Depression Total Score: 0 12/09/19 25 7:00 AM EDT documented as of this encounter Care Teams Eye Surgeon Relationship Specialty Start Date End Date Nick Bess MD [address] [facility] 110 [place] [address] PCP - General Internal Medicine 01/08/23 Nick Bess MD [address] [facility] 110 [place] [address] PCP - [employer]et[employer] 10/03/23 documented as of this encounter
--- OUTSIDE RECORDS SUMMARY | 2025-05-11 14:11 | XMS_ITS | Encounter Summary ---
Author Organization [facility] Address [address] [place] [address] Care Team Providers Care Pretzel Twisting Machine Operator Name Role Phone Nick Bess MD Primary Care Provider [phone] Nick Bess MD Unavailable [phone] Encounter Details Date Type Department Care Team (Late st Contact Info) Description 12/08/2024 Abstract [facility] [address] [facility] [address] [place] [phone] Nick Bess MD [address] [facility] 110 [place] [address] Social History Tobacco Use Types Packs/Day Years [...] week 12/01/2024 How often do you attend baptist or christianity serv ices? Never 12/01/2024 Do you belong [...] Recorded Patient Health Questionnaire-2 Score 0 12/08/2024 [facility] [...] any time in the past 12 m [place], were you homeless or living in a [...] 7:00 AM EDT Lamar Jimenez LP N Patient [...] all 12/08/2024 7: 00 AM EDT Lamar Jimenze LPN Feeling bad about yourself - or [...] 07/07/2025 9:15 AM EST Office Visit [facility] [address] [place] [phone] Jose Juan Nunes, [address] [place] [address] 07/21/2025 9:05 AM EST Office Visit [facility] [address] [place] [address] Poly Holbrook MD [address] [place] [address] documented as of this encounter Visit Diagnoses Not on filedocumented in this encounter Additional Health Concerns Assessment Noted Time PHQ-9 Depression Total Score: 0 12/09/19 25 7:00 AM EDT documented as of this encounter Care Teams Pretzel Twisting Machine Operator Relationship Specialty Start Date End Date Nick Bess MD [address] [place] [address] PCP - General Internal Medicine 01/08/23 Nick Bess MD [address] [place] [address] PCP - [employer] 10/03/23 documented as of this encounter
--- OUTSIDE RECORDS SUMMARY | 2025-05-11 14:11 | XMS_ITS | Encounter Summary ---
Author Organization [facility] Address [address] [place] [address] Care Team Providers Care Commissioning Engineer Name Role Phone Debora Bess MD Primary Care Provider [phone] Debora Bess MD Unavailable [phone] Encounter Details Date Type Department Care Team (Late st Contact Info) Description 05/08/2024 Clinisync Result Encounter [facility] External Department Unsolicited Linda Thompson, PA 112 [facility] 110 [place] [address] Social History Tobacco Use Types Packs/Day Years [...] How often do you attend christian or cheondoism serv ices? Never 08/08/2023 Do you belong [...] care, and heating? Not very hard 08/08/2023 [facility] - Occupational Stress [...] 07/07/2025 9:15 AM EST Office Visit [facility] [address] [place] [address] Jose Juan Nunes DO [address] [place] [address] 07/21/2025 9:05 AM EST Office [facility] [address] [place] [phone] Poly Holbrook MD [address] [place] [address] documented as of this encounter Procedures Procedure Name Priority Date/Time Associated Diagnosis Comments XR CHEST 2V 05/08/2024 12:17 PM EDT documented in this encounter Results * XR CHEST 2V (05/08/2024 12:17 PM EDT) Anatomical Region Laterality Modality Other 05/08/2024 12:1 7 PM EDT Narrative 05/08/2024 12:19 PM EDT The [place] [id number] XRay Report Signed Patient: VIOLET FERRARA MR#: [id number] : 1960 Acct:[id number] Age/Sex: 63 / M ADM Date: 05/08/24 Loc: LAB Attending Dr: LINDA THOMPSON Ordering Physician: LINDA THOMPSON Date of Service: 05/08/24 Procedure(s): XR chest 2V Accession Number(s): [id number] cc: DEBORA BESS ; LINDA THOMPSON [place] [id number] Patient Name: VIOLET FERRARA MRN: [id number] date: 1960 Sex: M Assigned Patient Location: LAB Current Patient Location: LAB Accession/Order Number: [id number] Exam Date: 05/08/2024 12:00 Report Date: 05/08/2024 [...] Signed By: 05/08/24 1219 DD/ 1217 TD/TT: Referral Nurse: Procedure Note Radiology, Radiologist, - 05/08/[address] [address] XRay Report Signed Patient: VIOLET FERRARA WMR#: [id number] : 1960cct:[id number] Age/Sex: 63 / MADM Date: 05/08/24 Loc: LAB Attending Dr: LINDA THOMPSON Ordering Physician: LINDA THOMPSON Date of Service: 05/08/24 Procedure(s): XR chest 2V Accession Number(s): [id number] cc: DEBORA BESS ; LINDA THOMPSON [place] [id number] Patient Name: VIOLET FERRARA MRN: [facility]:[id number] date: 1960 Sex: M Assigned Patient Location: LAB Current Patient Location: LAB Accession/Order Number: [id number] Exam Date: 05/08/2024 12:00 Report Date: 05/08/2024 [...] M.D. Signed By:05/08/24 1219 DD/ 1217 TD/TT: Referral Nurse: Linda Thompson PA [facility] Final Result documented in this encounter Visit Diagnoses Not on filedocumented in this encounter Additional Health Concerns Assessment Noted Time PHQ-9 Depression Total Score: 0 10/02/19 24 6:43 AM EST documented as of this encounter Care Teams Commissioning Engineer Relationship Specialty Start Date End Date Debora Bess MD 112 [facility] 110 [place] [address] PCP - General Internal Medicine 01/08/23 Debora Bess MD [address] [facility] 110 [place] [address] PCP - [employer] 10/03/23 documented as of this encounter
--- OUTSIDE RECORDS SUMMARY | 2025-05-11 14:11 | XMS_ITS | Encounter Summary ---
Author Organization [facility] Address [address] [place] [address] Care Team Providers Care Educational Paraprofessional Name Role Phone Nick Bess MD Primary Care Provider [phone] Nick Bess MD Unavailable [phone] Encounter Details Date Type Department Care Team (Late st Contact Info) Description 08/28/2024 Orders Only [facility] [address] [place] [address] Unallocated, [facility] Provider, [address] [place] [address] Social History Tobacco Use Types Packs/Day Years [...] How often do you attend synagogue or congregation serv ices? Never 08/08/2023 Do [...] care, and heating? Not very hard 08/08/2023 [facility] - Occupational [...] 07/07/2025 9:15 AM EST Office Visit [facility] [address] [place] [address] Jose Juan Nunes DO [address] [place] [address] 07/21/2025 9:05 AM EST Office Visit [facility] [address] [place] [address] Poly Holbrook MD [address] [place] [address] documented as of this encounter [...] documented as of this encounter Care Teams Educational Paraprofessional Relationship Specialty Start Date End Date Nick Bess MD [address] [facility] 110 [place] [address] PCP - General Internal Medicine 01/08/23 Nick Bess MD [address] [facility] 110 [place] [address] PCP - [employer]et[employer] 10/03/23 documented as of this encounter
--- NOTE | 2025-05-11 14:29 | XR_ITS ---
The [address] [address] Patient Name: VIOLET HEART MRN: [id number] date: 1960 Sex: M Assigned Patient Location: ER Current Patient Location: ER Accession/Order Number: [id number] Exam Date: 05/11/2025 14:40 Report Date: 05/11/2025 15:00 At the request of: GINA GOMEZ Procedure: XR chest 1V Single view chest: CLINICAL HISTORY: SOB COMPARISON: None FINDINGS: The heart is normal in size. The lungs are clear. The pulmonary vasculature is normal. Mediastinum and hilar regions are unremarkable. No pleural effusions are seen. Visualized bones are intact. XR/XR chest 1V IMPRESSION: NO ACUTE PROCESS. Impression dictated by: Quirino Morales Jr.OFamilia 05/11/2025 3:00 PM Dictation Location: [place] [address] Electronically authenticated by: [id number] Y Date: 05/11/2025 15:00
[2025-05-11 14:40] LABS: Hematocrit 41.5 % (42.0-54.0); Hemoglobin 14.4 g/dL (14.0-18.0); Immature Granulocytes Abs Auto 0.07 10^3/uL (0.00-0.03); Immature Granulocytes Pct Auto 0.6 % (0.0-0.5); Lymphocytes Absolute Auto 2.0 10^3/uL (1.2-3.8); Mean Corpuscular HGB Conc 34.7 g/dL (29.9-35.2); Mean Corpuscular Hemoglobin 34.4 pg (25.9-34.0); Mean Corpuscular Volume 99.3 fL (80.0-94.0); Platelet Count 273 10^3/uL (150-450); Red Blood Count 4.18 10^6/uL (4.70-6.10); White Blood Count 11.2 10^3/uL (4.0-11.0)
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
[2025-05-11 15:03] LABS: Anion Gap 15.6; Blood Urea Nitrogen 7.0 mg/dL (7.0-18.0); Calcium 8.5 mg/dL (8.5-10.1); Carbon Dioxide 25.0 mmol/L (21.0-32.0); Chloride 105 mmol/L (98-107); Estimated GFR (African America >60 (>=60 mL/min/1.73m^2); Estimated GFR (Non-African Ame >60 (>=60 mL/min/1.73m^2); Glucose 111 mg/dL (74-106); NT Pro B Type Natriuretic Pept 110.0 pg/mL (<=900.0); Potassium 3.6 mmol/L (3.5-5.1); Sodium 142 mmol/L (136-145)
--- NOTE | 2025-05-11 15:26 | PC.NURSE ---
This nurse and PATRICIA Craft spent an extensive amount of time speaking with patient Pt states he is scared because he lives at home alone and has a fear of coughing until he passes out and hitting his head and noone finding him for several days since he lives alone pt has in the past passed out twice from coughing - once resulting in broken ribs and once with emery in his head this nurse supported the patients fear and explained this is normal, and tried to assist in making him a plan to provide him with some comfort Pt states he is frustrated because all of his testing always comes back normal and noone can figure out what is wrong This nurse and Luana explained that this is a normal cycle with anxiety and shortness of breath Pt encouraged to continue following up with his custom applicator
== END 2025-05-11 15:27 | disposition home or self-care (01) ==
PROVIDERS: Physician Assistant; Emergency Provider Emergency Medicine; PCP Internal Medicine
DX: R06.09 Other forms of dyspnea (principal); R05.3 Chronic cough; J45.909 Unspecified asthma, uncomplicated
CPT/HCPCS: 36415; 71045; 80048; 82785; 83880; 84484; 85025; 85378; 86003; 93005; 99285

== ENCOUNTER 2025-07-29 10:04 | Emergency (ER) | payer MEDICARE, SELFPAY ==
[2025-07-29 10:09] VITALS: BP 122/85; PULSE 93; TEMP 36.7; O2SAT 96; BMI 35.4
[2025-07-29 10:30] VITALS: PULSE 93; O2SAT 96
--- OUTSIDE RECORDS SUMMARY | 2025-07-29 10:46 | XMS_ITS | Clinical Summary ---
Author Organization [facility] Address [address] [place] [address] Care Team Providers Care Gis Coordinator Name Role Phone Shahriar KEANE MD, Nick Gabriel Primary Care Provider [phone] Allergies Active AllergyReactionsCriticalityNoted DateCommentsAmoxicillinGI Upset 05/04/2025 Medications MedicationSigDispense QuantityRefillsLast FilledStart DateEnd DateStatus NASONEX 50 MCG/ACTUATION NASL SPRY 2 sprays each nostril qd prn 0 Active CLARINEX 5 MG ORAL TAB ONE PO QD prn 0 Active SINGULAIR 10 MG ORAL TAB ONE PO QHS prn 0 Active BREZTRI AEROSPHERE 160-9-4.8 mcg/actuation HFA aerosol inhaler Inhale 2 puffs as instructed.5Active amLODIPine (NORVASC) 5 mg tablet Take 5 mg by mouth once daily.Active atorvastatin (LIPITOR) 20 mg tablet Take 20 mg by mouth every morning.5Active omeprazole (PRILOSEC) 20 mg capsule TAKE 1 CAPSULE BY MOUTH EVERYDAY AT THE SAME TIME5Active predniSONE (DELTASONE) 10 mg tablet TAKE 1 TABLET BY MOUTH 3 TIMES A DAY X3 DAYS, 1 TABLET TWICE A DAY X3 DAYS THEN 1 DAILY X3 DAYS5Active VOQUEZNA 10 mg tablet Take 10 mg by mouth once daily.6Active guaifenesin/dextromethorphan (MUCINEX COUGH ORAL) Take by mouth.Active AIRSUPRA 90-80 mcg/actuation inhaler Inhale 2 puffs as instructed every 6 hours as needed for wheezing/shortness of breath. Do not take more than 12 inhalations in a 24 hour period. 1 each 5Active dupilumab (DUPIXENT PEN) 200 mg/1.14 mL pen injection Indications:Asthma, unspecified asthma severity, unspecified whether complicated, unspecified whether persistent (HCC)Inject 1.14 mL subcutaneously every other week. Patient should start on July 06, 2025. 1.14 mL 5Active dupilumab (DUPIXENT PEN) 200 mg/1.14 mL pen injection Indications:Asthma, unspecified asthma severity, unspecified whether complicated, unspecified whether persistent (HCC)Inject 2.28 mL subcutaneously one time only for 1 dose. 2.28 mL 07/02/2025 9:09 AM EDT1Expired dupilumab (DUPIXENT PEN) 200 mg/1.14 mL pen injection Indications:Asthma, unspecified asthma severity, unspecified whether complicated, unspecified whether persistent (HCC)Inject 1.14 mL subcutaneously every other week. Patient should start on July 06, 2025. 1.14 mL Discontinued Active Problems ProblemNoted DateDiagnosed DateChronic cough5BCC (basal cell carcinoma), trunk04/01/2023enign essential ogimkeipojmv83/31/2023Mixed nquuvvvlvjcxla05/31/2023LPRD (laryngopharyngeal reflux disease)04/01/2023 Encounters DateTypeDepartmentCare LjfiBwtbmrubock04/31/2025 9:00 AM [facility] Hematology/Oncology [address] [place] [address] [place] [address] Eczema, unspecified type (Primary Dx)07/02/2025Refill [facility] [address] [place] [address] Iman Obrien MD Refill Yfwqlha0206/24/2025 Patient Msg PULMONARY [address] [facility] [facility] [place] [address] owpxwqp4806/23/2025Telephone Cancer Appts [address] [place] [address] Iman Obrien MD Orders (Schedule CT chest)06/23/2025Telephone PULMONARY [address] [place] [address] [place] [address] Iman Obrien MD PA request Newjafrz72/21/2025 10:00 AM EDTOffice Visit PULMONARY [address] [place] [address] [place] [address] Iman Obrien MD Interstitial pulmonary disease (HCC) (Primary Dx); Asthma, unspecified asthma severity, unspecified whether complicated, unspecified whether persistent (HCC); Chronic cough06/22/2025Telephone [facility] [address] [place] [address] Sandra Huang [facility] Medication Authorization (Dupixent)06/22/20257448Ogxbiy22/15/3880Wbitum42/03/2025 Telephone Pulmonary Medicine [address] [place] [address] Iman Obrien MD 05/04/2025 11:00 AM EDTOffice Visit PULMONARY [address] [place] [address] [place] [address] Iman Obrien MD Chronic cough (Primary Dx); Allergic rhinitis, unspecified seasonality, unspecified trigger; Asthma, unspecified asthma severity, unspecified whether complicated, unspecified whether persistent (HCC)05/04/2025 10:45 AM EDTProcedure PULMONARY [address] [place] [address] [place] [address] Aigzsykvqp92/02/2025 10:15 AM EDTProcedure PULMONARY [address] [place] [address] [place] [address] Wvawytqnfz39/02/6319Jqvwgv00/31/2025Travelfrom Last 3 Months Immunizations ImmunizationAdministration DatesNext Dueinfluenza (HD-IIV3) vaccine, age 65+ yr, high dose, trivalent, PF (FLUZONE HIGH-DOSE)06/14/2025,06/15/2024influenza (IIV3) vaccine, trivalent, PF, intradermal (FLUZONE INTRADERMAL)06/17/2019, 05/28/2017influenza (IIV4) vaccine, age 6 mo - 64 yr, quadrivalent, PF (AFLURIA, FLUARIX, FLULAVAL, FLUZONE)2022,07/12/2021,06/18/2016influenza (IIV4) vaccine, quadrivalent (AFLURIA, FLULAVAL, FLUZONE)06/13/2020,06/07/2018influenza (aIIV4) vaccine, age 65+ yr, quadrivalent, PF (FLUAD QUAD)07/01/2023neumococcal conjugate (PCV20) vaccine, 20 valent (PREVNAR 20)07/22/2023zoster (RZV) vaccine, recombinant (SHINGRIX)07/07/2020,04/09/2020zoster (ZVL) vaccine, live (ZOSTAVAX) 06/25/2017 Family History Medical HistoryRelationCommentsBreast CancerSisterRelationStatusCommentsSister Social History Tobacco UseTypesPacks/DayYears UsedDateSmoking Tobacco: NeverSmokeless Tobacco: Never Tobacco Cessation:Counseling Given: Not Answered Alcohol UseStandard Drinks/WeekCommentsYes5 (1 standard drink = 0.6 oz pure alcohol)Area Deprivation IndexAnswerDate RecordedNational Score (1-100), lower number is lower zsxc129505/04/2025State Score (1-10), lower number is lower risk4 05/04/2025Data from: https://www.neighborhoodatlas.medicine.[facility].edu/. Last address used for yxdftycznth[address]05/04/2025Sex and Gender InformationValueDate RecordedSex Assigned at BirthNot on fileLegal SexMale 08/03/2012 9:35 AM ESTGender IdentityNot on fileSexual OrientationNot on file Last Filed Vital Signs Vital SignReadingTime TakenCommentsBlood Dvgrpusk017/8210 9:29 AM EDT Ydley100706/22/2025 9:29 AM QPXWbmcttsllga99.5 ??C (97.7 ??F)06/22/2025 9:29 AM EDTRespiratory Bcka0386 9:29 AM EDTOxygen Conhaioqbt83%06/22/2025 9:29 AM EDTInhaled Oxygen Concentration--Xbtrxz501.5 kg (250 lb 3.6 oz)06/22/2025 9:29 AM HVLGurdke090.3 cm (5' 9.02 )05/04/2025 10:55 AM EDTBody Mass Index36.93 05/04/2025 10:55 AM EDT Plan of Treatment DateTypeDepartmentCare Team (Latest Contact Info)Cklnyghughz96/19/2025 10:00 AM ESTOffice Visit PULMONARY [address] [place] [address] [place] [address] [place] [address] 8 week follow upHealth MaintenanceDue DateLast DoneCommentsAnnual PCP Team Chronic Disease Visit1976Anxiety Ibfwjbfdp02/20/1976Depression Screening 1976Hepatitis C Ogjeaqmfj02/20/1976DTaP,Tdap,Td Vaccine (1 - Tdap) 1977Lipid Kyphioovx23/20/1993CT Rxbqacywpwtu29/20/2003Cologuard (FIT-DNA) 06/21/20032195Arbqkrxsblj36/20/2003Colorectal Cancer Pivnkvyve86/20/2003Fecal Occult Blood2003Prostate Cancer Screening Kfsoadkdxy40/20/2003Sigmoidoscopy 2003RSV Vaccine (1 - Risk 60-74 years 1-dose series)2018Advance Directive Qehyvoeiaa11/01/2025Medicare Advantage Annual Wellness Visit09/02/2024 Covid-19 Vaccine ( season)5110/22/2020, 1Diabetes Xyeoxssxj89/01/50309401/31/2025Shingrix VznhhcgEtrsphvxj49/05/2020, 04/09/2020, 06/25/2017Pneumococcal Vaccine: 50+Tiiitrjxd17/20/2023Influenza VaccineCompleted 06/14/2025, 06/15/2024, 07/01/2023, Additional history exists Procedures Procedure NamePriorityDate/TimeAssociated DiagnosisCommentsEXTERNAL IMAGING 06/25/2025 9:21 AM EDT EXTERNAL LAB05/24/2025 8:33 AM EDT EXTERNAL LAB05/11/2025 12:37 PM EDT NITRIC OXIDE, VENGWWHNlfpbhl07/02/2025 10:20 AM EDT Cough, unspecified type SPIROMETRY - BASELINE AND POST TPSVPHMOixtwcm43/02/2025 10:14 AM EDT Cough, unspecified type from Last 3 Months Results * EXTERNAL IMAGING (06/25/2025 9:21 AM EDT)Anatomical RegionLateralityModality Other Narrative Authorizing ProviderResult TypeResult StatusExternal Provider PA-CRADIOLOGYFinal Result * EXTERNAL LAB (05/24/2025 8:33 AM EDT) Only the most recent of2 resultswithin the time period is included. Narrative Authorizing ProviderResult TypeResult StatusExternal Provider PA-CLABORATORY Final Result * NITRIC OXIDE, EXHALED (05/04/2025 10:20 AM EDT)Specimen (Source)Anatomical Location / LateralityCollection Method / VolumeCollection TimeReceived Time 05/04/2025 10:20 AM EDT Narrative Jessika Lunsford RRT - 05/04/2025 10:20 AM EDT Jessika Lunsford RRT 05/04/2025 10:20 AM ALLERGY AND IMMUNOLOGY ORAL EXHALED NITRIC OXIDE SERVICE DATE: 05/04/2025 SERVICE TIME: ??10:20 AM Oral Exhaled Nitric Oxide measurement: 32.0 [...] Oral Exhaled Nitric Oxide measurement (Previous Encounters) ?? Test Date Oral Exhaled Nitric Oxide (ppb) 05/04/2025 32.0 NAME: Jessika Lunsford, ORTHOTIST OR PROSTHETIST PATIENT NAME: Efrain [facility] DATE: May 04, 2025 TIME: 10:20 AM ?? Authorizing ProviderResult TypeResult StatusRenecinthia Obrien MDSCHEDULED PROCEDURES Final Result * SPIROMETRY - BASELINE AND POST DILATOR (05/04/2025 10:14 AM EDT)ComponentValue Ref RangeTest MethodAnalysis TimePerformed AtPathologist SignatureFVC PRE (L) 3.47LPULMONARY FUNCTION LABFVC POST (L)3.50LPULMONARY FUNCTION LABFVC PREDICTED (L)3.91LPULMONARY FUNCTION LABFVC LLN (L)2.92LPULMONARY FUNCTION LAB FVC ULN (L)4.91LPULMONARY FUNCTION LABFEV1 PRE (L)2.70LPULMONARY FUNCTION LAB FEV1_POST (L)2.77LPULMONARY FUNCTION LABFEV1 PREDICTED (L)3.00LPULMONARY FUNCTION LABFEV1 LLN (L)2.20LPULMONARY FUNCTION LABFEV1 ULN (L)3.75LPULMONARY FUNCTION LABFEV1/FVC PRE (%)78%PULMONARY FUNCTION LABFEV1/FVC POST (%)79% PULMONARY FUNCTION LABFEV1/FVC PREDICTED (%)77%PULMONARY FUNCTION LABFEV1/FVC LLN (%)65%PULMONARY FUNCTION WRHHZP56% PRE (L/S)7.22L/SPULMONARY FUNCTION LAB FEF25% POST (L/S)7.56L/SPULMONARY FUNCTION KEPXOF37% PRE (L/S00.71L/SPULMONARY FUNCTION WBGKAJ78% POST (L/S)0.87L/SPULMONARY FUNCTION WHYCMS18% PREDICTED (L/S)0.70L/SPULMONARY FUNCTION ZXBATR24% LLN (L/S)0.27L/SPULMONARY FUNCTION JDWJJL68% ULN (L/S)1.75L/SPULMONARY FUNCTION XKOTCM41-48% PRE (L/S)2.38L/S PULMONARY FUNCTION RXWQQW72-87% POST (L/S)2.71L/SPULMONARY FUNCTION EMLQEL90- 75% PREDICTED (L/S)2.51L/SPULMONARY FUNCTION APPPRA42-88% LLN (L/S)1.14L/S PULMONARY FUNCTION LABPEF PRE (L/S)8.61L/SPULMONARY FUNCTION LABPEF POST (L/S) 8.88L/SPULMONARY FUNCTION LABPEF LLN (L/S)6.10L/SPULMONARY FUNCTION LABPEF ULN (L/S)10.54L/SPULMONARY FUNCTION LABFET PRE (S)8.68SPULMONARY FUNCTION LABFET POST (S)6.88SPULMONARY FUNCTION LABSpecimen (Source)Anatomical Location / LateralityCollection Method / VolumeCollection TimeReceived Time05/04/2025 10:14 AM EDT Narrative PULMONARY FUNCTION LAB - 05/06/2025 11:33 AM EDT [facility] ? [address] [place] [address] [place] [address] ? Test Date: ? 2025-05-04 Pat Name: ?[facility] ? Department: ?Room: ? 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 : ? 1960 ?Requested By: ?? Order Number: ??[id number] ? Reading : ?Bernardo ??MD Heber ? Interpretive Statements Pre and post BD: Current [...] pre = 94/min, HR post = 88/min. ?? ///AP IMPRESSION: Spirometry is normal. Negative bronchodilator response. Electronically Signed On 05-06-2025 11:33:34 EDT by Bernardo ??MD Heber ID: [id number] ?Name: EFRAIN HE[facility] ?Race: White Ht: 68.50 in ?Wt: 255.30 lbs ?Age: 64 Gender: Male ?: 1960 ?Dx: Cough, unspecified_ Smoking Hx: Non-smoker ?Doctor: IMAN OBRIEN Test Date: 05/04/2025 ?Site: [facility] ?Tech: Jessika Lunsford ?PRE-BRONCH ? POST-BRONCH ?Richard ?LLN ?? Pred ?ULN %Pred ZScore ?? Richard %Pred ??%Chg ZScore SPIROMETRY FVC ? 3.47 ?? 2.92 ?? 3.91 ?? 4.91 ?88 ??-0.73 ?? 3.50 ?89 ? 0 ??-0.68 FEV1 ?2.70 ?? 2.20 ?? 3.00 ?? 3.75 ?90 ??-0.63 ?? 2.77 ?92 ? 2 ??-0.48 FEV1/FVC ?0.78 ?? 0.65 ?? 0.77 ?? 0.88 ?? 100 ?? 0.07 ?? 0.79 ?? 102 ? 1 ?? 0.27 FEFMax ?8.61 ?? 6.10 ?? 8.32 ??10.54 ?? 103 ?? 0.21 ?? 8.88 ?? 106 ? 3 ?? 0.42 FEF50 ? 2.99 ?? 1.79 ?? 3.91 ?? 6.04 ?76 ??-0.71 ?? 3.52 ?89 ?17 ??-0.31 FIF50 ? 5.03 ? 5.17 ?2 ? FEF50/FIF50 ? 0.60 ?90-100 ? 0.68 ?14 ? FIVC ?3.51 ? 3.37 ?-4 ? KRO40-94 ?2.38 ?? 1.14 ?? 2.51 ?? 4.42 ?94 ??-0.13 ?? 2.71 ?? 108 ?14 ?? 0.20 ExpiredTime ? 8.68 ? 6.88 ? -20 ? TimeToFEFMax ?0.07 ? 0.08 ?19 ? HENRY ? 0.12 ? 0.19 ?59 ? VolExtrap% ? 3 ?5 ?58 ? Comments: Pre and post BD: Current ATS/ERS [...] pre = 94/min, HR post = 88/min. ?? ///AP Authorizing ProviderResult TypeResult StatusRenee Rigoberto MDSCHEDULED PROCEDURES Final ResultPerforming OrganizationAddressCity/State/ZIP CodePhone Number PULMONARY FUNCTION LAB [address] [place] [address] from Last 3 [place] [address] Care Teams Team MemberRelationshipSpecialtyStart DateEnd Nick Bess II, MD PCP - GeneralInternal Medicine11/22/14
--- OUTSIDE RECORDS SUMMARY | 2025-07-29 10:46 | XMS_ITS | Clinical Summary ---
Author Organization [facility] Address [address] [place] [address] Care Team Providers Care Pigs Feet Cleaner Name Role Phone Nick Bess MD Primary Care Provider [phone] Nick Bess MD Unavailable [phone] Allergies Active AllergyReactionsCriticalityNoted MlszQrjqmdnvWcjkrmljfvk57/02/2025 Other Reaction(s): GI Upset Medications MedicationSigDispense QuantityRefillsLast FilledStart DateEnd DateStatus cetirizine (ZyrTEC) 10 MG chewable tablet Chew 10 mg DailyActive omeprazole (PriLOSEC) [address] capsule Indications:Gastroesophageal reflux disease without esophagitisTAKE 1 CAPSULE BY MOUTH EVERYDAY AT THE SAME TIME 100 capsule 5Active atorvastatin (Lipitor) 20 MG tablet Indications:Mixed hyperlipidemiaTAKE 1 TABLET BY MOUTH EVERY DAY IN THE MORNING 90 tablet 5Active Nuhkrhe-Ffulgjngcur-Yuahoscdeb (Breztri Aerosphere) 160-9-4.8 MCG/ACT aerosol Indications:Moderate persistent asthma with exacerbation (HCC)Inhale 2 puffs in the morning and 2 puffs before bedtime. 10.7 g 5Active montelukast (Singulair) 10 MG tablet Indications:Chronic rhinitisTAKE 1 TABLET (10 MG) BY MOUTH IN THE EVENING 100 tablet 5Active Albuterol-Budesonide (Airsupra) 90-80 MCG/ACT aerosol Indications:Moderate persistent asthma without complication (HCC)Inhale 2 puffs every 4 (four) hours if needed (SOB or Wheeze) 10.7 g 5Active ipratropium-albuterol (Duo-Neb) 0.5-2.5 mg/3 mL nebulizer solution Indications:Moderate persistent asthma without complication (HCC)Take 3 mL by nebulization 4 (four) times a day as needed for wheezing or shortness of breath 150 mL 5Active fluticasone (Flonase) 50 MCG/ACT nasal spray Indications:Allergic rhinitis due to pollen, unspecified seasonalityUSE 1 - 2 SPRAYS IN EACH NOSTRIL ONCE EVERY MORNING *SHAKE GENTLY BEFORE FIRST USE PRIME PUMP AFTERUSE CLEAN TIP AND REPLACE CAP* 48 mL 5Active amLODIPine (Norvasc) 5 MG tablet Indications:Benign essential hypertensionTAKE 1 TABLET BY MOUTH EVERY DAY 90 tablet 5Active Additional Information Patient taking differently:5 mg Oral Daily,(No times of day reported), Reported on 06/22/2025 hydrOXYzine HCl (Atarax) 10 MG tablet Indications:Bee sting, accidental or unintentional, initial encounterTake 1 tablet (10 mg) by mouth every 8 (eight) hours if needed for itching or allergies for up to 7days 21 tablet 5Active famotidine (Pepcid) 20 MG tablet Indications:Gastroesophageal reflux disease without esophagitisTAKE 1 TABLET BY MOUTH AT BEDTIME 90 tablet 5Active Vonoprazan Fumarate (Voquezna) 10 MG tablet Indications:Laryngopharyngeal reflux (LPR)Take 1 tablet by mouth Daily 90 tablet 501/6Active Adunepygnef-Lrzaacqz-Qilbickxv 1-0.5-0.075 % solution Indications:Age-related nuclear cataract of both eyesAdminister 1 drop into affected eye(s) in the morning and 1 drop at noon and 1 drop in the evening and 1 drop before bedtime. 10 mL 5Active triamcinolone (Kenalog) 0.025 % cream Indications:Actinic keratosisApply to affected areas on chest, up to twice a day when flared, 30 day supply 80 g 5Active fluorouracil (Efudex) 5 % cream Indications:Actinic keratosisApply to directed areas on the scalp, chest twice a day x 14 days. Dispense 30 day supply but only use for 14 days. 40 g 511/11/2025Discontinued(Therapy completed) Active Problems ProblemNoted DateDiagnosed DateAge-related nuclear cataract of both eyes 07/07/20252986Kyylueharoch95/01/2025lass 2 severe obesity due to excess calories with serious comorbidity and body mass index (BMI) of36.0 to 36.9 in adult 11/24/2024Moderate persistent asthma without cqqwlbmexlzq08/06/2024CC (basal cell carcinoma), trunk04/01/2023enign essential brxcyfopzefd06/31/2023 Bifascicular block04/01/2023llergic xpocuqmb43/31/2023hronic laryngitis 04/01/2023hronic ijqelmde99/31/2023hronic sinusitis of both maxillary sinuses 04/01/2023Elevated transaminase level04/01/2023Fatty liver04/01/2023 Gastroesophageal reflux disease without cieawrgbfmy40/31/2023Impaired glucose zkjriwrbzd45/31/2023LPRD (laryngopharyngeal reflux disease)04/01/2023Mixed ysdmwuifedovug69/31/2023Obstructive sleep apnea ephlnqcu77/31/2023rimary osteoarthritis of right knee04/01/2023 Resolved Problems ProblemNoted DateDiagnosed DateResolved DateAnxiety state/ Dywkpc45/4Chronic cough/hronic sinusitis /Elevated LDL cholesterol level/02/2024Mass of mmiiqk41/Moderate persistent asthma with yuluqsjlailq87/31/2023 10/08/2023Internal derangement of right knee/ Encounters DateTypeDepartmentCare VebdLyzasteyfwq53/11/2025 8:55 AM ESTOffice Visit [facility] [address] [place] [address] Poly Holbrook MD Actinic keratosis (Primary Dx)07/13/2025amboo flowsheet [facility] [address] [place] [address] Poly Holbrook MD 07/13/20253589Erqeqy42/05/2025 9:15 AM ESTOffice Visit [facility] [address] [place] [address] Jose Juan Nunse, DO Age-related nuclear cataract of both eyes (Primary Dx)07/07/2025Orders Only [facility] [address] [place] [address] Jose Juan Nunes, DO Age-related nuclear cataract of both eyes07/07/2025amboo flowsheet [facility] [address] [place] [address] Jose Juan Nunes, DO 07/07/20254657Lgadgc35/02/6572Pabfrc29/21/2025 8:00 AM EDTOffice Visit [facility] [address] [place] [address] Ruben Tai, DO Chronic cough (Primary Dx); Laryngopharyngeal reflux (LPR)06/22/2025amboo flowsheet [facility] [address] [place] [address] Ruben Tai, 06/22/20250309Fcufqs05/16/2025 9:45 AM EDTOffice Visit [facility] [address] [place] [address] Ruben Tai, Gastroesophageal reflux disease, unspecified whether esophagitis present; Chronic cough05/18/2025amboo flowsheet [facility] [address] [place] [address] Ruben Tai, 05/18/20256546Ljlqeq59/09/2025linisync Result Encounter [facility] External Department Unsolicited Provider, Generic External Data 05/10/2025Telephone [facility] [address] [facility] [address] [place] [address] Marina Thompson PA 05/03/2025Refill [facility] [address] [facility] [address] [place] [address] Marina Thompson PA Gastroesophageal reflux disease without esophagitisfrom Last 3 Months Immunizations ImmunizationAdministration DatesNext DueInfluenza, High Dose Seasonal, Preservative Free06/15/2024Influenza, Seasonal, Quadrivalent, Adjuvanted 07/01/2023Influenza, injectable, hytopvszysfy77/12/2020,06/07/2018Influenza, injectable, quadrivalent, preservative free2022,07/12/2021,06/18/2016 Influenza, seasonal, intradermal, preservative free06/17/2019,05/28/2017 Pneumococcal Conjugate PCV Zoster, Lxflfizkzym92/05/2020,04/09/2020 Zoster, live06/25/2017 Family History Medical HistoryRelationNameCommentsHeart diseaseFatherCharles AllanHeart failure FatherCharles AllanDiabetesMaternal GrandfatherWilliam AllanPancreatic cancer MotherCancerSisterCarol allanCataractsSisterCarol allanMelanomaNeg HxRelation NameStatusCommentsFatherCharles AllanDeceasedMaternal GrandfatherWilliam Tucker MotherDeceasedSisterCarol tucker Social History Tobacco UseTypesPacks/DayYears UsedDateSmoking Tobacco: NeverPassive Smoke Exposure: YesSmokeless Tobacco: Never Tobacco Cessation:Counseling Given: Not Answered Alcohol UseStandard Drinks/WeekCommentsYes7 (1 standard drink = 0.6 oz pure alcohol)Caffeine intake : 1-2 cups per snnJ8733 Health LiteracyAnswerDate RecordedHow often do you need to have someone help you when you read instructions, pamphlets, or other written material from your doctor or pharmacy? Never12/01/2024Humiliation, Afraid, Rape, and Kick questionnaireAnswerDate RecordedWithin the last year, have you been afraid of your partner or ex-partner?No08/08/2023Within the last year, have you been humiliated or emotionally abused in other ways by your partner or ex-partner?Patient declined 08/08/2023Within the last year, have you been kicked, hit, slapped, or otherwise physically hurt by your partner or ex-partner?Patient /07/2023Within the last year, have you been raped or forced to have any kind of sexual activity by your partner or ex-partner?Patient ucenitud22/07/2023Social Connection and Isolation PanelAnswerDate RecordedIn a typical week, how many times do you talk on the phone with family, friends, or neighbors?Once a week12/01/2024How often do you get together with friends or relatives?Once a week12/01/2024How often do you attend spiritism or uatsdin services?Never12/01/2024Do you belong to any clubs or organizations such as spiritism groups, unions, fraSnakk Media or athletic siva ups, or school groups?No12/01/2024How often do you attend meetings of the clubs or organizations you belong to?Never12/01/2024re you , , , , never , or living with a partner?Ezftphtd62/01/2025 AUDIT-CAnswerDate RecordedQ1: How often do you have a drink containing alcohol? Patient uypjmlxh17/01/2025Q2: How many drinks containing alcohol do you have on a typical day when you are drinking?Patient zslsdveb77/01/2025Q3: How often do you have six or more drinks on one occasion?Patient hjhomsoh20/01/2025Overall Financial Resource Strain (CARDIA)AnswerDate RecordedHow hard is it for you to pay for the very basics like food, housing, medical care, and heating?Not very hard12/01/2024PHQ-2AnswerDate RecordedPatient Health Questionnaire-2 Score0 03/11/2025[facility] [place] [facility] Occup[facility] - Occupational Stress QuestionnaireAnswerDate RecordedDo you feel stress - tense, restless, nervous, or anxious, or unable to sleep at night because yourmind is troubled all the time - these days?To some pombhu2612/01/2024Exercise Vital SignAnswerDate Recorded On average, how many days per week do you engage in moderate to strenuous exercise (like a brisk walk)?2 days12/01/2024On average, how many minutes do you engage in exercise at this level?10 min12/01/2024Hunger Vital SignAnswerDate RecordedWithin the past 12 months, you worried that your food would run out before you got the money to buymore.Never true12/01/2024Within the past 12 months, the food you bought just didn't last and you didn't have money to get more.Never true12/01/2024PRAPARE - TransportationAnswerDate RecordedIn the past 12 months, has lack of transportation kept you from medical appointments or from getting medications?No12/01/2024In the past 12 months, has lack of transportation kept you from meetings, work, or from getting things needed for daily living?No12/01/2024Housing Stability Vital SignAnswerDate RecordedIn the last 12 months, was there a time when you were not able to pay the mortgage or rent on time?No08/08/2023In the last 12 months, how many places have you lived?1 08/08/2023In the last 12 months, was there a time when you did not have a steady place to sleep or slept in [facility] (including now)?No08/08/2023Housing Stability Vital SignAnswerDate RecordedIn the last 12 months, was there a time when you were not able to pay the mortgage or rent on time?12/01/2024Number of Times Moved in the Last YearNot on file12/01/2024t any time in the past 12 months, were you homeless or living in a usp (including now)?12/01/2024Sex and Gender InformationValueDate RecordedSex Assigned at BirthNot on fileLegal UjeZmmm9811/14/2022 7:21 PM EDTGender CimdoaauVtvh97/15/2023 7:21 PM EDTSexual OrientationNot on file Last Filed Vital Signs Vital SignReadingTime TakenCommentsBlood Icsokjbu675/59280/ 9:07 AM EDT Eulgm1657 9:07 AM LBFSaoexcacqhd22.1 ??C (98.8 ??F)11/24/2024 9:06 AM EDTRespiratory Qonv5610 8:52 AM EDTOxygen Otmkcjojxn77%03/24/2025 9:07 AM EDTInhaled Oxygen Concentration--Klrvcf642 kg (250 lb)06/22/2025 7:50 AM EDT Zzqume945.8 cm (5' 10 )06/22/2025 7:50 AM EDTBody Mass Index35.8706/22/2025 7:50 AM EDT Plan of Treatment DateTypeDepartmentCare Team (Latest Contact Info)Fmiknjsertz72/02/2025 8:15 AM ESTOffice Visit [facility] [address] [place] [address] Ruben Tai, DO [address] [place] [address] 09/22/2025 9:35 AM ESTOffice Visit [facility] [address] [place] [address] Poly Holbrook MD [address] [place] [address] Health MaintenanceDue DateLast DoneCommentsCT Gubbdltmarsk1958Colonoscopy 1958Colorectal Cancer Enolfxelj1958FIT-DNA1958FIT1958 FOBT1958 4537Dfeenavszpdvo1958COVID-19 Vaccine ( season) , 11/07/2020Medicare Annual Wellness (AWV)12/08/2025 12/08/2024, 12/08/2024, 4Pneumococcal Vaccine: 65+ YearsCompleted 07/22/2023Influenza DjmvxsmVtrxrtzcv16/13/2025, 06/15/2024, 07/01/2023, Additional history exists Procedures Procedure NamePriorityDate/TimeAssociated DiagnosisCommentsIOL BIOMETRY - OU - BOTH WXVLXmsgksj57/05/2025 9:29 AM EST Age-related nuclear cataract of both eyes FL ESOPHAGUS XUITRBFYxdgyag73/10/2025 9:19 AM EDT Chronic cough Gastroesophageal reflux disease, unspecified whether esophagitis present ALLERGENS W/COMP RFLX AREA 0Zwtyhxy90/09/2025 8:08 AM EDT ALL CBC WITH AUTO YOHFSehrhyf15/09/2025 8:08 AM EDT from Last 3 Months Results * IOL Biometry - OU - Both Eyes (CPT 21937) (07/07/2025 9:29 AM EST)Anatomical RegionLateralityModalityHeadOtherSpecimen (Source)Anatomical Location / LateralityCollection Method / VolumeCollection TimeReceived Time Narrative 07/07/2025 9:29 AM EST Diagnosis: Cataract both eyes (OU) Testing Indication: Performed for preop measurements in the determination of an intraocular lens (IOL) for both eyes (OU) ?? Test Reliability: Good quality both eyes (OU) Interpretation: Good measurements for intraocular lens (IOL) calculation purposes. Calculation made for both eyes (OU). ?? Authorizing ProviderResult TypeResult StatusJonatlisseth EASTON ULTRASOUND Final Result * FL esophagus pharynx (05/12/2025 9:19 AM EDT)Anatomical RegionLaterality ModalityEsophagusRadiographic ImagingSpecimen (Source)Anatomical Location / LateralityCollection Method / VolumeCollection TimeReceived Time05/12/2025 9:19 AM EDT Impressions 05/12/2025 9:22 AM EDT GASTROESOPHAGEAL REFLUX WAS SEEN TO LEVEL OF THE DISTAL ESOPHAGUS WITH TERTIARY CONTRACTIONS. ??NO ESOPHAGEAL MASS, STRICTURE OR ULCER. ? Impression dictated by: Ulices Rao Jr., D.O. ??05/12/2025 9:20 AM ? Dictation Location: RADIO-PC-22 ? Transcribed By: ? PWS ?05/12/25 0920 ? Dictated By: ?Ulices Rao Jr, DO ?05/12/25 0919 ? Signed By: <Electronically signed by Ulices Rao Jr, DO in OV> ?05/12/25 0920 Narrative 05/12/2025 9:22 AM EDT [facility] ?[address] ? [place] [address] ? Fluoroscopy Report ? Signed ? Patient: Efrain Ferrara ?MR#: [id number] ?? 9 ? : 1960 ?Acct:[id number] ? Age/Sex: 64 / M ?ADM Date: 05/12/25 ? Loc: XD ?Room: ?Type: REG CLI ?? Attending Dr: Ruben Tai DO ?? Copies to: Ruben Tai DO ? Ordering Provider: Ruben Tai DO ?? Date of Service: 05/12/25 ?? FL/FL esophagus: chronic cough and reflux ? DOUBLE CONTRAST ESOPHAGRAM ? CLINICAL HISTORY: Chronic cough for one year. ??Dysphagia. ? COMPARISON: None ? TECHNIQUE: Double contrast esophagram was performed. ? Cumulative Air Kerma in mGy: ??156.05 ??mGy ? FINDINGS: ? The esophagus appears normal in caliber without evidence of stricture, mass or ulcer. ?? Gastroesophageal reflux was seen involving the distal esophagus with tertiary contractions present. No hiatal hernia seen. ??No aspiration was seen during the examination. ? FL/FL esophagus ?? Procedure Note Ulices Rao Jr., - 05/12/2025 [facility] [address] [place] [address] Fluoroscopy Report Signed Patient: Efrain Ferrara WMR#: [id number] 9 : 8Acct:[id number] Age/Sex: 64 / MADM Date: 05/12/25 Loc: Room:Type: [facility] Attending Dr: Ruben Tai DO Copies to: Ruben Tai DO Ordering Provider: Ruben Tai DO Date of Service: 05/12/25 FL/FL esophagus: chronic cough and reflux DOUBLE CONTRAST ESOPHAGRAM CLINICAL HISTORY: Chronic cough for one year. Dysphagia. COMPARISON: None TECHNIQUE: Double contrast esophagram was performed. Cumulative Air Kerma in mGy: 156.05 mGy FINDINGS: The esophagus appears normal in caliber without evidence of stricture,mass or ulcer. Gastroesophageal reflux was seen involving the distal esophagus withtertiary contractions present. No hiatal hernia seen. No aspiration was seen during the examination. FL/FL esophagus IMPRESSION: GASTROESOPHAGEAL REFLUX WAS SEEN TO LEVEL OF THE DISTAL ESOPHAGUS WITHTERTIARY CONTRACTIONS. NO ESOPHAGEAL MASS, STRICTURE OR ULCER. Impression dictated by: Ulices Rao Jr., DFamiliaOFamilia 05/12/2025 9:20 AM Dictation Location: [place] [address] Transcribed By: [facility] 05/12/25919 Dictated By: Ulices Rao Jr, DO 05/12/25918 Signed By: <Electronically signed by Ulices Rao Jr, inOV> 05/12/25919 Authorizing ProviderResult TypeResult StatusBentimoteo Rin Tai DOIMG FLUOROSCOPY PROCEDURESFinal Result * (ABNORMAL) ALLERGENS W/COMP RFLX AREA 5 (05/11/2025 8:08 AM EDT)ComponentValue Ref RangeTest MethodAnalysis TimePerformed AtPathologist SignatureCLASS DESCRIPTIONComment.TBHComment: ?Levels of Specific IgE ? Class ??Description of Class ?----- ?? < 0.10 0 Negative ? 0.10 - ?0.31 ? 0/I ? Equivocal/Low ? 0.32 - ?0.55 ? I ? Low ? 0.56 - ?1.40 ? II ?Moderate ? 1.41 - ?3.90 ? III ? High ? 3.91 - ?? 19.00 ? IV ?Very High ?19.01 - ??100.00 ? V ? Very High >100.00 Very High IMMUNOGLOBULIN E, JYLMQ3988(A)6 - 495 IU/oJTTEV995-REM D PTERONYSSINUS0.90(A) Class II kU/OHVZG132-JCV D FARINAE2.02(A)Class III kU/OTHIJ162-EKG CAT DANDER <0.10Class 0 kU/VZOYZ364-MXE DOG DANDER<0.10Class 0 kU/XRSAJ266-MPT BERMUDA GRASS0.53(A)Class I kU/RHUEQ753-GKM LUCIEN GRASS0.46(A)Class I kU/TXMTG048-NVD COCKROACH, GERMAN0.22(A)Class 0/I kU/OEBIE834-BRT PENICILLIUM CHRYSOGEN<0.10 Class 0 kU/YOXPY662-WIG CLADOSPORIUM HERBARUM<0.10Class 0 kU/TQGCG195-DQH ASPERGILLUS FUMIGATUS<0.10Class 0 kU/HTCHC784-TGT ALTERNARIA ALTERNATA<0.10Class 0 kU/NVPRT188-HUN MAPLE/BOX ELDER0.54(A)Class I kU/FHJOZ539-IEV COMMON SILVER BIRCH0.28(A)Class 0/I kU/GJWGV645-NDN CEDAR, MOUNTAIN0.27(A)Class 0/I kU/LTBH C798-OFF OAK, WHITE0.39(A)Class I kU/RQYLK667-MPH ELM, AMERICAN0.50(A)Class I kU/BTJWG253-MFQ WALNUT0.49(A)Class I kU/JBGCJ989-PPB MAPLE LEAF [place]0.42(A) Class I kU/GQUTV579-VWT COTTON[place]OD0.45(A)Class I kU/VFYNL984-YLW MARCOS, WHITE0.50 (A)Class I kU/LQGBT008-COK PECAN, HICKORY0.35(A)Class I kU/LLLME882-YXO WHITE MULBERRY0.29(A)Class 0/I kU/MWGMC944-HZR RAGWEED, SHORT0.43(A)Class I kU/LTBH Q362-QLE THISTLE, RUSSIAN0.47(A)Class I kU/JJGXP381-CTP PIGWEED, COMMON0.41(A) Class I kU/VKABM146-UAR SHEEP SORREL0.46(A)Class I kU/NWBLT734-GOD MOUSE URINE <0.10Class 0 kU/LTBHComment: Performed at: ??BN - [facility] [address] ??[id number] Entry Level Civil Engineer: Gin Scherer MD, Phone: ??[phone] Specimen (Source)Anatomical Location / LateralityCollection Method / Volume Collection TimeReceived Time05/11/2025 8:08 AM EDT05/11/2025 8:09 AM EDT Narrative [facility] - 05/21/2025 10:25 AM EDT Authorizing ProviderResult TypeResult StatusGeneric External Data ProviderLAB BLOOD ORDERABLESFinal ResultPerforming OrganizationAddressCity/State/ZIP Code Phone Number [facility] * (ABNORMAL) ALL CBC WITH AUTO DIFF (05/11/2025 8:08 AM EDT)ComponentValueRef RangeTest MethodAnalysis TimePerformed AtPathologist SignatureTBH WBC11.1(H) 4.0 - 11.0 10 3/uLTBHTBH RBC4.29(L)4.70 - 6.10 10 6/uLTBHTBH HGB14.614.0 - 18.0 g/dLTBHTBH HCT42.842.0 - 54.0 %TBHTBH MCV99.8(H)80.0 - 94.0 fLTBHTBH MCH 34.025.9 - 34.0 pgTBHTBH MCHC34.129.9 - 35.2 g/dLTBHTBH RDW12.211.0 - 15.0 % TBHTBH FFT092710 - 450 10 3/uLTBHTBH MPV9.3(L)9.5 - 13.5 fLTBHNEUTROPHILS PERCENT AUTO72.643.0 - 75.0 %TBHLYMPHOCYTES PERCENT AUTO18.0(L)20.5 - 60.0 % TBHMONOCYTES PERCENT AUTO8.01.7 - 12.0 %TBHTBH EO %0.5(L)0.9 - 7.0 %TBH BASOPHILS PERCENT AUTO0.40.2 - 2.0 %TBHIMMATURE GRANULOCYTES PCT AUTO0.50.0 - 0.5 %TBHNEUTROPHILS ABSOLUTE AUTO8.1(H)1.4 - 6.5 10 3/uLTBHLYMPHOCYTES ABSOLUTE AUTO2.01.2 - 3.8 10 3/uLTBHMONOCYTES ABSOLUTE AUTO0.9(H)0.3 - 0.8 10 3/uLTBHTBH EO #0.10.0 - 0.7 10 3/uLTBHBASOPHILS ABSOLUTE AUTO0.00.0 - 0.1 10 3/uLTBHIMMATURE GRANULOCYTES ABS AUTO0.06(H)0.00 - 0.03 10 3/uLTBHSpecimen (Source)Anatomical Location / LateralityCollection Method / VolumeCollection TimeReceived Time05/11/2025 8:08 AM EDT05/11/2025 8:09 AM EDT Narrative [facility] - 05/11/2025 8:24 AM EDT Authorizing ProviderResult TypeResult StatusGeneric External Data Provider CLINISYNCFinal ResultPerforming OrganizationAddressCity/State/ZIP CodePhone Number CLINISYNC [facility] from Last 3 Months Insurance Care Teams Team MemberRelationshipSpecialtyStart DateEnd Nick Bess MD [address] [facility] [address] [place] [address] PCP - GeneralInternal Medicine01/08/23 Nick Bess MD [address] [place] [address] PCP - [employer]10/03/23
--- OUTSIDE RECORDS SUMMARY | 2025-07-29 10:46 | XMS_ITS | CCD ---
Author Organization [facility] Care Team Providers Care Timber Hand Name Role Phone Meri Miller Unavailable Unavail able Angela, Meri Lincoln Unavailable Unavail able NICK BESS Unavailable Unavailable David Quintana Unavailable Unavailable Preston, Meri Gusman Unavailable Unavailable Angela, Meri Lincoln Unavailable Unavail able Angela, Meri Lincoln Unavailable Unavail able NICK BESS Unavailable [...] ble SHAHRIAR, DR CAZARES Primary Care Unavailable BESS, DR CAZARES Attending Unavailable BESS, DR CAZARES Consulting Unavailable BESS, DR CAZARES Primary Care Unavailable SHAHRIAR, DR CAZARES Admitting Unavailable ZIEBER, DR ELIAS Flor Consulting Unavailable Nory Gayle Unavailable Nick Bess MD Unavailable Nick Bess MD Primary Care Provider Nick Bess MD Unavailable Nick Bess II Primary Care Provider Trice Pruitt APRN Attending Provider Shahriar KEANE MD, Daniel B Primary Care Provider Ruben Tai DO Attending Provider Ruben Tai Attending Unavailable Ruben Tai Admitting Unavailable Bess, Nick Primary Care Unavailable OBRIEN, IMAN Attending Unavailable OBRIEN IMAN Referring Unavailable BESS II, NICK B Primary Care Unavailable BESS II, NICK B Primary Care Unavailable SELF Referring Unavailable BESS II, NICK B Primary Care Unavailable SELF Referring Unavailable BESS II, NICK B Primary Care Unavailable OBRIEN, IMAN Attending Unavailable SELF Referring Unavailable BESS II, NICK B Primary Care Unavailable HEMMER, MARINA Hinton Attending Unavailable BREDIANA Attending Unavailable HEMMER, MARINA Hinton Attending Unavailable HEMMERMARINA Attending Unavailable HEMMER, MARINA Hinton Attending Unavailable PETITTI, BENY A Attending Unavailable SHAHRIAR, NICK Gabriel Attending Unavailable TIM, RUBEN W Attending Unavailable NICK BESS B Referring Unavailable TIM, RUBEN W Attending Unavailable MURCEJillian, RUBEN W Attending Unavailable REMEDIOS OLIVEROS Attending Unavailable MAMERI DECKER Referring Unavailable PETITTI, BENY Kwok Attending Unavailable NICK BESS Attending Unavailable Allergies Allergy ClassificationReported Allergen(s)Allergy TypeDate of OnsetReaction(s) Facility (5 sources)COVID-19 Ad26 Vaccine(Digna)[facility] (13 sources)Amoxicillin; Translations: [AMOXICILLIN]Drug [id number]-19 vaccine, Digna Ad26.IZU4Apkr allergy (disorder)01-09-[facility] Medications Current Medications MedicationDrug Class(es)DatesSig (Normalized)Sig (Original)30 ACTUAT fluticasone furoate 0.2 MG/ACTUAT / umeclidinium 0.0625 MG/ACTUAT / vilanterol 0.025 MG/AC TUAT Dry Powder Inhaler [Trelegy] (5 sources)Start: 85-08-9882ttrr 1 puff(s) by inhalation once dailyTrelegy Ellipta 200-62.5-25 MCG/ACT 1 puff Inhalation Once a day Jun, Active Start: 63-82-8296kfwc 1 puff(s) by inhalation once dailyTrelegy Ellipta 200-62.5-25 MCG/ACT 1 puff Inhalation Once a day for 30 days Jun, Active Start: 63-08-2144uckp 1 puff(s) by inhalation once dailyTrelegy Ellipta 200-62.5-25 MCG/INH 1 puff Inhalation Once a day Jun, ActiveStart: 85-07-7805ival 1 puff(s) by inhalation once dailyTrelegy Ellipta 200-62.5-25 MCG/INH 1 puff Inhalation Once a day for 30 day(s) Jun, Active acetaminophen 325 mg / oxyCODONE hydrochloride 5 mg oral tablet (9 sources)Opioid AgonistStart: 03-09-2025 End: 43-79-8108rhdc 1 tablet by mouth every eight hours as neededAIRSUPRA 90-80 mcg/actuation inhaler (2 sources)take 2 puff(s) by mouth every four hours as neededAIRSUPRA 90-80 mcg/actuation inhaler INHALE 2 PUFFS BY MOUTH EVERY 4 HOURS NEEDED FOR SHORTNESS OF BREATH OR WHEEZE Activealbuterol 0.83 mg/ml inhalation solution (20 sources)beta2-Adrenergic AgonistStart: 92-34-7109nekhdzxri (2.5 MG/3ML) 0.083% nebulizer solution Take 2.5 mg by nebulization every 6 (six) hours if needed 04/23/2024 ActiveStart: 50-11-7692Sbrbx: 59-22-5682ailg 2.5 mg by inhalation four times dailyStart: 01-09-2024 End: 68-46-3965bysy 1 puff(s) by inhalation every four hours as neededAlbuterol Sulfate 90 mcg/actuation HFA aerosol inhaler Discontinued 1 PUFF INHALATION Every 4 hoursMay 2023 12:00am January 09, 2024 10:09am FreeTextSi puff as needed Inhalation every 4 hrs; Note: Source Status: Continue; Provider: Nory Araujo MStart: 68-75-1177bsbtogahe (2.5 MG/3ML) 0.083% nebulizer solution Take 2.5 mg by nebulization every 6 (six) hours ifneeded for wheezing or shortness of breath 0 08/07/2023 ActiveStart: 93-37-2162tmpn 1 puff(s) by inhalation every four hours as neededAlbuterol Sulfate HFA 108 (90 Base) MCG/ACT 1 puff as needed Inhalation every 4 hrs 13 Mar, 2023 ActiveStart: 05-25-2004 End: 63-36-3256cefb 2 puff(s) by inhalation every four to six hours as needed ALBUTEROL 90MCG INHALER 2 PUFFS Q 4-6 HRS PRN 3 month supply 3 05/25/2004 05/04/2025 Discontinued (Discontinued by Patient)Albuterol Sulfate (2.5 MG/3ML) 0.083% 1 unit dose Inhalation four times a day DX J44.9 COPD for 30 days Active albuterol 0.833 mg/ml / ipratropium bromide 0.167 mg/ml inhalation solution (20 sources)Anticholinergic, beta2-Adrenergic AgonistStart: 11-24-2024 ipratropium-albuterol (Duo-Neb) 0.5-2.5 mg/3 mL nebulizer solution Indications: Moderate persistentasthma without complication (HCC) Take 3 mL by nebulization 4 (four) times a day as needed for wheezing or shortness of breath 150 mL 5 11/24/2024 ActiveAlbuterol-Budesonide (Airsupra) 90-80 MCG/ACT aerosol (20 sources)Start: 85-93-6747hkbr 2 puff(s) by inhalation every four hours Albuterol-Budesonide (Airsupra) 90-80 MCG/ACT aerosol Indications: Moderate persistent asthma without complication (HCC) Inhale 2 puffs every 4 (four) hours if needed (SOB or Wheeze) 10.7 g 5 11/24/2024 ActiveStart: 75-80-4248fwtp 2 puff(s) by inhalation every four hoursAlbuterol-Budesonide (Airsupra) 90-80 MCG/ACT aerosol Indications: Moderate persistent asthma without complication (CMS/HCC) Inhale 2 puffs every 4 (four) hours if needed (SOB or Wheeze) 10.7 g 5 11/24/2024 ActiveamLODIPine 5 mg oral tablet (20 sources)Dihydropyridine Calcium Channel BlockerStart: 46-77-2280pfnj 1 tablet by mouth once dailyamLODIPine (Norvasc) 5 MG tablet Indications: Benign essential hypertension TAKE 1 TABLET BY MOUTH EVERY DAY 90 tablet 3 04/05/2025 Activeamoxicillin 875 mg / clavulanate 125 mg oral tablet (2 sources)Penicillin-class AntibacterialStart: 09-03-2024 End: 98-76-6344agms 1 tablet by mouth in the morningamoxicillin-clavulanate (Augmentin) 875-125 MG tablet Indications: Acute non-recurrent sinusitis, un specified location Take 1 tablet (875 mg) by mouth in the morning and 1 tablet (875 mg) before bedtime. Do all this for 10 days. 20 tablet 09/03/2024 09/13/2024 ActiveAspir-81 81 MG (5 sources)take 1 tablet by mouth once dailyAspir-81 81 MG 1 tablet Orally Once a day Activeaspirin 81 mg delayed release oral tablet (2 sources)Platelet Aggregation Inhibitor, Nonsteroidal Anti-inflammatory Drug Start: 83-75-4306pccy 1 tablet by mouth once dailyatorvastatin 20 mg oral tablet (20 sources)HMG-CoA Reductase InhibitorStart: 90-70-7033zjws 1 tablet by mouth once daily in the morningatorvastatin (Lipitor) 20 MG tablet Indications: Mixed hyperlipidemia TAKE 1 TABLET BY MOUTH EVERY DAY IN THE MORNING 90 tablet 4 09/14/2024 Activeazelastine hydrochloride 0.206 mg/actuat metered dose nasal spray (7 sources)Histamine-1 Receptor AntagonistStart: 36-38-9126tndj 2 spray(s) nasal route once dailytake 2 spray(s) nasal route once dailyAzelastine HCl 0.15 % 2 sprays in each nostril Nasally Once a day Activebenzonatate 100 mg oral capsule (6 sources)Non-narcotic AntitussiveStart: 11-18-2024 End: 21-71-8589vmfe 1 capsule by mouth three times daily as needed for cough benzonatate (Tessalon) 100 MG capsule Indications: Acute cough Take 1 capsule (100 mg) by mouth 3 (three) times a day as needed for cough Do not crush or chew. 42 capsule 11/18/2024 12/18/2024 ActiveStart: 10-27-2024 End: 81-28-6364wywx 1 capsule by mouth three times daily as needed for cough benzonatate (Tessalon) 200 MG capsule Indications: Subacute cough Take 1 capsule (200 mg) by mouth 3 (three) times a day as needed for cough for up to 7 days Do not crush or chew. 21 capsule 10/27/2024 11/03/2024 Mvbwfw698 actuat budesonide 0.16 mg/actuat / formoterol fumarate 0.0048 mg/actuat / glycopyrrolate 0.009 m g/actuat metered dose inhaler (20 sources)Corticosteroid, beta2-Adrenergic AgonistStart: 21-23-1509CONTYJL AEROSPHERE 160-9-4.8 mcg/actuation HFA aerosol inhaler Inhale 2 puffs as instructed. 09/22/2024 ActiveStart: 06-26-2024 End: 76-79-8402agpj 2 puff(s) by inhalation in the morning Mklwgnd-Dfsjcxbrwct-Drqjhtkxer (Breztri Aerosphere) 160-9-4.8 MCG/ACT aerosol Indications: Moderatepersistent asthma with exacerbation (HCC) Inhale 2 puffs in the morning and 2 puffs before bedtime.10.7 g 5 09/22/2024 ActiveStart: 71-45-8834plzw 2 puff(s) by inhalation at stfjyyvUdkichd-Ntqymgfdrwu-Eaxovubjzh (Breztri Aerosphere) 160-9-4.8 MCG/ACT aerosol Indications: Moderatepersistent asthma with exacerbation (CMS/HCC) INHALE 2 PUFFS IN THE MORNING AND BEFORE BEDTIME 4.8 g 2 03/02/2024 ActiveStart: 84-93-7418Reobq: 32-18-6680uqtw 2 puff(s) by inhalation in the zrjmqdlJwsqagx-Yzlgymibwyx-Vcpdjzybcq (Breztri Aerosphere) 160-9-4.8 MCG/ACT aerosol Indications: Moderatepersistent asthma with exacerbation (CMS/HCC) Inhale 2 puffs in the morning and 2 puffs before bedtime. 0 09/17/2023 Activecefdinir 300 mg oral capsule (2 sources)Cephalosporin AntibacterialStart: 10-29-2024 End: 03-18-9235fryx 1 capsule by mouth in the morningcefdinir (Omnicef) 300 MG capsule Indications: Acute non-recurrent pansinusitis Take 1 capsule (300mg) by mouth in the morning and 1 capsule (300 mg) before bedtime. Do all this for 10 days. 20 capsule 10/29/2024 11/08/2024 Activecetirizine hydrochloride 10 mg chewable tablet (20 sources)Histamine-1 Receptor Antagonistcetirizine (ZyrTEC) 10 MG chewable tablet Chew 10 mg Daily Activecodeine phosphate 2 mg/ml / guaiFENesin 20 mg/ml oral solution (5 sources)Opioid AgonistStart: 10-29-2024 End: 24-62-7337qinz 5 mL by mouth four times daily as needed for cough guaiFENesin-codeine (Robitussin-AC) 100-10 MG/5ML syrup Indications: Acute cough Take 5 mL by mouth4 (four) times a day as needed for cough for up to 5 days 240 mL 10/29/2024 11/03/2024 ActiveStart: 09-22-2024 End: 82-81-3886wimq 10 mL by mouth every six hours for coughguaiFENesin-codeine (Robitussin-AC) 100-10 MG/5ML syrup Indications: Moderate persistent asthma with exacerbation (CMS/HCC) Take 10 mL by mouth every 6 (six) hours if needed for cough for up to 7 days 280 mL 09/22/2024 09/29/2024 Activedesloratadine 5 mg oral tablet (5 sources)Histamine-1 Receptor AntagonistStart: 84-55-4581mmbf 1 tablet by mouth once daily as neededCLARINEX 5 MG ORAL TAB ONE PO QD prn 0 3 01/01/2005 ActiveEquate - (5 sources)Equate - as directed Orally ActiveEquate - as directed Orally Not-Takingfamotidine 20 mg oral tablet (20 sources)Histamine-2 Receptor AntagonistStart: 57-03-5447dqmf 1 tablet by mouth at bedtimefamotidine (Pepcid) 20 MG tablet Indications: Gastroesophageal reflux disease without esophagitis TAKE 1 TABLET BY MOUTH AT BEDTIME 90 tablet 1 05/04/2025 ActiveStart: 14-22-3228nnap 1 tablet by mouth at bedtimefamotidine (Pepcid) 20 MG tablet Indications: Gastroesophageal reflux disease without esophagitis Take 1 tablet (20 mg) by mouth at bedtime 30 tablet 5 03/11/2025 Activefluorouracil 50 mg/ml topical cream (20 sources)Nucleoside Metabolic InhibitorStart: 03-23-2025 End: 91-50-5190oeubnajqadtm (Efudex) 5 % cream Indications: Actinic keratosis Apply to directed areas on the scalp, chest twice a day x 14 days. Dispense 30 day supply but only use for 14 days. 40 g 2 03/23/2025 07/13/2025 Discontinued (Therapy completed)Start: 03-23-2024 End: 93-74-7956ufvznwfrcvds (Efudex) 5 % cream Indications: Actinic keratosis Apply to directed areas on the scalptwice a day x 14 days. Dispense 30 day supply but only use for 14 days. 40 g 03/23/2024 05/08/2024 Discontinued (Therapy completed)fluticasone propionate 0.05 mg/actuat metered dose nasal spray (20 sources)CorticosteroidStart: 58-55-6671unqi 1-2 spray(s) nasal route once daily in the morningfluticasone (Flonase) 50 MCG/ACT nasal spray Indications: Allergic rhinitis due to pollen, unspecified seasonality USE 1 - 2 SPRAYS IN EACH NOSTRIL ONCE EVERY MORNING *SHAKE GENTLY BEFORE FIRST USE PRIME PUMP AFTER USE CLEAN TIP AND REPLACE CAP* 48 mL 3 12/17/2024 ActiveStart: 49-60-4709Ibpkq: 65-45-1973jrcu 1-2 spray(s) nasal route once daily in the morningfluticasone (Flonase) 50 MCG/ACT nasal spray Indications: Allergic rhinitis due to pollen, unspecified seasonality USE 1 - 2 SPRAYS IN EACH NOSTRIL ONCE EVERY MORNING *SHAKE GENTLY BEFORE FIRST USE PRIME PUMP AFTER USE CLEAN TIP AND REPLACE CAP* 48 mL 3 10/09/2023 ActiveStart: 27-25-0678kfcu 1-2 spray(s) nasal route in the morningfluticasone (Flonase) 50 MCG/ACT nasal spray Indications: Allergic rhinitis due to pollen, unspecified seasonality Administer 1-2 sprays into each nostril in the morning. Shake gently. Before first use, prime pump. After use, clean tip and replace cap.. 16 g 5 09/17/2023 Activetake 1 spray(s) nasal route once dailyFluticasone Propionate 50 MCG/ACT 1 spray in each nostril Nasally Once a day Activeglycopyrrolate 1 mg oral tablet (8 sources)Start: 03-67-7057nrym 1 tablet by mouth twice dailyStart: 03-25-2023 take 1 tablet by mouth twice dailyglycopyrrolate (Robinul) 1 MG tablet Indications: Gastroesophageal reflux disease without esophagitis TAKE ONE TABLET BY MOUTH TWICE A DAY 60 tablet 6 03/25/2023 ActivehydrOXYzine hydrochloride 10 mg oral tablet (12 sources)AntihistamineStart: 04-27-2025 End: 09-01-5555hnky 1 tablet by mouth every eight hourshydrOXYzine HCl (Atarax) 10 MG tablet Indications: Bee sting, accidental or unintentional, initial e ncounter Take 1 tablet (10 mg) by mouth every 8 (eight) hours if needed for itching or allergies for up to 7 days 21 tablet 04/27/2025 ActivelevoFLOXacin 500 mg oral tablet (2 sources)Quinolone Antimicrobialtake 1 tablet by mouth every twenty-four hours levoFLOXacin 500 MG 1 tablet Orally Once a day Activeloratadine 10 mg oral tablet (8 sources)Start: 52-67-8937phbu 1 tablet by mouth once dailytake 1 tablet by mouth in the morningloratadine (Claritin) 10 MG tablet Take 10 mg by mouth in the morning. 0 ActivemethylPREDNISolone (2 sources)CorticosteroidStart: 09-03-2024 End: 26-04-1081korgdiYXBKBWQylndu (Medrol Dospak) 4 MG tablets Indications: Moderate persistent asthma with exacerbation (CMS/HCC) Follow schedule on package instructions 21 tablet 09/03/2024 09/10/2024 Activemometasone furoate 0.05 mg/actuat metered dose nasal spray (5 sources)CorticosteroidStart: 38-35-5576fqfm 2 spray(s) nasal route once daily as neededNASONEX 50 MCG/ACTUATION NASL SPRY 2 sprays each nostril qd prn 0 3 01/01/2005 Activemontelukast 10 mg oral tablet (20 sources)Leukotriene Receptor AntagonistStart: 18-49-7424afss 1 tablet by mouth in the eveningmontelukast (Singulair) 10 MG tablet Indications: Chronic rhinitis TAKE 1 TABLET (10 MG) BY MOUTH IN THE EVENING 100 tablet 3 10/01/2024 Activeomeprazole 20 mg delayed release oral capsule (20 sources)Proton Pump InhibitorStart: 16-66-7421xadf 1 capsule by mouth once dailyomeprazole (PriLOSEC) [address] capsule Indications: Gastroesophageal reflux disease without esophagitis TAKE 1 CAPSULE BY MOUTH EVERYDAY AT THE SAME TIME 100 capsule 3 09/09/2024 ActiveStart: 34-97-2297kdxj 1 capsule by mouth once dailyOmeprazole 20 MG 1 capsule 30 minutes before morning meal Orally Once a day Oct, NarimqJqbymzephja-Lzccyzol-Sdclodsfm 1-0.5-0.075 % solution (3 sources)Start: 11-70-7258Vzvtarzgwfc-Moxiflox-Bromfenac 1-0.5-0.075 % solution Indications: Age-related nuclear cataract of both eyes Administer 1 drop into affected eye(s) in the morning and 1 drop at noon and 1 drop in the evening and 1 drop before bedtime. 10 mL 1 07/07/2025 ActivepredniSONE 10 mg oral tablet (18 sources)Start: 04-27-2025 End: 81-18-8716suay 1 tablet by mouth three times daily, then take 1 tablet by mouth twice daily, then take 1 tablet by mouth once dailypredniSONE (DELTASONE) 10 mg tablet TAKE 1 TABLET BY MOUTH 3 TIMES A DAY X3 DAYS, 1 TABLET TWICE A DAY X3 DAYS THEN 1 DAILY X3 DAYS 04/27/2025 ActiveStart: 34-59-1430wkbd 1 tablet by mouth twice dailyStart: 01-04-2025 End: 20-28-8306kllj 4 tablets by mouth once daily, then take 3 tablets by mouth once daily, then take 2 tablets bymouth once daily, then take 1 tablet by mouth once dailypredniSONE (Deltasone) 10 MG tablet Indications: Acute non-recurrent pansinusitis TAKE 4 TABLETS BYMOUTH DAILY FOR 4 DAYS, THEN 3 TABSX4 DAYS, THEN 2 TABSX4 DAYS, THEN 1 TABX4 DAYS. 40 tablet 01/04/2025 03/11/2025 Discontinued (Therapy completed)Start: 10-29-2024 End: 60-34-9584tfjo 4 tablets by mouth once daily, then take 3 tablets by mouth once daily, then take 2 tablets bymouth once daily, then take 1 tablet by mouth once dailypredniSONE (Deltasone) 10 MG tablet Indications: Acute non-recurrent pansinusitis Take 4 tablets (40 mg) by mouth Daily for 4 days, THEN 3 tablets (30 mg) Daily for 4 days, THEN 2 tablets (20 mg) Daily for 4 days, THEN 1 tablet (10 mg) Daily for 4 days. 40 tablet 10/29/2024 11/14/2024 ActiveStart: 09-22-2024 End: 72-06-7741rswo 4 tablets by mouth once daily, then take 3 tablets by mouth once daily, then take 2 tablets bymouth once daily, then take 1 tablet by mouth once dailypredniSONE (Deltasone) 10 MG tablet Indications: Moderate persistent asthma with exacerbation (CMS/HCC) Take 4 tablets (40 mg) by mouth Daily for 3 days, THEN 3 tablets (30 mg) Daily for 3 days, THEN2 tablets (20 mg) Daily for 3 days, THEN 1 tablet (10 mg) Daily for 3 days. 30 tablet 09/22/2024 10/03/2024 ActiveStart: 99-60-8922bbshhxACXO 10 MG 4 tabs x 3 days, 2 tabs x 3 days, 1 tab x 3 days, then stop. Orally Once a day for9 days Jun, ActiveStart: 01-01-2005 End: 05-28-4225kbag 3 tablets by mouth once daily as neededPREDNISONE 20 MG ORAL TAB 3 tabs a day for 5 days as needed for asthma flares 0 1 01/01/2005 025 Discontinued (Discontinued by Patient)triamcinolone acetonide 0.25 mg/ml topical cream (9 sources)CorticosteroidStart: 60-22-6971oszjlcvczscrq (Kenalog) 0.025 % cream Indications: Actinic keratosis Apply to affected areas on chest, up to twice a day when flared, 30 day supply 80 g 2 07/13/2025 ActiveStart: 09-03-2024 End: 20-82-1550kkyrkemsbwcdy acetonide (Kenalog-40) injection 40 mgStart: 09-03-2024 End: 68-49-5150ynpqid 40 mg by intramuscular injection once40 mg, Intramuscular, Once, On [place] 09/03/24 at 1100, For 1 doseStart: 09-03-2024 End: 65-79-3822qnfphbqhdhirk acetonide (Kenalog-40) injection 40 mgStart: 09-03-2024 End: 17-84-9560fsauug 40 mg by intramuscular injection once40 mg, Intramuscular, Once, On [place] 09/03/24 at 1100, For 1 doseStart: 05-08-2024 End: 58-64-3109tsxclirinbncg acetonide (Kenalog-40) injection 40 mgStart: 05-08-2024 End: 14-55-4456rcytjoptnfysj acetonide (Kenalog-40) injection 40 mgStart: 05-08-2024 End: 26-00-7917fbdtqs 40 mg by intramuscular injection once40 mg, Intramuscular, Once, On Sat05/08/24 at 1145, For 1 doseStart: 05-08-2024 End: 50-70-8812wovzsq 40 mg by intramuscular injection once40 mg, Intramuscular, Once, On Sat05/08/24 at 1145, For 1 doseVonoprazan Fumarate (Voquezna) 10 MG tablet (8 sources)Start: 06-22-2025 End: 22-57-5509vszp 1 tablet by mouth once dailyVonoprazan Fumarate (Voquezna) 10 MG tablet Indications: Laryngopharyngeal reflux (LPR) Take 1 tablet by mouth Daily 90 tablet 1 06/22/2025 09/20/2025 ActiveStart: 05-18-2025 End: 38-95-4569znra 1 tablet by mouth once dailyVonoprazan Fumarate (Voquezna) 10 MG tablet Indications: Gastroesophageal reflux disease, unspecified whether esophagitis present , Chronic cough Take 1 tablet by mouth Daily 30 tablet 3 05/18/2025 06/17/2025 Active Completed/Discontinued Medications MedicationDrug Class(es)DatesSig (Normalized)Sig (Original)60 actuat fluticasone propionate 0.25 mg/actuat / salmeterol 0.05 mg/actuat dry powder inhaler (4 sources)Corticosteroid, beta2-Adrenergic AgonistStart: 05-25-2004 End: 35-41-9221EWIMIZ 250/50 DISKUS ONE INHALATION TWICE DAILY 3 month supply 3 05/25/2004 05/04/2025 Discontinued(Discontinued by Patient)gatifloxacin 400 mg oral tablet (4 sources)Quinolone AntimicrobialStart: 01-01-2005 End: 91-67-0593potb 1 tablet by mouth once daily as needed for congestionTEQUIN 400 MG ORAL TAB one po qd as needed for chest congestion 0 1 01/01/2005 05/04/2025 Discontinued (Discontinued by Patient)guaiFENesin / Phenylephrine / Phenylpropanolamine (2 sources)alpha-1 Adrenergic AgonistGuaifenex LA Not-Pqlkhj10 hr guaiFENesin 600 mg / pseudoephedrine hydrochloride 120 mg extended release oral tablet (4 sources)alpha-Adrenergic AgonistStart: 01-01-2005 End: 36-15-1495UCUBPICFD PSE 120 120 MG-600 MG ORAL TB12 one po bid prn for sinus congestion 0 12 01/01/2005 05/04/2025 Discontinued (Discontinued by Patient) Problems Active Problems Problem ClassificationProblemDateDocumented DateEpisodic/Chronic Administrative/social admission (4 sources)Patient encounter status; Translations: [Other specified counseling] 57-47-5975ZaaeogtgCcxymfqh reactions (1 source)Dermatitis, unspecified; Translations: [Eczema, unspecified type] Onset: 95-35-8699FapjhudiOgjdgc (20 sources)Reactive airway disease; Translations: [Unspecified asthma, uncomplicated]Onset: 06-20-2021 Resolved: 56-47-2364TjxbkrsErhgdyxm (4 sources)Bilateral age-related nuclear cataracts; Translations: [Age-related nuclear cataract, bilateral]Onset: 057026-30-1703KkjknebFxvxpbqdtq disorders (20 sources)Bifascicular block; Translations: [Bifascicular block]Onset: 426509-78-7874NakcuvsJwaxekkpf of lipid metabolism (20 sources)Raised low density lipoprotein cholesterol; Translations: [Pure hypercholesterolemia, unspecified]Onset: 04-01-2023 Resolved: 050893-45-0201EllrqtoZkzngqmqbm disorders (20 sources)Gastroesophageal reflux disease; Translations: [Gastro-esophageal reflux disease without esophagitis]Onset: 06-20-2021 Resolved: 48-51-0553HollukzZvcmuwmee hypertension (20 sources)Benign essential hypertension; Translations: [Essential (primary) hypertension]Onset: 893493-73-7391EvjoitpCirubxqyntwiya (20 sources)Osteoarthritis of right knee joint; Translations: [Unilateral primary osteoarthritis, right knee]Onset: 396483-94-5404WthutihUsnej aftercare (2 sources)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; Translations: [continuous churn buttermaker (current) use of systemic steroids]05-82-2751CafyvmjdUusly fractures (3 sources)Closed fracture of multiple ribs; Translations: [Multiple fractures of ribs, right side, subsequentencounter for fracture with routine healing] 44-88-1671IlmijfvyGlomk fractures (2 sources)Closed fracture of multiple right ribs; Translations: [Multiple fractures of ribs, right side, initial encounter for closed fracture]03-26-2025 EpisodicOther liver diseases (20 sources)Steatosis of liver; Translations: [Fatty (change of) liver, not elsewhere classified]Onset: 467133-34-6940OvfnewlPshzw lower respiratory disease (1 source)Interstitial pulmonary disease, unspecified; Translations: [Interstitial pulmonary disease (HCC)]Onset: 02-72-5344QliecygYoypl lower respiratory disease (2 sources)Cough; Translations: [Acute cough]67-44-6824CyalhfmrBpeop lower respiratory disease (8 sources)Persistent cough; Translations: [Persistent cough for 3 weeks or longer]67-12-8546OnbbodjqAqbhq lower respiratory disease (2 sources)Cough; Translations: [Cough, unspecified type]94-74-2100QqobsxqnAeinz nutritional; endocrine; and metabolic disorders (20 sources)Severe obesity; Translations: [Class 2 severe obesity due to excess calories with serious comorbidity and body mass index (BMI) of 37.0 to 37.9 in adult]Onset: 789656-66-1709NlthsizPnwpt skin disorders (2 sources)Inflamed seborrheic keratosis; Translations: [Inflamed seborrheic keratosis]58-53-1007MvwoqspsJffmt skin disorders (2 sources)Lentiginosis; Translations: [Other melanin hyperpigmentation] 60-07-0417EvhisrnwCgntx skin disorders (2 sources)Seborrheic keratosis; Translations: [Other seborrheic keratosis] 43-06-2174QjcvcoizOdhvj skin disorders (3 sources)Actinic keratosis; Translations: [Actinic keratosis]03-23-2025 EpisodicOther upper respiratory disease (20 sources)Allergic rhinitis; Translations: [Allergic rhinitis, unspecified] Onset: 523998-23-9952QugzolqHdkob upper respiratory disease (20 sources)Chronic laryngitis; Translations: [Chronic laryngitis]Onset: 693223-78-1988BzryosbZpmfb upper respiratory disease (20 sources)Chronic rhinitis; Translations: [Chronic rhinitis]Onset: 04-01-2023 84-55-0152SiuwknjNvsja upper respiratory disease (2 sources)Allergic rhinitis due to pollen; Translations: [Allergic rhinitis due to pollen]61-70-6010CepxncoMidht upper respiratory disease (1 source)Allergic rhinitis, unspecified; Translations: [Allergic rhinitis, unspecified seasonality, unspecified trigger]Onset: 49-39-9072GccatypLgzxi upper respiratory infections (20 sources)Chronic bilateral maxillary sinusitis; Translations: [Chronic maxillary sinusitis]Onset: 04-01-2023 Resolved: 926472-20-8131BlzhhnkFgkqa upper respiratory infections (4 sources)Acute sinusitis; Translations: [Acute sinusitis, unspecified] 77-16-3699NzohroyuTpkqmpxxh by nonmedicinal substances (1 source)Bee sting; Translations: [Toxic effect of venom of bees, accidental (unintentional), initial encounter]15-93-6170OcvgkdmnLhcpozmh codes; unclassified (5 sources)Sleep apnea; Translations: [Sleep apnea, unspecified]ChronicResidual codes; unclassified (3 sources)Sleep apnea, unspecified; Translations: [Sleep apnea G47.30]Onset: 06-20-2021 Resolved: 73-26-1024PpfkepbIgkeaxil codes; unclassified (20 sources)Obstructive sleep apnea syndrome; Translations: [Obstructive sleep apnea (adult) (pediatric)]Onset: 001692-03-6661YjoejuqWrphosrxdzkf (3 sources)ELEV LVLS LIVER TRANSAMINASE LVLS; Translations: [ELEV LVLS LIVER TRANSAMINASE LVLS]Onset: 01-77-0036Yohthbdczgou (1 source)Cough, unspecified type; Translations: [Cough, unspecified type]Onset: 05-04-2025 Past or Other Problems Problem ClassificationProblemDateDocumented DateEpisodic/ChronicAnxiety disorders (20 sources)Anxiety state; Translations: [Generalized anxiety disorder]Onset: 04-01-2023 Resolved: 141617-06-4182WwtijabYvqjgxq dysrhythmias (20 sources)Palpitations; Translations: [Palpitations]Onset: 01-31-2025 22-46-7522AnatrdesWobsllpl mellitus without complication (20 sources)Disorder of glucose metabolism; Translations: [Other abnormal glucose]Onset: 992293-76-1684RfeqyetkGomkc disorders and dislocations; trauma-related (20 sources)Derangement of right knee; Translations: [Unspecified internal derangement of right knee]Onset: 04-01-2023 Resolved: 597018-72-6170AdcyfvwMiia disorders (20 sources)Mood disordersOnset: 10-02-2023 Resolved: Other liver diseases (20 sources)Enzyme level - finding; Translations: [Elevated transaminase level] Onset: 041388-83-9212TyviktwsGmmzt lower respiratory disease (20 sources)Chronic cough; Translations: [Chronic cough]Onset: 07-28-2021 Resolved: 44-06-5085UrnburfsGiamb non-epithelial cancer of skin (20 sources)Basal cell carcinoma of truncal skin; Translations: [Basal cell carcinoma of skin of other part of trunk]Onset: 259465-67-9981Jvrzdtva Other skin disorders (20 sources)Lump on finger; Translations: [Localized swelling, mass and lump, unspecified upper limb]Onset: 04-01-2023 Resolved: 183502-28-9120FwpdayqoVcnhiefbsjiq (1 source)ELEV LVLS LIVER TRANSAMINASE LVLS; Translations: [ELEV LVLS LIVER TRANSAMINASE LVLS]Onset: 08-08-2021 Results Test NameValueInterpretationReference RangeFacilityUS Eye+Orbit - bilateralon 97-69-8872Zvwkauqfj: Cataract both eyes (OU) Testing Indication: Performed for preop measurements in the determination of an intraocular lens (IOL) for both eyes (OU) Test Reliability: Good quality both eyes (OU) Interpretation: Good measurements for intraocular lens (IOL) calculation purposes. Calculation made for both eyes (OU).[facility] Rad[facility] Study observation (narrative)[facility] HealthcareCNPNon 12-37-6618DMKE Telephone (PULSAN) VIOLET FERRARA ([id number]) 1960 M Date Time Provider Department 06/23/25 IMAN OBRIEN During your visit today, we recorded the following information about you: Stephanie Martinez RN 06/23/2025 9:37 AM Signed Received notification via electronic fax to [facility] from [facility] regarding a request for more information for patient's Dupixent prescription. Per 06/22 telephone encounter CC [facility] blaze already completed PA. Uploaded notification for reference if needed and forwarded to provider office. Scan on 06/23/2025 8:48 AM by ProviderKlaus PAMaddieC: [facility] request for Dupixent info Stephanie Martinez RN 06/23/2025 9:48 AM Signed Received duplicate correspondences regarding the below notification about Dupixent. [facility] Denial of Dupixent also received at [facility] via electronic fax. Uploaded to scanned docs for reference. Scan on 06/23/2025 9:21 AM by ProviderKlaus PA-C: [facility] Dupixent Denial Stephanie Martinez RN 06/23/2025 10:38 AM Signed [facility] location now received Dupixent approval from [facility]. Scan on 06/22/2025 1:20 PM by ProviderKlaus PAMaddieC: Dupixent approval from Luisa ([facility]) Called [facility] to inform them of provider's correct practice location. No fax number listed for Layla, but gave [employer] number of provider's historic site administrator to get updated fax number. Allergies As of Date: 06/23/2025 Noted Allergy Reaction AMOXICILLIN 05/04/2025 8 - GI Upset Date Reviewed: 06/22/2025 Reviewed by: Iman Obrien MD - Fully Assessed Reason for Visit: PA request Dupixent [Other] Prescriptions as of 06/23/2025 - VOQUEZNA 10 mg tablet Take 10 mg by mouth once daily. - guaifenesin/dextromethorphan (MUCINEX COUGH ORAL) Take by mouth. - dupilumab (DUPIXENT PEN) 200 mg/1.14 mL pen injection Inject 2.28 mL subcutaneously one time only for 1 dose. - dupilumab (DUPIXENT PEN) 200 mg/1.14 mL pen injection Inject 1.14 mL subcutaneously every other week. Patient should start on July 06, 2025. - AIRSUPRA 90-80 mcg/actuation inhaler Inhale 2 puffs as instructed every 6 hours as needed for wheezing/shortness of breath. Do not take more than 12 inhalations in a 24 hour period. - BREZTRI AEROSPHERE 160-9-4.8 mcg/actuation HFA aerosol [...] QHS prn Problem List As Of Date 06/23/2025 Noted Resolved BCC (basal cell carcinoma), trunk [C44.519] 04/01/2023 Benign essential hypertension [I10] 04/01/2023 Chronic cough [R05.3] 01/31/2025 Mixed hyperlipidemia [E78.2] 04/01/2023 LPRD (laryngopharyngeal reflux disease) [K21.9] 04/01/2023 Encounter Status:Closed by STEPHANIE MARTINEZ on 06/23/25[facility] HospitalCNPNTelephone (NCCAP) VIOLET FERRARA ([id number]) 1960 M Date Time Provider Department 06/23/25 IMAN OBRIEN During your visit today, we recorded the following information about you: Dorina Castellanos 06/23/2025 11:[address] Obrien ordered a CT scan. A message was left asking Violet to call to schedule. Bettina Martínez 06/24/2025 8:33 AM Signed Called and spoke with patient to schedule CT Chest ordered by Dr. Obrien. Patient states that on Saturday, he was advised by Dr. Obrien to get a CD from [facility] of his most recent CT, completed in 03/2025. Patient called [facility] Saturday to have the CT images faxed to our office. Patient requested to hold off on scheduling since he just had a CT in March. Kaylie: Please keep an eye out for the CT images from [facility] Dr. Obrien: Please advise if you would like patient to have another CT completed. Patient verbalized understanding if another CT should be completed at Dr. Obrien's discretion. If so, patient would like to have CT completed at [facility] as he lives in [place]. Patient states he already has paperwork from Dr. Obrien to take to [facility] and schedule CT, if needed. FELIPE Tomlin Renee, MD 06/24/2025 9:13 AM Signed Sounds good. Thank you! Fabi Olivier 06/24/2025 12:[address] images from March are uploaded now. Bettina De Paz 06/24/2025 12:52 PM Signed Message left for patient informing that at this time CT is not needed due to receiving images from CT in March from [facility]. FELIPE Tomlin Allergies As of Date: 06/23/2025 Noted Allergy Reaction AMOXICILLIN 05/04/2025 8 - GI Upset Date Reviewed: 06/22/2025 Reviewed by: Iman Obrien MD - Fully Assessed Reason for Visit: Orders [681] Cmt: Schedule CT chest Prescriptions as of 07/01/2025 - VOQUEZNA 10 mg tablet Take 10 mg by mouth once daily. - guaifenesin/dextromethorphan (MUCINEX COUGH ORAL) Take by mouth. - dupilumab (DUPIXENT PEN) 200 mg/1.14 mL pen injection Inject 1.14 mL subcutaneously every other week. Patient should start on July 06, 2025. - AIRSUPRA 90-80 mcg/actuation inhaler Inhale 2 puffs as instructed every 6 hours as needed for wheezing/shortness of breath. Do not take more than 12 inhalations in a 24 hour period. - BREZTRI AEROSPHERE 160-9-4.8 mcg/actuation HFA aerosol [...] QHS prn Problem List As Of Date 06/23/2025 Noted Resolved BCC (basal cell carcinoma), trunk [C44.519] 04/01/2023 Benign essential hypertension [I10] 04/01/2023 Chronic cough [R05.3] 01/31/2025 Mixed hyperlipidemia [E78.2] 04/01/2023 LPRD (laryngopharyngeal reflux disease) [K21.9] 04/01/2023 Encounter Status:Closed by HEIDL, DORINA on 07/01/25[facility] HospitalANITRALake Regional Health System 32-66-9360KHNHFawaah Visit (DANNY) VIOLET FERRARA ([id number]) 1960 M Date Time Provider Department 06/22/25 10:00 AM IMAN OBRIEN During your visit today, we recorded the following information about you: Temperature Pulse Respiration Blood pressure 97.7 degrees 87/minute 16/minute 135/82 Weight 113.5 kg Iman Obrien MD 06/22/2025 11:03 AM Signed . FOLLOW UP OFFICE VISIT Violet Ferrara is a 64 year old male who presents for follow up of chronic cough and asthma. Violet reports today that he has had some triggers of his asthma symptoms and cough since his last visit. Most recently being yesterday after he consumed several beers, he experienced reflux, cough, and chest tightness. He fell asleep and noted improvement upon waking today. He reports this was his first bad day in quite a while, and today is the first day he has been hoarse in a long time. He reports some improvement today. Over the summer he had a 3-week vacation in [facility]. He admits to drinking beer often while on vacation as well. During the third week, he visited a friend who smokes and spent about 20 minutes in the friend?s house. He reports the smoke exposure bothered his breathing as well. He completed a course of prednisone in March and has not taken any since. He continue to use Airsupra a couple of times daily, Breztri 2 puffs twice daily, and Singulair. He reports nighttime phlegm production with gagging when lying down, though he is unsure if this is from his lungs or reflux. He saw his ENT this morning, who advised weight loss and continued a newer reflux medication, voquezna, which was started in place of omeprazole. He continues to use a wedge pillow and sleeps on his left side. He is not consistent about avoiding eating within a few hours of lying down. PMH, FAMH, SOCIAL History AND Allergies were [...] Age of Onset Breast Cancer Sister : SOCIAL HISTORY[1] Allergies: ALLERGIES Allergen Reactions Amoxicillin GI Upset Current Medications: Current Outpatient Medications Medication Sig Dispense Refill VOQUEZNA 10 mg tablet Take 10 mg by mouth once daily. guaifenesin/dextromethorphan (MUCINEX COUGH ORAL) Take by mouth. AIRSUPRA 90-80 mcg/actuation inhaler INHALE 2 PUFFS BY MOUTH EVERY 4 HOURS NEEDED FOR SHORTNESS OF BREATH OR WHEEZE BREZTRI AEROSPHERE 160-9-4.8 mcg/actuation HFA aerosol inhaler Inhale 2 puffs as instructed. amLODIPine (NORVASC) 5 mg tablet Take 5 mg by mouth once daily. atorvastatin (LIPITOR) 20 mg tablet Take 20 mg by mouth every morning. predniSONE (DELTASONE) 10 mg tablet TAKE 1 TABLET BY MOUTH 3 TIMES A DAY X3 DAYS, 1 TABLET TWICE A DAY X3 DAYS THEN 1 DAILY X3 DAYS NASONEX 50 MCG/ACTUATION NASL SPRY 2 sprays each nostril qd prn 0 3 CLARINEX 5 MG ORAL TAB ONE PO QD prn 0 3 SINGULAIR 10 MG ORAL TAB ONE PO QHS prn 0 3 omeprazole (PRILOSEC) 20 mg capsule TAKE 1 CAPSULE BY MOUTH EVERYDAY AT THE SAME TIME (Patient not taking: Reported on 06/22/2025) No current facility-administered medications for this visit. ROS as per HPI. PHYSICAL EXAM: BP 135/82 Pulse 87 Temp (Src) 97.7 (Temporal) Resp 16 Wt 250 lb 3.6 oz (113.5kg) SpO2 94% General appearance: well appearing, in no acute distress, alert Skin: skin color normal, no rashes or lesions Eyes: Anicteric sclera. Neck: Supple, no adenopathy Respiratory: lungs clear to auscultation, no wheezing or rhonchi, normal work of breathing, good air movement Cardiovascular: S1, S2. RRR without murmur. Trace lower extremity edema. Musculoskeletal: No digital clubbing. Neuro/PSY: Normal mood and affect. Data Review: I personally reviewed, interpreted, and discussed the labs, PFTs and radiographs with the patient as noted below: Labs: 05/11/2025 IgE = 2171 AEC = 100 RAST++ for dust mites, low+ for grasses, various trees, and ragweed (A.fumigatus IgE negative) 05/2025 modified barium swallow: GERD seen to level of distal esophagus with tertiary contractions, no aspiration Assessment/Plan: 1) Asthma. With significantly elevated IgE level. Recommend CT chest to evaluate for bronchiectasis and ABPA; he reports a recent CT done locally but results are not available to me. Advised him to obtain recent CT results on a CD for me, or complete CT chest which was ordered today. His asthma is not well controlled on triple therapy inhalers and montelukast; multiple steroid courses this year. Will order dupixent, will require prior authorization. Discussed biolo (more content not included)...[facility] Zoila 72-52-2126BMAQXbdvoteqg (SDOPRX) VIOLET FERRARA ([id number]) 1960 M Date Time Provider Department 06/22/25 SANDRA CHI SDOPRX During your visit today, we recorded the following information about you: Sandra Chi, formerly [facility] 06/22/2025 1:34 PM Signed Ambulatory Pharmacy Prior Authorization Note Provider Intervention Required?: No - Pharmacy completed on your behalf. Was the PA documented within the ePA workqueue?: Yes Drug: Dupixent View the status history of the prior authorization in the Auth Tab within Chart Review Additional Information: co-pay $0 For questions relating to this submission, please contact [facility] at [phone] Allergies As of Date: 06/22/2025 Noted Allergy Reaction AMOXICILLIN 05/04/2025 8 - GI Upset Date Reviewed: 06/22/2025 Reviewed by: Iman Obrien MD - Fully Assessed Reason for Visit: Medication Authorization [2975] Cmt: Dupixent Prescriptions as of 06/22/2025 - VOQUEZNA 10 mg tablet Take 10 mg by mouth once daily. - guaifenesin/dextromethorphan (MUCINEX COUGH ORAL) Take by mouth. - dupilumab (DUPIXENT PEN) 200 mg/1.14 mL pen injection Inject 2.28 mL subcutaneously one time only for 1 dose. - dupilumab (DUPIXENT PEN) 200 mg/1.14 mL pen injection Inject 1.14 mL subcutaneously every other week. Patient should start on July 06, 2025. - AIRSUPRA 90-80 mcg/actuation inhaler Inhale 2 puffs as instructed every 6 hours as needed for wheezing/shortness of breath. Do not take more than 12 inhalations in a 24 hour period. - BREZTRI AEROSPHERE 160-9-4.8 mcg/actuation HFA aerosol [...] QHS prn Problem List As Of Date 06/22/2025 Noted Resolved BCC (basal cell carcinoma), trunk [C44.519] 04/01/2023 Benign essential hypertension [I10] 04/01/2023 Chronic cough [R05.3] 01/31/2025 Mixed hyperlipidemia [E78.2] 04/01/2023 LPRD (laryngopharyngeal reflux disease) [K21.9] 04/01/2023 Encounter Status:Closed by MINOR CHIT on 06/22/25[facility] esophaguson 62-60-8532NT esophagusAVITA [facility] Main [place] [id number] Fluoroscopy Report Signed Patient: Violet Ferrara MR#: [id number] : 1960 Acct:[id number] Age/Sex: 64 / M ADM Date: 05/12/25 Loc: XD Room: Type: REG CLI Attending Dr: Ruben Tai DO Copies to: [...] without evidence of stricture, mass or ulcer. Gastroesophageal reflux was seen involving the distal esophagus with tertiary contractions present. No hiatal hernia seen. No aspiration was seen during the examination. FL/FL esophagus IMPRESSION: GASTROESOPHAGEAL REFLUX WAS SEEN TO LEVEL OF THE DISTAL ESOPHAGUS WITH TERTIARY CONTRACTIONS. NO ESOPHAGEAL MASS, STRICTURE OR ULCER. Impression dictated by: Ulices Rao Jr., D.O. 05/12/2025 9:20 AM Dictation Location: [place] [address] Transcribed By: [facility] 05/12/25919 Dictated By: Ulices Rao Jr, DO 05/12/25918 Signed By: 05/12/25 09[facility] Physician GroupFluoroscopy reportOrdered By: Ulices Rao on 07-25-6147SI Unspecified body region [facility] Main [address] [address] Fluoroscopy Report Signed Patient: Violet Ferrara MR#: [id number] : 1960 Acct:[id number] Age/Sex: 64 / M ADM Date: 5 Loc: XD Room: Type: REG CLI Attending Dr: Ruben Tai DO Copies to: Ruben Tai DO~ Ordering Provider: Ruben Tai DO Date of Service: 05/12/25 FL/FL esophagus: chronic cough and reflux DOUBLE CONTRAST ESOPHAGRAM CLINICAL HISTORY: Chronic cough for one year. Dysphagia. COMPARISON: None TECHNIQUE: Double contrast esophagram was performed. Cumulative Air Kerma in mGy: 156.05 mGy FINDINGS: The esophagus appears normal in caliber without evidence of stricture, mass or ulcer. Gastroesophageal reflux was seen involving the distal esophagus with tertiary contractions present. No hiatal hernia seen. No aspiration was seen during the examination. FL/FL esophagus IMPRESSION: GASTROESOPHAGEAL REFLUX WAS SEEN TO LEVEL OF THE DISTAL ESOPHAGUS WITH TERTIARY CONTRACTIONS. NO ESOPHAGEAL MASS, STRICTURE OR ULCER. Impression dictated by: Ulices Rao Jr., D.O. 05/12/2025 9:20 AM Dictation Location: [place] [address] Transcribed By: [facility] 05/12/25919 Dictated By: Ulices Rao Jr, DO 05/12/25918 Signed By: 05/12/25919 [facility] CBC WITH AUTO DIFFon 01-97-7651CHBRRHKXS ABSOLUTE AHUK4ASJY HealthcareBasophils/100 WBC (Bld)0.4 %0.2 - 2.0 %NOMS HealthcareEosinophils/100 WBC (Bld)0.5 %Low0.9 - 7.0 %NOMS HealthcareErythrocyte distribution width (RBC) [Ratio]12.2 %11.0 - 15.0 %NOMS HealthcareHematocrit (Bld) [Volume fraction]42.8 %42.0 - 54.0 %NOMS HealthcareHemoglobin (Bld) [Mass/Vol]14.6 g/dL14.0 - 18.0 g/dLNOMS HealthcareIMMATURE GRANULOCYTES ABS AUTO 0.06HighNOMS HealthcareImmature granulocytes/100 WBC (Bld)0.5 %0.0 - 0.5 %NOMS HealthcareInterpretation and review of laboratory resultsAbnormalNOMS Healthcare LYMPHOCYTES ABSOLUTE PZRQ8CMEN HealthcareLymphocytes/100 WBC (Bld)18 %Low20.5 - 60.0 %NOMS [facility] CenterMCH (RBC) [Entitic mass]34 pg25.9 - 34.0 pgNOCox North MCHC (RBC) [Mass/Vol]34.1 g/dL29.9 - 35.2 g/dLNOAZ HealthcareMCV (RBC) [Entitic vol]99.8 aBHboq58.0 - 94.0 fLNOCox NorthMONOCYTES ABSOLUTE AUTO0.9HighNOMS HealthcareMonocytes/100 WBC (Bld)8 %1.7 - 12.0 %NOMS HealthcareNEUTROPHILS ABSOLUTE AUTO8.1HighNOMS HealthcareNeutrophils/100 WBC (Bld)72.6 %43.0 - 75.0 % NOMS HealthcarePlatelet mean volume (Bld) [Entitic vol]9.3 fLLow9.5 - 13.5 fL NOMS HealthcareTBH EO #0.1NOMS HealthcareTBH PDG798TAXB HealthcareTB RBC4.29Low [facility] CenterTB WBC11.1HighHIGHLAND RIDGE HOSPITAL HealthcareCLINISYNCNCOMANCHE COUNTY [facility] HealthcareCNPNon 47-28-6835QUNSIhqsyctwd (PULMAV) VIOLET FERRARA ([id number]) 1960 M Date Time Provider Department 05/05/25 IMAN OBRIEN During your visit today, we recorded the following information about you: Marcus Engel LPN 05/05/2025 12:[address] chest results Received: Yesterday Iman Obrien MD P Avw Pulm Nurse This patient reports having a CT just this summer in [place] or [place]. It's not being collected by [facility] Everywhere. Can we obtain his CT chest images on a CD please? Thank you! Faxed Auth to Disclose info to [facility] for CT Chest imaging Allergies As [...] 04/01/2023 Encounter Status:Closed by MARCUS ENGEL on 05/05/25[facility] 81-88-8751PYITQlwvlz Visit (DANNY) VIOLET FERRARA ([id number]) 1960 M Date Time Provider Department 05/04/25 [...] last for the cough, and he has had [...] tubs. 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 He rarely [...] Skin: skin color normal, (more content not included)...NormalSalem Regional Medical CenterNITRIC OXIDE, EXHALEDon 16-10-4429Lrfel, Amy, RRT 05/04/2025 10:20 AM ALLERGY AND IMMUNOLOGY [...] DATE: May 04, 2025 TIME: 10:20 AM [facility] CenterPIROMETRY - BASELINE AND POST DILATORon 99-23-5273SDIZDGFKNV - BASELINE AND POST DILATOR[address] [place] [address] Test Date: 2025-05-04 Pat Name: VIOLET FERRARA Department: Room: Gender: Male Melt Helper: : 1960 Requested By: Order Number: [id number] Reading MD: Bernardo Buck MD Interpretive Statements [...] 11:33:34 EDT by Bernardo Buck MD ID: [id number] Name: VIOLET FERRARA Race: White Ht: 68.50 in Wt: 255.30 lbs Age: 64 Gender: Male : 1960 Dx: Cough, unspecified_ Smoking Hx: Non-smoker Doctor: IMAN OBRIEN Test Date: 05/04/2025 Site: [facility] Tech: Jessika Lunsford PRE-BRONCH POST-BRONCH Richard [...] 90-100 0.68 14 FIVC 3.51 3.37 -4 TNL71-29 2.38 1.14 2.51 4.42 94 -0.13 2.71 [...] 77 % FEV1/FVC_LLN (%) : 65 % EPZ41_GOO (L/S) : 7.22 L/S FPP18_RASW (L/S) : 7.56 L/S CNB13_QIL (L/S) : 0.71 L/S UIM56_VIED (L/S) : 0.87 L/S ABJ33_XEEG (L/S) : 0.70 L/S GJM67_EOY (L/S) : 0.27 L/S XWM11_LJE (L/S) : 1.75 L/S HEP78-14%_PRE (L/S) : 2.38 L/S VBI26-88%_POST (L/S) : 2.71 L/S WPX32-84%_PRED (L/S) : 2.51 L/S HPJ35-78%_LLN (L/S) : 1.14 L/S PEF_PRE (L/S) : 8.61 L/S PEF_POST (L/S) : 8.88 L/S PEFMAX_LLN (L/S) : 6.10 L/S PEFMAX_ULN (L/S) : 10.54 L/S FET_PRE (S) : 8.68 S FET_POST (S) : 6.88 SNormalKettering Health – Soin Medical Centeron 89-34-2692DGDP Telephone (PULMMN) VIOLET FERRARA ([id number]) 1960 M Date Time Provider Department 03/29/25 ELSA SERNA During your visit today, we recorded the following information about you: Duncan Alford RN 03/29/2025 2:40 PM Signed Received chronic cough referral, Called and spoke with patient, his cough has been going on since last , the last time he saw a director of recruiting was about 2 years ago Patient stated he prefers to be seen by someone at [facility] Will send message to scheduling Allergies As of Date: 03/29/2025 (No Known Allergies) Date Reviewed: 01/01/2005 Reviewed by: Anival Harvey, Linda - Reviewed Prescriptions as of 03/29/2025 - [...] (None) Encounter Status:Closed by DUNCAN ALFORD on 03/29/25NormalCFort Hamilton HospitalNo Panel Informationon 59-19-8400QDET HealthcareXR CHEST 2Von 72-65-5654D[address] [address] XRay Report Signed Patient: VIOLET FERRARA MR#: [id number] : 1960 Acct:[id number] Age/Sex: 63 / M ADM Date: 05/08/24 Loc: LAB Attending Dr: MARINA JEONG Ordering Physician: MARINA JEONG Date of Service: 05/08/24 Procedure(s): XR chest 2V Accession Number(s): [id number] cc: NICK BESS ; MARINA JEONG [place] [address] Patient Name: VIOLET FERRARA MRN: [id number] date: 1960 Sex: M Assigned Patient Location: LAB Current Patient Location: LAB Accession/Order Number: [id number] Exam Date: 05/08/2024 12:00 Report Date: 05/08/2024 12:17 At the request of: MARINA JEONG Procedure: XR chest 2V EXAM: XR chest [...] chest is essentially unchanged Electronically authenticated by: OLE RENE Date: 05/08/2024 12:17 Dictated By: Ole Rene M.D. Signed By: 05/08/24 1219 DD/ 1217 TD/TT: [employer]:TBHRadiology, Radiologist, MD - 05/08/2024 [place] [address] XRay Report Signed Patient: VIOLET FERRARA MR#: [id number] : 1960 Acct:[id number] Age/Sex: 63 / M ADM Date: 05/08/24 Loc: LAB Attending Dr: MARINA JEONG Ordering Physician: MAIRNA JEONG Date of Service: 05/08/24 Procedure(s): XR chest 2V Accession Number(s): [id number] cc: NICK BESS ; MARINA JEONG [place] [id number] Patient Name: VIOLET FERRARA MRN: [id number] date: 1960 Sex: M Assigned Patient Location: LAB Current Patient Location: LAB Accession/Order Number: [id number] Exam Date: 05/08/2024 12:00 Report Date: 05/08/2024 12:17 At the request of: MARINA JEONG Procedure: XR chest 2V EXAM: XR chest [...] chest is essentially unchanged Electronically authenticated by: OLE RENE Date: 05/08/2024 12:17 Dictated By: Ole Rene M.D. Signed By: 05/08/24 1219 DD/ 1217 TD/TT: [employer]: SHANDA [facility] CenterRadiology Study observation (narrative)[facility] HealthcareXR CHEST 2V Ordered By: Radiologist Radiology on 24-17-6007[employer] Work Phone: Destr of lesionon 08-66-5190Bcbhmoyxae: simple Destruction method: electrodesiccation and curettage Informed consent: discussed and consent obtained Informed consent comment: The risks of the procedure were discussed, including, but not limited to risks of scarring, darker or director security risk management pigmentary changes, recurrence, infection, and incomplete removal [...] lidocaine used: 3.0 cc Previous accession number: [id number] Southern HealthcareDestr of lesionOrdered By: Erika Murray on 70-88-3105[employer] Work Phone: US SINGLE QUAD RT UPPERon 57-09-3932QR SINGLE QUAD RT UPPEREXAMINATION: US SINGLE QUAD RT UPPER HISTORY: Elevated [...] Electronically authenticated by: MARCUS FERMIN Date: 2021-08-08 09:23[facility] CenterXR [facility] 2 Von 53-89-8218SE CHEST 2 VEXAMINATION: XR CHEST 2 V HISTORY: Chronic cough COMPARISON: XR [...] Electronically authenticated by: ELIAS PICKARD Date: 2021-07-28 10:35[facility] HospitalHistory and Physicalon 93-91-5659Jujbind and Physical [id number]#1.00[place] Provider Orderson 37-51-0245Nfhaqcrm Orders [id number]#[address] [place] [address] Intraoperative Noteon 77-98-3274Fjamkdigbpmiag Note [id number]#1.00[place]Coding Queryon 81-82-0178Luttnn QueryPlease review the PreOperative diagnosis -- there seems to be a dragon/dictating error. Please correct it on the Operative Note.Thanks.Felice[Electronically Signed on: 01/02/2018 18:59 EDT]____ Meri Miller DO[Verified on: 01/02/2018 18:59 EDT] Meri Miller DO[Transcribed on: 01/02/2018 11:50 EDT][facility] HospitalCoding Summaryon 24-74-8130Xtbezy SummaryCODING DATE: 01/02/2018 [facility] STATUS: Home PAYOR: Commercial Insurance APC DESCRIPTION 5113 Level 3 Musculoskeletal Procedures ADMIT DX: REASON FOR VISIT DX: M23.91 Unspecifiedinternal derangement of right knee FINAL DX: PRINCIPAL: S83.281A Other tear of lateral meniscus, current injury, right knee, initial encounter SECONDARY: S83.241A Other tear of medial meniscus, current injury, right knee, initial encounter PYMT PROC APC STAT DESCRIPTION DOCTOR NAME DATE 14736 6255 J1 Arthroscopy, knee, Meri Miller And 12/30/2017 surgical; with meniscectomy (medial AND lateral, including any meniscal shaving) including debridement/shaving of articular cartilage (chondroplasty), same or separate compartment(s), when performed RT Right side (used to identify procedures perf ormed on the right side of the body) NOTE: The code number assigned matches the documented diagnosis and / or procedure in the patient's chart. However, the narrative phrase printed from the coding software may appear abbreviated, or result in slightly different terminology. Coded By: Yisel Hong Date Saved: 01/02/2018 12:00 [facility] SystemCoding SummaryCODING DATE: 01/02/2018 [facility] STATUS: Home PAYOR: Commercial Insurance ADMITDX: REASON FOR VISIT DX: S83.241A Other tear of medial meniscus, current injury, right knee, initial encounter FINAL DX: PRINCIPAL: S83.241A Other tear of medial meniscus, current injury, right knee,initial encounter SECONDARY: PROCEDURES DOCTOR NAME DATE NOTE: The code number assigned matches thedocumented diagnosis and / or procedure in the patient's chart. However, the narrative phrase printed from the coding software may appear abbreviated, or result in slightly different terminology. Coded By: Fabi Francis Date Saved: 01/02/2018 07:59 [facility] CenterConsent Formson 09-20-0520Zigjrxc [id number]#1.00[place] Discharge Instructionson 70-98-2416Zugvqymxw Instructions [id number]#1.00[place] Intraoperative Noteon 94-19-0724Vlemmgshsqxyuh Note [id number]#1.00[place] Medication Managementon 19-94-7697Ueeurfvszz Management [id number]#1.00[place] Outside Recordson 83-65-3908Hykvstb Records [id number]#1.00[place] Telemetry Stripson 42-43-0654Gdzxfvdld Strips [id number]#1.00[place] Anesthesia Noteon 57-37-3678Azpyvzyvmb NotePatient: VIOLET FERRARA : 57 years Sex: MALE : [birth year]Associated Diagnoses: NoneAuthor: David Quintana MDPostoperative InformationPost Operative Note: Operative Day.Anesthetic utilized: General.Health StatusAllergies:Allergic Reactions (All)No known allergiesProblem list (past medical history):All ProblemsAsthma / SNOMED CT 259739408 / ConfirmedArrhythmia / SNOMED CT 5621857155 / ConfirmedSinus disorder / SNOMED CT 7099317983 / ConfirmedAcid reflux / SNOMED DE111699209 / ConfirmedHypertension / SNOMED CT 0057686712 / ConfirmedPhysical ExaminationVS/MeasurementsVital Signs (last 24 hrs) Last ChartedHeart Rate Peripheral 85 bpm (DEC 30 11:00)Resp Rate 18 br/min (DEC 30 11:00)SBP 107 mmHg (DEC 30 12:34)DBP 71 mmHg (DEC 30 12:34)SpO2 87 % (DEC 30 12:35)Review / ManagementCondition: Stable.AssessmentAnesthetic outcomeNo anesthetic complications noted.PlanTransfer/ Discharge: Patient can be discharged from PACU when criteria met.Condition good.[Electronically Signed on: 12/30/2017 12:45 EDT] aDvid Quintana MD[Verified on: 12/30/2017 12:45 EDT] David Quintana [facility] HospitalAnesthesia NotePatient: VIOLET FERRARA : 57 years Sex: MALE : [birth year]Associated Diagnoses: NoneAuthor: David Quintana MDPreoperative InformationAnesthesia history: Patient history: No difficult intubation, No malignant hyperthermia. Family history: No malignant hyperthermia.Review of SystemsConstitutional: Negative.Respiratory: Negative, No shortness of breath.Cardiovascular: No chest pain.Neurologic: Alert and oriented X4.Health StatusAllergies:Allergic Reactions (All)No known allergiesCurrent medications:Home Medications (7) ActiveamLODIPine 5 mg oral tablet 5 mg = 1 tab( s), PO, Dailyaspirin 81 mg oral delayed release [...] (past medical history):All ProblemsAsthma / SNOMED CT 026296122 / ConfirmedArrhythmia / SNOMED CT 8058122298 / ConfirmedSinus disorder / SNOMED CT 9376304008 / ConfirmedAcid reflux / SNOMED CT 703811142 / ConfirmedHypertension / SNOMED CT 3024536134 / ConfirmedHistoriesFamily History:No family history items have been selected or recorded.Procedure history:Pilar cyst (452884281) in 2014 at 55 Years.Comments:12/27/2017 12:08 - Zoe Ingram LMIDDLE FINGER OF LEFT HANDFESS (functional endoscopic sinus surgery) diagnostic antroscopy via inferior meatus (6661577582) in 1996 at 37 Years.Social History Alcohol Assessment Beer, 3-5 times per week, 4 drinks/episode average. Previous treatment: None. Tobacco Assessment Never (less than 100 in lifetime) Tobacco Use:. Substance Abuse Assessment Substance use: Never..Social & Psychosocial QggpafCktompt71/27/2018 Type: Beer Frequency: 3-5 times per week Average drinks per episode in last year: 4 Previous treatment: NoneSubstance Abuse12/27/2017 Substance use: ScbpsDemilkr54/27/2018 Smoking tobacco use: Never (less than 100 in l.Physical ExaminationVS/MeasurementsVital Signs (last 24 hrs) Last ChartedHeart Rate Peripheral 85 bpm (DEC 30:)Resp Rate18 br/min (DEC 30:)SBP 137 mmHg (DEC 30:)DBP 90 mmHg (DEC 30:)SpO2 97 % (DEC 30:)Airway: Mallampati classification: II (soft palate, fauces, uvula visible). Temporomandibular joint mobility: Good. Mouth: Adequate opening. Neck: Full range of motion.Respiratory: Lungs are clear to auscultation.Cardiovascular: Regular rhythm.Neurologic: Alert, Oriented.Review / ManagementLaboratory ResultsPlanAmerican Society of Anesthesiologists#(ASA) physical status classification: Class II.Anesthetic Preoperative PlanAnesthesia: General.. Anesthetic plan, risks, benefits, and alternativesdiscussed with the patient and/or family. Patient verbalized understanding.[Electronically Signed on: 12/30/2017 11:09 EDT] David Quintana MD[Verified on: 12/30/2017 11:09 EDT] David Quintana MDOhioHealth Hardin Memorial HospitalInpatient Clinical Summaryon 17-77-6569Ailklctsx Clinical Summary [facility] SURGERYClinical Discharge SummaryPERSON INFORMATIONName JOSIAS VIOLET Rin Age 57 Years 56Sex MALE Language Malay PCP BESS, DANIELMarital Status Med Service Ambulatory SurgeryMRN [id number] Acct# Arrival 12/30/17 10:26:36Visit Reason KNEE ARTHROSCOPY Acuity LOS 004 02:46Address:[address] [place] [address]Ugsjpay:PROVIDER INFORMATIONVITALS INFORMATIONVital Sign Triage LatestTemp OralTemp TemporalTemp IntravascularTemp AxillaryTemp Fivjme43 Sat 97 % 94 %Respiratory Rate 18 [...] ( 81 mg ), PO, Daily, 0 Refill(s)budesonide-formoterol (Symbicort 160 mcg-4.5 mcg/inh) 2 puff(s), INH, BID, # 6 gm, 0 Refill(s)famotidine (famotidine 20 mg oral tablet) one tab(s), PO, Daily, 0 Refill(s)hydrOXYzine (hydrOXYzine hydrochloride 25 mg oral tablet) 1 tab(s) ( 25 mg ), PO, Daily, # 30 tab(s), 0 Refill(s)montelukast (Singulair 10 mg oral tablet) 1 tab(s) ( 10 mg ), PO, HS, # 30 tab(s), 0Refill(s)omeprazole (omeprazole 40 mg oral delayed release capsule) [...] INFORMATIONDischarge Disposition:Discharge Location:DEPART REASON INCOMPLETE INFORMATIONPATIENT EDUCATION INFORMATIONInstructions:Angela- Post Op Knee Arthroscopy (MHAHUDCHARLEEN)Follow up:With: Address: When:Meri Miller [address] [place] [address], [address] [place] [address] Business (2) 01/07/2018 8:30 AMWith: Address: When:NICK BESS [address] [phone] Business (1)DIAGNOSISTorn meniscu sComment:PHYS DOC NOTESOhioHealth Hardin Memorial HospitalInpatient Patient Summaryon 46-47-7352Nryeyfxsf Patient SummaryBrenda Ville [id number] patient Discharge InstructionsName: VIOLET FERRARA WDOB: [birth year] MRN: [id number]-- Address: [address] [place] [address] Care Provider:Name: NICK BESSPhone: After you are dischargedif you find you have any questions, please, call [phone] ext [phone] to speak to a nurse.Discharge Diagnosis: Torn meniscusIf you received any narcotics, sedation, or any other medication that causes drowsiness for the next 24 hours, unless otherwise directed:? Do not drive a car.? Do not operatemachinery such as power tools, lawn mowers, drills, sewing machines, or stoves? Avoid alcoholic beverages and drugs for allergies, nerves, or sleep? Do not make important personal or business decisions or sign any legal documentsAdams County Hospital would like to thank you for allowing us to assist you with your healthcare needs. The following includes patient education materials and information regarding your injury/illness.VIOLET FERRARA has been given the following list of follow-up instructions, prescriptions, and patient education materials:Follow-up InstructionsWith: Address: When:Meri Miller [address] [place] [address], [address] [place] [address] Business (2) 01/07/2018 8:30 AMWith: Address: When:NICK BESS [facility], [address] [place], [place] [phone] Business (1)MedicationsDuring the course of your visit, [...] mg oral tablet) 1 tab(s) Oral At bedtime.omepraz ole (omeprazole 40 mg oral delayed release capsule) 1 cap Oral every day.It is important to always keep an active list of medications available so that you can share with other providers and manage your medications appropriately. As an additional courtesy, we are also providing you with your final active medications list that you can keep with you.amLODIPine (amLODIPine 5 mg oral tablet) 1 tab(s)Oral every day.aspirin (aspirin 81 mg oral delayed [...] any medications not on this list.Diet & Act ivityPatient Activity Level:Patient Diet: RegularPatient Activity Restrictions:Comment:Patient education materials, if any, will display belowDR. [...] devices are not required.-You should elevate your extrem ity-If you have any questions or concerns, please call the office at [phone] or BacteriaWhat?s got you sick?Antibiotics only treat bacterial infections. Viral illnesses cannot be treated with antibiotics. When an antibiotic is not prescribed, ask your healthcare professional for tips onhow to relieve symptoms and feel better. Usual CauseIllness Viruses Bacteria Antibiotic NeededCold/Runny Nose NOBronchitis/Chest Cold (in otherwise healthy children and adults) NOWhooping Cough YesFlu NOStrep Throat YesSore Throat (except strep) NOFluid in the middle ear (otitis media with effusion) NOUrinary Tract Infection YesAntibiotics Aren?t Always the Answerwww.cdc.gov/getsmart GETSMARTKnowWhen Antibiotics Melania.[place]. Department of Health and Human ServicesCenters for Disease Control and Prevention May 2014NoCommunity [facility] Hospital Intraoperative Recordon 14-14-5532HFJF Intraoperative RecordMAGR Intra-Op Record Summary Primary Physician: Meri Miller DO Finalized Date/Time: 12/30/17 16:14:46 Pt. Name: VIOLET FERRARA /Sex: 1960 MALE Med Rec #: [id number] Physician: Meri Miller DO Financial #: [id number] Pt. Type: D Room/Bed: / Admit/Disch: 12/30/17 [...] 1 Entry 2 Entry 3 Case Attendee Meri Miller Robert M MD Sauer, Stephanie RN Andrew DO Role Performed Surgeon - Primary Anesthesiologist of Shore Worker Record Time In 12/30/17 11:25:00 12/30/17 11:25:00 12/30/17 11:25:00 Time Out 12/30/17 12:42:00 12/30/17 12:42:00 12/30/17 12:42:00 Procedure Arthroscopy Knee(Right, Arthroscopy Knee(Right, Arthroscopy Knee(Right, Knee) Knee) Knee) Last Modified By: Anna He RN, Stephanie RN Sauer, Stephanie RN 12/30/17 14:02:51 12/30/17 14:02:51 12/30/17 14:02:51Entry 4 Entry 5 Case Attendee Rosa Crabtree CST, Liberty G Role Performed Tooth Cutter Scrub Personnel Time In 12/30/17 11:25:00 12/30/17 11:25:00 Time Out 12/30/17 12:42:00 12/30/17 12:42:00 Procedure Arthroscopy Knee(Right, Arthroscopy Knee(Right, Knee) Knee) Last Modified By: Anna He RN, Stephanie RN 12/30/17 14:02:51 12/30/17 14:02:51 Surgical Procedures MAGR Pre-Care Text: A.20 Verifies operative procedure, surgical site, and laterality Im.150 Develops individuali zed plan of care Entry 1 Procedure Arthroscopy Knee Primary Procedure Yes Primary Surgeon Meri Miller Right, Knee Salazar DO Surgeon Comment RIGHT [...] 2 Diagnosis Preop Diagnosis INTERNAL DERANGEMENT Postop SameAs Preop Yes Postop Diagnosis INTERNAL DERANGEMENT Last [...] procedure operative duration, anticipated blood loss Anesthesia teamYes Nursing team Yes reviews any reviews sterility [...] O.100 Patient is free from signs and symptomsof chemical injury Counts Verification MAGR Pre-Care Text: A.20 Verifies operative procedure, surgical site, and laterality A.20.2 Assesses the risk for unintended retained foreign body Im.20 Performs required counts Entry 1 Procedure Arthroscopy Knee(Right, Knee) Counts Verification Initial CountsItems included in Sponges, Sharps Initial Counts Manual [...] AIR Serial ?# [id number] Equipment Setting 43 DEGREESLast Modified By: Anna He RN 12/30/17 14:06:44 Post-Care Text: E.10 Evaluates signs and symptoms of physical injury to skin and tissue O.700 Patient is free from signs and symptoms of injurycaused by extraneous objects Medication Administration MAGR Pre-Care Text: A.210 Identifies physiological status Im.220 Administers prescribed medications Entry 1 Time Administered 12/30/17 11:53:00 Medication EPI 1:1,000 0.3ML TO 3,000 ML 0.9% NORMAL SALINE Route of Admin IRRIG By Meri Miller DO Outcome Met (O.130) Yes Last [...] 12/30/17 12:21:22 Case Comments Finalized By: Anna eH RN Document Signatures Signed By: Anna He RN 12/30/17 14:06 Anna He RN 12/30/17 16:14 Unfinalized History Date/Time Username Reason for Unfinalizing Freetext Reason for Unfinalizing 12/30/17 16:13 [facility] DocumentationNormOhioHealth Van [facility] Hospital PACU Recordon 68-94-9511RNJU PACU RecordMA PACU Record Summary Primary Physician: Meri Miller DO F inalized Date/Time: 12/30/17 13:21:10 Pt. Name: VIOLET FERRARA/Sex: 1960 MALE Med Rec #: [id number] Physician: Meri Miller DO Financial #: [id number] Pt. Type: D Room/Bed: / Admit/Disch: 12/30/17 10:26:36 - Institution: PACU Case Times MAGR Entry 1 In PACU I 12/30/17 12:41:00 Discharge from PACU 12/30/17 13:10:00 I Last Modified By: Jaqueline Nguyen RN 12/30/17 13:08:24 Finalized By: Jaqueline Nguyen RN Document Signatures Signed By: aJqueline Nguyen RN 12/30/17 13:21NoCommunity [facility] Postoperative Recordon 16-08-6957LVJN Postoperative RecordMAGR Phase II Record Summary Primary Physician: Meri Miller DO Finalized Date/Time: 12/30/17 14:25:01 Pt. Name: VIOLET FERRARA/Sex: 1960 MALE Med Rec #: [id number] Physician: Meri Miller DO Financial #: [id number] Pt. Type: D Room/Bed: / Admit/Disch: 12/30/17 10:26:36 - Institution: Phase II Case Times MAGR Pre-Care Text: Patient is freefrom s/s of injury. Patient remains free from [...] return to preop mental and physical status, opsite/ dressing intact, minimal or absent nausea and vomiting, tolerates po intake. Patient verbalizes adequate pain control. Patient/family express understanding of discharge instructions. Finalized By: Viry Rehman RN Document Signatures Signed By: Viry Rehman RN 12/30/17 14:25NoCommunity [facility] Hospital Preoperative Recordon 23-22-5380LTYT Preoperative RecordMAGR Pre-Op Record Summary Primary Physician: Meri Miller DO Finalized Date/Time: 12/30/17 13:31:52 Pt. Name: VIOLET FERRARA/Sex: 1960 MALE Med Rec #: [id number] Physician: Meri Miller DO Financial #: [id number] Pt. Type: D Room/Bed: / Admit/Disch: 12/30/17 10:26:36 - Institution: Pre-Op Case Times MAGR Pre-Care Text: Patient will be optimally prepared for surgery. Patient is free from s/s of injury. Provide information to patient/family related to plan of care. Verify patient allergies. Confirm identity and verify consent before theoperative or invasive procedure. Entry 1 Patient Arrival Time 12/30/17 10:58:00 Preop Departure 12/30/17 11:20:00 Last Modified By: Ramsey Saleh RN 12/30/17 13:31:50 Post-Care Text: Patient is prepared mentally and physically and is ready for surgery. The patient remains free from s/s of injury. Patient/family express understanding of plan of care and participate in decisions affecting his orher perioperrative plan of care. Allergies documented appropriately. Patient identifiers and consent correct. General Comments: pt arrives to psw ambulatory. Pt denies any pain, cp, sob, cough or flulike symptoms. Pt denies pacemaker/defibillator or sleep apnea. Finalized By: Ramsey Saleh RN Document Signatures Signed By: Ramsey Saleh RN 12/30/17 13:31Ohio[facility] Hardin Memorial HospitalOperative Report - Surgeon/Physicianon 89-96-6762Axbbmbnvp Report - Surgeon/PhysicianPreoperative diagnosis: Internal duration right knee was suspected [...] was established and under direct visualization an in ferior medial portal established.The patellofemoral joint articular cartilage [...] visualize into the lateral compartment because the meniscuswas displaced and incarcerated. Able I freed this up and inspected for possibility repair but was simply shredded. Thus a partial meniscectomy was performed removing a large percentage of the posterior horn and lateral rim of the lateral meniscusThere were articular erosions in the lateral compartment but it was not hjca-wx-zlbx.Each compartment was revisited the joint was then irrigated and evacuated the portals were closed with nylon sutures. Sterile dressings were applied.[Electronically Signed on: 12/30/2017 12:48 EDT] Meri Miller DO[Verified on: 12/30/2017 12:48 EDT] Meri Miller DOpcharmainease note this correctionPreoperative diagnosis should read Internal derangement right knee with suspected incarcerated meniscus.[Electronically Signed on: 01/02/2018 18:44 EDT] Meri Miller [facility] Standardon 54-73-4589pOAL (non-black) mL/min/{1.73_m2}Invalid Interpretation [facility] Oste[facility] ClinicComment on above: Performed By: #### [id number] ####[facility] (DEFAULT)[address] [place], [place] [address]Apdwpg Comment: Chronic Kidney disease could be indicated at eGFRs of less than 60 ml/min/1.73m2. Kidney Failure is indicated at less than 15 ml/min/1.62q5Gkdti gap12.0 mmol/LNormal5.0-19.0[facility] Comment on above:Performed By: #### [id number] ####[facility] (DEFAULT)[address] [place] [address] 46931ZGF/Creatinine Ratio14.0 mg/mg Normal4.6-16.2M[facility] HospitalComment on above:Performed By: #### [id number] ####[facility] (DEFAULT)[address] [place] [address] 23787Buaufmp5.7 mg/dLLow8.9-10.3M[facility] HospitalComment on above:Performed By: #### [id number] ####[facility] (DEFAULT)[address] [place] [address] 31508Wkrbmtgc 103 mmol/ROajhyl369-036Gbxvqhwx HospitalComment on above:Performed By: #### [id number] ####[facility] (DEFAULT)[address] [place] [address] 26713QI561 mmol/NLljsmv45-38Yfgrddij HospitalComment on above:Performed By: #### [id number] ####[facility] (DEFAULT)[address] [place] [address] 07750Xulgegfpfr3.00 mg/dLNormal0.90-1.30[facility] HospitalComment on above: Performed By: #### [id number] ####[facility] (DEFAULT)[address] [place] [address] 75476Wzotics mass conc92.0 mg/xPTpmmyc72.0-118.0[facility] HospitalComment on above:Performed By: #### [id number] ####[facility] (DEFAULT)[address] [place] [address] 82774Mxohdvivfe734 mOsm/LInvalid Interpretation CodeAshtabula County Medical Center HospitalComment on above:Performed By: #### [id number] ####[facility] (DEFAULT)[address] [place] [address] 88270Wflkdqzbr molar conc3.6 mmol/LNormal3.6-5.1MWVUMedicine Barnesville HospitalComment on above:Performed By: #### [id number] ####[facility] (DEFAULT)[address] [place], [place] [address]Rdeiwa706.0 mmol/AEsylzr241.0-144.0[facility] Comment on above:Performed By: #### [id number] ####[facility] (DEFAULT)[address] [place], [place] [address]Ubze lewbkdlc06 mg/dLNormal04-27 [facility] HospitalComment on above:Performed By: #### [id number] ####[facility] (DEFAULT)[address] [place] [address] Vital Signs Date TimeVital SignValuePerforming RmqoooxmyJcukratf59-03-7025 07:50-0400Body tuuxfg526.8 cmBenjamin Murcek DO Work Phone: [facility] HealthcareGxbvyipkap69-67-5504 07:50-0400Body mass index (BMI) [Ratio]35.87 kg/x5Qjdrizfm Murcek DO Work Phone: [facility] HealthcareDfzeujetkh56-49-8287 07:50-0400Body hmvfeh374.4 kgBenjamin Murcek DO Work Phone: [facility] HealthcareNrtnmfbuvo27-29-8280 09:22-0400Body xfdhwe176.8 cmBenjamin Murcek DO Work Phone: [facility] HealthcareJdgrgboweh36-51-3573 09:22-0400Body mass index (BMI) [Ratio]35.87 kg/z5Zktjpfcz Murcek DO Work Phone: [facility] HealthcareMnkubzbaej74-99-2128 09:22-0400Body .4 kgBenjamin Murcek DO Work Phone: [facility] HealthcareOufnohvkia04-02-6949 10:55-0400Body .3 Hernando Obrien MD Work Phone: [facility]09-02-2025 10:55-0400Body mass index (BMI) [Ratio]37.68 kg/n4GfosqIman Obrien MD Work Phone: [facility]09-02-2025 10:55-0400Body temperature 97.59 [degF]Iman Obrien MD Work Phone: [facility]09-02-2025 10:55-0400Body vuhovk518.8 kgIman Obrien MD Work Phone: [facility]09-02-2025 10:55-0400Diastolic blood jlfffpqy37 mm[Hg]Iman Obrien MD Work Phone: [facility]09-02-2025 10:55-0400Heart rate86 /min Iman Obrien MD Work Phone: [facility]09-02-2025 10:55-0400Respiratory rate 16 /minIman Obrien MD Work Phone: [facility] [facility]09-[facility] 10:55-3088UtI6% (BldA) [Mass fraction]92 %Iman Obrien MD Work Phone: [facility]09-02-2025 10:55-0400Systolic blood rhxigbpk616 mm[Hg]Iman Obrien MD Work Phone: [facility]08-19-2025 08:09-0400Body ageair346.8 cmBenisamin Murcek DO Work Phone: [facility] HealthcareCrfaagxlvg95-37-5908 08:09-0400Body mass index (BMI) [Ratio]35.87 kg/c4Jqpugnsb Murcek DO Work Phone: [facility] HealthcareLmbpineqve47-05-6548 08:09-0400Body qeenlb188.4 kgBenisamin Murcek DO Work Phone: [facility] HealthcareDodnomnsdm35-22-7681 09:07-0400Body jbwuzr452.8 Norma Bess MD Work Phone: noCox NorthBuawtbrtna17-45-9345 09:07-0400Body mass index (BMI) [Ratio]36.45 kg/g2BbjtbjNick Bess MD Work Phone: [facility] HealthcareEcvgxxveud13-47-8776 09:07-0400Body pagjmb282.21 kgNick Bess MD Work Phone: [facility] HealthcareFnhrforwna22-60-5977 09:07-0400Diastolic blood xrywazet868 mm[Hg]Nick Bess MD Work Phone: [facility] HealthcareQhbyjcaxhd12-38-4173 09:07-0400Heart rate87 /min Nick Bess MD Work Phone: [phone]-1483[facility] HealthcareIwrggwvdaa58-92-8528 09:07-2708MzG7% (BldA) [Mass fraction]94 %Nick Bess MD Work Phone: [facility] HealthcareScmwfxhcxt14-98-2613 09:07-0400Systolic blood bghbbdqi496 mm[Hg]Nick Bess MD Work Phone: [phone] [place], [place] [address]Pbpwbnflfl56-24-6158 14:48-0400Body .26 cmDabernabe Bess II Work Phone: [phone]07-10-2025 14:48-0400 Body mass index (BMI) [Ratio]35.1 kg/u0PmiqciNick Bess II Work Phone: [phone]07-10-2025 14:48-0400 Body mxqguwekrbq19.5 [degF]Nick Bess II Work Phone: 1(522)570-[address] [place], [place] [address]07-10-2025 14:48-0400 Body .95 kgNick Bess II Work Phone: [phone] [place], [place] 324[address]07-10-2025 14:48-0400 Diastolic blood mm[Hg]Nick Bess II Work Phone: 1(480)512-[address] [place], [place] 324[address]07-10-2025 14:48-0400 Heart rate81 /Nuviael Bess II Work Phone: 1(036)079-[address] [place], [place] [address]07-10-2025 14:48-0400 Respiratory rate18 /minDteresael Bess II Work Phone: [facility]07-10-2025 14:48-0400 SaO2% (BldA) [Mass fraction]92 %Nick Bess II Work Phone: [facility]07-10-2025 14:48-0400 Systolic blood ergxtlen655 mm[Hg]Nick Bess II Work Phone: 1([phone] [place], [place] [address]07-10-2025 08:52-0400 Body ypklat336.8 cmKaren Hemmer PA Work Phone: [facility] HealthcareFjcwchmrij77-37-8017 08:52-0400Body mass index (BMI) [Ratio]36.65 kg/q3Gyuuo Hemmer PA Work Phone: [facility] HealthcareJlkvpfyxny27-66-2280 08:52-0400Body mpnlby304.85 kgKaren Hemmer PA Work Phone: [phone] HealthcareSntdtcyhbw66-38-1553 08:52-0400Diastolic blood winnxece59 mm[Hg]Marina Hemmer PA Work Phone: [facility] HealthcareQwxregysdk43-82-8635 08:52-0400Heart rate87 /min Marina Hemmer PA Work Phone: [facility] HealthcarePpewinpfbs41-68-1661 08:52-0400Respiratory rate18 /minKaren Hemmer PA Work Phone: [facility] HealthcareDdgnlvcipx89-93-6874 08:52-4530SoA5% (BldA) [Mass fraction]95 %Marina Hemmer PA Work Phone: [facility] HealthcareVdjlxcwvmx40-22-1930 08:52-0400Systolic blood koomaldt316 mm[Hg]Marina Hemmer PA Work Phone: [facility] HealthcareHhiiuipzrs59-80-3038 08:05-0400Body .8 cmKaren Hemmer PA Work Phone: [facility] HealthcareEnjosqwufn73-88-1964 08:05-0400Body mass index (BMI) [Ratio]37.19 kg/f8Djsea Hemmer PA Work Phone: [facility] HealthcareEbppxlqkzs19-25-8825 08:05-0400Body tkloav208.57 kgMarina Hemmer PA Work Phone: NOCox NorthYriujtthtp38-14-1919 08:05-0400Diastolic blood qihranpy52 mm[Hg]Marina Hemmer PA Work Phone: NOCox NorthIafxmxkckq47-70-6351 08:05-0400Heart rate93 /min Marina Hemmer PA Work Phone: NOCox NorthMznilwcpkd42-77-1159 08:05-0400Respiratory rate18 /minMarina Hemmer PA Work Phone: NOCox NorthRpfqtkxvex24-59-8119 08:05-1498VtJ6% (BldA) [Mass fraction]94 %Marina Greenemer PA Work Phone: NOCox NorthLteopabaqx96-98-8292 08:05-0400Systolic blood pxumisik949 mm[Hg]Marina Greenemer PA Work Phone: NOCox NorthPsqrahaebc14-57-9631 15:18-0500Body jqqasu622.8 cmSnicholas Hess COTTON PICKER OPERATOR Work Phone: NOCox NorthAwampnljay48-39-0898 15:18-0500Body mass index (BMI) [Ratio]37.91 kg/r9DxsfroDiana Hess COTTON PICKER OPERATOR Work Phone: [facility] NorthPzmmwvfseg91-16-9088 15:18-0500Body rujyts670.84 kgDiana Hess COTTON PICKER OPERATOR Work Phone: NOC[facility] NorthExsuehgnuk35-24-8075 15:18-0500Diastolic blood mm[Hg]Diana Hess COTTON PICKER OPERATOR Work Phone: NOC[facility] NorthZjfbzwpwoq36-39-3839 15:18-0500Heart prbu705 /min Diana Hess COTTON PICKER OPERATOR Work Phone: [facility]OC[facility] NorthFbuslmclgy06-24-5904 15:18-0500Respiratory rate18 /minSnicholas Hess COTTON PICKER OPERATOR Work Phone: NOCox NorthBavjzuxuqp43-75-5911 15:18-8393MvI3% (BldA) [Mass fraction]95 %Diana Hess COTTON PICKER OPERATOR Work Phone: [facility] HealthcareKdwztljqwa30-07-2238 15:18-0500Systolic blood mm[Hg]Diana Hess COTTON PICKER OPERATOR Work Phone: [facility] HealthcareBmadyqgmlw98-24-0338 14:24-0500Body rbkytk808.8 cmKaren Hemmer PA Work Phone: NOC[facility] NorthZabqcknfjo98-76-6784 14:24-0500Body mass index (BMI) [Ratio]36.99 kg/r6Vnoao Hemmer PA Work Phone: [facility]OC[facility] NorthNeeqgqmfcb87-60-4164 14:24-0500Body temperature 99.19 [degF]Marina Hemmer PA Work Phone: [facility] HealthcareWamvaicado84-34-0394 14:24-0500Body dofwoz755.94 kgKaren Hemmer PA Work Phone: [facility] HealthcareCjgndppizv85-29-3635 14:24-0500Diastolic blood xtrfrivt99 mm[Hg]Marina Hemmer PA Work Phone: [facility]OC[facility] NorthCaboewvduo02-03-2461 14:24-0500Heart rate96 /min Marina Hemmer PA Work Phone: [facility] HealthcareYdmhotuzkt27-42-8716 14:24-0500Respiratory rate16 /minKaren Hemmer PA Work Phone: [facility] HealthcareLiurmjllkd08-33-8031 14:24-6951HhF5% (BldA) [Mass fraction]94 %Marina Hemmer PA Work Phone: [facility]OC[facility] NorthVrkiwgpkrr49-41-6209 14:24-0500Systolic blood bdiqqklp606 mm[Hg]Marina Hemmer PA Work Phone: NOCox NorthJppaebvhos71-78-9927 09:31-0500Body ywbzjj444.8 cmNick Bess MD Work Phone: [facility]OC[facility] NorthXcwrzttejl19-72-3969 09:31-0500Body mass index (BMI) [Ratio]36.59 kg/x5XipuscNick Bess MD Work Phone: [facility] NorthTtpoynptzq34-88-5066 09:31-0500Body temperature 96.91 [degF]Nick Bess MD Work Phone: [facility] NorthYuabztvepo46-33-2234 09:31-0500Body zxjzta064.67 kgDabernabe Bess MD Work Phone: [facility] NorthSpgxhisrio28-71-2086 09:31-0500Diastolic blood geyxnlty16 mm[Hg]Nick Bess MD Work Phone: [facility] NorthVdmjiinhsq88-69-4843 09:31-0500Heart rate83 /min Nick Bess MD Work Phone: [phone] HealthcareImjyjwprma07-25-9089 09:31-7453TbD4% (BldA) [Mass fraction]95 %Nick Bess MD Work Phone: [facility] NorthPpebsooyag08-24-0757 09:31-0500Systolic blood pirecglf620 mm[Hg]Nick Bess MD Work Phone: [facility] HealthcareYflqqdxssj52-44-8727 11:19-0400Body ewfghs538.8 cmKaren Hemmer PA Work Phone: [phone] NorthQiixodiqac44-31-5066 11:19-0400Body mass index (BMI) [Ratio]36.5 kg/y2Lwglr Hemmer PA Work Phone: [facility]OC[facility] NorthUtplzyzrzh50-93-1990 11:19-0400Body temperature 98.8 [degF]Marina Hemmer PA Work Phone: [facility]OC[facility] NorthSmjbvpikpa39-59-6086 11:19-0400Body .39 kgKaren Hemmer PA Work Phone: [facility]OC[facility] NorthMahachdiyg32-01-5066 11:19-0400Diastolic blood byyraqhj69 mm[Hg]Marina Hemmer PA Work Phone: [facility]OC[facility] NorthVcdtlhfscc80-07-7970 11:19-0400Heart rate84 /min Marina Hemmer PA Work Phone: NOC[facility] NorthNczzhifjfl20-86-0983 11:19-0400Respiratory rate16 /minSuryaen Hemmer PA Work Phone: no[place] WorkwearKavrrfvdjj25-41-3706 11:19-9647RvX8% (BldA) [Mass fraction]94 %Marina GOMEZ Work Phone: noR[place] WorkwearNcbfhbctiz47-70-9056 11:19-0400Systolic blood dmilwwfi064 mm[Hg]Marina GOMEZ Work Phone: noAZ Mxytthhzun73-46-1941 10:30-0400Body oqyknm367.26 cmHeidi Nory Other [employer] Other 07-13-2023 10:30-0400Body mass index (BMI) [Ratio] 35.88 kg/a6Fugsn Nory Other [employer] Other 07-13-2023 10:30-0400Body ahxixlnqrfw55.1 [degF]Gayle Nory Other [employer] Other 07-13-2023 10:30-0400Body hokjqi452.22 kgHeidi Nory Other [employer] Other 07-13-2023 10:30-0400Diastolic blood vvalqekf20 mm[Hg] Gayle Nory Other [employer] Other 07-13-2023 10:30-0400Respiratory rate20 /minHeidi Nory Other [employer] Other 07-13-2023 10:30-4124WqR5% (BldA) [Mass fraction]Gayle Nory Other [employer] Other 07-13-2023 10:30-0400Systolic blood houtqrai244 mm[Hg] Gayle Nory Other [employer] Other 07-18-2022 11:30-0400Body uugcpy825.26 cmHeidi Nory Other [employer] Other 07-18-2022 11:30-0400Body mass index (BMI) [Ratio] 34.55 kg/q8Hifgg Nory Other [employer] Other 07-18-2022 11:30-0400Body ndxikbwivea86 [degF]Gayle Nory Other [employer] Other 07-18-2022 11:30-0400Body ihtaef350.14 kgHeidi Nory Other [employer] Other 07-18-2022 11:30-0400Diastolic blood msvgdusd923 mm[Hg]Gayle Nory Other [employer] Other 07-18-2022 11:30-0400Respiratory rate20 /minHeidi Nory Other [employer] Other 07-18-2022 11:30-6479FbN2% (BldA) [Mass fraction]95 % Gayle Nory Other [employer] Other 07-18-2022 11:30-0400Systolic blood mhthppyx345 mm[Hg] Gayle Nory Other [employer] Other 10-19-2021 09:30-0400Body izthma413.26 cmHeidi Nory Other [employer] Other 10-19-2021 09:30-0400Body mass index (BMI) [Ratio]34.4 kg/c5Xtakj Nory Other no[employer] Other 10-19-2021 09:30-0400Body zcmloebgsnz22.3 [degF]Gayle [facility] Other [facility] [employer] Other 10-19-2021 09:30-0400Body usdvhf606.69 kgHeidi Nory Other [facility] [employer] Other 10-19-2021 09:30-0400Diastolic blood itjdoaed60 mm[Hg] Gayle Nory Other [facility] Other 10-19-2021 09:30-0400Respiratory rate20 /minHeidi Nory Other [employer]Search[employer] Other 10-19-2021 09:30-3068FrR1% (BldA) [Mass fraction]94 % Gayle Nory Other [employer] Other 10-19-2021 09:30-0400Systolic blood zzhmytbt671 mm[Hg] Gayle Nory Other [employer] Other Encounters Encounter DateEncounter TypeCare ProviderFacilityStart: 07-13-2025 End: 66-58-9560Sbzozf Jesenia Holbrook MD Work Phone: no [facility]ermatologyStart: 07-13-2025 End: 56-52-9416Dmwhps Jesenia Holbrook MD Work Phone: noms [facility] DermatologyStart: 07-13-2025 End: 32-71-3168fvkxqebvzfGSATN A PETITTINot AvailableStart: 07-13-2025 End: 95-39-3456Cydlkj outpatient visit 15 minutesBeny Holbrook MD Work Phone: [facility] [place] DermatologyComment on above:Actinic keratosis (Primary Dx)Start: 07-07-2025 End: 07-67-9535Ykqwrn flowsheetJonathan Uzma Murrayhler DO Work Phone: [facility] EyeStart: 07-07-2025 End: 62-41-3546Nbxbhd flowsheetJonathan Uzma Zahler DO Work Phone: [facility] EyeStart: 07-07-2025 End: 90-54-6373aqbpeyvfhcJDSZYWTJ D ZAHLERNot AvailableStart: 07-02-2025 End: 95-20-6960kwucjanwlnDSQFNC B BERRY IIFacility:[facility] Start: 06-22-2025 End: 60-33-7437Mjflvq flowsheetBenjamin W Murcek DO Work Phone: [facility] [place] OtolaryngologyStart: 06-22-2025 End: 62-98-3298Nsnlwz flowsheetBenjamin W Murcek DO Work Phone: noms [facility] OtolaryngologyStart: 06-22-2025 End: 19-85-6654zhnjnekmaiVHIIQ DIXONFacility:[facility] Hospitaltart: 06-22-2025 End: 49-67-5787Dvhzmy outpatient visit 25 minutesBenjamin W Murcek DO Work Phone: NONL [facility] OtolaryngologyComment on above:Chronic cough (Primary Dx); Laryngopharyngeal reflux (LPR)Start: 06-22-2025 End: 00-77-3038pmkarzvsmuYADDNKGG W MURCEKNot AvailableStart: 05-18-2025 End: 36-84-7959Hgotin flowsheetBenjamin W Murcek DO Work Phone: noms [facility] OtolaryngologyStart: 05-18-2025 End: 23-79-2659Xjwphm flowsheetRuben Tai DO Work Phone: noms [facility] OtolaryngologyStart: 05-18-2025 End: 10-78-7878Kcanno outpatient visit 25 minutesBecelestina Tai DO Work Phone: noms [facility] OtolaryngologyComment on above: Gastroesophageal reflux disease, unspecified whether esophagitis present; Chronic coughStart: 05-18-2025 End: 94-32-5004npbcnomtxxYXUMUQNI W MURCEKNot AvailableStart: 05-12-2025 End: 41-41-4574qyoblnyqnhHnazel Bess II Work Phone: [facility] Work Phone: Start: 05-12-2025 End: 75-94-6287Givuuvf encounter procedureRuben Tai DO-[facility] Work Phone: Start: 05-11-2025 End: 46-02-7146Dfmxsflxm Result EncounterGeneric External Data ProviderNOMS External Department UnsolicitedStart: 05-11-2025 End: 02-55-0852Cfxsbflwq Result EncounterGeneric External Data ProviderNOMS External Department UnsolicitedStart: 05-05-2025 End: 77-19-7655Dfixdqvcp encounterIman Obrien MD Work Phone: Pulmonary MedicineStart: 05-04-2025 End: 83-32-3804Hzfldyn encounter procedurePshaina [facility] Work Phone: PULMONARYComment on above:Chronic cough (Primary Dx); Allergic rhinitis, unspecified seasonality, unspecified trigger; Asthma, unspecified asthma severity, unspecified whether complicated, unspecified whether persistent (HCC)Start: 05-04-2025 End: 44-05-1964ljrduxsghqORKKO DIXONPULMONARYComment on above:SpirometryStart: 04-27-2025 End: 94-22-1505Pjuiufucl encounterMarina GOMEZ Work Phone: [facility] Centerart: 04-20-2025 End: 60-27-8417Ylsjmp flowsheetBenjamin W Murcek DO Work Phone: [facility] OtolaryngologyStart: 04-20-2025 End: 74-30-9015Osfkff flowsheetBenjamin W Murcek DO Work Phone: noms [place] OtolaryngologyStart: 04-20-2025 End: 85-52-4152Cafzlm outpatient new 45 minutesBenisamin W Murcek DO Work Phone: noms [facility] OtolaryngologyComment on above:Chronic cough; Gastroesophageal reflux disease, unspecified whether esophagitis presentStart: 04-20-2025 End: 53-92-3746zopmgtlkplVFCNGIMB Rin MURCEKNot AvailableStart: 03-29-2025 End: 68-86-6581Ytivfojyz encounterElsa Serna MD Work Phone: Pulmonary MedicineStart: 03-24-2025 End: 97-73-2518Kapdtt outpatient visit 25 minutesDabernabe Bess MD Work Phone: noms CI FMComment on above:Persistent cough for 3 weeks or longer (Primary Dx); Obstructive sleep apnea syndrome; Moderate persistent asthma without complication (HCC); Closed fracture of multiple ribs of right side, initial encounter; Current use of steroid medicationStart: 03-24-2025 End: 31-39-3479blprcjfrbzWMAUUF B BERRYNot AvailableStart: 03-23-2025 End: 77-54-0246Spkpjg flowsheetBeny Holbrook MD Work Phone: noMS SWS DERMStart: 03-23-2025 End: 65-31-5914Nyyeiz flowsBa Holbrook MD Work Phone: [facility] SWS DERMStart: 03-23-2025 End: 09-77-0351Ufeeyc outpatient visit 15 minutesBeny Holbrook MD Work Phone: [facility] SWS DERMComment on above:Seborrheic keratosis (Primary Dx); History of basal cell carcinoma; Seborrheic keratosis, inflamed; Lentigines; Actinic keratosisStart: 03-23-2025 End: 27-77-6523xempnapetfYEMVA A PETITTINot AvailableStart: 03-17-2025 End: 87-22-4410FudhuxCwfve M Hemmer PA Work Phone: NOM[facility] CI FMComment on above:Closed fracture of multiple ribs of right side with routine healing, subsequent encounter (Primary Dx) Start: 03-11-2025 End: 07-64-2174elifgagaplHaskab Bess II Work Phone: [facility] Work Phone: Start: 03-11-2025 End: 47-50-5115Alypyyn encounter procedureTrice Pruitt PILOT SUBMERSIBLE-[facility] Work Phone: Start: 03-11-2025 End: 12-67-7777Fletlelia GOMEZ Work Phone: N[facility] CI FMStart: 03-11-2025 End: 93-18-6144Jmdgofant GOMEZ Work Phone: [facility] CI FMStart: 03-11-2025 End: 58-30-2402Arqkvj outpatient visit 25 minutesMarina GOMEZ Work Phone: [facility] CI FMComment on above:Gastroesophageal reflux disease without esophagitis (Primary Dx); Moderate persistent asthma without complication (HCC); Class 2 severe obesity due to excess calories with serious comorbidity and body mass index (BMI) of36.0 to 36.9 in adult ([facility]-HCC); Closed fracture of multiple ribs of right side with routine healing, subsequent encounter; Persistent cough for 3 weeks or longerStart: 03-11-2025 End: 74-03-5270jsvotsissiAVGIHNathan Ordoñez AvailableStart: 12-08-2024 End: 92-39-0919Yaikpxant GOMEZ Work Phone: [facility] CI FMStart: 12-08-2024 End: 08-97-4389Gsdttp flowsAta GOMEZ Work Phone: [facility] CI FMStart: 12-08-2024 End: 70-86-1271Leidruh encounter Ana GOMEZ Work Phone: noMS CI FMComment on above:Medicare annual wellness visit, subsequent (Primary Dx); ACP (advance care planning); Obstructive sleep apnea syndrome; Moderate persistent asthma without complication (CMS/HCC); Benign essential hypertension (CMS/HCC); Bifascicular block; Fatty liver; Gastroesophageal reflux disease without esophagitis; Primary osteoarthritis of right knee; Class 2 severe obesity due to excess calories with serious comorbidity and body mass index (BMI) of37.0 to 37.9 in adult (CMS/HCC); Chronic laryngitis; Chronic rhinitis; Chronic sinusitis of both maxillary sinuses; Seasonal allergic rhinitis due to pollen; BCC (basal cell carcinoma), trunk; Elevated transaminase level; Impaired glucose metabolism; LPRD (laryngopharyngeal reflux disease); Mixed hyperlipidemia (CMS/HCC); Screening for malignant neoplasm of prostateStart: 12-08-2024 End: 97-00-7719kycswlhszjXJWOY M HEMMERNot AvailableStart: 11-24-2024 End: 96-28-6202qaeciaktgjFSHFQ M HEMMERNot AvailableStart: 10-29-2024 End: 44-60-5960Phrqiu outpatient visit 25 minutesShyee Hess COTTON PICKER OPERATOR Work Phone: [facility] CI FMComment on above:Acute non-recurrent pansinusitis (Primary Dx); Acute coughStart: 10-29-2024 End: 35-59-5981fmchekcfryNZTOTOAnita Najera AvailableStart: 10-29-2024 End: 47-02-7389Rtmeru Gavin Hess NP Work Phone: [facility] CI FMStart: 10-29-2024 End: 92-83-2662Zebkdx Gavin Hess COTTON PICKER OPERATOR Work Phone: [facility] CI FMStart: 10-27-2024 End: 00-83-0658Pasxoyrfk encounterRachel Kerns MD Work Phone: [facility] CI FMStart: 09-22-2024 End: 47-96-1262Yrwwnt outpatient visit 15 minutesMarina Jeong PA Work Phone: [facility] CI FMComment on above:Moderate persistent asthma with exacerbation (CMS/HCC)Start: 09-22-2024 End: 90-68-2594abiozmkyalHOZIW M HEMSONIANot AvailableStart: 09-22-2024 End: 63-47-0945Vufjus flowsAta Jeong PA Work Phone: [phone] CI FMStart: 09-22-2024 End: 97-10-2876Ezoarx Ann Marie Jeong PA Work Phone: [facility] CI FMStart: 09-22-2024 End: 53-60-4115Abcddmsnb encounterNick Bess MD Work Phone: [facility] CI FMStart: 09-03-2024 End: 35-83-3012Labzmh Damian Bess MD Work Phone: [phone] CI FMStart: 09-03-2024 End: 88-17-6335Kdrxfu Damian Bess MD Work Phone: [facility] CI FMStart: 09-03-2024 End: 40-70-4398Nahpco outpatient visit 25 minutesNick Bess MD Work Phone: [facility] CI FMComment on above:Moderate persistent asthma with exacerbation (CMS/HCC) (Primary Dx); Acute non-recurrent sinusitis, unspecified locationStart: 09-03-2024 End: 98-10-1102iezjybzovqODHYHF B BERRYNot AvailableStart: 05-08-2024 End: 23-89-5585Npgkwp Ann Marie Jeong PA Work Phone: [facility] CI FMStart: 05-08-2024 End: 85-33-3292Psfwve Ann Marie Jeong PA Work Phone: [facility] CI FMStart: 05-08-2024 End: 90-06-5069Dnfngftgx Result EncounterMarina GOMEZ Work Phone: noms External Department UnsolicitedStart: 05-08-2024 End: 64-46-6794Hjwwfo outpatient visit 25 minutesMarina GOMEZ Work Phone: noms CI FMComment on above:Moderate persistent asthma without complication (CMS/HCC) (Primary Dx); Chronic cough; Benign essential hypertension (CMS/HCC); Obstructive sleep apnea syndromeStart: 04-22-2024 End: 00-18-3697Yfknmaa encounter procedureEmmary Holbrook MD Work Phone: noms SWS DERMComment on above:Basal cell carcinoma (BCC) of skin of other part of torso (Primary Dx)Start: 63-75-3510Eltwum Ann Marie GOMEZ Work Phone: noms CI FMStart: 75-03-5476Bfhord Ann Marie GOMEZ Work Phone: noms CI FMStart: 08-07-2023 End: 57-03-7492vtzojurcryNiajf Nory Other [email or web address] Other Start: 91-87-7324Yrtsylsoj encounterHeidi GastFPG Pulmonary DiseaseStart: 03-14-2023 End: 28-27-1881rfffnyyrhvTzogq Nory Other [email or web address] Other Start: 41-53-7537Zqeiez outpatient visit 25 minutes Gayle GastFPG Pulmonary DiseaseStart: 03-19-2022 End: 40-21-9312cnhpbcjpyiAglnk Nory Other [email or web address] Other Start: 71-94-0698Erheel outpatient visit 25 minutes Gayle GastFPG Pulmonary DiseaseStart: 10-18-2021 End: 38-14-9112wfeptlyipaKivdv Nory Other [employer] Other Start: 51-41-0635Poxvhbbeb encounterHeidi GastFPG Pulmonary DiseaseStart: 08-08-2021 End: 13-63-6813frkrqpzaddGO NICK BESSFacility:I8Vaukl: 07-28-2021 End: 26-63-7629ozxfhreulqIR NICK BESSFacility:O4Ikkcd: 36-37-3988Gvabxv outpatient visit 25 minutesHeidi GastFPG Pulmonary DiseaseStart: 11-07-2020 End: 52-12-2837hccveqabkwTB NONE LISTED REQUESTFacility:O8Rxdpg: 10-31-2020 End: 99-63-2631gixjtvjgnsSR NONE LISTED REQUESTFacility:G3Rnwxw: 12-30-2017 End: 00-09-3648RzfdqrvtymCjbjySusi MillerFacility:[facility] Hospitaltart: 12-28-2017 End: 78-26-1492IsqlwxgxctVkdfc Andrew HuddlestonFacility:[facility] HospitalStart: 11-26-2017 End: 17-93-5688VkatcgirsoCXBNLEI PHYSICIANFacility:UTMCStart: 10-08-2017 End: 30-29-7560EzznfeuuchATSXIST PHYSICIANFacility:[facility]tart: 10-07-2017 End: 46-73-2291VwvyhpwnsiIBERYLC PHYSICIANFacility:[facility] Procedures DateProcedureProcedure DetailPerforming ClinicianStart: 21-63-7062Gtd bmtry prtl coher intrfrmtry io lens pwr Coco Oliveros DO Work Phone: Start: 07-07-2025 End: 58-78-4566Wuazg medical xm&eval compre new pt 1/> vstAge-related nuclear cataract of both eyesRemedios Oliveros DO Work Phone: comment on above:Age-related nuclear cataract of both eyes (Primary Dx)Start: 33-75-6629QIN CBC WITH AUTO DIFFGeneric External Data ProviderStart: 57-06-8924Heszbb oxide gas determinationRenecinthia Obrien MD Work Phone: Start: 96-50-3714Jxabeupcp rspse spmtry pre&post- brncdilat admnRnicolás Obrien MD Work Phone: Start: 56-53-6572EZHYYCQWAXL SKIN LESIONEmily Rissa Holbrook MD Work Phone: Start: 10-17-8770ZX CHEST 2VMarina GOMEZ Work Phone: Start: 58-34-2233UINFLHWTDBF OF LESIONEmily Rissa Holbrook MD Work Phone: Plan of Treatment DateCare ActivityDetailAuthorStart: 16-13-8499UDO Vaccine (1 - 1-dose 75+ series)RSV Vaccine (1 - 1-dose 75+ series)[facility] 02-01-2028 Diabetes ScreeningDiabetes ScreeningBlanchard Valley Health System Bluff[facility] Hospitaltart: 04-08-2026Medicare Annual Wellness (AWV)Medicare Annual Wellness (AWV)[facility] HealthcareStart: 08-03-2025 End: 44-54-1639Keoketx encounter /02/2025 8:15 AM EST Office Visit [facility] [address] [place], [id number] Ruben Tai, DO [address] [place] [address] [facility] OtolaryngologyStart: 07-21-2025 End: 18-36-3705Weappjg encounter procedureNOMS SWS DERMStart: 07-07-2025 End: 56-34-2112Wcirwlb encounter procedureNOMS [facility] Central EyeComment on above:ArrivedStart: 06-22-2025 End: 26-44-6258Neyxxkd encounter procedurePULMONARYComment on above:7 week follow upArrivedStart: 05-18-2025 End: 94-03-1174Dghizuy encounter nishazksk83/16/2025 9:45 AM EDT Office Visit [facility] [address], [id number] Ruben Tai, [address] [place] [address] [facility] Comment on above:ArrivedStart: 05-05-2025 End: 73-49-4803Nknjqfg encounter dhitfemts67/03/2025 2:00 PM EDT Office Visit [facility] [address], [id number] Ruben Tai, [address] [place] [address] [facility]olaryngologyStart: 05-04-2025 End: 31-53-1646OIZH RESP DISEASE PROF REG 5ALGN RESP DISEASE PROF REG 5 Lab Routine Allergic rhinitis, unspecified seasonality, unspecified trigger Chronic cough Asthma, unspecified asthma severity, unspecified whether complicated, unspecified whether persistent (HCC) Expected: 05/04/2025, Expires: 08/03/[address]:Expected: 05/04/2025, Expires: 08/03/2025Start: 05-04-2025 End: 97-07-8310JZH W Auto Differential panel - BloodCOMPLETE BLOOD COUNT AND DIFFERENTIAL Lab Routine Chronic cough Asthma, unspecified asthma severity, unspecified whether complicated, unspecified whether persistent (HCC) Expected: 05/04/2025, Expires: [facility]/20[facility] ClinicComment on above:Expected: 05/04/2025, Expires: 08/03/2025Start: 05-04-2025 End: 68-94-0212AwE [Units/volume] in Serum or PlasmaIMMUNOGLOBULIN E Lab Routine Allergic rhinitis, unspecified seasonality, unspecified trigger Chronic cough Asthma, unspecified asthma severity, unspecified whether complicated, unspecified whether persistent (HCC) Expected: 05/04/2025, Expires: 08/03/2025 [facility] Work Phone: Comment on above:Expected: 05/04/2025, Expires: 08/03/2025Start: 05-04-2025 End: 87-71-3698Mxkgnpo encounter zrloqzcaz44/02/2025 8:45 AM EDT Office Visit [facility] [address] [place] [id number] Ruben Tai, DO [address] [place] [address] [facility]OM [place] OtolaryngologyStart: 41-83-4564BUHFN-19 Vaccine ( season)COVID-19 Vaccine ()[facility] HealthcareStart: 22-56-5589Cadgzumij vaccinationInfluenza Vaccine (#1)[facility] HealthcareStart: 04-20-2025 End: 58-21-7270JN Pharynx and Cervical esophagus Views W barium contrast POFL esophagus pharynx Imaging Routine Chronic cough Gastroesophageal reflux disease, unspecified whether esophagitis present Expected: 04/20/2025 (Approximate), Expires: 04/20/2026[facility] Work Phone: comment on above:Expected: 04/20/2025 (Approximate), Expires: 04/20/2026Start: 04-20-2025 End: 54-44-9683Giesuti encounter brxojsryr81/19/2025 8:30 AM EDT Office Visit [facility] [address] [place], [id number] Ruben Tai, DO [address] [place] [address] ArrivedNOAZ [place] [facility] Comment on above:ArrivedStart: 69-44-4490Puojiktck for malignant neoplasm of colonColorectal Cancer ScreeningNOMS HealthcareComment on above:Postponed from 1960 (Patient Refused)Start: 03-26-2025 End: 38-84-0326DYP Skeletal system Views for bone densityDEXA bone density Imaging Routine Moderate persistent asthma without complication (HCC) Closed fracture of multiple ribs of right side, initial encounter Current use of steroid medication Expected: 03/26/2025, Expires: 03/26/2026[facility] Work Phone: Comment on above:Expected: 03/26/2025, Expires: 03/26/2026Start: 03-26-2025 End: 57-87-6045Kjmy sleep testHome sleep test Sleep Center Routine Obstructive sleep apnea syndrome Expected: 03/26/2025 (Approximate), Expires: 03/26/2026NOMS HealthcareComment on above:Expected: 03/26/2025 (Approximate), Expires: 03/26/2026Start: 03-24-2025 End: 70-84-5134Pvnyktx encounter lictqkxdh23/23/2025 9:15 AM EDT Office Visit [facility] [address] [place] [address] Nick Bess MD [address] [place] [address] [facility] CI FMStart: 03-23-2025 End: 39-56-3999Ymkpelf encounter procedureNOMS SWS DERMComment on above:Arrived Start: 03-11-2025 End: 30-47-2723Dpzmqag encounter fnjuqmucx28/10/2025 9:00 AM EDT Office Visit [facility] [address] [place] [address] Marina Jeong PA [address] [place] [address] ArrivedNOMS CI FMComment on above:ArrivedStart: 12-08-2024 End: 85-10-9630Cqcpfba encounter ojthvpuew78/08/2025 8:00 AM EDT Office Visit [facility] [address] [place] [address] Marina Jeong, PA [address] [place] [address] ArrivedNOMS CI FMComment on above:ArrivedStart: 10-29-2024 End: 14-95-2735Xbmxmus encounter procedureNOMS CI FMComment on above:Arrived Start: 02-06-2025Medicare Annual Wellness (AWV)Medicare Annual Wellness (AWV) [facility] HealthcareStart: 09-22-2024 End: 14-49-2586Aircpwm encounter mdkychwer11/21/2025 2:30 PM EST Office Visit [facility] [address] [place] [address] Marina Jeong PA [address] [place] [address] ArrivedNOMS CI FMComment on above:ArrivedStart: 09-03-2024 End: 27-73-5577Bhhsmtd encounter pibuimbtv01/02/2025 9:30 AM EST Office Visit [facility] [address] [place] [address] Nick Bess MD [address] [place] [address] ArrivedNOMS CI FMComment on above:ArrivedStart: 09-02-2024 Advance Directive DiscussionAdvance Directive DiscussionCleMartins Ferry Hospitaltart: 01-01-2025Medicare Advantage Annual Wellness VisitMedicare Advantage Annual Wellness VisitBlanchard [facility] Hospitaltart: 05-08-2024 End: 29-30-6790GK Chest 2 ViewsXR chest 2 views Imaging Routine Chronic cough Expected: 05/08/2024, Expires: 05/08/2025[facility] Work Phone: Comment on above:Expected: 05/08/2024, Expires: 05/08/2025Start: 05-08-2024 End: 50-11-8795Uwikmcm encounter wnstwmyfr42/06/2024 11:30 AM EDT Office Visit [facility] [address] [place] [address] Marina Jeong PA [address] [place] [address] ArrivedNOMS CI FMComment on above:ArrivedStart: 94-79-1427Qqnsenzzr vaccinationInfluenza Vaccine (#1)[facility] HealthcareStart: 03-23-2024 End: 47-27-7409Fzkazgl encounter cgkttteer11/22/2024 9:20 AM EDT Office Visit [facility] [address] [place] [address] Beny Holbrook MD [address] [place] [address] [facility] SWS DERMStart: 10-08-2023 End: 94-71-8979Qwqfhjz encounter celaakrrn70/06/2024 8:00 AM EST Office Visit [facility] [address] [facility] [address] [place] [address] Marina Jeong PA [address] [place] [address] ArrivedNOMS CI FMComment on above:ArrivedStart: 87-39-3351Wjzaqfmy ScreeningDiabetes ScreeningCleMartins Ferry Hospitaltart: 2003 Prostate specific antigen measurementProstate Cancer Screening Discussion [facility]: 02-53-1873Iexrimyds for malignant neoplasm of colon [facility] Hospitaltart: 01-99-8477Qqlds panelLipid ScreeningSt. Vincent Hospital Start: 09-74-7486Ztvke microalbumin profileDTaP,Tdap,Td Vaccine (1 - Tdap) [facility]: 63-73-3815Jhgfhm PCP Team Chronic Disease VisitAnnual PCP Team Chronic Disease VisitBlanchard Valley Health System [facility] Hospitaltart: 45-66-9973Uxurors Screening Anxiety ScreeningBlanchard Valley Health System Bluff[facility] Hospitaltart: 03-68-2142Awtnognnzx ScreeningDepression ScreeningCleMartins Ferry Hospitaltart: 40-01-7637Rdnlusadu C screeningHepatitis C ScreeningCleMartins Ferry Hospitaltart: 1960Medicare Annual Wellness (AWV)Medicare Annual Wellness (AWV)[facility] HealthcareStart: 51-36-1021Jtyutmkzo for malignant neoplasm of colonNOMS HealthcareCBC W Auto Differential panel - BloodCBC and differential Lab Routine Medicare annual wellness visit, subsequent Moderate persistent asthma without complication (CMS/HCC) Benign essential hypertension (CMS/HCC) Seasonal allergic rhinitis due to pollen Mixed hyperlipidemia (CMS/HCC) Ordered: 12/08/2024[facility] HealthcareComment on above:Ordered: 12/08/2024 Comprehensive metabolic 2000 panel - Serum or PlasmaComprehensive metabolic panel Lab Routine Medicare annual wellness visit, subsequent Benign essential hypertension (CMS/HCC) Fatty liver Elevated transaminase level Impaired glucose metabolism Mixed hyperlipidemia (CMS/HCC) Ordered: 12/08/2024[facility] Comment on above:Ordered: 12/08/2024Hemoglobin A1c/Hemoglobin.total in Blood Hemoglobin A1c Lab Routine Medicare annual wellness visit, subsequent Impaired glucose metabolism Ordered: 12/08/2024[facility] HealthcareComment on above:Ordered: 12/08/2024Lipid 1996 panel - Serum or PlasmaLipid panel Lab Routine Medicare annual wellness visit, subsequent Benign essential hypertension (CMS/HCC) Fatty liver Elevated transaminase level Mixed hyperlipidemia (CMS/HCC) Ordered: 12/08/2024[facility] HealthcareComment on above:Ordered: 12/08/2024Prostate specific Ag [Mass/volume] in Serum or PlasmaPSA Lab Routine Medicare annual wellness visit, subsequent Screening for malignant neoplasm of prostate Ordered: 12/08/2024[facility] Work Phone: Comment on above:Ordered: 12/08/2024Pulmonary function reportPulmonary Function Test Imaging Routine Moderate persistent asthma without complication (CMS/HCC) Chronic cough Ordered: 05/08/2024[facility] Comment on above:Ordered: 05/08/2024SPIROMETRY - BASELINE AND POST DILATOR SPIROMETRY - BASELINE AND POST DILATOR PFT Routine Cough, unspecified type 05/04/2025 10:[address] [facility] Work Phone: [facility] Immunizations Immunization DateImmunizationNotesCare NarroxgwRfphufqr76-25-9887kfocobnpb, high dose seasonal, preservative-freeMarina GOMEZ Work Phone: [facility] Work Phone: [phone]wxd virus vaccine, unspecified formulationKaren Hemmer PA Work Phone: [facility] HealthcareFvhchobyfx09-70-8260Xjossmatomcw Conjugate PCV 20 Marina Hemmer PA Work Phone: [facility] HealthcareKpqjqwwqgp10-82-7275Auksjnaly, Seasonal, Quadrivalent, AdjuvantedKaren Hemmer PA Work Phone: [facility] HealthcareEddoomphzx27-67-6480afdhgrwjr virus vaccine, unspecified formulationBeny Holbrook MD Work Phone: [facility] HealthcareUzwojbtqnr07-61-7787gqizlkozw, injectable, quadrivalent, preservative freeKaren Hemmer PA Work Phone: [facility] HealthcareSccxojpkws85-56-6417OWIIG-10 Vaccine Moderna - Documentation Purposes OnlyHeidi Nory Other [facility]11-10-2021influenza, injectable, quadrivalent, preservative freeKaren Hemmer PA Work Phone: [facility] HealthcareJmzwewdgrx44-19-6398PMYQU-27 Vaccine Digna - Documentation Purposes OnlyHeidi Nory Other [facility]11-05-2020zoster vaccine recombinantKaren Hemmer PA Work Phone: [facility] HealthcareQbawhhxrai28-39-4735weednfqtv, injectable, quadrivalent, contains preservativeKaren Hemmer PA Work Phone: [facility] HealthcareFzsksyceyx65-19-5808ywxdts vaccine recombinant Marina Hemmer PA Work Phone: [facility] HealthcareByfehopsbs80-28-0503mguwsqab influenza, intradermal, preservative freeKaren Hemmer PA Work Phone: [facility] HealthcareRvfzlowfol05-80-7404kfiyqengu, injectable, quadrivalent, contains preservativeKaren Hemmer PA Work Phone: [facility] HealthcareSyugmfjfjy83-34-0266ospolc vaccine, liveKaren Hemmer PA Work Phone: [facility] HealthcarePlnvzetsok23-64-8765brurhxkf influenza, intradermal, preservative freeMarina Hemmer PATRICIA Work Phone: [facility] HealthcareMgubappacu01-44-0836ootdnmmnn, injectable, quadrivalent, preservative freeMarina Hemmer PATRICIA Work Phone: [facility] Payers DatePayer CategoryPayerPolicy [id number] (Managed Care)[employer]ETNA MEDICARE [id number] 2023MedicaidAETNA MEDICARE ADVANTAGE [id number] 2023MedicareAETNA MEDICARE ADVANTAGE AETNA MEDICARE REPLACEMENT [id number] 2022-Present [address] [place] [id number] [id number] [id number]-gad41-33-1753Csxbdhd [id number] 2.16.840.1.665137.3.579.2.87707-38-3597Udsviyt [id number] 2.16.840.1.491848.3.57[id number] 2.16.840.1.215439.3.57[id number] 2.16.840.1.632584.3.57[id number] 2.16.840.1.083763.3.57[id number] 2.16840.1.139019.3.57[id number] 2.16.840.1.647756.3.57[id number] 2.16.840.1.243125.3.57[id number] 2..840.1.376920.3.57[id number] 2.16.840.1.955214.3.57[id number] 2.16.840.1.093106.3.57[id number] 2.16.840.1.479108.3.57[id number] 2.16840.1.835408.3.57[id number] 2.16.840.1.863120.3.57[id number] 2.840.1.389922.3.[id number] 2.0.1.7[id number] 2.0.1.658187.3.579.2.593Unknown [id number] 2.0.1.527329.3.579.2.531 Social History DateTypeDetailFacilityStart: 08-08-2023 End: 58-98-9615Vhl Assigned At BirthNOAZ HealthcareStart: 09-16-2023 End: 42-98-5737Xvatcfm smoking status NHISNever smoked tobaccoNOMS Healthcare History of tobacco usePassive smokerNOMS HealthcareStart: 09-16-2023 End: 79-25-4891Aajybty use and exposureSmokeless tobacco non-userNOMS Healthcare Start: 09-23-2023 End: 35-91-7369Rbgozfw intakeCurrent drinker of alcohol (finding)[facility] Start: 08-08-2023 End: 09-40-6971Acgtjtx of Social functionNOMS HealthcareWithin the last year, have you been afraid of your partner or ex-partner?NoNOMS HealthcareStart: 08-03-2012 End: 16-00-6668Zihxkf the last year, have you been humiliated or emotionally abused in other ways by your partner or ex-partner?Patient refusedNOMS HealthcareAre you now , , , , never or living with a partner?DivorcedNOMS HealthcareHow hard is it for you to pay for the very basics like food, housing, medical care, and heatingNot very hardNOMS HealthcareDo you feel stress - tense, restless, nervous, or anxious, or unable to sleep at night because yourmind is troubled all the time - these days [OSQ] Only a littleNOMS Healthcare(I/We) worried whether (my/our) food would run out before (I/we) got money to buy more.Never trueHIGHLAND RIDGE HOSPITAL HealthcareStart: 09-16-2023 Alcohol CommentCaffeine intake : 1-2 cups per dayMissouri Southern HealthcareStart: 19-97-6459Xfz Assigned At BirthNot on fileMissouri Southern HealthcareStart: 99-86-2917Hzqxaq identityIdentifies as male gender (finding)[facility] HealthcareDo you feel stress - tense, restless, nervous, or anxious, or unable to sleep at night because your mind is troubled all the time - these days [OSQ]To some extentHIGHLAND RIDGE HOSPITAL HealthcareHow often do you need to have someone help you when you read instructions, pamphlets, or other written material from your doctor or pharmacy [SILS]Never NOMSaint Joseph Hospital WestSexMale (finding)[facility] Hospitaltart: 59-71-4472Exq [facility]igned At [facility] HospitalTobacco smoking status NHISTobacco smoking consumption unknownSt. Vincent Hospital Functional Status GoroIipoetnwznEijkykObcpwtxd74-22-1833Jyyzdio Health Questionnaire 2 item (PHQ- 2) [Reported][facility] HealthcareSbfkbvmwvi02-10-2105Svist score [AUDIT-C]-1 12/01/2024 8:51 AM EDT Lamar Jimenez LPNNMosaic Life Care at St. JosephWacfiuwotw31-24-0771Rmupyfedeo statusPatient declined 12/01/2024 8:51 AM EDT Lamar Jimenez LPN Patient declinedMissouri Southern HealthcareDpiacxzysu26-73-2261Xhwskgz Health Questionnaire 2 item (PHQ-2) [Reported][facility] Clinical Notes 06-20-2021 to 07-13-2025 Note Date & HbdpExdbZjgdqzew43-46-9421 History of Present illness Narrative* Beny Holbrook MD - 07/13/2025 8:55 AM EST Follow up Diagnosis: Actinic Keratosis Location: Scalp and chest Last visit: 4 months ago Symptoms: red, scaly, itchy Status: chest is really angry Current treatment: Efudex 5% cream All pertinent medical history, medications, and allergies were reviewed. General Exam: alert, oriented to person, place, and time, normal affect, well appearing Unaccompanied A focused exam completed based on patient reported problems, see below: Skin Exam 1. ACTINIC KERATOSIS (2) Left Breast, Mid Parietal Scalp Erythema and crust, consistent with good response to efudex Patient to discontinue efudex early. Start TAC cream 0.025% twice daily for itch, hold when clear. Will re-evaluate once areas have healed. This Visit - triamcinolone (Kenalog) 0.025 % cream - Apply to affected areas on chest, up to twice a day when flared, 30 day supply Next Visit: 2 months documented in this encounterMissouri Southern HealthcareJpxxcliphh32-41-6325 History of Present illness Narrative* Remedios Oliveros DO - 07/07/2025 9:15 AM EST Images from the original note were not included. Subjective Patient ID: Violet Ferrara is a 65 y.o. male. Chief Complaint Cataract HPI Cataract In both eyes. Associated symptoms include blurred vision. Severity is moderate. Onset was gradual. Frequency is constant. Context: distance vision, watching TV, driving and night driving. Since onsetit is gradually worsening. Affected activities include driving and night driving. Treatments tried include artificial tears and glasses. Response to treatment was mild improvement. Comments Pt here for cat dcal referred by Dr Rubin of both eyes (OU), pt states the OS is worse. Pt complainsof a lot of blurry vision while driving and was advised to no longer drive at night. Pt does wear glasses that are a cheap Rx he bought. Not using drops. No pm or dfib No latex No flomax Last edited by Remedios Oliveros DO on 07/07/2025 9:22 AM. Current Outpatient Medications (Ophthalmic Agents) Medication Sig Dispense Refill Ynilddzwspv-Jwotoxwl-Xqbmopeec 1-0.5-0.075 % solution Administer 1 drop into affected eye(s) in themorning and 1 drop at noon and 1 drop in the evening and 1 drop before bedtime. 10 mL 1 No current facility-administered medications for this visit. (Ophthalmic Agents) Current Outpatient Medications (Other) Medication Sig Dispense Refill Albuterol-Budesonide (Airsupra) 90-80 MCG/ACT aerosol Inhale 2 puffs every 4 (four) hours if needed(SOB or Wheeze) 10.7 g 5 amLODIPine (Norvasc) 5 MG tablet TAKE 1 TABLET BY MOUTH EVERY DAY (Patient taking differently: Take5 mg by mouth Daily) 90 tablet 3 atorvastatin (Lipitor) 20 MG tablet TAKE 1 TABLET BY MOUTH EVERY DAY IN THE MORNING 90 tablet 4 Xwrjrcq-Exratkrdmkx-Baytqumqbq (Breztri Aerosphere) 160-9-4.8 MCG/ACT aerosol Inhale 2 puffs in themorning and 2 puffs before bedtime. 10.7 g 5 cetirizine (ZyrTEC) 10 MG chewable tablet Chew 10 mg Daily famotidine (Pepcid) 20 MG tablet TAKE 1 TABLET BY MOUTH AT BEDTIME 90 tablet 1 fluorouracil (Efudex) 5 % cream Apply to [...] TIP AND REPLACE CAP* 48 mL 3 hydrOXYzine HCl (Atarax) 10 MG tablet Take 1 tablet (10 mg) by mouth every 8 (eight) hours if needed for itching or allergies for up to 7 days 21 tablet 0 ipratropium-albuterol (Duo-Neb) 0.5-2.5 mg/3 mL nebulizer solution [...] AT THE SAME TIME 100 capsule 3 Vonoprazan Fumarate (Voquezna) 10 MG tablet Take 1 tablet by mouth Daily 90 tablet 1 No current facility-administered medications for this visit. (Other) Medical History[1] Allergies[2] Review of Systems Constitutional: Negative. HENT: Negative. Eyes: Negative. Respiratory: Negative. Cardiovascular: Negative. Gastrointestinal: Negative. Genitourinary: Negative. Musculoskeletal: Negative. Skin: Negative. Neurological: Negative. Psychiatric/Behavioral: Negative. Hematological: Negative. Endocrine: Negative. Allergic/Immunologic: Negative. Objective Base Eye Exam Visual Acuity (Snellen - Linear) Right Left Dist cc 20/40 -1 20/80 Correction: Glasses Tonometry (Applanation, 9:23 AM) Right Left Pressure 16 16 Pupils Pupils Right PERRL Left PERRL Visual Marin Left Right Full Full Extraocular Movement Right Left Full, Ortho Full, Ortho Neuro/Psych Oriented x3: Yes Dilation Both eyes: 1.0% Mydriacyl @ 9:16 AM Additional Tests Keratometry K1 Revillo K2 Revillo Right 43.25 6 44.00 96 Left 43.25 180 43.75 90 Glare Testing High Right 20/100 Left 20/400 Slit Lamp and Fundus Exam External Exam Right Left External Rosacea Rosacea Slit Lamp Exam Right Left Lids/Lashes Blepharitis, Dermatochalasis - upper lid Blepharitis, Dermatochalasis - upper lid Conjunctiva/Sclera White and quiet White and quiet Cornea Decreased tear film Decreased tear film Anterior Chamber Deep and quiet Deep and quiet Iris Round and reactive Round and reactive Lens 2+ Nuclear sclerosis, 1+ Cortical cataract, 2+ Posterior subcapsular cataract 2+ Nuclear sclerosis, 1+ Cortical cataract, 3+ Posterior subcapsular cataract Anterior Vitreous Normal Normal Fundus Exam Right Left Disc Normal Normal Macula Normal Normal Vessels Normal Normal Periphery Normal Normal Refraction Wearing Rx Sphere Cylinder Revillo Right -0.50 -0.75 024 Left -1.25 -0.75 029 Manifest Refraction Sphere Cylinder Revillo Right +0.25 -1.00 009 Left -1.50 -1.00 155 Final Rx Sphere Cylinder Revillo Dist VA Right +0.25 -1.00 009 20/40 Left -1.50 -1.00 155 20/60 Expiration Date: 07/07/2026 Assessment/Plan Age-related nuclear cataract of both eyes - Visually Significant Cataract, OU: I discussed the risks, benefits, alternatives, and expectations of cataract surgery. A complete ophthalmic exam was performed and it was determined that the cataracts were a primary source of vision decline, affecting activities of daily living, necessitating removal. Limited vision post-surgery may occur with pre-existing conditions affecting other areas of the eye or the brain was explained and the patient displayed an understanding. The overall objective is to improve ADLs, not eliminate glasses or restore vision to 20/20. Tests were reviewed - the different lens options were explained including the bdw-hv-flbete fees for any upgrades. Intraocular lens (IOL) selection may be altered either prior to or during the procedure based on the doctor's discretion including reverting to a traditional intraocular lens (IOL). They understood that there will exist the potential of glasses prescription need post surgery for near, distance or possibly both. The patient stated a full understanding and a desire to proceed with the procedure. The patient received cataract measurements and had any additional questions answered. - A complete exam was performed including a physical exam: General: AAOx3 and NAD, Lungs: Clear, Heart: RRR, Abdomen: S/NT/ND, Extremities: no pitting edema. - Coordination of care will be shared with Dr. Rubin. Cataract Surgery for OS will take place - 07/26 and OD - 08/09. [1] Past Medical History: Diagnosis Date Actinic keratosis Asthma (HCC) Basal cell carcinoma Cataract Deviated septum GERD (gastroesophageal reflux disease) History of being hospitalized 05/19/2019 Passed out asthma had chest xray and cat scan History of stress test 10/18/2017 EF 65% Hypercholesteremia Hypertension RBBB (right bundle branch block) Voice disorder [2] Allergies Allergen Reactions Amoxicillin Other Reaction(s): GI Upset documented in this encounterMissouri Southern HealthcareYfkxsapvgb77-78-9678 NoteHNO ID: [id number] Author: BRITTANY MORATAYA RN Service: ? Author Type: Registered Nurse Type: Progress Notes Filed: 07/02/2025 10:48 Note Text: Pt cleaned the area with alcohol wipe and performed injection himself after this RN explained the process of the administration. Pt performed well and had no further questions after. Educated on importance of a clean administration site and counting to 5 after dose is complete prior to removing the needle from the site. He stated it was much easy than he thought and said he could do it from here on out. Provided with verbal education and visual instructions to take home as well. Pt tolerated the injection well. No further questions verbalized. Pt was sent home with the extra dose from pharmacy with an alcohol wipe. Brittany Morataya [facility]NSal[facility]10-21-2025 NoteHNO ID: [id number] Author: IMAN OBRIEN MD Service: ? Author Type: Physician Type: Progress Notes Filed: 06/22/2025 11:03 Note Text: . FOLLOW UP OFFICE VISIT Violet Ferrara is a 64 year old male who presents for follow up of chronic cough and asthma. Violet reports today that he has had some triggers of his asthma symptoms and cough since his last visit. Most recently being yesterday after he consumed several beers, he experienced reflux, cough, and chest tightness. He fell asleep and noted improvement upon waking today. He reports this was his first bad day in quite a while, and today is the first day he has been hoarse in a long time. He reports some improvement today. Over the summer he had a 3-week vacation in [facility]. He admits to drinking beer often while on vacation as well. During the third week, he visited a friend who smokes and spent about 20 minutes in the friend?s house. He reports the smoke exposure bothered his breathing as well. He completed a course of prednisone in March and has not taken any since. He continue to use Airsupra a couple of times daily, Breztri 2 puffs twice daily, and Singulair. He reports nighttime phlegm production with gagging when lying down, though he is unsure if this is from his lungs or reflux. He saw his ENT this morning, who advised weight loss and continued a newer reflux medication, voquezna, which was started in place of omeprazole. He continues to use a wedge pillow and sleeps on his left side. He is not consistent about avoiding eating within a few hours of lying down. PMH, FAMH, SOCIAL History AND Allergies were [...] Age of Onset Breast Cancer Sister : SOCIAL HISTORY[1] Allergies: ALLERGIES Allergen Reactions Amoxicillin GI Upset Current Medications: Current Outpatient Medications Medication Sig Dispense Refill VOQUEZNA 10 mg tablet Take 10 mg by mouth once daily. guaifenesin/dextromethorphan (MUCINEX COUGH ORAL) Take by mouth. AIRSUPRA 90-80 mcg/actuation inhaler INHALE 2 PUFFS BY MOUTH EVERY 4 HOURS NEEDED FOR SHORTNESS OF BREATH OR WHEEZE BREZTRI AEROSPHERE 160-9-4.8 mcg/actuation HFA aerosol inhaler Inhale 2 puffs as instructed. amLODIPine (NORVASC) 5 mg tablet Take 5 mg by mouth once daily. atorvastatin (LIPITOR) 20 mg tablet Take 20 mg by mouth every morning. predniSONE (DELTASONE) 10 mg tablet TAKE 1 TABLET BY MOUTH 3 TIMES A DAY X3 DAYS, 1 TABLET TWICE A DAY X3 DAYS THEN 1 DAILY X3 DAYS NASONEX 50 MCG/ACTUATION NASL SPRY 2 sprays each nostril qd prn 0 3 CLARINEX 5 MG ORAL TAB ONE PO QD prn 0 3 SINGULAIR 10 MG ORAL TAB ONE PO QHS prn 0 3 omeprazole (PRILOSEC) 20 mg capsule TAKE 1 CAPSULE BY MOUTH EVERYDAY AT THE SAME TIME (Patient not taking: Reported on 06/22/2025) No current facility-administered medications for this visit. ROS as per HPI. PHYSICAL EXAM: BP 135/82 Pulse 87 Temp (Src) 97.7 (Temporal) Resp 16 Wt 250 lb 3.6 oz (113.5kg) SpO2 94% General appearance: well appearing, in no acute distress, alert Skin: skin color normal, no rashes or lesions Eyes: Anicteric sclera. Neck: Supple, no adenopathy Respiratory: lungs clear to auscultation, no wheezing or rhonchi, normal work of breathing, good air movement Cardiovascular: S1, S2. RRR without murmur. Trace lower extremity edema. Musculoskeletal: No digital clubbing. Neuro/PSY: Normal mood and affect. Data Review: I personally reviewed, interpreted, and discussed the labs, PFTs and radiographs with the patient as noted below: Labs: 05/11/2025 IgE = 2171 AEC = 100 RAST++ for dust mites, low+ for grasses, various trees, and ragweed (A.fumigatus IgE negative) 05/2025 modified barium swallow: GERD seen to level of distal esophagus with tertiary contractions, no aspiration Assessment/Plan: 1) Asthma. With significantly elevated IgE level. Recommend CT chest to evaluate for bronchiectasis and ABPA; he reports a recent CT done locally but results are not available to me. Advised him to obtain recent CT results on a CD for me, or complete CT chest which was ordered today. His asthma is not well controlled on triple therapy inhalers and montelukast; multiple steroid courses this year. Will order dupixent, will require prior authorization. Discussed biologic therapy with him today; he is interested in pursuing this. 2) Allergies. He has previously undergone allergy shots, was difficult to continue based on location though. Dupixent as above will manage allergies as well. 3) Chronic cough.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 G47.30) Mar,ough variant asthma (ICD-10 - J45.991) Mar,Mild intermittent asthma, uncomplicated (ICD-10 - J45.20) [facility] Other 02-16-2022 Evaluation note* Encounter Date Diagnosis Assessment Notes Treatment Notes Treatment Clinical Notes Oct, GERD (gastroesophageal reflux di sease) (ICD-10 - K21.9) [facility] Other 10-19-2021 Evaluation note* Encounter Date Diagnosis Assessment Notes Treatment Notes Treatment Clinical Notes Jun, Reactive airway disease (ICD-10 - J45.909) Jun,GERD (gastroesophageal reflux disease) (ICD-10 - K21.9) Jun,leep apnea (ICD-10 - G47.30) Jun,ough variant asthma (ICD-10 - J45.991) Rinse mouth after each use of Trelegy to help prevent thrush. 19 Jun, 2021Mild intermittent asthma, uncomplicated (ICD-10 - J45.20) Begin trial of Trelegy 200/62.5/25 [facility] Other Evaluation note* Diagnosis Basal cell carcinoma (BCC) of skin of other part of torso- Primary [facility] Diagnosis Moderate persistent asthma without complication (CMS/HCC)- Primary Chronic cough Cough Benign essential hypertension (CMS/HCC) Essential hypertension, benign Obstructive sleep apnea syndrome Obstructive sleep apnea (adult) (pediatric) documented [facility]* Diagnosis Moderate persistent asthma with exacerbation (CMS/HCC)- Primary Unspecified asthma, with exacerbation Acute non-recurrent [...] (adult) (pediatric) Moderate persistent asthma without complication (CMS/HCC) Benign essential hypertension (CMS/HCC) Essential hypertension, benign Bifascicular block Other bilateral bundle branch block Fatty liver Other chronic nonalcoholic liver disease Gastroesophageal reflux disease without esophagitis Esophageal reflux Primary osteoarthritis of right knee Class 2 severe obesity due to excess calories with serious comorbidity and body mass index (BMI) of37.0 to 37.9 in adult (CMS/HCC) Chronic laryngitis Chronic rhinitis Chronic sinusitis of both maxillary sinuses Seasonal allergic rhinitis due to pollen BCC (basal cell carcinoma), trunk Other malignant neoplasm of skin of trunk, except scrotum Elevated transaminase level Impaired glucose metabolism LPRD (laryngopharyngeal reflux disease) Acute laryngitis, without mention of obstruction Mixed hyperlipidemia ([facility]) Mixed hyperlipidemia Screening for malignant neoplasm of prostate documented in this encounter [facility]* Diagnosis Gastroesophageal reflux disease without esophagitis- Primary Esophageal reflux Moderate persistent asthma without complication (HCC) Class 2 severe obesity due to excess calories with serious comorbidity and body mass index (BMI) of36.0 to 36.9 in adult ([facility]-HCC) Closed fracture of multiple ribs of right side with routine healing, subsequent encounter Persistent cough for 3 weeks or longer documented in this encounter [facility] HealthcareEvaluation noteNo assessment information availableMain Campus Medical Center Work Phone: Evaluation note* Diagnosis Closed fracture of multiple ribs of right side with routine healing, subsequent encounter- Primary documented in this encounter [facility]* Diagnosis Seborrheic keratosis- Primary History of basal cell carcinoma Personal history of other malignant neoplasm of skin Seborrheic keratosis, inflamed Lentigines Actinic keratosis documented in this encounter [facility]* Diagnosis Persistent cough for 3 weeks or longer- Primary Obstructive sleep apnea syndrome Obstructive sleep apnea (adult) (pediatric) Moderate persistent asthma without complication (HCC) Closed fracture of multiple ribs of right side, initial encounter Current use of steroid medication documented in this encounter [facility] note* Diagnosis Chronic cough Cough Gastroesophageal reflux disease, unspecified whether esophagitis present documented in this encounter [facility] note* Diagnosis Bee sting, accidental or unintentional, initial encounter- Primary documented in this encounter [facility] note* Diagnosis Cough, unspecified type [facility] Diagnosis Cough, unspecified type- Primary [facility]* Diagnosis Chronic cough- Primary Cough Allergic rhinitis, unspecified seasonality, unspecified trigger Asthma, unspecified asthma severity, unspecified whether complicated, unspecified whether persistent (HCC) [facility] Diagnosis Gastroesophageal reflux disease, unspecified whether esophagitis present Chronic cough Cough documented in this encounter [facility]* Diagnosis Chronic cough- Primary Cough Laryngopharyngeal reflux (LPR) documented in this encounter [facility] note* Diagnosis Age-related nuclear cataract of both eyes- Primary documented in this encounter [facility]* Diagnosis Actinic keratosis- Primary documented in this encounter [facility] HealthcareHistory general Narrative - Reported* Type Description Date Medical History asthma Medical HistoryHypertensionMedical HistoryEsophageal refluxMedical Historysleep apneaMedical Historyreactive airway diseaseSurgical Historynasal [id number] [facility] Other History general Narrative - Reported* Type Description Date Medical History asthma Medical HistoryHypertensionMedical HistoryEsophageal refluxMedical Historysleep apneaMedical Historyreactive airway diseaseMedical Historyumbilical hernia Surgical Historynasal [id number] [facility] Other Reason for referral (narrative)No reason for referral information availableMain Campus Medical Center Work Phone: Summary Purpose Family History Relationship Condition Age at Onset Recorded Date/T summer father Hypertension Unknown Heart diseaseUnknownmotherMalignant neoplasmUnknown Advance Directives Advance Directive Response Recorded Date/ Time Advance Directives No March 11 2:39pm Chief Complaint and Reason for Visit Chief Complaint Admit Date Cough, broken ribs March 11, 2025 2:42 pm Chief Complaint Admit Date Cough, broken ribs March 11, 2025 2:42 pm R05.3 K21.9 May 12, 2025 7:15am Additional Source Comments (unrecognized sect ion and content) No Status Records FoundNo Status Records FoundNo Status Records FoundNo Status Records FoundNo Status Records FoundNo Status Records Found INFORMATION SOURCE (unrecogn ized section and content) DATE CREATED AUTHOR 02/18/2018 [facility] DATE CREATED AUTHOR AUTHOR'S ORGANIZ ATION 02/21/2018 [facility] DATE CREATED AUTHOR AUTHOR'S ORGANIZ ATION 08/13/2021 [facility] DATE CREATED AUTHOR AUTHOR'S ORGANIZ ATION 05/17/2025 [facility] DATE CREATED AUTHOR AUTHOR'S ORGANIZ ATION 07/05/2025 [facility] DATE CREATED AUTHOR AUTHOR'S ORGANIZ ATION 07/14/2025 [facility] REASON FOR VISIT (unrecogniz ed section and content) XiotrvLbxgycirEiybra-hsKkalshHlpikhmqUjpvxg-xaCMW ER 08/27/24 dx: asthma with exacerbation,VYAS discharged home with rx for prednisone,bromfed DM and zofran ReasonCommentsMed RefillBreztriReasonCommentsMedicare Annual Wellness Visit SubsequentReasonOnset DateCommentsMed Szloou5203/17/2025ReasonCommentsSkin Check ReasonCommentsdiscuss referralReasonCommentsCoughNew Patient : coughReason CommentsSpirometrySpecialtyDiagnoses / ProceduresReferred By ContactReferred To [facility] [place] Diagnoses Cough, unspecified type Procedures NITRIC OXIDE, EXHALED NITRIC OX[place] [address] [place] [address] Phone: tel: fax: [place] [address] Referral IDStatusRest. louis va medical centerStart DateExpiration DateVisits RequestedVisits [id number] Auto-Generated Referral [id number] / ProceduresReferred By ContactReferred To [facility] [place] Diagnoses Cough, unspecified type Procedures SPIROMETRY - BASELINE AND POST DILATOR BRNCDILAT RSPSE SPMTRY PRE&POST[place] [address] [place] [address] Phone: tel: fax: Respiratory [address] [address] Referral IDStatusReasonStart DateExpiration DateVisits RequestedVisits [id number] Auto-Generated Referral [id number]zuodMtjkdoxhl / ProceduresReferred By ContactReferred To ContactPulmonary Disease / [facility] Diagnoses Persistent cough for 3 weeks or longer Moderate persistent asthma without complication (HCC) Procedures OFFICE/OUTPATIENT [facility] 60 MINUTES [id number] (SNOMED CT) - AMB REFERRAL TO PULMONOLOGY Nick Bess II, MD [address] [facility] [address] [place] [address] Phone: tel: fax: Nick Zepeda DO [address] [place] [address] Phone: tel: fax: Referral IDStatusReasonStart DateExpiration DateVisits RequestedVisits [id number] Review/[id number] Esophagram resultsReasonCommentsGERD1 month reckReasonCommentsCataract Care Teams (unrecognized sec tion and content) Team MemberRelationshipSpecialtyStart DateEnd Date Nick Bess MD [address] [place] [address] PCP - Medical [employer] [employer]01/31/23 Nick Bess MD [address] [facility] [address] [place] [address] PCP - GeneralInternal Medicine01/08/23Team MemberRelationshipSpecialtyStart Date End Date Nick Bess MD [address] [facility] [address] [place] [address] PCP - GeneralInternal Medicine01/08/23 Nick Bess MD [address] [facility] [address] [place] [address] PCP - [employer]10/03/23Team MemberRelationshipSpecialtyStart DateEnd Date Nick Bess MD [address] [place] [address] [place] [address] PCP - GeneralInternal Medicine01/08/23 Nick Bess MD [address] [place] [address] [place] [address] PCP - Aet10/03/23Team MemberRelationshipSpecialtyStart DateEnd Nick Bess MD [address] [place] [address] [place] [address] [facility]/08/23 Nick Bess MD [address] [place] [address] [place] [address] PCP - [facility]10/03/23Team MemberRelationshipSpecialtyStart DateEnd Date Nick Bess MD [address] [place] [address] [place] [address] PCP - [facility]Va [facility]01/08/23 Nick Bess MD [address] [place] [address] [place] [address] PCP - Aet10/03/23Team MemberRelationshipSpecialtyStart DateEnd Date Nick Bess MD [address] [place] [address] [place] [address] [facility]CP - [facility]01/08/23 Nick Bess MD [address] [place] [address] [place] [address] PCP - Aet10/03/23Team MemberRelationshipSpecialtyStart DateEnd Date Nick Bess MD [address] [place] [address] [place] [address] PCP - GeneralInternal Medicine01/08/23 Nick Bess MD [address] [place] [address] [place] [address] PCP - Aet10/03/23Team MemberRelationshipSpecialtyStart DateEnd Nick Bess MD [address] [place] [address] [place] [address] PCP - GeneralA[facility] Campusnal Medicine01/08/23 Nick Bess MD [address] [place] [address] [place] [address] PCP - [facility]10/03/23Team MemberRelationshipSpecialtyStart DateEnd Nick Bess MD [address] [place] [address] [place] [address] PCP - GeneralA[facility] Campusnal Medicine01/08/23 Nick Bess MD [address] [place] [address] [place] [address] PCP - Aet10/03/23Team MemberRelationshipSpecialtyStart DateEnd Nick Bess MD [address] [place] [address] [place] [address] PCP - [facility] Campusnal Medicine01/08/23 Nick Bess MD [address] [place] [address] [place] [address] PCP - Aet10/03/23Team MemberRelationshipSpecialtyStart DateEnd Nick Bess MD [address] [place] [address] [place] [address] PCP - GeneralInternal Medicine01/08/23 Nick Bess MD [address] [place] [address] [place] [address] PCP - [employer]10/03/23Team MemberRelationshipSpecialtyStart DateEnd Nick Bess MD [address] [place] [address] [place] [address] PCP - [facility]nal [facility]01/08/23 Nick Bess MD [address] [place] [address] [place] [address] PCP - Aet10/03/23 Team Status: Active Member Role Status Dates Nick Bess II MD Primary Care Provider Active Team Status: Inactive Member Role Status Dates Nick Bess II MD Primary Care Provider Active Start: March 11, 2025 End: March 11Nino Allen ProviderActiveStart: March 11, 2025 End: March 11, 2025Team MemberRelationshipSpecialtyStart DateEnd Nick Bess MD [address] [place] [address] [place] [address] PCP - GeneralInternal Medicine01/08/23 Nick Bess MD [address] [place] [address] [place] [address] PCP - Aet10/03/23Team MemberRelationshipSpecialtyStart DateEnd Nick Bess MD [address] [place] [address] [place] [address] PCP - GeneralInternal Medicine01/08/23 Nick Bess MD [address] [place] [address] [place] [address] PCP - Aet10/03/23Team MemberRelationshipSpecialtyStart DateEnd Date Nick Bess MD [address] [place] [address] [place] [address] PCP - GeneralInternal Medicine01/08/23 Nick Bess MD [address] [place] [address] [place] [address] PCP - Aet10/03/23Team MemberRelationshipSpecialtyStart DateEnd Date Nick Bess MD [address] [place] [address] [place] [address] PCP - [facility] Campusnal Medicine01/08/23 Nick Bess MD [address] [place] [address] [place] [address] PCP - Aet10/03/23Team MemberRelationshipSpecialtyStart DateEnd Date Nick Bess II, MD PCP - GeneralInternal [facility]11/22/14Team MemberRelationshipSpecialtyStart Date End Date Nick Bess MD [address] [place] [address] [place] [address] PCP - [facility] Campusnal Medicine01/08/23 Nick Bess MD [address] [place] [address] [place] [address] PCP - [employer]10/03/23Team MemberRelationshipSpecialtyStart DateEnd Date Nick Bess II, MD PCP - [facility]11/22/14Team MemberRelationshipSpecialtyStart Date End Date Nick Bess II, MD PCP - [facility]11/22/14Team MemberRelationshipSpecialtyStart Date End Date Nick Bess II, MD PCP - [facility]11/22/14Team MemberRelationshipSpecialtyStart Date End Date Nick Bess II, MD PCP - [facility]11/22/14Team MemberRelationshipSpecialtyStart Date End Date Nick Bess MD [address] [place] [address] [place] [address] [address] [facility]01/08/23 Nick Bess MD [address] [place] [address] [place] [address] PCP [facility]10/03/23 Team Status: Inactive Member Role Status Dates Nick Bess II MD Primary Care Provider Active Start: May 12, 2025 End: May 12enjahomer Tai , DOAttbelle ProviderActiveStart: May 12, 2025 End: May 12, 2025Team MemberRelationshipSpecialtyStart DateEnd Date Nick Bess MD [address] [place] [address] [place] [address] PCP - [facility]01/08/23 Nick Bess MD [address] [place] [address] [place] [address] PCP - Aet10/03/23Team MemberRelationshipSpecialtyStart DateEnd Nick Bess MD [address] [place] [address] [place] [address] PCP - GeneralInternal Medicine01/08/23 Nick Bess MD [address] [place] [address] [place] [address] PCP - Aet10/03/23Team MemberRelationshipSpecialtyStart DateEnd Nick Bess MD [address] [place] [address] [place] [address] PCP - [facility]01/08/23 Nick Bess MD [address] [place] [address] [place] [address] PCP - [facility]10/03/23Team MemberRelationshipSpecialtyStart DateEnd Nick Bess MD [address] [place] [address] [place] [address] PCP - [facility]01/08/23 Nick Bess MD [address] [place] [address] [place] [address] PCP - [facility]10/03/23Team MemberRelationshipSpecialtyStart DateEnd Nick Bess MD [address] [place] [address] [place] [address] PCP - GeneralA[facility] Campusnal Medicine01/08/23 Nick Bess MD [address] [facility] [address] [place] [address] [facility] - [employer]10/03/23 Goals (unrecognized section and content) Goals may be documented in a n alternate section Source Comments (unrecognize d section and content) In the event this informatio n is protected by the Federal Confidentiality of Alcohol and Drug Abuse Patient Records regulations: The Federal rules restrict any use of the information to criminally investigate or prosecute any alcohol or drug abuse patient.[facility] HospitalIn the event this information is protected by the Federal Confidentiality of Alcohol and Drug Abuse Patient Records regulations: The Federal rules restrict any use of the information to criminally investigate or prosecute any alcohol or drug abuse patient.[facility] HospitalIn the event this information is protected by the Federal Confidentiality of Alcohol and Drug Abuse Patient Records regulations: The Federal rules restrict any use of the information to criminally investigate or prosecute any alcohol or drug abuse patient.[facility] HospitalIn the event this information is protected by the Federal Confidentiality of Alcohol and Drug Abuse Patient Records regulations: The Federal rules restrict any use of the information to criminally investigate or prosecute any alcohol or drug abuse patient.[facility] HospitalIn the event this information is protected by the Federal Confidentiality of Alcohol and Drug Abuse Patient Records regulations: The Federal rules restrict any use of the information to criminally investigate or prosecute any alcohol or drug abuse patient.[facility] FOR RECORDS PERTAINING TO PATIENTS WHO [...] BE BASED ON THE PRIMARY CLINICAL RECORDS. [facility] [employer] [facility]. provides no warranty or guarantee of the accuracy or completeness of information in this document.
--- NOTE | 2025-07-29 10:50 | XR_ITS ---
[facility] [place] [id number] Patient Name: VIOLET HEART MRN: [id number] date: 1960 Sex: M Assigned Patient Location: ER Current Patient Location: ER Accession/Order Number: [id number] Exam Date: 07/29/2025 11:13 Report Date: 07/29/2025 12:06 At the request of: LUCIUS WALTER MD Procedure: XR chest 1V Single view chest: CLINICAL HISTORY: SOB COMPARISON: Chest 05/11/2025 FINDINGS: The heart is normal in size. The lungs are clear. The pulmonary vasculature is normal. Mediastinum and hilar regions are unremarkable. No pleural effusions are seen. Visualized bones are intact. XR/XR chest 1V IMPRESSION: NO ACUTE PROCESS. Impression dictated by: Ulices Rao Jr., D.O. 07/29/2025 12:06 PM Dictation Location: [place] [address] Electronically authenticated by: [id number] Y Date: 07/29/2025 12:06
--- NOTE | 2025-07-29 10:50 | ECG_ITS ---
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 Measurements Intervals [place] Rate: 86 P: 30 AL: 112 QRS: -70 QRSD: 134 T: 55 QT: 378 QTc: 422 Interpretive Statements 1100 Sinus rhythm 2210 Short AL interval 2450 Right bundle branch block 2630 Left anterior fascicular block 9150 abnormal ECG Compared to ECG 05/11/2025 14:17:20 Short AL interval now present Electronically Signed On 07-29-2025 15:25:57 EST by SHELBI GUNDERSON M.D.
[2025-07-29] MEDS: METHYLPREDNISOLONE SOD SUCC PF 125 MG/2 ML VIAL IVP (10:55)
--- NOTE | 2025-07-29 10:55 | ED.GENADUL1 ---
HPI HPI - General Adult General Chief complaint: Shortness of Breath/Dyspnea Stated complaint: SOB Time Seen by Provider: 07/29/25 10:46 Source: patient Mode of arrival: walk-in Limitations: no limitations History of Present Illness HPI narrative: 65-year-old male presented to the emergency department for shortness of breath. He had a bad cough about 10 days. 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 He never smoked. He has been using his nebulizer and taking all of his medications. No hemoptysis or fever. Related Data Home Medications ?Medication ?Instructions ?Recorded ?Confirmed albuterol sulfate 2.5 mg/3 mL 2.5 mg inhalation Q4H 08/13/23 07/29/25 (0.083 %) solution for nebulization albuterol sulfate 90 mcg/actuation 1 puff inhalation Q4H PRN 08/13/23 07/29/25 aerosol inhaler shortness of breath or wheezing amlodipine 5 mg tablet 5 mg PO DAILY 08/13/23 07/29/25 montelukast 10 mg tablet 10 mg PO QPM 08/13/23 07/29/25 aspirin 81 mg capsule 81 mg PO DAILY 03/09/25 07/29/25 atorvastatin 20 mg tablet 20 mg PO DAILY 03/09/25 07/29/25 budesonide 160 mcg-glycopyr 9 2 inh inhalation BID 03/09/25 07/29/25 mcg-formot 4.8 mcg/actuation HFA inhaler (Breztri Aerosphere) fluticasone propionate 50 2 spray intranasal DAILY 03/09/25 07/29/25 mcg/actuation nasal spray,suspension omeprazole 20 mg capsule,delayed 20 mg PO DAILY 03/09/25 07/29/25 release albuterol 90 mcg-budesonide 80 2 inh inhalation QID PRN shortness 05/11/25 07/29/25 mcg/actuation HFA aerosol inhaler of breath (Airsupra) famotidine 20 mg tablet 20 mg PO DAILY 05/11/25 07/29/25 dupilumab 200 mg/1.14 mL 200 mg subcut .[id number] 07/29/25 07/29/25 subcutaneous pen injector ([employer]) vonoprazan 10 mg tablet (Voquezna) 10 mg PO DAILY 07/29/25 07/29/25 Previous Rx's ?Medication ?Instructions ?Recorded azithromycin 250 mg tablet See Rx Instructions PO .COMPLEX #6 07/29/25 (Zithromax Z-Billy) tabs benzonatate 100 mg capsule 100 mg PO TID PRN cough #20 caps 07/29/25 prednisone 10 mg tablet See Rx Instructions .Route 07/29/25 .COMPLEX #30 tabs Allergies Allergy/AdvReac Type Severity Reaction Status Date / Time amoxicillin (From Augmentin) Allergy Unknown Verified 05/11/25 15:11 clavulanic acid (From Allergy Unknown Verified 05/11/25 15:11 Augmentin) Opioid HPI Opioid Management Most Recent Opioid Data: Last Pain Scale 7 03/09/25, 12:55 Review of Systems ROS Narrative A ten point review of systems is negative except as noted above. PFSH PFSH Social History Little interest or pleasure in doing things: not at all Feeling down, depressed, or hopeless: not at all Exam Narrative Exam Narrative: Nurses note and vital signs reviewed General:The patient appears no acute distress. He sitting upright on the examination cart. Skin:Warm, dry, no pallor noted.There is no rash noted. Head:Normocephalic, atraumatic Eye: Normal conjunctiva, no drainage Ears, Nose, Mouth, and Throat: oral mucosa is moist. Nares patent. Cardiovascular:Regular Rate and Rhythm Respiratory: He coughs frequently. Breath sounds are equal. No rhonchi present. Back:non-tender GI: Soft and nontender Musculoskeletal: The patient has no evidence of calf tenderness, no pitting edema, symmetrical pulses noted bilaterally Neurological: Awake and alert Psychiatric:Cooperative Constitutional Vital Signs, click to edit/add: Last Vital Signs Temp 98.0 F 07/29/25 10:09 Pulse 84 07/29/25 11:03 Resp 20 07/29/25 11:03 BP 122/85 07/29/25 10:09 Pulse Ox 98 07/29/25 11:03 O2 Del Method Room Air 07/29/25 11:03 Course Vital Signs Vital signs: Vital Signs Temperature 98.0 F 07/29/25 10:09 Pulse Rate 93 H 07/29/25 10:09 Respiratory Rate 18 07/29/25 10:09 Blood Pressure 122/85 11/27/25 10:09 Pulse Oximetry 96 07/29/25 10:09 Oxygen Delivery Method Room Air 07/29/25 10:09 Temperature 98.0 F 07/29/25 10:09 Pulse Rate 84 07/29/25 11:03 Respiratory Rate 20 07/29/25 11:03 Blood Pressure 122/85 07/29/25 10:09 Pulse Oximetry 98 07/29/25 11:03 Oxygen Delivery Method Room Air 07/29/25 11:03 Medical Decision Making MDM Narrative Medical decision making narrative: His workup including chest x-ray, influenza, and COVID is negative. He was given IV Solu-Medrol and an aerosol treatment and seems to be feeling improved. He is discharged home on Zithromax, prednisone, and Tessalon. At this point there is no indication for admission of the hospital. Treatment diagnosis and follow-up were discussed with the patient. Differential Diagnosis Differential Diagnosis: Pneumonia, COVID, influenza, URI Lab Data Lab results reviewed: Yes I reviewed the patient's lab results Labs: Lab Results 07/29/25 Range/Units 10:22 WBC 13.4 H (4.0-11.0) 10^3/uL RBC 4.53 L (4.70-6.10) 10^6/uL Hgb 15.9 (14.0-18.0) g/dL Hct 45.8 (42.0-54.0) % MCV 101.1 H (80.0-94.0) fL MCH 35.1 H (25.9-34.0) pg MCHC 34.7 (29.9-35.2) g/dL RDW 12.2 (11.0-15.0) % Plt Count 301 (150-450) 10^3/uL MPV 10.2 (9.5-13.5) fL Neut % (Auto) 69.5 (43.0-75.0) % Lymph % (Auto) 21.3 (20.5-60.0) % Tucker % (Auto) 7.0 (1.7-12.0) % Eos % (Auto) 1.2 (0.9-7.0) % Baso % (Auto) 0.7 (0.2-2.0) % Neut # (Auto) 9.3 H (1.4-6.5) 10^3/uL Lymph # (Auto) 2.9 (1.2-3.8) 10^3/uL Tucker # (Auto) 0.9 H (0.3-0.8) 10^3/uL Eos # (Auto) 0.2 (0.0-0.7) 10^3/uL Baso # (Auto) 0.1 (0.0-0.1) 10^3/uL Abs Immat Gran (auto) 0.04 H (0.00-0.03) 10^3/uL Imm/Tot Granulo (auto) 0.3 (0.0-0.5) % Sodium 136 (136-145) mmol/L Potassium 3.7 (3.5-5.1) mmol/L Chloride 98 (98-107) mmol/L Carbon Dioxide 24.6 (21.0-32.0) mmol/L Anion Gap 17.1 BUN 7.0 (7.0-18.0) mg/dL Creatinine 1.18 (0.70-1.30) mg/dL Est GFR ( Amer) >60 (>=60 mL/min/1.73m^2) Est GFR (Non-Af Amer) >60 (>=60 mL/min/1.73m^2) BUN/Creatinine Ratio 5.9 Glucose 90 (74-106) mg/dL Calcium 9.1 (8.5-10.1) mg/dL Troponin I High Sens 7.6 (4.0-76.1) pg/mL Influenza Type A Ag Negative Influenza Type B Ag Negative SARS-CoV-2 Ag (CV2AG) Negative (NEGATIVE) Imaging Data Chest x-ray: Radiologist's impression: ITS Impressions Chest X-Ray 07/29/25 10:50 IMPRESSION: NO ACUTE PROCESS. Impression dictated by: Ulices Rao Jr., D.O. 07/29/2025 12:06 PM Dictation Location: [place] [address] Electronically authenticated by: [id number] Y Date: 07/29/2025 12:06 ECG Data Attestation: I personally reviewed and interpreted this ECG as follows: (EKG on my interpretation shows sinus rhythm with rate of 86 and artifact) Critical Care Time Critical Care Time Critical Care Time: Yes Total Critical Care Time: 35 Attestation: Due to the high probability of sudden and clinically significant deterioration in the patient's condition he/she required the highest level of my preparedness to intervene urgently I provided critical care time including documentation time, medication orders and management, reevaluation, vital sign assessment, ordering and reviewing of lab tests, ordering and reviewing of x-ray studies, and admission orders. Aggregate critical care time is 35 minutes including only time during which I was engaged in work directly related to his/her care and did not include time spent treating other patients simultaneously. Discharge Plan Discharge Chief Complaint: Shortness of Breath/Dyspnea Clinical Impression: Upper respiratory infection Patient Disposition: Home, Self-Care Time of Disposition Decision: 12:28 Condition: Good Mode of Transportation: Private Vehicle Prescriptions / Home Meds: New benzonatate 100 mg capsule 100 mg PO TID PRN (Reason: cough) Qty: 20 0RF prednisone 10 mg tablet See Rx Instructions .ROUTE .COMPLEX Qty: 30 0RF Rx Instructions: 4 by mouth daily for three days then 3 by mouth daily for three days then 2 by mouth daily for three days then 1 by mouth daily for three days azithromycin [Zithromax Z-Billy] 250 mg tablet See Rx Instructions .ROUTE .COMPLEX Qty: 6 0RF Rx Instructions: For 250 mg dose pack: take 500 mg today (day 1), then 250 mg for 4 days (days 2-5) No Action atorvastatin 20 mg tablet 20 mg PO DAILY omeprazole 20 mg capsule,delayed release(DR/EC) 20 mg PO DAILY fluticasone propionate 50 mcg/actuation spray,suspension 2 spray INTRANASAL DAILY Elliotttri Aerosphere 160-9-4.8 mcg/actuation HFA aerosol inhaler 2 inh INHALATION BID aspirin 81 mg capsule 81 mg PO DAILY famotidine 20 mg tablet 20 mg PO DAILY Airsupra 90-80 mcg/actuation HFA aerosol inhaler 2 inh INHALATION QID PRN (Reason: shortness of breath) albuterol sulfate 90 mcg/actuation HFA aerosol inhaler 1 puff INHALATION Q4H PRN (Reason: shortness of breath or wheezing) albuterol sulfate 2.5 mg /3 mL (0.083 %) solution for nebulization 2.5 mg inhalation Q4H amlodipine 5 mg tablet 5 mg PO DAILY montelukast 10 mg tablet 10 mg PO QPM Maricruzzna 10 mg tablet 10 mg PO DAILY Dupixent Pen 200 mg/1.14 mL pen injector 200 mg SUBCUT .[id number] Print Language: Tuvaluan Instructions: Upper Respiratory Infection (ED) Referrals: DEBORA HEIN [Primary Care Provider, Internal Medicine] - 1 week
[2025-07-29 11:03] VITALS: PULSE 84; O2SAT 98
[2025-07-29] MEDS: ALBUTEROL SULFATE 2.5 MG/3 ML VIAL NEB IH (11:03)
[2025-07-29 11:04] LABS: Hematocrit 45.8 % (42.0-54.0); Hemoglobin 15.9 g/dL (14.0-18.0); Immature Granulocytes Abs Auto 0.04 10^3/uL (0.00-0.03); Immature Granulocytes Pct Auto 0.3 % (0.0-0.5); Lymphocytes Absolute Auto 2.9 10^3/uL (1.2-3.8); Mean Corpuscular HGB Conc 34.7 g/dL (29.9-35.2); Mean Corpuscular Hemoglobin 35.1 pg (25.9-34.0); Mean Corpuscular Volume 101.1 fL (80.0-94.0); Platelet Count 301 10^3/uL (150-450); Red Blood Count 4.53 10^6/uL (4.70-6.10); White Blood Count 13.4 10^3/uL (4.0-11.0)
[2025-07-29 11:05] LABS: SARS-CoV-2 Ag NEGATIVE (NEGATIVE)
[2025-07-29 11:23] LABS: Anion Gap 17.1; Blood Urea Nitrogen 7.0 mg/dL (7.0-18.0); Calcium 9.1 mg/dL (8.5-10.1); Carbon Dioxide 24.6 mmol/L (21.0-32.0); Chloride 98 mmol/L (98-107); Estimated GFR (African America >60 (>=60 mL/min/1.73m^2); Estimated GFR (Non-African Ame >60 (>=60 mL/min/1.73m^2); Glucose 90 mg/dL (74-106); Potassium 3.7 mmol/L (3.5-5.1); Sodium 136 mmol/L (136-145)
[2025-07-29 12:45] VITALS: BP 134/78; PULSE 89; O2SAT 94
== END 2025-07-29 12:46 | disposition home or self-care (01) ==
PROVIDERS: Emergency Provider Emergency Medicine; PCP Internal Medicine
DX: J06.9 Acute upper respiratory infection, unspecified (principal); R06.02 Shortness of breath
CPT/HCPCS: 36415; 71045; 80048; 84484; 85025; 87804; 87811; 93005; 94640; 96374; 99285; J2919

== ENCOUNTER 2025-08-01 10:26 | Emergency (ER) | payer MEDICARE, SELFPAY ==
--- NOTE | 2025-08-01 10:35 | XR_ITS ---
The [address] [address] Patient Name: VIOLET HEART MRN: [id number] date: 1960 Sex: M Assigned Patient Location: ED.MAIN Current Patient Location: ED.MAIN Accession/Order Number: [id number] Exam Date: 08/01/2025 10:48 Report Date: 08/01/2025 11:16 At the request of: LUCIUS WALTER MD Procedure: XR chest 1V XR chest 1V 08/01/2025 11:02 AM SIGNS AND SYMPTOMS: Productive cough PROTOCOL: Frontal radiograph of the chest COMPARISON: 07/29/2025 FINDINGS: The trachea is midline. The heart and mediastinal structures are within normal limits. The lung parenchyma is clear. The bony thorax is intact. XR/XR chest 1V IMPRESSION: No acute cardiopulmonary pathology. Impression dictated by: Vel Hansen M.D. 08/01/2025 11:16 AM Dictation [facility] Electronically authenticated by: [id number] Y Date: 08/01/2025 11:16
[2025-08-01 10:43] VITALS: BP 121/77; PULSE 87; TEMP 36.8; O2SAT 92; BMI 34.0
--- NOTE | 2025-08-01 10:55 | ED.GENADUL1 ---
HPI HPI - General Adult General Chief complaint: Upper Respiratory Infection Stated complaint: COUGH Time Seen by Provider: 08/01/25 10:35 Source: patient Mode of arrival: walk-in History of Present Illness HPI narrative: 65-year-old male presents to the emergency department for cough. He was seen here 2 days ago and had a negative workup including chest x-ray, COVID, and influenza. He was discharged home on Zithromax. He had had the symptoms for about 10 days before that. 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 His cough is mostly nonproductive. No hemoptysis or chest pain. Related Data Home Medications ?Medication ?Instructions ?Recorded ?Confirmed albuterol sulfate 2.5 mg/3 mL 2.5 mg inhalation Q4H 08/13/23 07/29/25 (0.083 %) solution for nebulization albuterol sulfate 90 mcg/actuation 1 puff inhalation Q4H PRN 08/13/23 07/29/25 aerosol inhaler shortness of breath or wheezing amlodipine 5 mg tablet 5 mg PO DAILY 08/13/23 07/29/25 montelukast 10 mg tablet 10 mg PO QPM 08/13/23 07/29/25 aspirin 81 mg capsule 81 mg PO DAILY 03/09/25 07/29/25 atorvastatin 20 mg tablet 20 mg PO DAILY 03/09/25 07/29/25 budesonide 160 mcg-glycopyr 9 2 inh inhalation BID 03/09/25 07/29/25 mcg-formot 4.8 mcg/actuation HFA inhaler ([employer]) fluticasone propionate 50 2 spray intranasal DAILY 03/09/25 07/29/25 mcg/actuation nasal spray,suspension omeprazole 20 mg capsule,delayed 20 mg PO DAILY 03/09/25 07/29/25 release albuterol 90 mcg-budesonide 80 2 inh inhalation QID PRN shortness 05/11/25 07/29/25 mcg/actuation HFA aerosol inhaler of breath (Airsupra) famotidine 20 mg tablet 20 mg PO DAILY 05/11/25 07/29/25 dupilumab 200 mg/1.14 mL 200 mg subcut .[id number] 07/29/25 07/29/25 subcutaneous pen injector (Dupixent) vonoprazan 10 mg tablet (Voquezna) 10 mg PO DAILY 07/29/25 07/29/25 Previous Rx's ?Medication ?Instructions ?Recorded azithromycin 250 mg tablet See Rx Instructions PO .COMPLEX #6 07/29/25 (Zithromax Z-Billy) tabs benzonatate 100 mg capsule 100 mg PO TID PRN cough #20 caps 07/29/25 prednisone 10 mg tablet See Rx Instructions .Route 07/29/25 .COMPLEX #30 tabs diazepam 5 mg tablet (Valium) 5 mg PO Q8H PRN anxiety #10 tabs 08/01/25 Allergies Allergy/AdvReac Type Severity Reaction Status Date / Time amoxicillin (From Augmentin) Allergy Unknown Verified 05/11/25 15:11 clavulanic acid (From Allergy Unknown Verified 05/11/25 15:11 Augmentin) Opioid HPI Opioid Management Most Recent Opioid Data: Last Pain Scale 7 03/09/25, 12:55 Review of Systems ROS Narrative A ten point review of systems is negative except as noted above. PFSH PFSH Social History Little interest or pleasure in doing things: not at all Feeling down, depressed, or hopeless: not at all Exam Narrative Exam Narrative: Nurses note and vital signs reviewed General:The patient appears well and in no apparent distress.Patient is resting comfortably on cart. Skin:Warm, dry, no pallor noted.There is no rash noted. Head:Normocephalic, atraumatic Eye: Normal conjunctiva, no drainage Ears, Nose, Mouth, and Throat: oral mucosa is moist. Nares patent. Cardiovascular:Regular Rate and Rhythm Respiratory:Patient is in no distress, no accessory muscle use, lungs are clear to auscultation, no wheezing, rales or rhonchi. Breath sounds are equal Back:non-tender GI: Soft and nontender Musculoskeletal: The patient has no evidence of calf tenderness, no pitting edema, symmetrical pulses noted bilaterally Neurological:A&O, normal speech Psychiatric:Cooperative Constitutional Vital Signs, click to edit/add: Last Vital Signs Temp 98.3 F 08/01/25 10:43 Pulse 90 08/01/25 11:24 Resp 22 H 08/01/25 10:43 BP 121/77 08/01/25 10:43 Pulse Ox 92 L 11/30/25 11:24 O2 Del Method Room Air 08/01/25 11:24 Course Vital Signs Vital signs: Vital Signs Temperature 98.3 F 08/01/25 10:43 Pulse Rate 87 08/01/25 10:43 Respiratory Rate 22 H 08/01/25 10:43 Blood Pressure 121/77 08/01/25 10:43 Pulse Oximetry 92 L 08/01/25 10:43 Oxygen Delivery Method Room Air 08/01/25 10:43 Temperature 98.3 F 08/01/25 10:43 Pulse Rate 90 08/01/25 11:24 Respiratory Rate 22 H 08/01/25 10:43 Blood Pressure 121/77 08/01/25 10:43 Pulse Oximetry 92 L 08/01/25 11:24 Oxygen Delivery Method Room Air 08/01/25 11:24 Medical Decision Making MDM Narrative Medical decision making narrative: His workup including CTA chest is negative. We discussed the possibility that this could be due to stress and he agrees that it is a possibility. He is given a prescription for 10 Valium tablets and will follow-up with his physician promptly. Treatment diagnosis and follow-up were discussed with the patient. Differential Diagnosis Differential Diagnosis: PE, pneumonia, pneumothorax, anxiety Medical Records Medical records reviewed: Yes I reviewed the patient's medical records Lab Data Lab results reviewed: Yes I reviewed the patient's lab results Labs: Lab Results 08/01/25 08/01/25 Range/Units 10:50 11:09 WBC 13.8 H (4.0-11.0) 10^3/uL RBC 4.63 L (4.70-6.10) 10^6/uL Hgb 15.9 (14.0-18.0) g/dL Hct 46.7 (42.0-54.0) % MCV 100.9 H (80.0-94.0) fL MCH 34.3 H (25.9-34.0) pg MCHC 34.0 (29.9-35.2) g/dL RDW 12.1 (11.0-15.0) % Plt Count 346 (150-450) 10^3/uL MPV 9.8 (9.5-13.5) fL Neut % (Auto) 68.2 (43.0-75.0) % Lymph % (Auto) 22.3 (20.5-60.0) % Green % (Auto) 8.7 (1.7-12.0) % Eos % (Auto) 0.1 L (0.9-7.0) % Baso % (Auto) 0.1 L (0.2-2.0) % Neut # (Auto) 9.4 H (1.4-6.5) 10^3/uL Lymph # (Auto) 3.1 (1.2-3.8) 10^3/uL Green # (Auto) 1.2 H (0.3-0.8) 10^3/uL Eos # (Auto) 0.0 (0.0-0.7) 10^3/uL Baso # (Auto) 0.0 (0.0-0.1) 10^3/uL Abs Immat Gran (auto) 0.08 H (0.00-0.03) 10^3/uL Imm/Tot Granulo (auto) 0.6 H (0.0-0.5) % Sodium 145 (136-145) mmol/L Potassium 3.4 L (3.5-5.1) mmol/L Chloride 106 (98-107) mmol/L Carbon Dioxide 25.0 (21.0-32.0) mmol/L Anion Gap 17.4 BUN 11.0 (7.0-18.0) mg/dL Creatinine 1.16 (0.70-1.30) mg/dL Est GFR ( Amer) >60 (>=60 mL/min/1.73m^2) Est GFR (Non-Af Amer) >60 (>=60 mL/min/1.73m^2) BUN/Creatinine Ratio 9.5 Glucose 111 H (74-106) mg/dL Calcium 8.7 (8.5-10.1) mg/dL Troponin I High Sens 10.8 (4.0-76.1) pg/mL NT-Pro-B Natriuret Pep 177.0 (<=900.0) pg/mL Influenza Type A Ag Negative Influenza Type B Ag Negative SARS-CoV-2 Ag (CV2AG) Negative (NEGATIVE) Imaging Data Chest x-ray: Radiologist's impression: ITS Impressions Chest X-Ray 08/01/25 10:35 IMPRESSION: No acute cardiopulmonary pathology. Impression dictated by: Vel Hansen M.D. 08/01/2025 11:16 AM Dictation Location: [employer] Electronically authenticated by: [id number] Y Date: 08/01/2025 11:16 Chest CTA 08/01/25 11:07 IMPRESSION: No acute cardiopulmonary pathology. No pulmonary embolism. No focal consolidation. Impression dictated by: Vel Hansen M.D. 08/01/2025 12:34 PM Dictation Location: [employer] Electronically authenticated by: [id number] Y Date: 08/01/2025 12:34 Discharge Plan Discharge Chief Complaint: Upper Respiratory Infection Clinical Impression: Upper respiratory infection, Anxiety Patient Disposition: Home, Self-Care Time of Disposition Decision: 12:45 Condition: Good Mode of Transportation: Private Vehicle Prescriptions / Home Meds: New diazepam [Valium] 5 mg tablet 5 mg PO Q8H PRN (Reason: anxiety) Qty: 10 0RF No Action atorvastatin 20 mg tablet 20 mg PO DAILY omeprazole 20 mg capsule,delayed release(DR/EC) 20 mg PO DAILY fluticasone propionate 50 mcg/actuation spray,suspension 2 spray INTRANASAL DAILY Breztri Aerosphere 160-9-4.8 mcg/actuation HFA aerosol inhaler 2 inh INHALATION BID aspirin 81 mg capsule 81 mg PO DAILY famotidine 20 mg tablet 20 mg PO DAILY Airsupra 90-80 mcg/actuation HFA aerosol inhaler 2 inh INHALATION QID PRN (Reason: shortness of breath) albuterol sulfate 90 mcg/actuation HFA aerosol inhaler 1 puff INHALATION Q4H PRN (Reason: shortness of breath or wheezing) albuterol sulfate 2.5 mg /3 mL (0.083 %) solution for nebulization 2.5 mg inhalation Q4H amlodipine 5 mg tablet 5 mg PO DAILY montelukast 10 mg tablet 10 mg PO QPM Voquezna 10 mg tablet 10 mg PO DAILY Dupixent Pen 200 mg/1.14 mL pen injector 200 mg SUBCUT .[id number] benzonatate 100 mg capsule 100 mg PO TID PRN (Reason: cough) Qty: 20 0RF prednisone 10 mg tablet See Rx Instructions .ROUTE .COMPLEX Qty: 30 0RF Rx Instructions: 4 by mouth daily for three days then 3 by mouth daily for three days then 2 by mouth daily for three days then 1 by mouth daily for three days azithromycin [Zithromax Z-Billy] 250 mg tablet See Rx Instructions .ROUTE .COMPLEX Qty: 6 0RF Rx Instructions: For 250 mg dose pack: take 500 mg today (day 1), then 250 mg for 4 days (days 2-5) Print Language: Urdu Instructions: Upper Respiratory Infection (ED), Anxiety (ED) Referrals: DEBORA HEIN [Primary Care Provider, Internal Medicine] - 1 week
--- NOTE | 2025-08-01 11:07 | CT_ITS ---
[address] [address] Patient Name: VIOLET HEART MRN: [id number] date: 1960 Sex: M Assigned Patient Location: ER Current Patient Location: .[facility] Accession/Order Number: [id number] Exam Date: 08/01/2025 12:08 Report Date: 08/01/2025 12:34 At the request of: LUCIUS WALTER MD Procedure: CT angio chest CT angio chest 08/01/2025 12:13 PM SIGN AND SYMPTOMS: Shortness breath, cough CONTRAST: 100 mL of intravenous Omnipaque 350 TECHNIQUE: Multidetector CT axial slices of the chest were obtained with IV contrast. Multiplanar an 3-D reformats were performed and viewed on a separate workstation and reviewed to further define anatomy and possible pathology. CT was performed with one or more of the following dose reduction techniques: Automated exposure control, adjustment of the mA and/or kV according to patient size, or use of iterative reconstruction technique. COMPARISON: 03/09/2025 and 08/01/2025. FINDINGS: Lower neck: Thyroid gland within normal limits, no supraclavicle adenopathy. Vessels: Atherosclerotic changes are noted in the thoracic aorta and coronary arteries. There is no evidence of pulmonary embolism. Mediastinum and Luiza: Within normal limits. Heart: Normal size. No pericardial effusion. Airways: Within normal limits Lungs: Mild dependent atelectasis is noted. No focal consolidation is noted otherwise. Pleura: Within normal limits. Chest Wall: Within normal limits. Upper Abdomen: Within normal limits. Bones: Within normal limits. CT/CT angio chest IMPRESSION: No acute cardiopulmonary pathology. No pulmonary embolism. No focal consolidation. Impression dictated by: Vel Hansen M.D. 08/01/2025 12:34 PM Dictation Location: [place] [address] Electronically authenticated by: [id number] Y Date: 08/01/2025 12:34
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
--- OUTSIDE RECORDS SUMMARY | 2025-08-01 11:20 | XMS_ITS | CCD ---
Author Organization [facility] Care Team Providers Care Buyer Agent Name Role Phone Meri Miller Unavailable Unavail [...] Primary Care Provider Nick Bess MD Unavailable [phone] Nick Bess II Primary Care Provider [phone] Trice Pruitt APRN Attending Provider Shahriar KEANE [...] of OnsetReaction(s) Facility (5 sources)COVID-19 Ad26 Vaccine(Digna)[facility] [employer] Other (13 sources)Amoxicillin; Translations: [AMOXICILLIN]Drug Jialgpd79-83-4537[facility] ([facility] source)COVID-19 vaccine, Digna Ad26.AWC3Mjbf allergy (disorder)01-09-2024 [facility] Repository Medications Current Medications MedicationDrug Class(es)DatesSig (Normalized)Sig (Original)30 ACTUAT fluticasone furoate 0.2 MG/ACTUAT / umeclidinium 0.0625 MG/ACTUAT / vilanterol 0.025 MG/AC TUAT Dry Powder Inhaler [Trelegy] (5 sources)Start: 28-18-9486tqzs 1 puff(s) by inhalation once dailyTrelegy Ellipta 200-62.5-25 MCG/ACT 1 puff Inhalation Once a day Jun, Active Start: 11-92-3785ctxd 1 puff(s) by inhalation once dailyTrelegy Ellipta 200-62.5-25 MCG/ACT 1 puff Inhalation Once a day for 30 days Jun, Active Start: 28-15-2461wlrw 1 puff(s) by inhalation once dailyTrelegy Ellipta 200-62.5-25 MCG/INH 1 puff Inhalation Once a day Jun, ActiveStart: 27-96-8607bhee 1 puff(s) by inhalation once dailyTrelegy Ellipta 200-62.5-25 MCG/INH 1 puff Inhalation Once a day for 30 day(s) Jun, Active acetaminophen 325 mg / oxyCODONE hydrochloride 5 mg oral tablet (9 sources)Opioid AgonistStart: 03-09-2025 End: 26-29-5541kdsa 1 tablet by mouth every eight hours as neededAIRSUPRA 90-80 mcg/actuation inhaler (2 sources)take 2 puff(s) by mouth every four hours as neededAIRSUPRA 90-80 mcg/actuation inhaler INHALE 2 PUFFS BY MOUTH EVERY 4 HOURS NEEDED FOR SHORTNESS OF BREATH OR WHEEZE Activealbuterol 0.83 mg/ml inhalation solution (20 sources)beta2-Adrenergic AgonistStart: 19-11-0267xvyvaxlbk (2.5 MG/3ML) 0.083% nebulizer solution Take 2.5 mg by nebulization every 6 (six) hours if needed 04/23/2024 ActiveStart: 20-32-4121Usald: 76-95-4926lqkz 2.5 mg by inhalation four times dailyStart: 01-09-2024 End: 86-89-2602hqnz 1 puff(s) by inhalation every four hours as neededAlbuterol Sulfate 90 mcg/actuation HFA aerosol inhaler Discontinued 1 PUFF INHALATION Every 4 hoursMay 2023 12:00am January 09, 2024 10:09am FreeTextSi puff as needed Inhalation every 4 hrs; Note: Source Status: Continue; Provider: Nory Araujo MStart: 55-82-0090tizaakkto (2.5 MG/3ML) 0.083% nebulizer solution Take 2.5 mg by nebulization every 6 (six) hours ifneeded for wheezing or shortness of breath 0 08/07/2023 ActiveStart: 87-28-0061kybg 1 puff(s) by inhalation every four hours as neededAlbuterol Sulfate HFA 108 (90 Base) MCG/ACT 1 puff as needed Inhalation every 4 hrs 13 Mar, 2023 ActiveStart: 05-25-2004 End: 05-16-5380batf 2 puff(s) by inhalation every four to [...] ActiveAlbuterol-Budesonide (Airsupra) 90-80 MCG/ACT aerosol (20 sources)Start: 54-95-0072ewbg 2 puff(s) by inhalation every four hours Albuterol-Budesonide (Airsupra) 90-80 MCG/ACT aerosol Indications: Moderate persistent asthma without complication (HCC) Inhale 2 puffs every 4 (four) hours if needed (SOB or Wheeze) 10.7 g 5 11/24/2024 ActiveStart: 74-22-4725unbr 2 puff(s) by inhalation every four hoursAlbuterol-Budesonide (Airsupra) 90-80 MCG/ACT aerosol Indications: Moderate persistent asthma without complication (CMS/HCC) Inhale 2 puffs every 4 (four) hours if needed (SOB or Wheeze) 10.7 g 5 11/24/2024 ActiveamLODIPine 5 mg oral tablet (20 sources)Dihydropyridine Calcium Channel BlockerStart: 33-35-0948xofl 1 tablet by mouth once dailyamLODIPine (Norvasc) 5 MG tablet Indications: Benign essential hypertension TAKE 1 TABLET BY MOUTH EVERY DAY 90 tablet 3 04/05/2025 Activeamoxicillin 875 mg / clavulanate 125 mg oral tablet (2 sources)Penicillin-class AntibacterialStart: 09-03-2024 End: 83-98-1758umyr 1 tablet by mouth in the morningamoxicillin-clavulanate [...] sources)Platelet Aggregation Inhibitor, Nonsteroidal Anti-inflammatory Drug Start: 69-35-1159wqlf 1 tablet by mouth once dailyatorvastatin 20 mg oral tablet (20 sources)HMG-CoA Reductase InhibitorStart: 76-75-6328pptu 1 tablet by mouth once daily in the morningatorvastatin (Lipitor) 20 MG tablet Indications: Mixed hyperlipidemia TAKE 1 TABLET BY MOUTH EVERY DAY IN THE MORNING 90 tablet 4 09/14/2024 Activeazelastine hydrochloride 0.206 mg/actuat metered dose nasal spray (7 sources)Histamine-1 Receptor AntagonistStart: 50-97-2905iihn 2 spray(s) nasal route once dailytake 2 spray(s) nasal route once dailyAzelastine HCl 0.15 % 2 sprays in each nostril Nasally Once a day Activebenzonatate 100 mg oral capsule (6 sources)Non-narcotic AntitussiveStart: 11-18-2024 End: 96-16-1043yfto 1 capsule by mouth three times daily as needed for cough benzonatate (Tessalon) 100 MG capsule Indications: Acute cough Take 1 capsule (100 mg) by mouth 3 (three) times a day as needed for cough Do not crush or chew. 42 capsule 11/18/2024 12/18/2024 ActiveStart: 10-27-2024 End: 29-59-7172unwi 1 capsule by mouth three times daily as needed for cough benzonatate (Tessalon) 200 MG capsule Indications: Subacute cough Take 1 capsule (200 mg) by mouth 3 (three) times a day as needed for cough for up to 7 days Do not crush or chew. 21 capsule 10/27/2024 11/03/2024 Ijqvnj577 actuat budesonide 0.16 mg/actuat / formoterol fumarate 0.0048 mg/actuat / glycopyrrolate 0.009 m g/actuat metered dose inhaler (20 sources)Corticosteroid, beta2-Adrenergic AgonistStart: 46-87-3600QPJXBQA AEROSPHERE 160-9-4.8 mcg/actuation HFA aerosol inhaler Inhale 2 puffs as instructed. 09/22/2024 ActiveStart: 06-26-2024 End: 75-92-9277gnrp 2 puff(s) by inhalation in the morning Oxqwlwv-Rmeofcvplit-Vvbuevflgk (Breztri Aerosphere) 160-9-4.8 MCG/ACT aerosol Indications: Moderatepersistent asthma with exacerbation (HCC) Inhale 2 puffs in the morning and 2 puffs before bedtime.10.7 g 5 09/22/2024 ActiveStart: 11-61-4658xerc 2 puff(s) by inhalation at qxpfhzzCkzqnjw-Suxpigbyplq-Wcvlmkisip (Breztri Aerosphere) 160-9-4.8 MCG/ACT aerosol Indications: Moderatepersistent asthma with exacerbation (CMS/HCC) INHALE 2 PUFFS IN THE MORNING AND BEFORE BEDTIME 4.8 g 2 03/02/2024 ActiveStart: 62-05-6093Ymiyh: 63-93-6296fnsp 2 puff(s) by inhalation in the acdpfxjTjpmzzx-Ibkwhmkuaac-Xkmzjwkyud (Breztri Aerosphere) 160-9-4.8 MCG/ACT aerosol Indications: Moderatepersistent asthma with exacerbation (CMS/HCC) Inhale 2 puffs in the morning and 2 puffs before bedtime. 0 09/17/2023 Activecefdinir 300 mg oral capsule (2 sources)Cephalosporin AntibacterialStart: 10-29-2024 End: 95-58-6416kmuy 1 capsule by mouth in the morningcefdinir [...] oral solution (5 sources)Opioid AgonistStart: 10-29-2024 End: 72-71-2611souo 5 mL by mouth four times daily as needed for cough guaiFENesin-codeine (Robitussin-AC) 100-10 MG/5ML syrup Indications: Acute cough Take 5 mL by mouth4 (four) times a day as needed for cough for up to 5 days 240 mL 10/29/2024 11/03/2024 ActiveStart: 09-22-2024 End: 47-47-5554gstk 10 mL by mouth every six hours for coughguaiFENesin-codeine (Robitussin-AC) 100-10 MG/5ML syrup Indications: Moderate persistent asthma with exacerbation (CMS/HCC) Take 10 mL by mouth every 6 (six) hours if needed for cough for up to 7 days 280 mL 09/22/2024 09/29/2024 Activedesloratadine 5 mg oral tablet (5 sources)Histamine-1 Receptor AntagonistStart: 23-63-9926pzrz 1 tablet by mouth once daily as neededCLARINEX 5 MG ORAL TAB ONE PO QD prn 0 3 01/01/2005 ActiveEquate - (5 sources)Equate - as directed Orally ActiveEquate - as directed Orally Not-Takingfamotidine 20 mg oral tablet (20 sources)Histamine-2 Receptor AntagonistStart: 79-46-2612pegw 1 tablet by mouth at bedtimefamotidine (Pepcid) 20 MG tablet Indications: Gastroesophageal reflux disease without esophagitis TAKE 1 TABLET BY MOUTH AT BEDTIME 90 tablet 1 05/04/2025 ActiveStart: 20-78-7914mvmc 1 tablet by mouth at bedtimefamotidine (Pepcid) 20 MG tablet Indications: Gastroesophageal reflux disease without esophagitis Take 1 tablet (20 mg) by mouth at bedtime 30 tablet 5 03/11/2025 Activefluorouracil 50 mg/ml topical cream (20 sources)Nucleoside Metabolic InhibitorStart: 03-23-2025 End: 15-00-0006rcbyoypiizgl (Efudex) 5 % cream Indications: Actinic keratosis Apply to directed areas on the scalp, chest twice a day x 14 days. Dispense 30 day supply but only use for 14 days. 40 g 2 03/23/2025 07/13/2025 Discontinued (Therapy completed)Start: 03-23-2024 End: 25-67-7471wpburqdkdbeg (Efudex) 5 % cream Indications: Actinic keratosis Apply to directed areas on the scalptwice a day x 14 days. Dispense 30 day supply but only use for 14 days. 40 g 03/23/2024 05/08/2024 Discontinued (Therapy completed)fluticasone propionate 0.05 mg/actuat metered dose nasal spray (20 sources)CorticosteroidStart: 00-21-0960dhtr 1-2 spray(s) nasal route once daily in the morningfluticasone (Flonase) 50 MCG/ACT nasal spray Indications: Allergic rhinitis due to pollen, unspecified seasonality USE 1 - 2 SPRAYS IN EACH NOSTRIL ONCE EVERY MORNING *SHAKE GENTLY BEFORE FIRST USE PRIME PUMP AFTER USE CLEAN TIP AND REPLACE CAP* 48 mL 3 12/17/2024 ActiveStart: 90-05-9784Qvevy: 11-91-1402dzwz 1-2 spray(s) nasal route once daily in the morningfluticasone (Flonase) 50 MCG/ACT nasal spray Indications: Allergic rhinitis due to pollen, unspecified seasonality USE 1 - 2 SPRAYS IN EACH NOSTRIL ONCE EVERY MORNING *SHAKE GENTLY BEFORE FIRST USE PRIME PUMP AFTER USE CLEAN TIP AND REPLACE CAP* 48 mL 3 10/09/2023 ActiveStart: 98-56-9025nuhu 1-2 spray(s) nasal route in the morningfluticasone [...] Activeglycopyrrolate 1 mg oral tablet (8 sources)Start: 77-46-6333wawu 1 tablet by mouth twice dailyStart: 03-25-2023 take 1 tablet by mouth twice dailyglycopyrrolate (Robinul) 1 MG tablet Indications: Gastroesophageal reflux disease without esophagitis TAKE ONE TABLET BY MOUTH TWICE A DAY 60 tablet 6 03/25/2023 ActivehydrOXYzine hydrochloride 10 mg oral tablet (12 sources)AntihistamineStart: 04-27-2025 End: 92-14-7432pjca 1 tablet by mouth every eight hourshydrOXYzine [...] Activeloratadine 10 mg oral tablet (8 sources)Start: 11-92-3437bvll 1 tablet by mouth once dailytake 1 tablet by mouth in the morningloratadine (Claritin) 10 MG tablet Take 10 mg by mouth in the morning. 0 ActivemethylPREDNISolone (2 sources)CorticosteroidStart: 09-03-2024 End: 99-75-9043duzbtqHCIFBGNoypfl (Medrol Dospak) 4 MG tablets Indications: Moderate persistent asthma with exacerbation (CMS/HCC) Follow schedule on package instructions 21 tablet 09/03/2024 09/10/2024 Activemometasone furoate 0.05 mg/actuat metered dose nasal spray (5 sources)CorticosteroidStart: 12-66-8484duze 2 spray(s) nasal route once daily as neededNASONEX 50 MCG/ACTUATION NASL SPRY 2 sprays each nostril qd prn 0 3 01/01/2005 Activemontelukast 10 mg oral tablet (20 sources)Leukotriene Receptor AntagonistStart: 16-81-3460jwnc 1 tablet by mouth in the eveningmontelukast (Singulair) 10 MG tablet Indications: Chronic rhinitis TAKE 1 TABLET (10 MG) BY MOUTH IN THE EVENING 100 tablet 3 10/01/2024 Activeomeprazole 20 mg delayed release oral capsule (20 sources)Proton Pump InhibitorStart: 27-82-6725wohg 1 capsule by mouth once dailyomeprazole (PriLOSEC) [address] capsule Indications: Gastroesophageal reflux disease without esophagitis TAKE 1 CAPSULE BY MOUTH EVERYDAY AT THE SAME TIME 100 capsule 3 09/09/2024 ActiveStart: 00-21-8646sazp 1 capsule by mouth once dailyOmeprazole 20 MG 1 capsule 30 minutes before morning meal Orally Once a day Oct, YhautiEvdsocluesu-Qljcotuk-Hciocpbzh 1-0.5-0.075 % solution (3 sources)Start: 03-11-6396Axucwjathda-Moxiflox-Bromfenac 1-0.5-0.075 % solution Indications: Age-related nuclear cataract of both eyes Administer 1 drop into affected eye(s) in the morning and 1 drop at noon and 1 drop in the evening and 1 drop before bedtime. 10 mL 1 07/07/2025 ActivepredniSONE 10 mg oral tablet (18 sources)Start: 04-27-2025 End: 34-10-1248aqno 1 tablet by mouth three times daily, then take 1 tablet by mouth twice daily, then take 1 tablet by mouth once dailypredniSONE (DELTASONE) 10 mg tablet TAKE 1 TABLET BY MOUTH 3 TIMES A DAY X3 DAYS, 1 TABLET TWICE A DAY X3 DAYS THEN 1 DAILY X3 DAYS 04/27/2025 ActiveStart: 84-10-8011kxry 1 tablet by mouth twice dailyStart: 01-04-2025 End: 32-48-9751kmtm 4 tablets by mouth once daily, then [...] 01/04/2025 03/11/2025 Discontinued (Therapy completed)Start: 10-29-2024 End: 45-89-3420ejpq 4 tablets by mouth once daily, then [...] 40 tablet 10/29/2024 11/14/2024 ActiveStart: 09-22-2024 End: 40-76-9497bskd 4 tablets by mouth once daily, then [...] 3 days. 30 tablet 09/22/2024 10/03/2024 ActiveStart: 68-62-9140gfufzgVXLY 10 MG 4 tabs x 3 days, 2 tabs x 3 days, 1 tab x 3 days, then stop. Orally Once a day for9 days Jun, ActiveStart: 01-01-2005 End: 19-43-3263wrzg 3 tablets by mouth once daily as neededPREDNISONE 20 MG ORAL TAB 3 tabs a day for 5 days as needed for asthma flares 0 1 01/01/2005 025 Discontinued (Discontinued by Patient)triamcinolone acetonide 0.25 mg/ml topical cream (9 sources)CorticosteroidStart: 59-00-8559otyeykpzvkxzi (Kenalog) 0.025 % cream Indications: Actinic keratosis Apply to affected areas on chest, up to twice a day when flared, 30 day supply 80 g 2 07/13/2025 ActiveStart: 09-03-2024 End: 48-03-5657lgyhdxkphjidn acetonide (Kenalog-40) injection 40 mgStart: 09-03-2024 End: 15-11-0325bgjtjw 40 mg by intramuscular injection once40 mg, Intramuscular, Once, On [place] 09/03/24 at 1100, For 1 doseStart: 09-03-2024 End: 96-64-3927vcilgemwgsque acetonide (Kenalog-40) injection 40 mgStart: 09-03-2024 End: 14-72-5720cpgrwl 40 mg by intramuscular injection once40 mg, Intramuscular, Once, On [place] 09/03/24 at 1100, For 1 doseStart: 05-08-2024 End: 44-96-4277bhqaevivslysa acetonide (Kenalog-40) injection 40 mgStart: 05-08-2024 End: 72-79-2663jkhjcetchaage acetonide (Kenalog-40) injection 40 mgStart: 05-08-2024 End: 19-56-0177gpzyki 40 mg by intramuscular injection once40 mg, Intramuscular, Once, On Sat05/08/24 at 1145, For 1 doseStart: 05-08-2024 End: 85-04-3743qrmsho 40 mg by intramuscular injection once40 mg, Intramuscular, Once, On Sat05/08/24 at 1145, For 1 doseVonoprazan Fumarate (Voquezna) 10 MG tablet (8 sources)Start: 06-22-2025 End: 59-03-4613hcaz 1 tablet by mouth once dailyVonoprazan Fumarate (Voquezna) 10 MG tablet Indications: Laryngopharyngeal reflux (LPR) Take 1 tablet by mouth Daily 90 tablet 1 06/22/2025 09/20/2025 ActiveStart: 05-18-2025 End: 05-77-4013ttgl 1 tablet by mouth once dailyVonoprazan Fumarate (Voquezna) 10 MG tablet Indications: Gastroesophageal reflux disease, unspecified whether esophagitis present , Chronic cough Take 1 tablet by mouth Daily 30 tablet 3 05/18/2025 06/17/2025 Active Completed/Discontinued Medications MedicationDrug Class(es)DatesSig (Normalized)Sig (Original)60 actuat fluticasone propionate 0.25 mg/actuat / salmeterol 0.05 mg/actuat dry powder inhaler (4 sources)Corticosteroid, beta2-Adrenergic AgonistStart: 05-25-2004 End: 45-40-4537MYHEIG 250/50 DISKUS ONE INHALATION TWICE DAILY 3 month supply 3 05/25/2004 05/04/2025 Discontinued(Discontinued by Patient)gatifloxacin 400 mg oral tablet (4 sources)Quinolone AntimicrobialStart: 01-01-2005 End: 95-32-4367hoof 1 tablet by mouth once daily as needed for congestionTEQUIN 400 MG ORAL TAB one po qd as needed for chest congestion 0 1 01/01/2005 05/04/2025 Discontinued (Discontinued by Patient)guaiFENesin / Phenylephrine / Phenylpropanolamine (2 sources)alpha-1 Adrenergic AgonistGuaifenex LA Not-Cxxmyd39 hr guaiFENesin 600 mg / pseudoephedrine hydrochloride 120 mg extended release oral tablet (4 sources)alpha-Adrenergic AgonistStart: 01-01-2005 End: 13-31-5956ELKCHCCTD PSE 120 120 MG-600 MG ORAL TB12 one po bid prn for sinus congestion 0 12 01/01/2005 05/04/2025 Discontinued (Discontinued by Patient) Problems Active Problems Problem ClassificationProblemDateDocumented DateEpisodic/Chronic Administrative/social admission (4 sources)Patient encounter status; Translations: [Other specified counseling] 57-34-8900WjfzabutTsbkrktw reactions (1 source)Dermatitis, unspecified; Translations: [Eczema, unspecified type] Onset: 58-53-5843LvgrayhkVmelej (20 sources)Reactive airway disease; Translations: [Unspecified asthma, uncomplicated]Onset: 06-20-2021 Resolved: 73-17-9472EinllcaQwhccysj (4 sources)Bilateral age-related nuclear cataracts; Translations: [Age-related nuclear cataract, bilateral]Onset: 583300-14-9293JdogsjpDdwieastho disorders (20 sources)Bifascicular block; Translations: [Bifascicular block]Onset: 326496-53-5794ZmjxamoDtnctrdip of lipid metabolism (20 sources)Raised low density lipoprotein cholesterol; Translations: [Pure hypercholesterolemia, unspecified]Onset: 04-01-2023 Resolved: 128271-27-5187TijwcxrIvofwwyqfo disorders (20 sources)Gastroesophageal reflux disease; Translations: [Gastro-esophageal reflux disease without esophagitis]Onset: 06-20-2021 Resolved: 61-72-4451QhxdnyxBoaazblan hypertension (20 sources)Benign essential hypertension; Translations: [Essential (primary) hypertension]Onset: 780093-01-5306AcznnlrEofubkzhtuggxa (20 sources)Osteoarthritis of right knee joint; Translations: [Unilateral primary osteoarthritis, right knee]Onset: 976478-13-6664MwjtsngDcuhq aftercare (2 sources)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; 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]79-79-1384XequuintFylrl fractures (3 sources)Closed fracture of multiple ribs; Translations: [Multiple fractures of ribs, right side, subsequentencounter for fracture with routine healing] 91-85-0832XosivydjLohgu fractures (2 sources)Closed fracture of multiple right ribs; Translations: [Multiple fractures of ribs, right side, initial encounter for closed fracture]03-26-2025 EpisodicOther liver diseases (20 sources)Steatosis of liver; Translations: [Fatty (change of) liver, not elsewhere classified]Onset: 419051-88-2818BjmxkicTsqdo lower respiratory disease (1 source)Interstitial pulmonary disease, unspecified; Translations: [Interstitial pulmonary disease (HCC)]Onset: 12-44-3205QalwhtwSseqt lower respiratory disease (2 sources)Cough; Translations: [Acute cough]60-56-8955QeeowzdgMctsw lower respiratory disease (8 sources)Persistent cough; Translations: [Persistent cough for 3 weeks or longer]39-98-5456PlcvkeqcLdoow lower respiratory disease (2 sources)Cough; Translations: [Cough, unspecified type]15-44-6443LnnqomvlZwyul nutritional; endocrine; and metabolic disorders (20 sources)Severe obesity; Translations: [Class 2 severe obesity due to excess calories with serious comorbidity and body mass index (BMI) of 37.0 to 37.9 in adult]Onset: 812889-43-8480RvqtweiWjeot skin disorders (2 sources)Inflamed seborrheic keratosis; Translations: [Inflamed seborrheic keratosis]30-57-0646DbajtrobRkmcm skin disorders (2 sources)Lentiginosis; Translations: [Other melanin hyperpigmentation] 28-72-1922WrfzislvTtrks skin disorders (2 sources)Seborrheic keratosis; Translations: [Other seborrheic keratosis] 82-49-2751GgansiakJdnrz skin disorders (3 sources)Actinic keratosis; Translations: [Actinic keratosis]03-23-2025 EpisodicOther upper respiratory disease (20 sources)Allergic rhinitis; Translations: [Allergic rhinitis, unspecified] Onset: 625101-18-2969UvpwzjjPbdgt upper respiratory disease (20 sources)Chronic laryngitis; Translations: [Chronic laryngitis]Onset: 435128-63-9045HhoouvsNyuww upper respiratory disease (20 sources)Chronic rhinitis; Translations: [Chronic rhinitis]Onset: 04-01-2023 10-95-3960RgjnddaWtxzr upper respiratory disease (2 sources)Allergic rhinitis due to pollen; Translations: [Allergic rhinitis due to pollen]88-17-1690KutwaoyIhpwe upper respiratory disease (1 source)Allergic rhinitis, unspecified; Translations: [Allergic rhinitis, unspecified seasonality, unspecified trigger]Onset: 14-12-5458YvhpbytXfdfa upper respiratory infections (20 sources)Chronic bilateral maxillary sinusitis; Translations: [Chronic maxillary sinusitis]Onset: 04-01-2023 Resolved: 123488-57-8387BqnbaflGadta upper respiratory infections (4 sources)Acute sinusitis; Translations: [Acute sinusitis, unspecified] 63-81-2159PjoaqvenHifhydhcv by nonmedicinal substances (1 source)Bee sting; Translations: [Toxic effect of venom of bees, accidental (unintentional), initial encounter]96-75-0994ZohylprfWfsxdebi codes; unclassified (5 sources)Sleep apnea; Translations: [Sleep apnea, unspecified]ChronicResidual codes; unclassified (3 sources)Sleep apnea, unspecified; Translations: [Sleep apnea G47.30]Onset: 06-20-2021 Resolved: 80-06-0342MtyaxvbHjufeyan codes; unclassified (20 sources)Obstructive sleep apnea syndrome; Translations: [Obstructive sleep apnea (adult) (pediatric)]Onset: 038290-26-5884KjyvfpvQqhqskdjslva (3 sources)ELEV LVLS LIVER TRANSAMINASE LVLS; Translations: [ELEV LVLS LIVER TRANSAMINASE LVLS]Onset: 37-54-3159Odxzvkiljbfy (1 source)Cough, unspecified type; Translations: [Cough, unspecified type]Onset: 05-04-2025 Past or Other Problems Problem ClassificationProblemDateDocumented DateEpisodic/ChronicAnxiety disorders (20 sources)Anxiety state; Translations: [Generalized anxiety disorder]Onset: 04-01-2023 Resolved: 764608-22-7696QyaxxhvJmduvfg dysrhythmias (20 sources)Palpitations; Translations: [Palpitations]Onset: 01-31-2025 46-38-2987RzkzblroMdqraafe mellitus without complication (20 sources)Disorder of glucose metabolism; Translations: [Other abnormal glucose]Onset: 354079-57-2791RoxafjdzLkqsl disorders and dislocations; trauma-related (20 sources)Derangement of right knee; Translations: [Unspecified internal derangement of right knee]Onset: 04-01-2023 Resolved: 503420-34-8534EzhrwxgDikt disorders (20 sources)Mood disordersOnset: 10-02-2023 Resolved: Other liver diseases (20 sources)Enzyme level - finding; Translations: [Elevated transaminase level] Onset: 999836-51-8467FbcomahjTmstk lower respiratory disease (20 sources)Chronic cough; Translations: [Chronic cough]Onset: 07-28-2021 Resolved: 82-81-3091IhqjmghiXkjbo non-epithelial cancer of skin (20 sources)Basal cell carcinoma of truncal skin; Translations: [Basal cell carcinoma of skin of other part of trunk]Onset: 100059-93-7097Sokyouly Other skin disorders (20 sources)Lump on finger; Translations: [Localized swelling, mass and lump, unspecified upper limb]Onset: 04-01-2023 Resolved: 880629-27-9173UaneqxdwPmltzzpciliu (1 source)ELEV LVLS LIVER TRANSAMINASE LVLS; Translations: [ELEV LVLS LIVER TRANSAMINASE LVLS]Onset: 08-08-2021 Results Test NameValueInterpretationReference RangeFacilityUS Eye+Orbit - bilateralon 40-23-7901Kywghekkm: Cataract both eyes (OU) Testing Indication: Performed for preop measurements in the determination of an intraocular lens (IOL) for both eyes (OU) Test Reliability: Good quality both eyes (OU) Interpretation: Good measurements for intraocular lens (IOL) calculation purposes. Calculation made for both eyes (OU).[facility] Radiology Study observation (narrative)[facility] CenterCNPNon [phone] Telephone (PULSAN) VIOLET FERRARA ([id number]) 1960 M Date Time Provider Department 06/23/25 IMAN OBRIEN During your visit today, we recorded the following information about you: Stephanie Martinez RN 06/23/2025 9:37 AM Signed Received notification via electronic fax to [facility] from [facility] regarding a request for more information for patient's Dupixent prescription. Per 06/22 telephone encounter CC Garrett blaze already completed PA. Uploaded notification for reference if needed and forwarded to provider office. Scan on 06/23/2025 8:48 AM by ProviderKlaus PAMaddieC: [facility] request for Dupixent info Stephanie Martinez RN 06/23/2025 9:48 AM Signed Received duplicate correspondences regarding the below notification about Dupixent. [facility] Denial of Dupixent also received at [facility] via electronic fax. Uploaded to scanned docs for reference. Scan on 06/23/2025 9:21 AM by ProviderKlasu PA-C: [facility] Dupixent Denial Stephanie Martinez RN 06/23/2025 10:38 AM Signed [facility] location now received Dupixent approval from [facility]. Scan on 06/22/2025 1:20 PM by ProviderKlaus PAMaddieC: Dupixent approval from Luisa ([facility]) Called [facility] to inform them of provider's correct practice location. No fax number listed for Layla, but gave [employer] number of provider's contracts administrator to get updated fax number. Allergies [...] 04/01/2023 Encounter Status:Closed by STEPHANIE MARTINEZ on 06/23/25[facility] HospitalCNPNTelephone (NCCAP) VIOLET FERRARA ([id number]) 1960 M Date Time Provider Department 06/23/25 [...] Dr. Obrien to get a CD from [facility] of his most recent CT, completed in 03/2025. Patient called [facility] Saturday to have the CT images faxed to our office. Patient requested to hold off on scheduling since he just had a CT in March. Kaylie: Please keep an eye out for the CT images from [facility] Dr. Obrien: Please advise if you would like patient to have another CT completed. Patient verbalized understanding if another CT should be completed at Dr. Obrien's discretion. If so, patient would like to have CT completed at [facility] as he lives in [place]. Patient states he already has paperwork from Dr. Obrien to take to [facility] and schedule CT, if needed. FELIPE Tomlin Renee, MD 06/24/2025 9:13 AM Signed Sounds good. Thank you! Fabi Olivier 06/24/2025 12:[address] images from March are uploaded now. Bettina De Paz 06/24/2025 12:52 PM Signed Message left for patient informing that at this time CT is not needed due to receiving images from CT in March from [facility]. FELIPE Tomlin Allergies As of Date: 06/23/2025 [...] 04/01/2023 Encounter Status:Closed by HEIDL, DORINA on 07/01/25[facility] HospitalANITRAMissouri Rehabilitation Center 89-83-1648GGDLHngrua Visit (DANNY) VIOLET FERRARA ([id number]) 1960 M Date Time Provider Department 06/22/25 [...] summer he had a 3-week vacation in [place] [facility]. He admits to drinking beer often while [...] prior authorization. Discussed biolo (more content not included)...NormalUniversity Hospitals Parma Medical Center Zoila 62-27-2570XCDPDnbcthoes (SDOPRX) VIOLET FERRARA ([id number]) 1960 M Date Time Provider Department 06/22/25 SANDRA CHI SDOPRX During your visit today, we recorded the following information about you: Sandra Chi, [facility] 06/22/2025 1:34 PM Signed Ambulatory Pharmacy Prior Authorization Note Provider Intervention Required?: No - Pharmacy completed on your behalf. Was the PA documented within the ePA workqueue?: Yes Drug: Dupixent View the status history of the prior authorization in the Auth Tab within Chart Review Additional Information: co-pay $0 For questions relating to this submission, please contact [facility] at [phone] Allergies As of Date: 06/22/2025 Noted Allergy Reaction AMOXICILLIN 05/04/2025 8 - GI Upset Date Reviewed: 06/22/2025 Reviewed by: Iman Obrien MD - Fully Assessed Reason for Visit: Medication Authorization [2987] Cmt: Dupixent Prescriptions as of 06/22/2025 - [...] 04/01/2023 Encounter Status:Closed by MINOR CHIT on 06/22/25[facility] esophaguson 83-65-1294FQ esophagusOHIOHEALTH [facility] Main [place] [id number] Fluoroscopy Report Signed Patient: Violet Ferrara MR#: [id number] : 1960 Acct:[id number] Age/Sex: 64 / M ADM Date: 05/12/25 [...] Jr., D.O. 05/12/2025 9:20 AM Dictation Location: [place] [address] Transcribed By: [facility] 05/12/25919 Dictated By: Ulices Rao Jr, DO 05/12/25918 Signed By: 05/12/25 09[facility] Physician GroupFluoroscopy reportOrdered By: Ulices Rao on 76-38-0767RE Unspecified body region [facility] Main [address] [address] Fluoroscopy Report Signed Patient: Violet Ferrara MR#: [id number] : 1960 Acct:[id number] Age/Sex: 64 / M ADM Date: 5 [...] Jr., D.O. 05/12/2025 9:20 AM Dictation Location: [place] [address] Transcribed By: [facility] 05/12/25919 Dictated By: Ulices Rao Jr, DO 05/12/25918 Signed By: 05/12/25919 [facility] HospitalALL CBC WITH AUTO DIFFon 90-39-6049UPLVNDOHE ABSOLUTE LHJX9HDXD HealthcareBasophils/100 WBC (Bld)0.4 %0.2 - 2.0 %NOMS HealthcareEosinophils/100 WBC (Bld)0.5 %Low0.9 - 7.0 %NOMS HealthcareErythrocyte distribution width (RBC) [Ratio]12.2 %11.0 - 15.0 %NOMS HealthcareHematocrit (Bld) [Volume fraction]42.8 %42.0 - 54.0 %NOMS HealthcareHemoglobin (Bld) [Mass/Vol]14.6 g/dL14.0 - 18.0 g/dLNOMS HealthcareIMMATURE GRANULOCYTES ABS AUTO 0.06HighNOMS HealthcareImmature granulocytes/100 WBC (Bld)0.5 %0.0 - 0.5 %NOMS HealthcareInterpretation and review of laboratory resultsAbnormalNOMS Healthcare LYMPHOCYTES ABSOLUTE LVQW6VSUT HealthcareLymphocytes/100 WBC (Bld)18 %Low20.5 - 60.0 %NOMS [facility] CenterMCH (RBC) [Entitic mass]34 pg25.9 - 34.0 pgNOSaint Luke's Hospital MCHC (RBC) [Mass/Vol]34.1 g/dL29.9 - 35.2 g/dLNOWI HealthcareMCV (RBC) [Entitic vol]99.8 gYMubc22.0 - 94.0 fLNOSaint Luke's HospitalMONOCYTES ABSOLUTE AUTO0.9HighNOMS HealthcareMonocytes/100 WBC (Bld)8 %1.7 - 12.0 %NOMS HealthcareNEUTROPHILS ABSOLUTE AUTO8.1HighNOMS HealthcareNeutrophils/100 WBC (Bld)72.6 %43.0 - 75.0 % NOMS HealthcarePlatelet mean volume (Bld) [Entitic vol]9.3 fLLow9.5 - 13.5 fL NOMS HealthcareTBH EO #0.1NOMS HealthcareTBH YCV123IHDX HealthcareTB RBC4.29Low [facility] D[facility] Ridge Medical CenterTB WBC11.1HighSANPETE VALLEY HOSPITAL HealthcareCLINISYNCNSELECT [facility] HealthcareCNPNon 81-89-4400TTSOHbhgerxpu (PULMAV) VIOLET FERRARA ([id number]) 1960 M Date Time Provider Department 05/05/25 IMAN OBRIEN During your visit today, we recorded the following information about you: Marcus Engel LPN 05/05/2025 12:[address] chest results Received: Yesterday Iman Obrien MD P Avw Pulm Nurse This patient reports having a CT just this summer in [place] or [place]. It's not being collected by Care Everywhere. Can we obtain his CT chest images on a CD please? Thank you! Faxed Auth to Disclose info to [facility] for CT Chest imaging Allergies As of [...] 04/01/2023 Encounter Status:Closed by MARCUS ENGEL on 05/05/25[facility] 58-44-9918DVNHVpwczf Visit (DANNY) VIOLET FERRARA ([id number]) 1960 M Date Time Provider Department 05/04/25 [...] damage, hot tubs. 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 He rarely smokes [...] Skin: skin color normal, (more content not included)...NormalUniversity Hospitals Parma Medical CenterNITRIC OXIDE, EXHALEDon 56-39-7672Clbes, Amy, RRT 05/04/2025 10:20 AM ALLERGY AND [...] DATE: May 04, 2025 TIME: 10:20 AM [facility] HospitalPIROMETRY - BASELINE AND POST DILATORon 53-18-3214KQVZLPZCEC - BASELINE AND POST DILATOR[address] 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1960 Requested By: Order Number: [id number] Reading MD: Bernardo Buck MD Interpretive Statements [...] 11:33:34 EDT by Bernardo Buck MD ID: [id number] Name: VIOLET FERRARA Race: White Ht: 68.50 in Wt: 255.30 lbs Age: 64 Gender: Male : 1960 Dx: Cough, unspecified_ Smoking Hx: Non-smoker Doctor: IMAN OBRIEN Test Date: 05/04/2025 Site: [facility] Tech: Jessika Lunsford PRE-BRONCH POST-BRONCH Richard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ormalWayne Hospitalon 18-83-3254NPSF Telephone (PULMMN) VIOLET FERRARA ([id number]) 1960 M Date Time Provider Department 03/29/25 ELSA SERNA During your visit today, we recorded the following information about you: Duncan Alford RN 03/29/2025 2:40 PM Signed Received chronic cough referral, Called and spoke with patient, his cough has been going on since last , the last time he saw a dialysis registered nurse was about 2 years ago Patient stated [...] (None) Encounter Status:Closed by DUNCAN ALFORD on 03/29/25NormalCDoctors HospitalNo Panel Informationon 23-92-2717NBYZ HealthcareXR CHEST 2Von 44-90-[address] [address] XRay Report Signed Patient: VIOLET FERRARA MR#: [id number] : 1960 Acct:[id number] Age/Sex: 63 / M ADM Date: 05/08/24 Loc: LAB Attending Dr: MARINA JEONG Ordering Physician: MARINA JEONG Date of Service: 05/08/24 Procedure(s): XR chest 2V Accession Number(s): [id number] cc: NICK BESS ; MARINA JEONG [place] [address] Patient Name: VIOLET FERRARA MRN: [id number] date: 1960 Sex: M Assigned Patient Location: LAB Current Patient Location: LAB Accession/Order Number: [id number] Exam Date: 05/08/2024 12:00 Report Date: 05/08/2024 [...] Signed By: 05/08/24 1219 DD/ 1217 TD/TT: Makeup Artistry Instructor:TBHRadiology, Radiologist, MD - 05/08/2024 [place] [id number] XRay Report Signed Patient: VIOLET FERRARA MR#: [id number] : 1960 Acct:[id number] Age/Sex: 63 / M ADM Date: 05/08/24 Loc: LAB Attending Dr: MARINA JEONG Ordering Physician: MARINA JEONG Date of Service: 05/08/24 Procedure(s): XR chest 2V Accession Number(s): [id number] cc: NICK BESS ; MARINA JEONG [place] [id number] Patient Name: VIOLET FERRARA MRN: [id number] date: 1960 Sex: M Assigned Patient Location: LAB Current Patient Location: LAB Accession/Order Number: [id number] Exam Date: 05/08/2024 12:00 Report Date: 05/08/2024 [...] Signed By: 05/08/24 1219 DD/ 1217 TD/TT: Makeup Artistry Instructor: SHANDA [facility] Ridge Medical CenterRadiology Study observation (narrative)[facility] CenterXR CHEST 2V Ordered By: Radiologist Radiology on 82-22-3847GUTP [employer] Work Phone: Destr of lesionon 05-62-1431Qovfjvrmbi: simple Destruction method: electrodesiccation and curettage Informed consent: discussed and consent obtained Informed consent comment: The risks of the procedure were discussed, including, but not limited to risks of scarring, darker or podiatry professor pigmentary changes, recurrence, infection, and incomplete removal [...] lidocaine used: 3.0 cc Previous accession number: [id number] Health CenterDestr of lesionOrdered By: Erika Murray on 81-19-7821TTVK [employer] Work Phone: US SINGLE QUAD RT UPPERon 79-51-4654MT SINGLE QUAD RT UPPEREXAMINATION: US SINGLE QUAD [...] Electronically authenticated by: MARCUS FERMIN Date: 2021-08-08 09:23[facility] 2 Von 20-94-9572AS CHEST 2 VEXAMINATION: XR CHEST 2 V [...] Electronically authenticated by: ELIAS PICKARD Date: 2021-07-28 10:35[facility] HospitalHistory and Physicalon 67-95-4678Swzwuwh and Physical [id number]#1.00[facility] Provider Orderson 72-44-8416Lgvovefj Orders [id number]#[address] [place] [address] Intraoperative Noteon 79-18-0566Ilfhhhbwygzczo Note [id number]#1.00[facility] HospitalCoding Queryon 35-37-3603Mtpdbm QueryPlease review the PreOperative diagnosis -- there seems to be a dragon/dictating error. Please correct it on the Operative Note.Thanks.Felice[Electronically Signed on: 01/02/2018 18:59 EDT]____ Meri Miller DO[Verified on: 01/02/2018 18:59 EDT] Meri Miller DO[Transcribed on: 01/02/2018 11:50 EDT][facility] HospitalCoding Summaryon 12-02-9374Toccxx SummaryCODING DATE: 01/02/2018 [facility] STATUS: Home PAYOR: Commercial Insurance APC DESCRIPTION 5113 Level 3 Musculoskeletal Procedures ADMIT DX: REASON FOR VISIT DX: M23.91 Unspecifiedinternal derangement of right knee FINAL DX: PRINCIPAL: S83.281A Other tear of lateral meniscus, current injury, right knee, initial encounter SECONDARY: S83.241A Other tear of medial meniscus, current injury, right knee, initial encounter PYMT PROC APC STAT DESCRIPTION DOCTOR NAME DATE 62526 7965 J1 Arthroscopy, knee, Meri Miller And 12/30/2017 [...] By: Yisel Hong Date Saved: 01/02/2018 12:00 [facility] HospitalCoding SummaryCODING DATE: 01/02/2018 [facility] STATUS: Home PAYOR: Commercial Insurance ADMITDX: [...] By: Fabi Francis Date Saved: 01/02/2018 07:59 [facility] - AkronConsent Formson 65-85-5255Ehrhawa [id number]#1.00[facility] Discharge Instructionson 94-99-2441Zwxsruzpo Instructions [id number]#1.00[facility] Intraoperative Noteon 43-30-1224Ibfhatphjmdygc Note [id number]#1.00[facility] Medication Managementon 95-09-0401Avtjkrviwj Management [id number]#1.00[facility] Outside Recordson 83-92-7426Fpdvdcz Records [id number]#1.00[facility] Telemetry Stripson 40-94-5522Bjmifulcg Strips [id number]#1.00[facility] Anesthesia Noteon 29-27-3014Pjfmqabzlc NotePatient: VIOLET FERRARA : 57 years Sex: MALE : [birth year]Associated Diagnoses: NoneAuthor: David Quintana MDPostoperative InformationPost Operative Note: Operative Day.Anesthetic utilized: General.Health StatusAllergies:Allergic Reactions (All)No known allergiesProblem list (past medical history):All ProblemsAsthma / SNOMED CT 995287742 / ConfirmedArrhythmia / SNOMED CT 3544840307 / ConfirmedSinus disorder / SNOMED CT 1445415579 / ConfirmedAcid reflux / SNOMED BW770783631 / ConfirmedHypertension / SNOMED CT 8516775274 / ConfirmedPhysical ExaminationVS/MeasurementsVital Signs (last 24 hrs) [...] MD[Verified on: 12/30/2017 12:45 EDT] David Quintana [facility] CenterAnesthesia NotePatient: VIOLET FERRARA : 57 years Sex: [...] (past medical history):All ProblemsAsthma / SNOMED CT 961748234 / ConfirmedArrhythmia / SNOMED CT 0379001324 / ConfirmedSinus disorder / SNOMED CT 3211951304 / ConfirmedAcid reflux / SNOMED CT 901115386 / ConfirmedHypertension / SNOMED CT 5644819660 / ConfirmedHistoriesFamily History:No family history items have been selected or recorded.Procedure history:Pilar cyst (649960175) in 2014 at 55 Years.Comments:12/27/2017 12:08 - Zoe Ingram LMIDDLE FINGER OF LEFT HANDFESS (functional endoscopic sinus surgery) diagnostic antroscopy via inferior meatus (5435635342) in 1996 at 37 Years.Social History Alcohol Assessment Beer, 3-5 times per week, 4 drinks/episode average. Previous treatment: None. Tobacco Assessment Never (less than 100 in lifetime) Tobacco Use:. Substance Abuse Assessment Substance use: Never..Social & Psychosocial VuheouKssgkil33/27/2018 Type: Beer Frequency: 3-5 times per week Average drinks per episode in last year: 4 Previous treatment: NoneSubstance Abuse12/27/2017 Substance use: RhqmpYerhmfr82/27/2018 Smoking tobacco use: Never (less than 100 [...] David Quintana MD[Verified on: 12/30/2017 11:09 EDT] Daivd Quintana MDAultman HospitalInpatient Clinical Summaryon 71-53-0487Rwjboaodt Clinical Summary [facility] SURGERYClinical Discharge SummaryPERSON INFORMATIONName JOSIAS VIOLET Rin Age 57 Years 56Sex MALE Language Frisian PCP BESS, DANIELMarital Status Med Service Ambulatory SurgeryMRN [id number] Acct# Arrival 12/30/17 10:26:36Visit Reason KNEE ARTHROSCOPY Acuity LOS 004 02:46Address:[address] [place] [place] [address]Eimqocw:PROVIDER INFORMATIONVITALS INFORMATIONVital Sign Triage LatestTemp OralTemp TemporalTemp IntravascularTemp AxillaryTemp Kdcnts09 Sat 97 % 94 %Respiratory Rate 18 [...] Knee Arthroscopy (MHAHUDCHARLEEN)Follow up:With: Address: When:Meri Miller [address] [place] [address], [address] [place] [address] Business (2) 01/07/2018 8:30 AMWith: Address: When:NICK BESS [address] [phone] Business (1)DIAGNOSISTorn meniscu sComment:PHYS DOC NOTESAultman HospitalInpatient Patient Summaryon 20-58-2194Iuwnyznio Patient Summary[place] [id number] patient Discharge InstructionsName: VIOLET FERRARA WDOB: [birth year] MRN: [id number] Address: [address] [place] [address] Care Provider:Name: NICK BESSPhone: After you are dischargedif you find you have any questions, please, call [phone] ext [phone] to speak to a nurse.Discharge Diagnosis: Torn [...] business decisions or sign any legal documentsAdena Pike Medical Center would like to thank you for allowing us to assist you with your healthcare needs. The following includes patient education materials and information regarding your injury/illness.VIOLET FERRARA has been given the following list of follow-up instructions, prescriptions, and patient education materials:Follow-up InstructionsWith: Address: When:Meri Miller [address] [place] [address], [address] [place] [address] Business (2) 01/07/2018 8:30 AMWith: Address: When:NICK BESS [facility], [address] [facility] [facility] [address] [place], [place] [phone] Business (1)MedicationsDuring the course of your visit, [...] or concerns, please call the office at [phone] or BacteriaWhat?s got you sick?Antibiotics only treat [...] ServicesCenters for Disease Control and Prevention May 2014NoF[facility] Intraoperative Recordon 93-55-1482WKDK Intraoperative RecordMAGR Intra-Op Record Summary Primary Physician: Meri Miller DO Finalized Date/Time: 12/30/17 16:14:46 Pt. Name: VIOLET FERRARA /Sex: 1960 MALE Med Rec #: [id number] Physician: Meri Miller DO Financial #: [id number] Pt. Type: D Room/Bed: / Admit/Disch: 12/30/17 [...] Role Performed Surgeon - Primary Anesthesiologist of Commercial Front Load Operator Record Time In 12/30/17 11:25:00 12/30/17 11:25:00 12/30/17 11:25:00 Time Out 12/30/17 12:42:00 12/30/17 12:42:00 12/30/17 12:42:00 Procedure Arthroscopy Knee(Right, Arthroscopy Knee(Right, Arthroscopy Knee(Right, Knee) Knee) Knee) Last Modified By: Anna He RN, Stephanie RN Sauer, Stephanie RN 12/30/17 14:02:51 12/30/17 14:02:51 12/30/17 14:02:51Entry 4 Entry 5 Case Attendee Rosa Crabtree CST, Liberty G Role Performed Forest Fire Fighter Scrub Personnel Time In 12/30/17 11:25:00 12/30/17 [...] Met (O.100) Yes Last Modified By: Anna eH RN 12/30/17 12:17:46 Post-Care Text: E.10 Evaluates [...] Unfinalizing Freetext Reason for Unfinalizing 12/30/17 16:13 [facility] DocumentationNormMartins Ferry Hospital PACU Recordon 24-80-2863CREZ PACU RecordMA PACU Record Summary Primary Physician: Meri Miller DO F inalized Date/Time: 12/30/17 13:21:10 Pt. Name: VIOLET FERRARA/Sex: 1960 MALE Med Rec #: [id number] Physician: Meri Miller DO Financial #: [id number] Pt. Type: D Room/Bed: / Admit/Disch: 12/30/17 10:26:36 - Institution: PACU Case Times MAGR Entry 1 In PACU I 12/30/17 12:41:00 Discharge from PACU 12/30/17 13:10:00 I Last Modified By: Jaqueline Nguyen RN 12/30/17 13:08:24 Finalized By: Jaqueline Nguyen RN Document Signatures Signed By: Jaqueline Nguyen RN 12/30/17 13:21NoFulton County [facility] Center Postoperative Recordon 97-05-5624WNRZ Postoperative RecordMAGR Phase II Record Summary Primary Physician: Meri Miller DO Finalized Date/Time: 12/30/17 14:25:01 Pt. Name: VIOLET FERRARA/Sex: 1960 MALE Med Rec #: [id number] Physician: Meri Miller DO Financial #: [id number] Pt. Type: D Room/Bed: / Admit/Disch: 12/30/17 [...] Signatures Signed By: Viry Rehman RN 12/30/17 14:25NoFulton County [facility] Center Preoperative Recordon 04-78-2896TZGE Preoperative RecordMAGR Pre-Op Record Summary Primary Physician: Meri Miller DO Finalized Date/Time: 12/30/17 13:31:52 Pt. Name: VIOLET FERRARA/Sex: 1960 MALE Med Rec #: [id number] Physician: Meri Miller DO Financial #: [id number] Pt. Type: D Room/Bed: / Admit/Disch: 12/30/17 [...] Signatures Signed By: Ramsey Saleh RN 12/30/17 13:31Aultman HospitalOperative Report - Surgeon/Physicianon 29-65-2493Agxkiwvjw Report - Surgeon/PhysicianPreoperative diagnosis: Internal duration right [...] the lateral compartment but it was not tmhw-xw-ednu.Each compartment was revisited the joint was then irrigated and evacuated the portals were closed with nylon sutures. Sterile dressings were applied.[Electronically Signed on: 12/30/2017 12:48 EDT] Meri Miller DO[Verified on: 12/30/2017 12:48 EDT] Meri Miller DOpcharmainease note this correctionPreoperative diagnosis should read Internal derangement right knee with suspected incarcerated meniscus.[Electronically Signed on: 01/02/2018 18:44 EDT] Meri Miller [facility] Standardon 21-47-9617bDKD (non-black) mL/min/{1.73_m2}Invalid Interpretation Protestant HospitalComment on above: Performed By: #### [id number] ####[facility] (DEFAULT)[address] [place], [place] [address]Mwrlpe Comment: Chronic Kidney disease could be indicated at eGFRs of less than 60 ml/min/1.73m2. Kidney Failure is indicated at less than 15 ml/min/1.05b7Adwxg gap12.0 mmol/LNormal5.0-19.0[facility] Hospital Comment on above:Performed By: #### [id number] ####[facility] (DEFAULT)[address] [place] [address]WNK/Creatinine Ratio14.0 mg/mg Normal4.6-16.2[facility] HospitalComment on above:Performed By: #### [id number] ####[facility] (DEFAULT)[address] [place] [address] 820[address]Ttdunwj6.7 mg/dLLow8.9-10.3[facility] HospitalComment on above:Performed By: #### [id number] ####[facility] (DEFAULT)[address] [place] [address]Fejzfipm 103 mmol/ERdppnc785-097Jurjrelj HospitalComment on above:Performed By: #### [id number] ####[facility] (DEFAULT)[address] [place] [address] 37[address]UU965 mmol/WLsmbtp59-46Tgywhvjw HospitalComment on above:Performed By: #### [id number] ####[facility] (DEFAULT)[address] [place] [address] 25773Vcsmgwtlil5.00 mg/dLNormal0.90-1.30[facility] HospitalComment on above: Performed By: #### [id number] ####[facility] (DEFAULT)[address] [place] [address]Fgrhwub mass conc92.0 mg/bWBfatwn43.0-118.0[facility] HospitalComment on above:Performed By: #### [id number] ####[facility] (DEFAULT)[address] [place] [address] 30[address]Qaocpznwxu236 mOsm/LInvalid Interpretation CodeCincinnati Shriners Hospital HospitalComment on above:Performed By: #### [id number] ####[facility] (DEFAULT)[address] [place] [address]Sfecemrbf molar conc3.6 mmol/LNormal3.6-5.1MKing's Daughters Medical Center OhioComment on above:Performed By: #### [id number] ####[facility] (DEFAULT)[address] [place], [place] [address]Cyiqjs202.0 mmol/TXcihxn966.0-144.0[facility] Comment on above:Performed By: #### [id number] ####[facility] (DEFAULT)[address] [place], [place] [address]Ssjz hsxjyqof50 mg/dLNormal04-27 [facility]ike Medical CenterComment on above:Performed By: #### [id number] ####[facility] (DEFAULT)[address] [place] [address] Vital Signs Date TimeVital SignValuePerforming BuwpiiniuMilfwewq81-95-8426 07:50-0400Body axhvyg347.8 cmBenjamin Murcek DO Work Phone: [facility] CenterZjegfpfvbt44-46-8001 07:50-0400Body mass index (BMI) [Ratio]35.87 kg/j3Kubfdrwk Murcek DO Work Phone: [facility] CenterLwcfpwlwmb76-55-9892 07:50-0400Body xrpirh126.4 kgBenjamin Murcek DO Work Phone: [facility] CenterAhmyleamqn44-29-0714 09:22-0400Body .8 cmBenjamin Murcek DO Work Phone: [facility] Health CenterWnpefwqnpa60-77-2739 09:22-0400Body mass index (BMI) [Ratio]35.87 kg/l9Qxmyukme Murcek DO Work Phone: [facility] CenterXoqpuplrbx73-11-3886 09:22-0400Body hehrnn631.4 kgBenjamin Murcek DO Work Phone: [facility] CenterWneoxmnexh87-71-2337 10:55-0400Body .3 Hernando Obrien MD Work Phone: [facility]09-02-2025 10:55-0400Body mass index (BMI) [Ratio]37.68 kg/m2TyzmlIman Obrien MD Work Phone: [facility]09-02-2025 10:55-0400Body temperature 97.59 [degF]Iman Obrien MD Work Phone: [facility]09-02-2025 10:55-0400Body jfehsl104.8 kgIman Obrien MD Work Phone: [facility]09-02-2025 10:55-0400Diastolic blood erpmuvhz96 mm[Hg]Iman Obrien MD Work Phone: [facility]09-02-2025 10:55-0400Heart rate86 /min Iman Obrien MD Work Phone: [facility]09-02-2025 10:55-0400Respiratory rate 16 /minIman Obrien MD Work Phone: [facility]09-02-2025 10:55-7767KyI2% (BldA) [Mass fraction]92 %Iman Obrien MD Work Phone: [facility]09-02-2025 10:55-0400Systolic blood mm[Hg]Iman Obrien MD Work Phone: [facility]08-19-2025 08:09-0400Body .8 cmBenisamin Murcek DO Work Phone: [facility] CenterNqywwdnbgg48-23-5884 08:09-0400Body mass index (BMI) [Ratio]35.87 kg/e9Fqncmajz Murcek DO Work Phone: [facility] CenterInavzcxeev59-35-9348 08:09-0400Body chkuqs488.4 kgBenisamin Murcek DO Work Phone: [facility] CenterYrllbitjvv55-55-4635 09:07-0400Body .8 Norma Bess MD Work Phone: [facility] HospitalNgpfbqmabt55-75-2045 09:07-0400Body mass index (BMI) [Ratio]36.45 kg/l5PolpvtNick Bess MD Work Phone: [facility] CenterFjjmzwpfzu14-21-8859 09:07-0400Body .21 kgNick Bess MD Work Phone: [facility] CenterDtokqzylea80-54-5507 09:07-0400Diastolic blood mm[Hg]Nick Bess MD Work Phone: [facility] CenterDwbuwwaelu39-46-5019 09:07-0400Heart rate87 /min Nick Bess MD Work Phone: [phone]-0451[facility] CenterBpfauwuimu73-83-4462 09:07-2976BsC8% (BldA) [Mass fraction]94 %Nick Bess MD Work Phone: [facility] CenterOoyrwzktne60-31-0695 09:07-0400Systolic blood dmdqebgk544 mm[Hg]Nick Bess MD Work Phone: [phone] [place], [place] [address]Wcxfrsoozp11-56-2143 14:48-0400Body durcid489.26 cmDabernabe Bess II Work Phone: [phone]07-10-2025 14:48-0400 Body mass index (BMI) [Ratio]35.1 kg/q9QitexqNick Bess II Work Phone: [phone]07-10-2025 14:48-0400 Body bgscqixzfzw61.5 [degF]Nick Bess II Work Phone: [phone] [place], [place] 8912307-10-2025 14:48-0400 Body .95 kgNick Bess II Work Phone: [phone] [place], [place] 8912307-10-2025 14:48-0400 Diastolic blood pxsuxowt86 mm[Hg]Nick Bess II Work Phone: [phone] [place], [place] 8912307-10-2025 14:48-0400 Heart rate81 /Nuviael Bess II Work Phone: [phone] [place], [place] 8912307-10-2025 14:48-0400 Respiratory rate18 /minDteresael Bess II Work Phone: [facility]07-10-2025 14:48-0400 SaO2% (BldA) [Mass fraction]92 %Nick Bess II Work Phone: [facility]07-10-2025 14:48-0400 Systolic blood msuiislp565 mm[Hg]Nick Bess II Work Phone: [phone] [place], [place] 8912307-10-2025 08:52-0400 Body lvuqva896.8 cmKaren Hemmer PA Work Phone: [facility] CenterSmddvhenez41-38-5016 08:52-0400Body mass index (BMI) [Ratio]36.65 kg/b9Nprcw Hemmer PA Work Phone: [facility] CenterUxxdvtswef11-78-4739 08:52-0400Body ghigxl110.85 kgKaren Hemmer PA Work Phone: [phone] CenterJxhifxupvs15-37-7168 08:52-0400Diastolic blood azycttlu79 mm[Hg]Marina Hemmer PA Work Phone: [facility] CenterPomqzcyqek67-94-4578 08:52-0400Heart rate87 /min Marina Hemmer PA Work Phone: [facility] CenterKrhrpuxnip00-99-5125 08:52-0400Respiratory rate18 /minKaren Hemmer PA Work Phone: [facility] CenterZqdcuknfxf21-75-7909 08:52-0087DyN0% (BldA) [Mass fraction]95 %Marina Hemmer PA Work Phone: [facility] CenterSadvtenpqd36-36-5381 08:52-0400Systolic blood rwahssaw574 mm[Hg]Marina Hemmer PA Work Phone: [facility] CenterNxfobdtgkd81-56-1887 08:05-0400Body faawba219.8 cmKaren Hemmer PA Work Phone: [facility] CenterWtdcwyhctv40-47-2593 08:05-0400Body mass index (BMI) [Ratio]37.19 kg/p5Yqaxr Hemmer PA Work Phone: [facility] CenterFesgsbwnkp71-49-0165 08:05-0400Body qfdies070.57 kgMarina Hemmer PA Work Phone: [facility] HospitalDgglrbxebv11-06-9467 08:05-0400Diastolic blood zicqwtzm80 mm[Hg]Marina Hemmer PA Work Phone: [facility] HospitalXivzqggzmx24-06-2770 08:05-0400Heart rate93 /min Marina Hemmer PA Work Phone: [facility] HospitalBbsglrqtzx76-53-4345 08:05-0400Respiratory rate18 /minMarina Hemmer PA Work Phone: [facility] HospitalHjqlvqndsb80-74-0597 08:05-0818XuE1% (BldA) [Mass fraction]94 %Marina Greenemer PA Work Phone: [facility] HospitalBqbsurdugr15-14-8661 08:05-0400Systolic blood folunoyy117 mm[Hg]Marina Greenemer PA Work Phone: [facility] HospitalUyghumwtcn47-02-1296 15:18-0500Body .8 cmSnicholas Hess SITE SUPERVISOR Work Phone: [facility] HospitalTuovmjwlwf09-67-2130 15:18-0500Body mass index (BMI) [Ratio]37.91 kg/k6XzlcqxDiana Hess SITE SUPERVISOR Work Phone: [facility] HospitalLafauyjkwf66-58-4771 15:18-0500Body tkcjve386.84 kgDiana Hess SITE SUPERVISOR Work Phone: [facility] HospitalQnudrckudx82-77-8288 15:18-0500Diastolic blood mm[Hg]Diana Hess SITE SUPERVISOR Work Phone: [facility] HospitalZuaxjqjqjh66-47-9669 15:18-0500Heart wpaa640 /min Diana Hess SITE SUPERVISOR Work Phone: [facility] HospitalEkvhwxylyr40-95-2721 15:18-0500Respiratory rate18 /minSnicholas Hess SITE SUPERVISOR Work Phone: [facility] HospitalUzljjtoamh08-82-9755 15:18-1824GtC3% (BldA) [Mass fraction]95 %Diana Hess SITE SUPERVISOR Work Phone: [facility] CenterDsevxqfnpw60-92-6377 15:18-0500Systolic blood droogqam077 mm[Hg]Diana Hess SITE SUPERVISOR Work Phone: [facility] CenterCgrsdzsvhx49-42-1878 14:24-0500Body eenshh602.8 cmKaren Hemmer PA Work Phone: [facility] HospitalXtwlicgrzq75-59-2291 14:24-0500Body mass index (BMI) [Ratio]36.99 kg/l5Odmoj Hemmer PA Work Phone: [facility] HospitalFtwlfcdgvc60-94-5751 14:24-0500Body temperature 99.19 [degF]Marina Hemmer PA Work Phone: [facility] CenterHzawdzeaph33-73-9093 14:24-0500Body uzyuhs340.94 kgKaren Hemmer PA Work Phone: [facility] CenterBurtfgvern63-29-6991 14:24-0500Diastolic blood kotitvnm39 mm[Hg]Marina Hemmer PA Work Phone: [facility]OS[facility] HospitalBfjyeokdra12-08-8160 14:24-0500Heart rate96 /min Marina Hemmer PA Work Phone: [facility] CenterQvbufsctou64-94-5892 14:24-0500Respiratory rate16 /minKaren Hemmer PA Work Phone: [facility] CenterQvuykdzkfl54-73-5084 14:24-5227VpQ6% (BldA) [Mass fraction]94 %Marina Hemmer PA Work Phone: [facility]OS[facility] HospitalOssbrqnwar86-96-1257 14:24-0500Systolic blood mm[Hg]Marina Hemmer PA Work Phone: [facility] HospitalUdxvteunzt86-18-1931 09:31-0500Body deeqsn424.8 cmNick Bess MD Work Phone: [facility] HospitalUcdqykjojn77-55-3333 09:31-0500Body mass index (BMI) [Ratio]36.59 kg/h4SdtgvrNick Bess MD Work Phone: [facility] HospitalKspwvsefht51-95-1358 09:31-0500Body temperature 96.91 [degF]Nick eBss MD Work Phone: [facility] HospitalLxnityaajs33-34-5132 09:31-0500Body kksjsi205.67 kgDabernabe Bess MD Work Phone: [facility] HospitalMklappsvum11-54-5071 09:31-0500Diastolic blood oyfxxpuz89 mm[Hg]Nick Bess MD Work Phone: [facility] HospitalBqaclwqvhj81-88-5559 09:31-0500Heart rate83 /min Nick Bess MD Work Phone: [phone] CenterGjbamjhjvc96-19-2459 09:31-8114FvS8% (BldA) [Mass fraction]95 %Nick Bess MD Work Phone: [facility] HospitalFgrzfvxyia91-58-0788 09:31-0500Systolic blood semgpeqa247 mm[Hg]Nick Bess MD Work Phone: [facility] CenterHgtypwhcby58-46-6731 11:19-0400Body uvqmdz619.8 cmKaren Hemmer PA Work Phone: [phone] Luke's HospitalAmigrbcljd13-48-1813 11:19-0400Body mass index (BMI) [Ratio]36.5 kg/h2Cizwh Hemmer PA Work Phone: [facility] HospitalNmstalxmut92-39-4156 11:19-0400Body temperature 98.8 [degF]Marina Hemmer PA Work Phone: [facility] HospitalAzbwielxui49-86-5620 11:19-0400Body .39 kgKaren Hemmer PA Work Phone: [facility] HospitalPjaddukdrf39-96-8024 11:19-0400Diastolic blood xplvhayc53 mm[Hg]Marina Hemmer PA Work Phone: [facility] HospitalEmcwdpkqcb14-03-3894 11:19-0400Heart rate84 /min Marina Hemmer PA Work Phone: [facility] HospitalLsuevpushf58-99-9158 11:19-0400Respiratory rate16 /minSuryaen Hemmer PA Work Phone: noGudvilleNrjishrcvk40-22-4728 11:19-3464GkD8% (BldA) [Mass fraction]94 %Marina GOMEZ Work Phone: noGudvilleGkgbivdoks64-69-1145 11:19-0400Systolic blood vojmvstr370 mm[Hg]Marina GOMEZ Work Phone: noWI Mkxumhleqs80-25-0913 10:30-0400Body .26 cmHeidi Nory Other [employer] Other 07-13-2023 10:30-0400Body mass index (BMI) [Ratio] 35.88 kg/a9Hokoy Nory Other [employer] Other 07-13-2023 10:30-0400Body ewiehomlxum61.1 [degF]Gayle Nory Other [employer] Other 07-13-2023 10:30-0400Body sxojlt807.22 kgHeidi Nory Other [employer] Other 07-13-2023 10:30-0400Diastolic blood aokwqstm37 mm[Hg] Gayle Nory Other [employer] Other 07-13-2023 10:30-0400Respiratory rate20 /minHeidi Nory Other [employer] Other 07-13-2023 10:30-2346DiB2% (BldA) [Mass fraction]Gayle Nory Other [employer] Other 07-13-2023 10:30-0400Systolic blood espfzkos478 mm[Hg] Gayle Nory Other [employer] Other 07-18-2022 11:30-0400Body oizkxs638.26 cmHeidi Nory Other [employer] Other 07-18-2022 11:30-0400Body mass index (BMI) [Ratio] 34.55 kg/g3Eseow Nory Other [employer] Other 07-18-2022 11:30-0400Body aibhjsgkcww50 [degF]Gayle Nory Other [employer] Other 07-18-2022 11:30-0400Body .14 kgHeidi Nory Other [employer] Other 07-18-2022 11:30-0400Diastolic blood mkuwsrqz384 mm[Hg]Gayle Nory Other [employer] Other 07-18-2022 11:30-0400Respiratory rate20 /minHeidi Nory Other [employer] Other 07-18-2022 11:30-1550SiU1% (BldA) [Mass fraction]95 % Gayle Nory Other [employer] Other 07-18-2022 11:30-0400Systolic blood aiavieqd799 mm[Hg] Gayle Nory Other [employer] Other 10-19-2021 09:30-0400Body rseefo155.26 cmHeidi Nory Other [employer] Other 10-19-2021 09:30-0400Body mass index (BMI) [Ratio]34.4 kg/k4Yrykt Nory Other [employer] Other 10-19-2021 09:30-0400Body ummkkhnmcup31.3 [degF]Gayle Nory Other [facility] [employer] Other 10-19-2021 09:30-0400Body zlymlt601.69 kgHeidi Nory Other [facility] [employer] Other 10-19-2021 09:30-0400Diastolic blood atiioqpi55 mm[Hg] Gayle Nory Other [facility] [employer] Other 10-19-2021 09:30-0400Respiratory rate20 /minHeidi Nory Other [employer] Other 10-19-2021 09:30-1420DaN2% (BldA) [Mass fraction]94 % Gayle Nory Other [employer] Other 10-19-2021 09:30-0400Systolic blood tgienqjg820 mm[Hg] Gayle Nory Other [employer] Other Encounters Encounter DateEncounter TypeCare ProviderFacilityStart: 07-13-2025 End: 86-20-2216Wonxwx Jesenia Holbrook MD Work Phone: no [facility] DermatologyStart: 07-13-2025 End: 61-71-0132Cvnhxf Jesenia Holbrook MD Work Phone: noms [facility] DermatologyStart: 07-13-2025 End: 11-50-4334wqhjonohptYMJKU A PETITTINot AvailableStart: 07-13-2025 End: 88-41-7175Vcoufl outpatient visit 15 minutesBeny Holbrook MD Work Phone: NOM[facility] Rich DermatologyComment on above:Actinic keratosis (Primary Dx)Start: 07-07-2025 End: 09-80-0871Gcxloi flowsheetJonathan Uzma Murrayhler DO Work Phone: noms [facility] EyeStart: 07-07-2025 End: 30-40-3636Cvgcsw flowsheetJonathan Uzma Zahler DO Work Phone: noms [facility] EyeStart: 07-07-2025 End: 42-75-6867jobctxicwhOEXNNYOY D ZAHLERNot AvailableStart: 07-02-2025 End: 01-29-8692hsaufhngjzOWIOSP B BERRY IIFacility:[facility] Start: 06-22-2025 End: 10-92-5988Vuuphc flowsheetBenjamin W Murcek DO Work Phone: N[facility] Rich OtolaryngologyStart: 06-22-2025 End: 91-77-0911Oaeepc flowsheetBenjamin W Murcek DO Work Phone: noms [facility] OtolaryngologyStart: 06-22-2025 End: 66-77-8436weyhvoslvnHCHZX DIXONFacility:[facility] Hospitaltart: 06-22-2025 End: 39-12-3812Fhzdmr outpatient visit 25 minutesBenjamin W Murcek DO Work Phone: NOFJ [facility] OtolaryngologyComment on above:Chronic cough (Primary Dx); Laryngopharyngeal reflux (LPR)Start: 06-22-2025 End: 14-08-4418ofjitydqcuJTOBLMBB W MURCEKNot AvailableStart: 05-18-2025 End: 46-95-0655Uyavwe flowsheetBenjamin W Murcek DO Work Phone: noms [facility] OtolaryngologyStart: 05-18-2025 End: 75-85-1226Tlifnf flowsheetRuben Tai DO Work Phone: noms [facility] OtolaryngologyStart: 05-18-2025 End: 26-83-6679Ndxefi outpatient visit 25 minutesBecelestina Tai DO Work Phone: noms [facility] OtolaryngologyComment on above: Gastroesophageal reflux disease, unspecified whether esophagitis present; Chronic coughStart: 05-18-2025 End: 73-23-4590tvuscqvfuxBRWKBVQU W MURCEKNot AvailableStart: 05-12-2025 End: 48-52-0350rudyhfdklwEjibnn Bess II Work Phone: [facility] Work Phone: Start: 05-12-2025 End: 24-57-6364Aljfunn encounter procedureRuben Tai DO-[facility] Work Phone: Start: 05-11-2025 End: 33-36-2931Ndupjcfka Result EncounterGeneric External Data ProviderNOMS External Department UnsolicitedStart: 05-11-2025 End: 53-82-5471Plcnolvtc Result EncounterGeneric External Data ProviderNOMS External Department UnsolicitedStart: 05-05-2025 End: 15-21-1584Mptirrctr encounterIman Obrien MD Work Phone: Pulmonary MedicineStart: 05-04-2025 End: 12-72-3191Qupabjd encounter procedurePshaina [facility] Work Phone: PULMONARYComment on above:Chronic cough (Primary Dx); Allergic rhinitis, unspecified seasonality, unspecified trigger; Asthma, unspecified asthma severity, unspecified whether complicated, unspecified whether persistent (HCC)Start: 05-04-2025 End: 77-09-7657qbkdiecdvtNAJZS DIXONPULMONARYComment on above:SpirometryStart: 04-27-2025 End: 69-72-0542Ylgjzshgd encounterMarina GOMEZ Work Phone: NOFY [facility] Hospitalart: 04-20-2025 End: 15-24-1075Luhudb flowsheetBenjamin W Murcek DO Work Phone: NOM[facility] OtolaryngologyStart: 04-20-2025 End: 91-28-0644Lmuwvw flowsheetBenjamin W Murcek DO Work Phone: noms [facility] OtolaryngologyStart: 04-20-2025 End: 92-95-3239Rviuiw outpatient new 45 minutesBenisamin W Murcek DO Work Phone: noms [facility] OtolaryngologyComment on above:Chronic cough; Gastroesophageal reflux disease, unspecified whether esophagitis presentStart: 04-20-2025 End: 49-05-1203zpzmwkydvrTHQXVWRE Rin MURCEKNot AvailableStart: 03-29-2025 End: 29-62-5916Dkgwmyjir encounterElsa Serna MD Work Phone: Pulmonary MedicineStart: 03-24-2025 End: 87-14-5736Fxxqbf outpatient visit 25 minutesDabernabe Bess MD Work Phone: noms CI FMComment on above:Persistent cough for 3 weeks or longer (Primary Dx); Obstructive sleep apnea syndrome; Moderate persistent asthma without complication (HCC); Closed fracture of multiple ribs of right side, initial encounter; Current use of steroid medicationStart: 03-24-2025 End: 48-27-2234wakbcffchnQEYWLP B BERRYNot AvailableStart: 03-23-2025 End: 84-08-8480Ciijjp flowsheetBeny Holbrook MD Work Phone: noMS SWS DERMStart: 03-23-2025 End: 99-96-4695Dnpqfd flowsBa Holbrook MD Work Phone: NOMS SWS DERMStart: 03-23-2025 End: 46-03-5939Xmwdct outpatient visit 15 minutesBeny Holbrook MD Work Phone: NOMS SWS DERMComment on above:Seborrheic keratosis (Primary Dx); History of basal cell carcinoma; Seborrheic keratosis, inflamed; Lentigines; Actinic keratosisStart: 03-23-2025 End: 09-57-0611ktovbqzgynNIGAI A PETITTINot AvailableStart: 03-17-2025 End: 51-50-0371FoykttNbnmc M Hemmer PA Work Phone: NOM[facility] CI FMComment on above:Closed fracture of multiple ribs of right side with routine healing, subsequent encounter (Primary Dx) Start: 03-11-2025 End: 62-45-9442opsuwozfnmSoudjv Bess II Work Phone: [facility] Work Phone: Start: 03-11-2025 End: 41-97-3655Mvvqpxr encounter procedureTrice Pruitt SOIL FERTILITY SPECIALIST-[facility] Work Phone: Start: 03-11-2025 End: 29-56-1162Qyhdchlia GOMEZ Work Phone: NOM[facility] CI FMStart: 03-11-2025 End: 42-61-5043Yhpmezant GOMEZ Work Phone: N[facility] CI FMStart: 03-11-2025 End: 33-00-2513Zfubiv outpatient visit 25 minutesMarina GOMEZ Work Phone: [facility] CI FMComment on above:Gastroesophageal reflux disease without esophagitis (Primary Dx); Moderate persistent asthma without complication (HCC); Class 2 severe obesity due to excess calories with serious comorbidity and body mass index (BMI) of36.0 to 36.9 in adult ([facility]-HCC); Closed fracture of multiple ribs of right side with routine healing, subsequent encounter; Persistent cough for 3 weeks or longerStart: 03-11-2025 End: 06-46-4340vwwmvsuzxvZVEPXNathan Ordoñez AvailableStart: 12-08-2024 End: 52-77-8247Ffilvhant GOEMZ Work Phone: N[facility] CI FMStart: 12-08-2024 End: 54-58-6997Awlrdu flowsAta GOMEZ Work Phone: NOM[facility] CI FMStart: 12-08-2024 End: 70-15-6738Iiqkgbm encounter Ana GOMEZ Work Phone: noMS CI [...] for malignant neoplasm of prostateStart: 12-08-2024 End: 52-99-6698wckyopqlinUONHR M HEMMERNot AvailableStart: 11-24-2024 End: 25-83-9889iolqfohfvoLJRLL M HEMMERNot AvailableStart: 10-29-2024 End: 79-68-5321Vngtiw outpatient visit 25 minutesShyee Hess SITE SUPERVISOR Work Phone: NOM[facility] CI FMComment on above:Acute non-recurrent pansinusitis (Primary Dx); Acute coughStart: 10-29-2024 End: 05-11-4230lqgjadksahKKWLSIAnita Najera AvailableStart: 10-29-2024 End: 33-00-7313Fitxzk Gavin Hess NP Work Phone: NOM[facility] CI FMStart: 10-29-2024 End: 64-21-1035Lurgxq Gavin Hess SITE SUPERVISOR Work Phone: NOM[facility] CI FMStart: 10-27-2024 End: 22-70-9847Pgfjyylpp encounterRachel Kerns MD Work Phone: [facility] CI FMStart: 09-22-2024 End: 13-98-6645Ulcbdy outpatient visit 15 minutesMarina Jeong PA Work Phone: NOM[facility] CI FMComment on above:Moderate persistent asthma with exacerbation (CMS/HCC)Start: 09-22-2024 End: 78-94-6363bsbyycoskaOCPQP M HEMSONIANot AvailableStart: 09-22-2024 End: 00-64-8538Hajtic flowsAta Jeong PA Work Phone: [phone] CI FMStart: 09-22-2024 End: 12-51-2336Wrpiff Ann Marie Jeong PA Work Phone: [facility] CI FMStart: 09-22-2024 End: 42-79-9009Udhuxmcuz encounterNick Bess MD Work Phone: [facility] CI FMStart: 09-03-2024 End: 99-80-5832Gbefwh Damian Bess MD Work Phone: [phone] CI FMStart: 09-03-2024 End: 66-95-6586Mjlivy Damian Bess MD Work Phone: N[facility] CI FMStart: 09-03-2024 End: 31-94-4744Dmsuvs outpatient visit 25 minutesNick Bess MD Work Phone: NOM[facility] CI FMComment on above:Moderate persistent asthma with exacerbation (CMS/HCC) (Primary Dx); Acute non-recurrent sinusitis, unspecified locationStart: 09-03-2024 End: 27-78-3262pztdlfgyyyWFFSRI B BERRYNot AvailableStart: 05-08-2024 End: 28-01-0928Akveyw Ann Marie Jeong PA Work Phone: NOM[facility] CI FMStart: 05-08-2024 End: 96-20-1867Eqmlud Ann Marie Jeong PA Work Phone: [facility] CI FMStart: 05-08-2024 End: 60-17-7440Vdbkmavfd Result EncounterMarina GOMEZ Work Phone: noms External Department UnsolicitedStart: 05-08-2024 End: 55-15-7065Rmlydg outpatient visit 25 minutesMarina GOMEZ Work Phone: noms CI FMComment on above:Moderate persistent asthma without complication (CMS/HCC) (Primary Dx); Chronic cough; Benign essential hypertension (CMS/HCC); Obstructive sleep apnea syndromeStart: 04-22-2024 End: 75-49-8181Ligzprn encounter procedureEmmary Holbrook MD Work Phone: noms SWS DERMComment on above:Basal cell carcinoma (BCC) of skin of other part of torso (Primary Dx)Start: 85-50-7587Aksddn Ann Marie GOMEZ Work Phone: noms CI FMStart: 12-00-5028Fztzvz Ann Marie GOMEZ Work Phone: noms CI FMStart: 08-07-2023 End: 22-72-5666mxxqxjvrwfFpwdu Nory Other [employer] Other Start: 51-17-5642Llutozygz encounterHeidi GastFPG Pulmonary DiseaseStart: 03-14-2023 End: 55-76-3592vjmxxfwgonEujpc Nory Other [employer] Other Start: 35-06-0222Habdal outpatient visit 25 minutes Gayle GastFPG Pulmonary DiseaseStart: 03-19-2022 End: 77-52-5303fdxnargjhaDnfyg Nory Other no[employer] Other Start: 02-42-8454Tjcahl outpatient visit 25 minutes Gayle GastFPG Pulmonary DiseaseStart: 10-18-2021 End: 56-43-8049dmafhriwreCbwvb Nory Other Nort [employer] Other Start: 28-97-9659Uqfoupojd encounterHeidi GastFPG Pulmonary DiseaseStart: 08-08-2021 End: 88-18-7389nylnlmzlwqOE NICK BESSFacility:Z8Tplhm: 07-28-2021 End: 94-39-9633wahbjvhskbUA NICK BESSFacility:P5Gfxkg: 62-38-3640Zvvfwy outpatient visit 25 minutesHeidi GastFPG Pulmonary DiseaseStart: 11-07-2020 End: 14-83-8650obhqhvvzchQG NONE LISTED REQUESTFacility:W5Phgao: 10-31-2020 End: 28-05-3379vnnoiefsbrWK NONE LISTED REQUESTFacility:X3Zqtny: 12-30-2017 End: 11-47-4761JbvhqqseawFryiqSusi MillerFacility:[facility] Centertart: 12-28-2017 End: 19-91-6930CyzguimxirMsvac Andrew HuddlestonFacility:[facility] HospitalStart: 11-26-2017 End: 07-54-8009YqunidgwmuVUSTERX PHYSICIANFacility:[facility]MCStart: 10-08-2017 End: 95-28-0542SfkfifnxdnTKAQMLH PHYSICIANFacility:[facility]tart: 10-07-2017 End: 24-39-5668UkrakagedoOXUUPWT PHYSICIANFacility:[facility] Procedures DateProcedureProcedure DetailPerforming ClinicianStart: 12-10-8066Wuu bmtry prtl coher intrfrmtry io lens pwr Coco Oliveros DO Work Phone: Start: 07-07-2025 End: 76-46-1374Pppcw medical xm&eval compre new pt 1/> vstAge-related nuclear cataract of both eyesRemedios Oliveros DO Work Phone: comment on above:Age-related nuclear cataract of both eyes (Primary Dx)Start: 06-16-1694GKM CBC WITH AUTO DIFFGeneric External Data ProviderStart: 88-66-6103Fclrcw oxide gas determinationRenecinthia Obrien MD Work Phone: Start: 36-92-4692Fasxaoaud rspse spmtry pre&post- brncdilat admnRnicolás Obrien MD Work Phone: Start: 32-06-3148EUXPXDYCLQJ SKIN LESIONEmily Rissa Holbrook MD Work Phone: Start: 39-43-5472PJ CHEST 2VMarina GOMEZ Work Phone: Start: 26-47-8641APQTKKGANLT OF LESIONEmily Rissa Holbrook MD Work Phone: Plan of Treatment DateCare ActivityDetailAuthorStart: 37-59-6569CQG Vaccine (1 - 1-dose 75+ series)RSV Vaccine (1 - 1-dose 75+ series)[facility] Diabetes ScreeningDiabetes ScreeningGerman Hospitaltart: 04-08-2026Medicare Annual Wellness (AWV)Medicare Annual Wellness (AWV)[facility] HealthcareStart: 08-03-2025 End: 61-48-7133Ecdswdg encounter zsiywvnqn90/02/2025 8:15 AM EST Office Visit [facility] [address] [place], [id number] Ruben Tai, DO [address] [place] [address] [facility]ologyStart: 07-21-2025 End: 09-56-2170Oxmfdgp encounter procedureNOMS SWS DERMStart: 07-07-2025 End: 41-37-8215Rjxgltd encounter procedureNOMS [place] [facility] EyeComment on above:ArrivedStart: 06-22-2025 End: 46-78-9703Iftuklp encounter procedurePULMONARYComment on above:7 week follow upArrivedStart: 05-18-2025 End: 77-88-6140Gumnpor encounter tlmykqrbw05/16/2025 9:45 AM EDT Office Visit [facility] [address] [place], [id number] Ruben Tai, [address] [place] [address] [facility] Comment on above:ArrivedStart: 05-05-2025 End: 61-48-1909Mnpvrww encounter ssxotbcec86/03/2025 2:00 PM EDT Office Visit [facility] [address], [id number] Ruben Tai, [address] [place] [address] [facility]aryngologyStart: 05-04-2025 End: 66-61-6638XADB RESP DISEASE PROF REG 5ALGN RESP DISEASE PROF REG 5 Lab Routine Allergic rhinitis, unspecified seasonality, unspecified trigger Chronic cough Asthma, unspecified asthma severity, unspecified whether complicated, unspecified whether persistent (HCC) Expected: 05/04/2025, Expires: 08/03/2025 [facility]:Expected: 05/04/2025, Expires: 08/03/2025Start: 05-04-2025 End: 05-75-1068WSI W Auto Differential panel - BloodCOMPLETE BLOOD COUNT AND DIFFERENTIAL Lab Routine Chronic cough Asthma, unspecified asthma severity, unspecified whether complicated, unspecified whether persistent (HCC) Expected: 05/04/2025, [facility] ClinicComment on above:Expected: 05/04/2025, Expires: 08/03/2025Start: 05-04-2025 End: 20-15-0094EpP [Units/volume] in Serum or PlasmaIMMUNOGLOBULIN E Lab Routine Allergic rhinitis, unspecified seasonality, unspecified trigger Chronic cough Asthma, unspecified asthma severity, unspecified whether complicated, unspecified whether persistent (HCC) Expected: 05/04/2025, Expires: 08/03/2025 [facility] Work Phone: Comment on above:Expected: 05/04/2025, Expires: 08/03/2025Start: 05-04-2025 End: 65-35-2954Vlwnugi encounter gccargxoj92/02/2025 8:45 AM EDT Office Visit [facility] [address] [place] [id number] Ruben Tai, DO [address] [place] [address] NOM [place] OtolaryngologyStart: 27-25-8498KTKWV-19 Vaccine ( season)COVID-19 Vaccine ()[facility] HealthcareStart: 81-83-8439Boehpgqzc vaccinationInfluenza Vaccine (#1)[facility] HealthcareStart: 04-20-2025 End: 95-50-7362LY Pharynx and Cervical esophagus Views W barium contrast POFL esophagus pharynx Imaging Routine Chronic cough Gastroesophageal reflux disease, unspecified whether esophagitis present Expected: 04/20/2025 (Approximate), Expires: 04/20/2026[facility] Work Phone: comment on above:Expected: 04/20/2025 (Approximate), Expires: 04/20/2026Start: 04-20-2025 End: 88-34-2439Mylwejv encounter nwblcvetd95/19/2025 8:30 AM EDT Office Visit [facility] [address] [place], [address] Ruben Tai, DO [address] [place] [address] ArrivedNOWI [place] [facility] Comment on above:ArrivedStart: 36-51-0708Vqbgeveno for malignant neoplasm of colonColorectal Cancer ScreeningNOMS HealthcareComment on above:Postponed from 1960 (Patient Refused)Start: 03-26-2025 End: 78-89-8344GKI Skeletal system Views for bone densityDEXA bone density Imaging Routine Moderate persistent asthma without complication (HCC) Closed fracture of multiple ribs of right side, initial encounter Current use of steroid medication Expected: 03/26/2025, Expires: 03/26/2026[facility] Work Phone: Comment on above:Expected: 03/26/2025, Expires: 03/26/2026Start: 03-26-2025 End: 27-19-1635Vrcv sleep testHome sleep test Sleep Center Routine Obstructive sleep apnea syndrome Expected: 03/26/2025 (Approximate), Expires: 03/26/2026NOMS HealthcareComment on above:Expected: 03/26/2025 (Approximate), Expires: 03/26/2026Start: 03-24-2025 End: 68-46-7888Ewruyfa encounter bfgudstkq74/23/2025 9:15 AM EDT Office Visit [facility] [address] [place] [address] Nick Bess MD [address] [place] [address] N[facility] CI FMStart: 03-23-2025 End: 58-16-2111Pibfjgq encounter procedureNOMS SWS DERMComment on above:Arrived Start: 03-11-2025 End: 99-92-1510Ibevpca encounter jswsukjnz67/10/2025 9:00 AM EDT Office Visit [facility] [address] [place] [address] Marina Jeong PA [address] [place] [address]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 infection, and incomplete removal [...] lidocaine used: 3.0 cc Previous accession number: [id number] Emphasized to return to clinic for any signs of recurrence prior to next visit. Next Visit: as scheduled documented in this encounterParkland Health CenterVsizfwcpoi77-86-7504 Evaluation note* Encounter Date Diagnosis Assessment Notes Treatment Notes Treatment Clinical Notes Aug, Mild intermittent asthma, uncomp licated (ICD-10 - J45.20) [facility] Other 07-13-2023 Evaluation note* Encounter Date Diagnosis Assessment Notes Treatment Notes Treatment Clinical Notes Mar, Reactive airway disease (ICD-10 - J45.909) Mar,ERD (gastroesophageal reflux disease) (ICD-10 - K21.9) Mar,Sleep apnea (ICD-10 - G47.30) Mar,ough variant asthma (ICD-10 - J45.991)Use nasal rinse as recommended per Dr. Mustafa Mar,Mild intermittent asthma, uncomplicated (ICD-10 - J45.20) [facility] Other 07-18-2022 Evaluation note* Encounter Date Diagnosis Assessment Notes Treatment Notes Treatment Clinical Notes Mar, Reactive airway disease (ICD-10 - J45.909) Mar,GERD (gastroesophageal reflux disease) (ICD-10 - K21.9) Mar,leep apnea (ICD-10 - G47.30) Mar,ough variant asthma (ICD-10 - J45.991) Mar,Mild intermittent asthma, uncomplicated (ICD-10 - J45.20) [facility] Other 02-16-2022 Evaluation note* Encounter Date Diagnosis Assessment Notes Treatment Notes Treatment Clinical Notes Oct, GERD (gastroesophageal reflux di sease) (ICD-10 - K21.9) [facility] Other 10-19-2021 Evaluation note* Encounter Date Diagnosis [...] - J45.20) Begin trial of Trelegy 200/62.5/25 [facility] Other Evaluation note* Diagnosis Basal cell carcinoma [...] laryngitis, without mention of obstruction Mixed hyperlipidemia ([facility]) Mixed hyperlipidemia Screening for malignant neoplasm of prostate documented in this encounter [facility] HealthcareEvaluation note* Diagnosis Gastroesophageal reflux disease without esophagitis- Primary Esophageal reflux Moderate persistent asthma without complication (HCC) Class 2 severe obesity due to excess calories with serious comorbidity and body mass index (BMI) of36.0 to 36.9 in adult ([facility]) Closed fracture of multiple ribs of right side with routine healing, subsequent encounter Persistent cough for 3 weeks or longer documented in this encounter [facility] HealthcareEvaluation noteNo assessment information availableMccullough-Hyde Memorial [facility] Work Phone: Evaluation note* Diagnosis Closed fracture of multiple ribs of right side with routine healing, subsequent encounter- Primary documented in this encounter [facility] HealthcareEvaluation note* Diagnosis Seborrheic keratosis- Primary History of basal cell carcinoma Personal history of other malignant neoplasm of skin Seborrheic keratosis, inflamed Lentigines Actinic keratosis documented in this encounter [facility] HealthcareEvaluation note* Diagnosis Persistent cough for 3 weeks or longer- Primary Obstructive sleep apnea syndrome Obstructive sleep apnea (adult) (pediatric) Moderate persistent asthma without complication (HCC) Closed fracture of multiple ribs of right side, initial encounter Current use of steroid medication documented in this encounter [facility] HealthcareEvaluation note* Diagnosis Chronic cough Cough Gastroesophageal reflux disease, unspecified whether esophagitis present documented in this encounter [facility] HealthcareEvaluation note* Diagnosis Bee sting, accidental or unintentional, initial encounter- Primary documented in this encounter [facility] HealthcareEvaluation note* Diagnosis Cough, unspecified type documented [facility] this [facility]* Diagnosis Cough, unspecified type- Primary documented in this [facility]* Diagnosis Chronic cough- Primary Cough Allergic rhinitis, unspecified seasonality, unspecified trigger Asthma, unspecified asthma severity, unspecified whether complicated, unspecified whether persistent (HCC) [facility] encounter [facility]* Diagnosis Gastroesophageal reflux disease, unspecified whether esophagitis present Chronic cough Cough documented in this encounter [facility] HealthcareEvaluation note* Diagnosis Chronic cough- Primary Cough Laryngopharyngeal reflux (LPR) documented in this encounter [facility] HealthcareEvaluation note* Diagnosis Age-related nuclear cataract of both eyes- Primary documented in this encounter [facility] HealthcareEvaluation note* Diagnosis Actinic keratosis- Primary documented in this encounter [facility] CenterHistory general Narrative - Reported* Type Description Date Medical History asthma Medical HistoryHypertensionMedical HistoryEsophageal refluxMedical Historysleep apneaMedical Historyreactive airway diseaseSurgical Historynasal [id number] [facility] Other History general Narrative - Reported* Type Description Date Medical History asthma Medical HistoryHypertensionMedical HistoryEsophageal refluxMedical Historysleep apneaMedical Historyreactive airway diseaseMedical Historyumbilical hernia Surgical Historynasal [id number] [facility] Other Reason for referral (narrative)No reason for referral information availableMccullough-Hyde Memorial Hospital Work Phone: Summary Purpose Family History Relationship [...] section and content) DATE CREATED AUTHOR 02/18/2018 [facility] DATE CREATED AUTHOR AUTHOR'S ORGANIZ ATION 02/21/2018 [facility] DATE CREATED AUTHOR AUTHOR'S ORGANIZ ATION 08/13/2021 [facility] DATE CREATED AUTHOR AUTHOR'S ORGANIZ ATION 05/17/2025 [facility] DATE CREATED AUTHOR AUTHOR'S ORGANIZ ATION 07/05/2025 [facility] DATE CREATED AUTHOR AUTHOR'S ORGANIZ ATION 07/14/2025 [facility] REASON FOR VISIT (unrecogniz ed section and content) FfwljrIikhuwqaPeuszi-uxDbuvyeJdoqnwulSaibms-xwNGM ER 08/27/24 dx: asthma with exacerbation,VYAS discharged home with rx for prednisone,bromfed DM and zofran ReasonCommentsMed RefillBreztriReasonCommentsMedicare Annual Wellness Visit SubsequentReasonOnset DateCommentsMed Gqmmke8103/17/2025ReasonCommentsSkin Check ReasonCommentsdiscuss referralReasonCommentsCoughNew Patient : coughReason CommentsSpirometrySpecialtyDiagnoses / ProceduresReferred By ContactReferred To [facility] [employer] Diagnoses Cough, unspecified type Procedures NITRIC OXIDE, EXHALED NITRIC [place] [address] [place] [address] Phone: tel: fax: [place] [address] Referral IDStatusRecox monettStart DateExpiration DateVisits RequestedVisits [id number] Auto-Generated Referral [id number] / ProceduresReferred By ContactReferred To [facility] [employer] Diagnoses Cough, unspecified type Procedures SPIROMETRY - BASELINE AND POST DILATOR BRNCDILAT RSPSE SPMTRY PRE&[place] [address] [place] [address] Phone: tel: fax: Respiratory [address] [address] Referral IDStatusReasonStart DateExpiration DateVisits RequestedVisits [id number] Auto-Generated Referral [id number]ntomQpnnvykar / ProceduresReferred By ContactReferred To ContactPulmonary Disease / [facility] Diagnoses Persistent cough for 3 weeks or longer Moderate persistent asthma without complication (HCC) Procedures OFFICE/OUTPATIENT [facility] 60 MINUTES [id number] (SNOMED CT) - AMB REFERRAL TO PULMONOLOGY Nick Bess II, MD [address] [facility] [address] [place] [address] Phone: tel: fax: Nick Zepeda DO [address] [place] [address] Phone: tel: fax: Referral IDStatusReasonStart DateExpiration DateVisits RequestedVisits [id number] Review/[id number] Esophagram resultsReasonCommentsGERD1 month reckReasonCommentsCataract Care Teams (unrecognized sec tion and content) Team MemberRelationshipSpecialtyStart DateEnd Date Nick Bess MD [address] [place] [address] PCP - Medical [employer]01/31/23 Nick Bess MD [address] [facility] [address] [place] [address] PCP - GeneralInternal Medicine01/08/23Team MemberRelationshipSpecialtyStart Date End Date Nick Bess MD [address] [facility] [address] [place] [address] PCP - GeneralInternal Medicine01/08/23 Nick Bess MD [address] [facility] [address] [place] [address] PCP - [employer]10/03/23Team MemberRelationshipSpecialtyStart DateEnd Date Nick Bess MD [address] [place] [address] [place] [address] PCP - GeneralInternal Medicine01/08/23 Nick Bess MD [address] [place] [address] [place] [address] PCP - Aet10/03/23Team MemberRelationshipSpecialtyStart DateEnd Nick Bess MD [address] [place] [address] [place] [address] [facility] - [facility]01/08/23 Nick Bess MD [address] [place] [address] [place] [address] [facility] - [facility]10/03/23Team MemberRelationshipSpecialtyStart DateEnd Date Nick Bess MD [address] [place] [address] [place] [address] PCP - [facility]01/08/23 Nick Bess MD [address] [place] [address] [place] [address] PCP - Aet10/03/23Team MemberRelationshipSpecialtyStart DateEnd Date Nick Bess MD [address] [place] [address] [place] [address] [facility] - [facility]01/08/23 Nick Bess MD [address] [place] [address] [place] [address] PCP - Aet10/03/23Team MemberRelationshipSpecialtyStart DateEnd Date Nick Bess MD [address] [place] [address] [place] [address] PCP - GeneralInternal Medicine01/08/23 Nick Bess MD [address] [place] [address] [place] [address] PCP - Aet10/03/23Team MemberRelationshipSpecialtyStart DateEnd Nick Bess MD [address] [place] [address] [place] [address] PCP - [facility] Medicine01/08/23 Nick Bess MD [address] [place] [address] [place] [address] PCP - [facility]10/03/23Team MemberRelationshipSpecialtyStart DateEnd Nick Bess MD [address] [place] [address] [place] [address] PCP - [facility] Medicine01/08/23 iNck Bess MD [address] [place] [address] [place] [address] PCP - Aet10/03/23Team MemberRelationshipSpecialtyStart DateEnd Nick Bess MD [address] [place] [address] [place] [address] PCP - [facility] Medicine01/08/23 Nick Bess MD [address] [place] [address] [place] [address] PCP - Aet10/03/23Team MemberRelationshipSpecialtyStart DateEnd Nick Bess MD [address] [place] [address] [place] [address] PCP - GeneralInternal Medicine01/08/23 Nick Bess MD [address] [place] [address] [place] [address] PCP - [employer]10/03/23Team MemberRelationshipSpecialtyStart DateEnd Nick Bess MD [address] [place] [address] [place] [address] PCP - [facility] Medicine01/08/23 Nick Bess MD [address] [place] [address] [place] [address] PCP - Aet10/03/23 Team Status: Active Member Role Status Dates Nick Bess II MD Primary Care Provider Active Team Status: Inactive Member Role Status Dates Nick Bess II MD Primary Care Provider Active Start: March 11, 2025 End: March 11Nino Allen ProviderActiveStart: March 11, 2025 End: March 11, 2025Team MemberRelationshipSpecialtyStart DateEnd Nick Bess MD [address] [place] [address] [place] [address] PCP - GeneralInternal Medicine01/08/23 Nick Bess MD [address] [place] [address] [place] [address] PCP - Aet10/03/23Team MemberRelationshipSpecialtyStart DateEnd Nick Bess MD [address] [place] [address] [place] [address] PCP - GeneralInternal Medicine01/08/23 Nick Bess MD [address] [place] [address] [place] [address] PCP - Aet10/03/23Team MemberRelationshipSpecialtyStart DateEnd Date Nick Bess MD [address] [place] [address] [place] [address] PCP - GeneralInternal Medicine01/08/23 Nick Bess MD [address] [place] [address] [place] [address] PCP - Aet10/03/23Team MemberRelationshipSpecialtyStart DateEnd Date Nick Bess MD [address] [place] [address] [place] [address] [facility] - [facility] Medicine01/08/23 Nick Bess MD [address] [place] [address] [place] [address] PCP - Aet10/03/23Team MemberRelationshipSpecialtyStart DateEnd Date Nick Bess II, MD PCP - GeneralInternal [facility]11/22/14Team MemberRelationshipSpecialtyStart Date End Date Nick Bess MD [address] [place] [address] [place] [address] PCP - [facility] [place] Medicine01/08/23 Nick Bess MD [address] [place] [address] [place] [address] PCP - [employer]10/03/23Team MemberRelationshipSpecialtyStart DateEnd Date Nick Bess II, MD PCP - [facility]11/22/14Team MemberRelationshipSpecialtyStart Date End Date Nick Bess II, MD PCP - [facility]11/22/14Team MemberRelationshipSpecialtyStart Date End Date Nick Bess II, MD PCP - [facility]11/22/14Team MemberRelationshipSpecialtyStart Date End Date Nick Bess II, MD PCP - [facility]11/22/14Team MemberRelationshipSpecialtyStart Date End Date Nick Bess MD [address] [place] [address] [place] [address] PCP - [facility]01/08/23 Nick Bess MD [address] [place] [address] [place] [address] PCP [facility]10/03/23 Team Status: Inactive Member Role Status Dates Nick Bess II MD Primary Care Provider Active Start: May 12, 2025 End: May 12enjahomer Tai , DOAttbelle ProviderActiveStart: May 12, 2025 End: May 12, 2025Team MemberRelationshipSpecialtyStart DateEnd Date Nick Bess MD [address] [place] [address] [place] [address] PCP - [facility]01/08/23 Nick Bess MD [address] [place] [address] [place] [address] PCP - Aet10/03/23Team MemberRelationshipSpecialtyStart DateEnd Nick Bess MD [address] [place] [address] [place] [address] PCP - GeneralInternal Medicine01/08/23 Nick Bess MD [address] [place] [address] [place] [address] PCP - Aet10/03/23Team MemberRelationshipSpecialtyStart DateEnd Nick Bess MD [address] [place] [address] [place] [address] PCP - [facility]01/08/23 Nick Bess MD [address] [place] [address] [place] [address] [facility]CP - [facility]10/03/23Team MemberRelationshipSpecialtyStart DateEnd Nick Bess MD [address] [place] [address] [place] [address] PCP - [facility] [place]01/08/23 Nick Bess MD [address] [place] [address] [place] [address] PCP - [facility]10/03/23Team MemberRelationshipSpecialtyStart DateEnd Nick Bess MD [address] [place] [address] [place] [address] PCP - [facility] [place]nal Medicine01/08/23 Nick Bess MD [address] [facility] [address] [place] [address] [facility] - [employer]10/03/23 Goals (unrecognized section and content) [...] any alcohol or drug abuse patient.[facility] HospitalIn the event this information is protected by the Federal Confidentiality of Alcohol and Drug Abuse Patient Records regulations: The Federal rules restrict any use of the information to criminally investigate or prosecute any alcohol or drug abuse patient.[facility] HospitalIn the event this information is protected by the Federal Confidentiality of Alcohol and Drug Abuse Patient Records regulations: The Federal rules restrict any use of the information to criminally investigate or prosecute any alcohol or drug abuse patient.[facility] HospitalIn the event this information is protected by the Federal Confidentiality of Alcohol and Drug Abuse Patient Records regulations: The Federal rules restrict any use of the information to criminally investigate or prosecute any alcohol or drug abuse patient.[facility] HospitalIn the event this information is protected by the Federal Confidentiality of Alcohol and Drug Abuse Patient Records regulations: The Federal rules restrict any use of the information to criminally investigate or prosecute any alcohol or drug abuse patient.[facility] FOR RECORDS PERTAINING TO PATIENTS WHO [...] BE BASED ON THE PRIMARY CLINICAL RECORDS. [facility] [employer] [facility]. provides no warranty or guarantee of the accuracy or completeness of information in this document.
[2025-08-01 11:21] LABS: Hematocrit 46.7 % (42.0-54.0); Hemoglobin 15.9 g/dL (14.0-18.0); Immature Granulocytes Abs Auto 0.08 10^3/uL (0.00-0.03); Immature Granulocytes Pct Auto 0.6 % (0.0-0.5); Lymphocytes Absolute Auto 3.1 10^3/uL (1.2-3.8); Mean Corpuscular HGB Conc 34.0 g/dL (29.9-35.2); Mean Corpuscular Hemoglobin 34.3 pg (25.9-34.0); Mean Corpuscular Volume 100.9 fL (80.0-94.0); Platelet Count 346 10^3/uL (150-450); Red Blood Count 4.63 10^6/uL (4.70-6.10); White Blood Count 13.8 10^3/uL (4.0-11.0)
[2025-08-01 11:23] LABS: SARS-CoV-2 Ag NEGATIVE (NEGATIVE)
[2025-08-01] MEDS: ALBUTEROL SULFATE 2.5 MG/3 ML VIAL NEB IH (11:23)
[2025-08-01 11:24] VITALS: PULSE 90; O2SAT 92
[2025-08-01] MEDS: METHYLPREDNISOLONE SOD SUCC PF 125 MG/2 ML VIAL IVP (11:27)
[2025-08-01 11:46] LABS: Anion Gap 17.4; Blood Urea Nitrogen 11.0 mg/dL (7.0-18.0); Calcium 8.7 mg/dL (8.5-10.1); Carbon Dioxide 25.0 mmol/L (21.0-32.0); Chloride 106 mmol/L (98-107); Estimated GFR (African America >60 (>=60 mL/min/1.73m^2); Estimated GFR (Non-African Ame >60 (>=60 mL/min/1.73m^2); Glucose 111 mg/dL (74-106); Potassium 3.4 mmol/L (3.5-5.1); Sodium 145 mmol/L (136-145)
[2025-08-01 11:53] LABS: NT Pro B Type Natriuretic Pept 177.0 pg/mL (<=900.0)
== END 2025-08-01 13:13 | disposition home or self-care (01) ==
PROVIDERS: Emergency Provider Emergency Medicine; PCP Internal Medicine
DX: J06.9 Acute upper respiratory infection, unspecified (principal); F41.9 Anxiety disorder, unspecified
CPT/HCPCS: 36415; 71045; 71275; 80048; 83880; 84484; 85025; 87804; 87811; 94640; 96374; 99285; J2919; Q9967